=== PATIENT | male | born 1995 | race Caucasian/White ===

== ENCOUNTER → 2017-01-18 | Outpatient (CLI) | payer OTHER ==
[~2017-01-18] MED LIST: LEVO50TA PO; LSN/2025 PO
[2017-01-18 12:59] LABS: CHOLESTEROL/HDL RATIO 4.1; THYROID STIMULATING HORMONE 6.53 uIu/ml (0.300-4.500)
== END | disposition home or self-care (01) ==
LOC: C.LABPBG 07:29
PROVIDERS: ATTEND Physician Assistant
DX: Z00.00 Encounter for general adult medical examination without abnormal findings (principal); E03.9 Hypothyroidism, unspecified

== ENCOUNTER → 2017-03-16 | Outpatient (CLI) | payer OTHER | END | disposition home or self-care (01) | LOC: C.LABPBG 13:28 | PROVIDERS: ATTEND Physician Assistant | DX: E03.9 Hypothyroidism, unspecified (principal) ==

== ENCOUNTER → 2017-08-12 | Outpatient (CLI) | payer OTHER ==
[2017-08-13 08:14] LABS: HEMOGLOBIN A1C 5.2 % (4.5-5.6)
== END | disposition home or self-care (01) ==
LOC: C.LABPBG 14:16
PROVIDERS: ATTEND Physician Assistant
DX: E11.9 Type 2 diabetes mellitus without complications (principal)

== ENCOUNTER 2021-04-01 22:39 | Inpatient (IN) ==
--- NOTE | 2021-04-01 22:56 | Emergency Department Note ---
Impression & Plan 2019 novel coronavirus-infected pneumonia (NCIP), Malaise and fatigue, Respiratory failure ED Provider Note Provider: Leonidas Pa MD DATE OF SERVICE: 04/01/2021 CHIEF COMPLAINT: Fatigue, shortness of breath HISTORY OF PRESENT ILLNESS: Patient is a 25-year-old gentleman past medical history of obesity, GERD, migraines, hypothyroidism, and hypertension presenting here today via ambulance from home. Called by the ambulance due to fatigue. Found to be significant hypoxic in the 60s on room air. Discussed with the patient as he initially did not want to come to the hospital via phone that he needed to come. Patient was agreeable and after lengthy extrication patient arrived in the ER. Was on a nonrebreather in the low 90s on room air. Patient states fatigue and a little bit of shortness of breath. Denies significant pain. States he is not been able to ambulate well. States he is now vaccinated for Covid his mother's been sick and just tonight from Covid. Reports has been sick for ~2 weeks. Denies significant abdominal pain or chest pain. States he did have a mild fall earlier in the shower but denies again head pain at this time. He denies a history of asthma. Is not on anticoagulants. Patient denies a history of asthma REVIEW OF SYSTEMS: A total of 10 review of systems was obtained and negative except as stated above in the HPI. PAST MEDICAL HISTORY: As noted above MEDICATIONS: Reviewed home medications SOCIAL HISTORY: Normally lives at home with mother PHYSICAL EXAM: GENERAL: alert and oriented appears anxious on the stretcher oxygen mask in place Head: normocephalic and atraumatic EYES: No injection, discharge or icterus. NECK: Trachea midline. Supple. ENT: Mucous membranes pink and moist. LUNGS: Airway patent. No retractions but tachypneic. Breath sounds clear HEART: Regular tachycardic rate and rhythm. No chest wall tenderness. ABDOMEN: Soft obese and nontender. With some erythema in the inguinal region. SKIN: Slight peripheral bed cyanosis noted. Warm, dry, with a few small folliculitis areas noted on the back. No large contusions noted. Some slight small areas of erythema noted consistent with grade 1 decubitus ulcerations. EXTREMITIES: Without tenderness or obvious deformity. Given habitus quite large in size. NEUROLOGICAL: No focal deficits moving all extremities to command No aphasia. No facial droop or slurred speech. EK bpm sinus tachycardia. No PVC or PAC. No acute ST segment elevation with some inferior T wave inversions. QTC 470. CONTINUOUS CARDIAC MONITORING: was ordered and showed a heart rate of 100s to 120s bpm in sinus tachycardia 1 view chest x-ray per my interpretation: Diffuse interstitial inflammatory changes without pneumothorax consistent with viral pneumonia Patient's laboratory studies and imaging reviewed. Differential includes Reactive airway disease, pneumonia, pneumothorax, COPD, CHF, infections, cardiac ischemia, pulmonary embolism, musculoskeletal, gastrointestinal, as well as other pathologies. IMPRESSION/MEDICAL DECISION MAKING: Patient unvaccinated significant exposure to Covid now sick and hypoxic. Patient states he did fall today but no significant trauma or use of anticoagulants reported. Requiring significant oxygen supplementation escalated to BiPAP. Mentating well. ABG without acidosis or hypercarbia. Some pickwickian syndrome probably also at play. Lactate minimally elevated. White blood cell count minimally elevated. Some inguinal erythema related to hygiene issues noted. Troponin not elevated. Minimal AST elevation likely viral in nature. Chest x-ray per my interpretation evidence consistent with Covid. Covid test sent. Given dexamethasone for hypoxic Covid treatment. Do not feel he needs intubation at this point but he is severely ill. Hospitalist consulted for admission. They have concern for the infection given his poor inguinal care and will place the patient antibiotics. I doubt this represents Dalia's and do not feel he is septic. ABG without hypercarbia or acidosis. Mentating well at this point. High risk for decline. DIAGNOSIS: Hypoxic respiratory failure, COVID-19 pneumonia, fatigue DISPOSITION: Hospitalist will evaluate Patient was agreeable with this plan. Critical Care I have personally spent 49 minutes of critical care time in the direct management of this patient. This includes bedside care, interpretation of diagnostic studies, and testing, discussion with consultants, patient, and other required patient management activities. These 49 minutes is in excess of all separately billable procedures. Past Med/Surg History Medical History Abscess of back Acne ADD (attention deficit disorder) Anxiety Asthma Dental caries Depression Drug abuse Finger abrasion Frequent headaches GERD (gastroesophageal reflux disease) Hidradenitis suppurativa HTN (hypertension) Hypothyroid Lumbar back pain Lumbar strain Malaise and fatigue Migraine Mood disorder Morbid obesity Tachycardia (07/14/13) Surgical History H/O tympanostomy History of tonsillectomy and adenoidectomy Family History Father Alcohol abuse Drug abuse Mother Anxiety Bilateral nephrolithiasis Heart disease Depression Diabetes Hypertension Gallbladder disease Lung disease Cancer skin Grandfather Myocardial infarction Social History Smoking Status: Never smoker Tobacco Type: Cigarettes Age Started Using Tobacco: 16; Age Quit Using Tobacco: 22; Second Hand Exposure: Yes; Hx Alcohol Use: Yes Alcohol Intake Frequency: Monthly or Less Alcohol Intake Frequency Comment: Rarely Hx Substance Use: Yes Prescribed Medications: Marijuana Preferred Language: German Communication Ability: Effective Visual Impairment: No Limitations Hearing Ability: Normal Beliefs That Will Affect Care: None marital status: Single Current Living Situation: Family current occupational status: unemployed Feels Safe at Home: Yes Childhood Exposure to Second-Hand Smoke: Yes caffeine: Yes (tea occasional) during the past year weight has: remained stable Dental Care, Regularly: No Physical Activity Frequency: 1-2 Times per Week Seatbelt Use: never Sunscreen Use: No Allergies Allergies Allergy/AdvReac Type Severity Reaction Status Date / Time acetaminophen Allergy Intermediate RASH Verified 04/01/21 23:53 bee venom protein (honey bee) Allergy Intermediate Localized Verified 04/01/21 23:53 swelling ibuprofen Allergy Intermediate RASH Verified 04/01/21 23:53 ketorolac Allergy Intermediate RASH Verified 04/01/21 23:53 tramadol Allergy Intermediate RASH Verified 04/01/21 23:53 azithromycin [From Zithromax] Allergy Mild hives, IV Verified 04/01/21 23:53 form only gabapentin Allergy Unknown Unknown Verified 04/01/21 23:53 naproxen Allergy Unknown Unknown Verified 04/01/21 23:53 Home Meds Home Medications Medication Instructions Recorded Confirmed doxycycline hyclate 100 mg capsule 100 mg PO BID 11/17/20 04/01/21 Previous Rx's Medication Instructions Recorded omeprazole 20 mg capsule,delayed 20 mg PO QAM #90 cap 09/05/20 release lisinopril 20 1 tab PO QAM #90 tab 06/07/21 mg-hydrochlorothiazide 25 mg tablet propranolol 20 mg tablet 20 mg PO BID #180 tab 10/13/20 fluticasone propionate 50 2 spray INTRANASAL DAILY #16 g 11/05/20 mcg/actuation nasal spray,suspension sumatriptan succinate 100 mg tablet See Rx Instructions PO .COMPLEX 11/05/20 #10 tab levothyroxine 50 mcg tablet 50 mcg PO QAM #90 tab 11/26/20 folic acid 1 mg tablet 1 mg PO DAILY #30 tab 01/15/21 Results & Data (ED) Vital Signs Vital Signs - 24 hr 04/01/21 22:30 04/01/21 22:42 04/01/21 22:58 Temperature 37.2 C Temperature Source Oral Pulse Rate 119 H 129 H Pulse Rate [Left Apical] Respiratory Rate 40 H 24 Respiratory Effort / Characteristics Spontaneous Labored Non-Labored Spontaneous Respiratory Depth Normal Respiratory Pattern Gasping Tachypnea Regular Blood Pressure [Right Arm] Blood Pressure Mean [Right Arm] Blood Pressure Position Lying Blood Pressure Position [Right Arm] Pulse Oximetry 94 90 Oxygen Delivery Method Non-rebreather BiPAP Oxygen Flow Rate 15 Fraction of Inspired Oxygen 100 Sepsis Recent Fever Within 48 Hours No Sepsis New/Unexplained Change in Mental Status N/A Sepsis Action Taken by Nursing Physician Notified 04/01/21 23:19 04/01/21 23:47 04/02/21 00:04 Temperature Temperature Source Pulse Rate Pulse Rate [Left Apical] 120 H 121 H Respiratory Rate 21 21 Respiratory Effort / Characteristics Non-Labored Spontaneous Non-Labored Spontaneous Respiratory Depth Normal Normal Respiratory Pattern Regular Regular Blood Pressure [Right Arm] 111/75 107/69 Blood Pressure Mean [Right Arm] 87 81 Blood Pressure Position Blood Pressure Position [Right Arm] Lying Lying Pulse Oximetry 90 89 L 87 L Oxygen Delivery Method BiPAP BiPAP BiPAP Oxygen Flow Rate Fraction of Inspired Oxygen Sepsis Recent Fever Within 48 Hours Sepsis New/Unexplained Change in Mental Status Sepsis Action Taken by Nursing 04/02/21 00:17 04/02/21 00:20 04/02/21 00:38 Temperature Temperature Source Pulse Rate 120 H Pulse Rate [Left Apical] 116 H 117 H Respiratory Rate 19 35 H 27 H Respiratory Effort / Characteristics Non-Labored Spontaneous Spontaneous Labored Short of Breath SOB on Exertion Non-Labored Spontaneous Respiratory Depth Normal Shallow Normal Respiratory Pattern Regular Rapid/Shallow Tachypnea Regular Blood Pressure [Right Arm] 114/75 127/69 Blood Pressure Mean [Right Arm] 88 88 Blood Pressure Position Blood Pressure Position [Right Arm] Lying Lying Pulse Oximetry 91 89 L 91 Oxygen Delivery Method BiPAP BiPAP Oxygen Flow Rate Fraction of Inspired Oxygen 100 Sepsis Recent Fever Within 48 Hours Sepsis New/Unexplained Change in Mental Status Sepsis Action Taken by Nursing 04/02/21 00:49 Temperature Temperature Source Pulse Rate Pulse Rate [Left Apical] 117 H Respiratory Rate 20 Respiratory Effort / Characteristics Non-Labored Spontaneous Respiratory Depth Normal Respiratory Pattern Regular Blood Pressure [Right Arm] 118/62 Blood Pressure Mean [Right Arm] 80 Blood Pressure Position Blood Pressure Position [Right Arm] Lying Pulse Oximetry 91 Oxygen Delivery Method BiPAP Oxygen Flow Rate Fraction of Inspired Oxygen Sepsis Recent Fever Within 48 Hours Sepsis New/Unexplained Change in Mental Status Sepsis Action Taken by Nursing Laboratory Data Result diagrams: 04/01/21 23:05 04/01/21 23:05 Lab Results 04/01/21 04/01/21 04/01/21 Range/Units 23:00 23:05 23:05 WBC (4.8-10.8) K/uL RBC (4.7-6.1) M/uL Hgb (14.0-18.0) g/dL POC Hgb (14.0-18.0) g/dl Hct (42-52) % POC Hct (42-52) % MCV (80-100) fL MCH (25-34) pg MCHC (32-36) g/dL RDW Std Deviation (36.4-46.3) fL RDW Coeff of Flor (11.5-14.5) % Plt Count (130-400) K/uL MPV (7.4-10.4) fL Immature Gran % (Auto) % Neut % (Auto) % Lymph % (Auto) % [place] % (Auto) % Eos % (Auto) % Baso % (Auto) % Neut # (Auto) (1.4-6.5) K/uL Lymph # (Auto) (1.2-3.4) K/uL [place] # (Auto) (0.11-0.59) K/uL Eos # (Auto) (0-0.5) K/uL Baso # (Auto) (0-0.2) K/uL Immature Gran # (Auto) (0.00-0.02) K/uL PT (9.0-12.0) Seconds INR (0.9-1.1) APTT (21.0-31.0) Seconds PTT Ratio POC pH (7.35-7.45) POC pCO2 (35-46) mmHg POC pO2 (80-95) mmHg POC HCO3 (19-24) sabas/L POC Total CO2 (24-31) mmol/L POC Base Excess (-9-1.8) sabas/L POC ABG O2 Sat (90-95) % POC Sodium (135-144) mmol/L Sodium (136-145) mmol/L POC Potassium (3.3-5.0) mmol/L Potassium (3.5-5.1) mmol/L Chloride (98-107) mmol/L Carbon Dioxide (21-32) mmol/L Anion Gap (3-11) BUN (7-18) mg/dl Creatinine (0.6-1.4) mg/dl Est Cr Clr Drug Dosing ml/min Est GFR ( Amer) ml/min Est GFR (Non-Af Amer) ml/min BUN/Creatinine Ratio (10-20) Glucose (70-99) mg/dl Lactate 2.6 H* (0.4-2.0) mmol/L Calcium (8.5-10.1) mg/dl Magnesium (1.8-2.4) mg/dl Total Bilirubin (0.2-1) mg/dl AST (15-37) U/L ALT (12-78) U/L Alkaline Phosphatase (45-117) U/L Troponin I (0-0.045) ng/ml Total Protein (6.4-8.2) gm/dl Albumin (3.4-5.0) gm/dl Globulin (2.5-4.0) gm/dl Albumin/Globulin Ratio (0.9-2) Procalcitonin 0.38 (0-0.5) ng/ml SARS-CoV-2 (PCR) POSITIVE A* (Negative) 04/01/21 04/01/21 04/01/21 Range/Units 23:05 23:05 23:05 WBC 11.19 H (4.8-10.8) K/uL RBC 4.75 (4.7-6.1) M/uL Hgb 14.5 (14.0-18.0) g/dL POC Hgb (14.0-18.0) g/dl Hct 44.2 (42-52) % POC Hct (42-52) % MCV 93.1 (80-100) fL MCH 30.5 (25-34) pg MCHC 32.8 (32-36) g/dL RDW Std Deviation 48.7 H (36.4-46.3) fL RDW Coeff of Flor 14.4 (11.5-14.5) % Plt Count 347 (130-400) K/uL MPV 10.1 (7.4-10.4) fL Immature Gran % (Auto) 0.4 % Neut % (Auto) 78.5 % Lymph % (Auto) 6.7 % [place] % (Auto) 13.5 % Eos % (Auto) 0.8 % Baso % (Auto) 0.1 % Neut # (Auto) 8.78 H (1.4-6.5) K/uL Lymph # (Auto) 0.75 L (1.2-3.4) K/uL [place] # (Auto) 1.51 H (0.11-0.59) K/uL Eos # (Auto) 0.09 (0-0.5) K/uL Baso # (Auto) 0.01 (0-0.2) K/uL Immature Gran # (Auto) 0.05 H (0.00-0.02) K/uL PT 11.8 (9.0-12.0) Seconds INR 1.2 H (0.9-1.1) APTT 24.3 (21.0-31.0) Seconds PTT Ratio 0.9 POC pH (7.35-7.45) POC pCO2 (35-46) mmHg POC pO2 (80-95) mmHg POC HCO3 (19-24) sabas/L POC Total CO2 (24-31) mmol/L POC Base Excess (-9-1.8) sabas/L POC ABG O2 Sat (90-95) % POC Sodium (135-144) mmol/L Sodium 136 (136-145) mmol/L POC Potassium (3.3-5.0) mmol/L Potassium 4.2 (3.5-5.1) mmol/L Chloride 103 (98-107) mmol/L Carbon Dioxide 23 (21-32) mmol/L Anion Gap 10.0 (3-11) BUN 56 H (7-18) mg/dl Creatinine 1.15 (0.6-1.4) mg/dl Est Cr Clr Drug Dosing 189.7 ml/min Est GFR ( Amer) 100.5 ml/min Est GFR (Non-Af Amer) 86.7 ml/min BUN/Creatinine Ratio 49.0 H (10-20) Glucose 124 H (70-99) mg/dl Lactate (0.4-2.0) mmol/L Calcium 9.1 (8.5-10.1) mg/dl Magnesium 2.5 H (1.8-2.4) mg/dl Total Bilirubin 1.0 (0.2-1) mg/dl AST 79 H (15-37) U/L ALT 49 (12-78) U/L Alkaline Phosphatase 78 (45-117) U/L Troponin I < 0.015 (0-0.045) ng/ml Total Protein 8.7 H (6.4-8.2) gm/dl Albumin 2.4 L (3.4-5.0) gm/dl Globulin 6.3 H (2.5-4.0) gm/dl Albumin/Globulin Ratio 0.4 L (0.9-2) Procalcitonin (0-0.5) ng/ml SARS-CoV-2 (PCR) (Negative) 04/02/21 Range/Units 00:15 WBC (4.8-10.8) K/uL RBC (4.7-6.1) M/uL Hgb (14.0-18.0) g/dL POC Hgb 15.3 (14.0-18.0) g/dl Hct (42-52) % POC Hct 45 (42-52) % MCV (80-100) fL MCH (25-34) pg MCHC (32-36) g/dL RDW Std Deviation (36.4-46.3) fL RDW Coeff of Flor (11.5-14.5) % Plt Count (130-400) K/uL MPV (7.4-10.4) fL Immature Gran % (Auto) % Neut % (Auto) % Lymph % (Auto) % [place] % (Auto) % Eos % (Auto) % Baso % (Auto) % Neut # (Auto) (1.4-6.5) K/uL Lymph # (Auto) (1.2-3.4) K/uL [place] # (Auto) (0.11-0.59) K/uL Eos # (Auto) (0-0.5) K/uL Baso # (Auto) (0-0.2) K/uL Immature Gran # (Auto) (0.00-0.02) K/uL PT (9.0-12.0) Seconds INR (0.9-1.1) APTT (21.0-31.0) Seconds PTT Ratio POC pH 7.46 H (7.35-7.45) POC pCO2 34 L (35-46) mmHg POC pO2 63 L (80-95) mmHg POC HCO3 24 (19-24) sabas/L POC Total CO2 25 (24-31) mmol/L POC Base Excess 0.0 (-9-1.8) sabas/L POC ABG O2 Sat 93.0 (90-95) % POC Sodium 138 (135-144) mmol/L Sodium (136-145) mmol/L POC Potassium 4.0 (3.3-5.0) mmol/L Potassium (3.5-5.1) mmol/L Chloride (98-107) mmol/L Carbon Dioxide (21-32) mmol/L Anion Gap (3-11) BUN (7-18) mg/dl Creatinine (0.6-1.4) mg/dl Est Cr Clr Drug Dosing ml/min Est GFR ( Amer) ml/min Est GFR (Non-Af Amer) ml/min BUN/Creatinine Ratio (10-20) Glucose (70-99) mg/dl Lactate (0.4-2.0) mmol/L Calcium (8.5-10.1) mg/dl Magnesium (1.8-2.4) mg/dl Total Bilirubin (0.2-1) mg/dl AST (15-37) U/L ALT (12-78) U/L Alkaline Phosphatase (45-117) U/L Troponin I (0-0.045) ng/ml Total Protein (6.4-8.2) gm/dl Albumin (3.4-5.0) gm/dl Globulin (2.5-4.0) gm/dl Albumin/Globulin Ratio (0.9-2) Procalcitonin (0-0.5) ng/ml SARS-CoV-2 (PCR) (Negative) Administered Medications Discontinued Medications Dexamethasone Sodium Phosphate (DexamethasonePf 10 Mg/Ml Vial) 6 mg IV NOW ONE Stop: 04/01/21 22:58 Last Admin: 04/01/21 23:03 Dose: 6 mg Documented by: [id number] Piperacillin Sod/Tazobactam Sod (Zosyn) 4.5 gm in 120 mls @ 240 mls/hr IV NOW ONE Stop: 04/02/21 00:38 Last Admin: 04/02/21 00:55 Dose: 240 mls/hr Documented by: [id number] Discharge Plan Visit Data Chief Complaint: Respiratory Distress Stated Complaint: Illness, SOB ED Provider: Leonidas Pa Discharge Problem: 2019 novel coronavirus-infected pneumonia (NCIP), Malaise and fatigue, Respiratory failure Patient Disposition: Admitted As Inpatient Discharge Problem: Respiratory failure Qualifiers: Chronicity: acute Respiratory failure complication: hypoxia Qualified Code(s): J96.01 - Acute respiratory failure with hypoxia
[2021-04-01] MEDS ORDERED: dexAMETHasone**PF** 10 MG/ML VIAL IV ONE (22:57)
[2021-04-01 23:15] LABS: Basophils # (auto) 0.01 K/uL (0-0.2); Basophils % (auto) 0.1 %; Eosinophils # (auto) 0.09 K/uL (0-0.5); Eosinophils % (auto) 0.8 %; Hematocrit (blood only) 44.2 % (42-52); Hemoglobin 14.5 g/dL (14.0-18.0); Immature Granulocytes # (auto) 0.05 K/uL (0.00-0.02); Immature Granulocytes % (auto) 0.4 %; Lymphocytes # (auto) 0.75 K/uL (1.2-3.4); Lymphocytes % (auto) 6.7 %; Mean Corpuscular Hemoglobin 30.5 pg (25-34); Mean Corpuscular Hgb Conc 32.8 g/dL (32-36); Mean Corpuscular Volume 93.1 fL (80-100); Mean Platelet Volume 10.1 fL (7.4-10.4); Monocytes # (auto) 1.51 K/uL (0.11-0.59); Monocytes % (auto) 13.5 %; Neutrophils # (auto) 8.78 K/uL (1.4-6.5); Neutrophils % (auto) 78.5 %; Platelet Count 347 K/uL (130-400); RDW Coefficient of Variation 14.4 % (11.5-14.5); RDW Standard Deviation 48.7 fL (36.4-46.3); Red Blood Count 4.75 M/uL (4.7-6.1); White Blood Count 11.19 K/uL (4.8-10.8)
[2021-04-01 23:28] LABS: INR 1.2 (0.9-1.1); Partial Thromboplastin Ratio 0.9; Partial Thromboplastin Time 24.3 Seconds (21.0-31.0); Prothrombin Time 11.8 Seconds (9.0-12.0)
[2021-04-01 23:33] LABS: Alanine Aminotransferase 49 U/L (12-78); Albumin Level 2.4 gm/dl (3.4-5.0); Aspartate Aminotransferase 79 U/L (15-37); Blood Urea Nitrogen 56 mg/dl (7-18); Calcium 9.1 mg/dl (8.5-10.1); Carbon Dioxide 23 mmol/L (21-32); Chloride 103 mmol/L (98-107); Creatinine Clr Calc Pharmacy 189.7 ml/min; Est GFR (African American) 100.5 ml/min; Est GFR (Non-African American) 86.7 ml/min; Glucose 124 mg/dl (70-99); Magnesium 2.5 mg/dl (1.8-2.4); Potassium 4.2 mmol/L (3.5-5.1); Sodium 136 mmol/L (136-145)
[2021-04-01 23:38] LABS: Albumin Globulin Ratio 0.4 (0.9-2); Alkaline Phosphatase 78 U/L (45-117); Globulin 6.3 gm/dl (2.5-4.0); Total Protein 8.7 gm/dl (6.4-8.2); Troponin I < 0.015 ng/ml (0-0.045)
[2021-04-02] MEDS ORDERED: PIPERACILLIN/TAZOBACTAM 4.5 GM/120 ML BAG IV ONE (00:09)
[2021-04-02] MEDS ORDERED: PIPERACILL/TAZOBAC CONSULT ACTIVE PRN ×2 (00:09→02:20)
[2021-04-02] MEDS ORDERED: VANCOMYCIN CONSULT ACTIVE PRN ×2 (00:09→02:20)
[2021-04-02] MEDS ORDERED: VANCOMYCIN HCL 2,750 MG in SODIUM CHLORIDE 0.9% 500 ML IV ONE (00:30)
[2021-04-02 00:31] LABS: iSTAT Arterial Blood Gas HCO3 24 meg/L (19-24); iSTAT Arterial Blood Gas pCO2 34 mmHg (35-46); iSTAT Arterial Blood Gas pH 7.46 (7.35-7.45); iSTAT Arterial Blood Gas pO2 63 mmHg (80-95); iSTAT Carbon Dioxide 25 mmol/L (24-31); iSTAT Hematocrit 45 % (42-52); iSTAT Hemoglobin 15.3 g/dl (14.0-18.0); iSTAT Sodium 138 mmol/L (135-144)
--- NOTE | 2021-04-02 00:52 | History & Physical Report ---
Date of Service April 02, 2021 Assessment & Plan (1) Acute respiratory failure due to COVID-19: Plan: Acute respiratory failure due to COVID-19 pneumonia with hypoxia- Admit to monitored bed Continue BiPAP 14/9 at 100% FiO2 Symptoms began about 2 weeks ago Dexamethasone 6 mg IV given in the ED, give additional 4 mg IV, for total of 10 Dexamethasone 6 mg IV every morning Duonebs every 4 hours while awake and every 2 hours when necessary. Guaifenesin extended release 12 mg p.o. every 12 hours Vitamin D 1000 international units p.o. every morning Zinc sulfate turn 20 mg p.o. every morning Consult pulmonology (2) 2019 novel coronavirus-infected pneumonia (NCIP): Plan: See above (3) Acute respiratory failure with hypoxia: Plan: See above (4) GERD (gastroesophageal reflux disease): Plan: Continue omeprazole/pantoprazole (5) Hypothyroid: Plan: Continue levothyroxine (6) HTN (hypertension): Plan: Hold lisinopril/HCTZ due to borderline BP (7) Migraine: Plan: Continue propranolol Imitrex as needed (8) Morbid obesity: Plan: BMI 85.7 History of Present Illness Chief Complaint: Patient was brought to the emergency department via ambulance from home, due to complaint of fatigue and shortness of breath. Primary Care Provider: Shirley Archer DO The patient is a 25-year-old male with a past medical history including hidradenitis suppurativa, frequent headaches, anxiety with depression, ADD, GERD, migraine, asthma, morbid obesity, mood disorder, hypothyroidism, hypertension and drug abuse. He called the ambulance and was brought to the emergency department due to complaint of fatigue and shortness of breath. Patient was found to have a pulse ox in the 60s on room air, and was placed on nonrebreather which improved his saturations to the low 90s. The patient has significant morbid obesity, with BMI 85.7, and required significant amount of effort by staff to be taken from his house into the ambulance and then from the ambulance into the emergency department. In the emergency department he is placed on BiPAP, which is titrated to 14/9 at 100%, and stabilize his respiratory status. Abnormal laboratories: AST 79, albumin 2.4, total protein 8.7, WBC 11.19, platelets 347, glucose 124. Patient was COVID-19 positive. Of note, patient's mother was recently admitted and in [facility] ICU with severe COVID-19 pneumonia earlier in the day today. Chest x-ray was consistent with multifocal pneumonia secondary to COVID-19 Allergies Allergy/AdvReac Type Severity Reaction Status Date / Time acetaminophen Allergy Intermediate RASH Verified 04/01/21 23:53 bee venom protein (honey bee) Allergy Intermediate Localized Verified 04/01/21 23:53 swelling ibuprofen Allergy Intermediate RASH Verified 04/01/21 23:53 ketorolac Allergy Intermediate RASH Verified 04/01/21 23:53 tramadol Allergy Intermediate RASH Verified 04/01/21 23:53 azithromycin [From Zithromax] Allergy Mild hives, IV Verified 04/01/21 23:53 form only gabapentin Allergy Unknown Unknown Verified 04/01/21 23:53 naproxen Allergy Unknown Unknown Verified 04/01/21 23:53 Home Medications Medication Instructions Recorded Confirmed Type omeprazole 20 mg capsule,delayed 20 mg PO QAM #90 cap 09/05/20 04/01/21 Rx release lisinopril 20 1 tab PO QAM #90 tab 10/13/20 04/01/21 Rx mg-hydrochlorothiazide 25 mg tablet propranolol 20 mg tablet 20 mg PO BID #180 tab 10/13/20 04/01/21 Rx fluticasone propionate 50 2 spray INTRANASAL DAILY #16 g 11/05/20 04/01/21 Rx mcg/actuation nasal spray,suspension sumatriptan succinate 100 mg tablet See Rx Instructions PO .COMPLEX 11/05/20 04/01/21 Rx #10 tab doxycycline hyclate 100 mg capsule 100 mg PO BID 11/17/20 04/01/21 History levothyroxine 50 mcg tablet 50 mcg PO QAM #90 tab 11/26/20 04/01/21 Rx folic acid 1 mg tablet 1 mg PO DAILY #30 tab 01/15/21 04/01/21 Rx Past Med/Surg History Medical History Abscess of back Acne ADD (attention deficit disorder) Anxiety Asthma Dental caries Depression Drug abuse Finger abrasion Frequent headaches GERD (gastroesophageal reflux disease) Hidradenitis suppurativa HTN (hypertension) Hypothyroid Lumbar back pain Lumbar strain Malaise and fatigue Migraine Mood disorder Morbid obesity Tachycardia (07/14/13) Surgical History H/O tympanostomy History of tonsillectomy and adenoidectomy Family History Father Alcohol abuse Drug abuse Mother Anxiety Bilateral nephrolithiasis Heart disease Depression Diabetes Hypertension Gallbladder disease Lung disease Cancer skin Grandfather Myocardial infarction Social History Smoking Status: Never smoker Tobacco Type: Cigarettes Age Started Using Tobacco: 16; Age Quit Using Tobacco: 22; Second Hand Exposure: Yes; Hx Alcohol Use: Yes Alcohol Intake Frequency: Monthly or Less Alcohol Intake Frequency Comment: Rarely Hx Substance Use: Yes Prescribed Medications: Marijuana Preferred Language: Maori Communication Ability: Effective Visual Impairment: No Limitations Hearing Ability: Normal Beliefs That Will Affect Care: None marital status: Single Current Living Situation: Family current occupational status: unemployed Feels Safe at Home: Yes Childhood Exposure to Second-Hand Smoke: Yes caffeine: Yes (tea occasional) during the past year weight has: remained stable Dental Care, Regularly: No Physical Activity Frequency: 1-2 Times per Week Seatbelt Use: never Sunscreen Use: No Review of Systems Review of Systems: The patient denies chest pain, palpitations, sore throat, fevers, chills, sweats, vomiting, diarrhea , constipation, abdominal pain, pelvic pain, blood in urine or stool, dysuria, urinary frequency or urgency, memory loss, loss of consciousness, abnormal bruising or bleeding, focal weakness, numbness or tingling in arms or legs, generalized arthralgias or myalgias, back or neck pain, or night sweats. The review of systems is otherwise negative other than for that already noted above, and at least 10 systems have been reviewed. Physical Exam Physical Exam: The patient is awake, alert and oriented 3, lying in bed, breathing comfortably on BiPAP. HEENT--PERRL, EOMI, mucous membranes and oropharynx dry. Neck--supple. No JVD. No bruits. Heart--tachycardic and regular. No murmurs, rubs or gallops. Lungs--decreased breath sounds throughout. Mild respiratory distress, no accessory muscle use. Abdomen--normal bowel sounds and soft. Nontender. Nondistended. Morbidly obese Extremities--no cyanosis or clubbing. No edema. Dermatologic--large area of cellulitis/excoriation in skin folds and groin. Neurologic--cranial nerves II through XII grossly intact. Rheumatologic--very limited examination Psychiatric--normal affect. Results & Data Results & Data ([facility]) Vital Signs (Past 12 Hours) Vital Signs Temp Pulse Pulse Resp BP Pulse Ox 04/02/21 00:49 117 H 20 118/62 91 04/02/21 00:38 117 H 27 H 127/69 91 04/02/21 00:17 116 H 19 114/75 91 04/02/21 00:04 121 H 21 107/69 87 L 04/01/21 23:47 120 H 21 111/75 89 L 04/01/21 23:19 90 04/01/21 22:42 37.2 C 129 H 24 90 04/01/21 22:30 119 H 40 H 94 Laboratory Results Laboratory Results WBC 11.19 K/uL (4.8-10.8) H 04/01/21 23:05 RBC 4.75 M/uL (4.7-6.1) 04/01/21 23:05 Hgb 14.5 g/dL (14.0-18.0) 04/01/21 23:05 POC Hgb 15.3 g/dl (14.0-18.0) 04/02/21 00:15 Hct 44.2 % (42-52) 04/01/21 23:05 POC Hct 45 % (42-52) 04/02/21 00:15 MCV 93.1 fL (80-100) 04/01/21 23:05 MCH 30.5 pg (25-34) 04/01/21 23:05 MCHC 32.8 g/dL (32-36) 04/01/21 23:05 RDW Std Deviation 48.7 fL (36.4-46.3) H 04/01/21 23:05 RDW Coeff of Flor 14.4 % (11.5-14.5) 04/01/21 23:05 Plt Count 347 K/uL (130-400) 04/01/21 23:05 MPV 10.1 fL (7.4-10.4) 04/01/21 23:05 Immature Gran % (Auto) 0.4 % 04/01/21 23:05 Neut % (Auto) 78.5 % 04/01/21 23:05 Lymph % (Auto) 6.7 % 04/01/21 23:05 Garland % (Auto) 13.5 % 04/01/21 23:05 Eos % (Auto) 0.8 % 04/01/21 23:05 Baso % (Auto) 0.1 % 04/01/21 23:05 Neut # (Auto) 8.78 K/uL (1.4-6.5) H 04/01/21 23:05 Lymph # (Auto) 0.75 K/uL (1.2-3.4) L 04/01/21 23:05 Garland # (Auto) 1.51 K/uL (0.11-0.59) H 04/01/21 23:05 Eos # (Auto) 0.09 K/uL (0-0.5) 04/01/21 23:05 Baso # (Auto) 0.01 K/uL (0-0.2) 04/01/21 23:05 Immature Gran # (Auto) 0.05 K/uL (0.00-0.02) H 04/01/21 23:05 PT 11.8 Seconds (9.0-12.0) 04/01/21 23:05 INR 1.2 (0.9-1.1) H 04/01/21 23:05 APTT 24.3 Seconds (21.0-31.0) 04/01/21 23:05 PTT Ratio 0.9 04/01/21 23:05 POC pH 7.46 (7.35-7.45) H 04/02/21 00:15 POC pCO2 34 mmHg (35-46) L 04/02/21 00:15 POC pO2 63 mmHg (80-95) L 04/02/21 00:15 POC HCO3 24 sabas/L (19-24) 04/02/21 00:15 POC Total CO2 25 mmol/L (24-31) 04/02/21 00:15 POC Base Excess 0.0 sabas/L (-9-1.8) 04/02/21 00:15 POC ABG O2 Sat 93.0 % (90-95) 04/02/21 00:15 POC Sodium 138 mmol/L (135-144) 04/02/21 00:15 Sodium 136 mmol/L (136-145) 04/01/21 23:05 POC Potassium 4.0 mmol/L (3.3-5.0) 04/02/21 00:15 Potassium 4.2 mmol/L (3.5-5.1) 04/01/21 23:05 Chloride 103 mmol/L (98-107) 04/01/21 23:05 Carbon Dioxide 23 mmol/L (21-32) 04/01/21 23:05 Anion Gap 10.0 (3-11) 04/01/21 23:05 BUN 56 mg/dl (7-18) H 04/01/21 23:05 Creatinine 1.15 mg/dl (0.6-1.4) 04/01/21 23:05 Est Cr Clr Drug Dosing 189.7 ml/min 04/01/21 23:05 Est GFR ( Amer) 100.5 ml/min 04/01/21 23:05 Est GFR (Non-Af Amer) 86.7 ml/min 04/01/21 23:05 BUN/Creatinine Ratio 49.0 (10-20) H 04/01/21 23:05 Glucose 124 mg/dl (70-99) H 04/01/21 23:05 Lactate 2.0 mmol/L (0.4-2.0) 04/02/21 01:36 Calcium 9.1 mg/dl (8.5-10.1) 04/01/21 23:05 Magnesium 2.5 mg/dl (1.8-2.4) H 04/01/21 23:05 Total Bilirubin 1.0 mg/dl (0.2-1) 04/01/21 23:05 AST 79 U/L (15-37) H 04/01/21 23:05 ALT 49 U/L (12-78) 04/01/21 23:05 Alkaline Phosphatase 78 U/L (45-117) 04/01/21 23:05 Troponin I < 0.015 ng/ml (0-0.045) 04/01/21 23:05 Total Protein 8.7 gm/dl (6.4-8.2) H 04/01/21 23:05 Albumin 2.4 gm/dl (3.4-5.0) L 04/01/21 23:05 Globulin 6.3 gm/dl (2.5-4.0) H 04/01/21 23:05 Albumin/Globulin Ratio 0.4 (0.9-2) L 04/01/21 23:05 Procalcitonin 0.38 ng/ml (0-0.5) 04/01/21 23:05 Urine Color Dark Yellow 04/02/21 02:03 Urine Appearance Clear (Clear) 04/02/21 02:03 Urine pH 6.0 (4.5-7.5) 04/02/21 02:03 Ur Specific Adrian 1.021 (1.000-1.030) 04/02/21 02:03 Urine Protein 3+ (Negative) H 04/02/21 02:03 Urine Glucose (UA) Negative (Negative) 04/02/21 02:03 Urine Ketones Negative (Negative) 04/02/21 02:03 Urine Blood 1+ (Negative) H 04/02/21 02:03 Urine Nitrite Negative (Negative) 04/02/21 02:03 Urine Bilirubin Negative (Negative) 04/02/21 02:03 Urine Urobilinogen Negative (Negative) 04/02/21 02:03 Ur Leukocyte Esterase Trace (Negative) H 04/02/21 02:03 Urine WBC (Auto) 1-5 /hpf (0-5) 04/02/21 02:03 Urine RBC (Auto) 0-4 /hpf (0-4) 04/02/21 02:03 U Hyaline Cast (Auto) 0 /lpf (0-5) 04/02/21 02:03 U Epithel Cells (Auto) 5-10 /lpf (0-5) H 04/02/21 02:03 Urine Bacteria (Auto) Negative (Negative) 04/02/21 02:03 Urine Yeast Not Reportable 04/02/21 02:03 SARS-CoV-2 (PCR) POSITIVE (Negative) A* 04/01/21 23:00 Code Status & VTE Plan Code Status Full code VTE Prophylaxis Plan VTE Prophylaxis will be ordered: Yes PG Care Time/CCT Total # of Minutes Spent Total Time Spent with Patient: Total time spent is greater than 50% in coordination of care (as documented) at patient's floor/unit and/or counseling patient: Coding Level of Care Code 27043 Initial Inpt Care Lvl 3 Diagnoses 2019 novel coronavirus-infected pneumonia (NCIP) U07.1; J12.82 Acute respiratory failure due to COVID-19 U07.1; J96.00 Acute respiratory failure with hypoxia J96.01 GERD (gastroesophageal reflux disease) K21.9 Hypothyroid E03.9 HTN (hypertension) I10 Migraine G43.909 Morbid obesity E66.01
[2021-04-02] MEDS ORDERED: SUMAtriptan succinate 100 MG TAB PO PRN (02:20)
[2021-04-02] MEDS ORDERED: ONDANSETRON INJ 2 MG/ML 2 ML VIAL IV PRN (02:20)
[2021-04-02 02:36] LABS: Appearance Urine Clear (Clear); Bacteria Urine Automated Negative (Negative); Bilirubin Urine Negative (Negative); Blood Urine 1+ (Negative); Color Urine Dark Yellow; Glucose Urine UA Negative (Negative); Ketones Urine Negative (Negative); Leukocyte Esterase Urine Trace (Negative); Nitrite Urine Negative (Negative); Protein Urine 3+ (Negative); RBC Urine Automated 0-4 /hpf (0-4); Specific Gravity Urine 1.021 (1.000-1.030); Urobilinogen Urine Negative (Negative)
[2021-04-02 02:47] LABS: Cast Urine Automated 0 /lpf (0-5)
[2021-04-02] MEDS ORDERED: dexAMETHasone 4 MG in SYRINGE 0 ML IV ONE (05:05)
[2021-04-02] MEDS: PROPRANOLOL HCL 20 MG TAB PO SCH ×3 (05:27→20:47)
[2021-04-02] MEDS: LEVOTHYROXINE SODIUM 50 MCG TABLET PO SCH (05:33)
[2021-04-02] MEDS ORDERED: PIPERACILLIN/TAZOBACTAM 4.5 GM in DEXTROSE 5% 100 ML IV SCH (06:00)
[2021-04-02] MEDS: ALBUT/IPRATROP 3MG/0.5MG NEB 3 ML VIAL NEB SCH ×4 (07:17→20:59)
[2021-04-02] MEDS: FOLIC ACID 1 MG TAB PO SCH (08:55)
[2021-04-02] MEDS: PANTOprazole 40 MG TAB PO SCH (08:55)
[2021-04-02] MEDS ORDERED: FUROSEMIDE INJ 20 MG/2 ML VIAL IV ONE (08:56)
[2021-04-02] MEDS ORDERED: CHOLECALCIFEROL 1,000 UNITS 25 MCG TAB PO SCH (09:00)
[2021-04-02] MEDS ORDERED: ZINC SULFATE 220 MG CAPSULE PO SCH (09:00)
[2021-04-02] MEDS ORDERED: guaiFENesin 600 MG TABCR PO SCH (09:00)
[2021-04-02] MEDS: dexAMETHasone 6 MG in SYRINGE 0 ML IV SCH (09:00)
--- NOTE | 2021-04-02 09:21 | Pulmonary Consultation ---
Date of Consultation April 02, 2021 Assessment & Plan (1) Acute respiratory failure due to COVID-19: (2) Malaise and fatigue: (3) Asthma: (4) Morbid obesity: (5) DVT prophylaxis: Attending: Dr. Garcia Impression: This is a 25-year-old male that is morbidly obese with a BMI of 85.7 kg/m. He began with Covid-like symptoms on 03/21/2021. Since that time he has had progressive shortness of breath. Precipitating event for admission was fatigue with fall. Chest x-ray shows multifocal opacities consistent with viral pneumonia. No evidence of pneumothorax. Patient denies any other symptoms of pulmonary emboli including hemoptysis, pleuritic pain, calf and leg pain, asymmetrical edema. Patient currently requiring BiPAP with FiO2 of 100%. Patient does desire full resuscitation and agrees to mechanical ventilation if needed. Recommendations: 1. SARSCov2/ARDs: * Patient with acute respiratory failure secondary to COVID-19. Pulmonary history includes asthma. * Patient is on Flonase nasal spray at home otherwise no inhalers or nebulizer treatments have been required. * Outpatient primary care provider notes reviewed. No apparent history of pulmonary disease * Morbidly obese with a weight of 248.3 kg and a BMI of 85.7 kg/m * Check CRP. If elevated, consider dose of tocilizumab * Continue with dexamethasone 6 mg IV daily * No role for remdesivir at this time as patient had symptoms since 03/21/2021 * Procalcitonin is negative. Discontinue antibiotics * We will also discontinue cholecalciferol and zinc at this time * Patient is in guarded condition. We will moved to the Covid unit when possible. Patient amenable to endotracheal intubation and mechanical ve ntilation if needed * Trial of high flow oxygen when transferred to Covid unit. * ABGs revealed pH within normal limits and no hypercapnia * Continue to aggressively treat hypoxia 2. GERD: * Patient is critically ill and on IV steroids * We will continue with PPI while inpatient 3. Morbid obesity * This session to be a significant comorbidity with COVID-19 patients. * Encourage self proning of patient once he is transferred to bariatric bed * Out of bed to chair for meals * Aspiration precautions including head of bed greater than 30 degrees at all times. Thank you for including us in the care of this patient. We will continue to follow him closely. High risk for endotracheal intubation and mechanical ventilation. Continue isolation precautions for COVID-[address] Garcia's addendum for further recommendations and corrections. Supervising Physician Co-Signing Physician Notes Patient seen and examined. EMR reviewed. Discussed with bedside nurse as well as with critical care SHAKA. 25-year-old morbidly obese male with Covid pneumonia and hypoxemic respiratory failure. He is currently on high flow. He appears comfortable. He states he was evaluated for sleep disordered breathing at some point in the pas and was told he did not have sleep disordered breathing. I am unclear how much he weighed at that time. Patient reportedly has been vaccinated for Covid. He initially was on BiPAP but has transitioned to high flow oxygen. He is currently comfortable and breathing reasonably well. His CRP is elevated and he does not have exclusion criteria for consideration of Tocilizumab. Discussed with pharmacy and this will be initiated. Recommend continuing dexamethasone at 6mg daily. Unfortunately due to the patient's body habitus he cannot really self prone. He cannot even get into the lateral decubitus position. He may need positive airway pressure intermittently. His overall prognosis is guarded. It is possible he may progress to intubation mechanical ventilation. Given his size, caring for the patient creates some unique obstacles. He would like full aggressive measures undertaken. Would recommend dietary consultation for weight loss while he is in the hospital. Can consider empiric diuretics. He is too large to consider any additional imaging at this point in time. We will see how he does however his prognosis is guarded currently. History of Present Illness Reason for Consultation: Acute respiratory failure secondary to COVID-19 Requesting Physician: Dr. Hough Attending Physician: Gerhard Acuna MD History of Present Illness Attending: Dr. Garcia This is a 25-year-old male. He is morbidly obese with a weight of 546.26 pounds (248.3 kg) at a BMI of 85.7 kg/m. Past medical here history includes frequent headaches, depression, anxiety, attention deficit disorder, GERD, asthma, hypothyroidism, hydradenitis, and cystic acne. Patient began having symptoms of COVID-19 on 03/21/2021. On that day, his mother was admitted to the same hospital for acute respiratory failure for COVID-19. Unfortunately, she last evening in our ICU in room 105 from unsurmountable respiratory distress syndrome secondary to Covid. Patient is aware. Patient states that he progressively has gotten worse over the last 2 or 3 days. He has had shortness of breath and cough since 03/21/2021 but did not present for evaluation as he was taking care of his mother's dog. Over the last 2 days, he began to have diarrhea several times a day with increased shortness of breath. He also reports fever and sweats. Cough with deep inspiration but no sputum production. He denies any hemoptysis. No pleuritic chest pain. No back pain or abdominal pain. He denies any chest pain or tightness. Patient chief complaint was fatigue but he was found to be profoundly hypoxic with an SaO2 in the 60s on room air. Patient is not requiring any ambulatory devices but reports he did have a fall in the shower secondary to weakness. He denies any syncope or presyncope. He had no loss of consciousness. He had no head injury. The patient denies any palpitations or awareness of tachyarrhythmias. He has no prior history of tachyarrhythmias or cardiac disease. The patient has no history of diabetes mellitus. At his last primary care visit 11/25/2020 he was found to have a BSG of 120. Patient did have abscess of his neck and was placed on doxycycline and Keflex over the summer. Otherwise no acute problems over the summer. QTc in November 09 141 ms. QTc this admission is 470 ms. I do not see any history of echocardiogram. I do not see any history of pulmonary function testing to support diagnosis of asthma either. Patient does have a history of tobacco use. He quit smoking when he was 22 years old. He had approximately a 6-pack-year history. Patient uses medically prescribed marijuana. Did discuss CODE STATUS with patient. He desires to be a full resuscitation including mechanical ventilation and cardiac compressions. Allergies Allergy/AdvReac Type Severity Reaction Status Date / Time acetaminophen Allergy Intermediate RASH Verified 04/01/21 23:53 bee venom protein (honey bee) Allergy Intermediate Localized Verified 04/01/21 23:53 swelling ibuprofen Allergy Intermediate RASH Verified 04/01/21 23:53 ketorolac Allergy Intermediate RASH Verified 04/01/21 23:53 tramadol Allergy Intermediate RASH Verified 04/01/21 23:53 azithromycin [From Zithromax] Allergy Mild hives, IV Verified 04/01/21 23:53 form only gabapentin Allergy Unknown Unknown Verified 04/01/21 23:53 naproxen Allergy Unknown Unknown Verified 04/01/21 23:53 Home Medications Medication Instructions Recorded Confirmed Type omeprazole 20 mg capsule,delayed 20 mg PO QAM #90 cap 09/05/20 04/01/21 Rx release lisinopril 20 1 tab PO QAM #90 tab 10/13/20 04/01/21 Rx mg-hydrochlorothiazide 25 mg tablet propranolol 20 mg tablet 20 mg PO BID #180 tab 10/13/20 04/01/21 Rx fluticasone propionate 50 2 spray INTRANASAL DAILY #16 g 11/05/20 04/01/21 Rx mcg/actuation nasal spray,suspension sumatriptan succinate 100 mg tablet See Rx Instructions PO .COMPLEX 11/05/20 Rx #10 tab doxycycline hyclate 100 mg capsule 100 mg PO BID 11/17/20 04/01/21 History levothyroxine 50 mcg tablet 50 mcg PO QAM #90 tab 11/26/20 04/01/21 Rx folic acid 1 mg tablet 1 mg PO DAILY #30 tab 01/15/21 04/01/21 Rx Patient History Medical History Abscess of back Acne ADD (attention deficit disorder) Anxiety Asthma Dental caries Depression Drug abuse Finger abrasion Frequent headaches GERD (gastroesophageal reflux disease) Hidradenitis suppurativa HTN (hypertension) Hypothyroid Lumbar back pain Lumbar strain Malaise and fatigue Migraine Mood disorder Morbid obesity Tachycardia (07/14/13) Surgical History H/O tympanostomy History of tonsillectomy and adenoidectomy Family History Father Alcohol abuse Drug abuse Mother Anxiety Bilateral nephrolithiasis Heart disease Depression Diabetes Hypertension Gallbladder disease Lung disease Cancer skin Grandfather Myocardial infarction Social History Smoking Status: Unknown if ever smoked Tobacco Type: Cigarettes Age Started Using Tobacco: 16; Age Quit Using Tobacco: 22; Second Hand Exposure: Yes; Hx Alcohol Use: Yes Alcohol Intake Frequency: Monthly or Less Alcohol Intake Frequency Comment: Rarely Hx Substance Use: Yes Prescribed Medications: Marijuana Last Used Substance: Days (ago) Last Used Substance Other:: months ago Preferred Language: Welsh Communication Ability: Effective Visual Impairment: No Limitations Hearing Ability: Normal Warp Knit Operator Required: No Beliefs That Will Affect Care: None marital status: Single Current Living Situation: Alone current occupational status: unemployed Feels Safe at Home: Yes Safety Concerns: Feels Safe At This Time Childhood Exposure to Second-Hand Smoke: Yes caffeine: Yes (tea occasional) during the past year weight has: remained stable Dental Care, Regularly: No Physical Activity Frequency: 1-2 Times per Week Seatbelt Use: never Sunscreen Use: No Assistive Devices: Glasses Review of Systems Review of Systems: All systems reviewed & are unremarkable except as noted in Subjective Physical Exam Physical Exam: GENERAL : No acute distress. Patient currently on BiPAP 14/9 FiO2 100% plain tidal volumes of 1200. EYES: No icterus, gaze conjugate. Pupils equal round and reactive to light NOSE: No evidence of epistaxis. MOUTH: No lesions or candidiasis. BiPAP mask in place. Mucosa appears to be moist NECK: Supple. Unable to appreciate JVD LUNGS: Diminished breath sounds throughout. Rales at the bases. No appreciation of overt bronchospasm. HEART: Regular, rate controlled in the 80s ABDOMEN: Soft, NT, ND, BS Present. Protuberant. Bowel sounds in the chest. No rebound tenderness or guarding. EXTREMITIES: No LE edema, pedal pulses intact and equal bilaterally NEURO: A&OX3. Unable to do full neurological exam as patient is on Covid precautions and currently limited in mobility due to size and small bed. Awaiting transfer to bariatric bed. Patient speaks in full sentences. Moves all extremities at will. Follows commands. Toes are downgoing bilaterally. Pupils equal round and reactive to light. No appreciation of slurred speech. Results & Data Results & Data ([facility]) Vital Signs (Past 12 Hours) Vital Signs Temp Pulse Pulse Pulse Resp BP Pulse Ox 04/02/21 08:45 83 83 123/59 L 96 04/02/21 07:18 83 83 38 H 95 04/02/21 06:23 88 18 102/69 98 04/02/21 05:50 87 30 H 114/72 91 04/02/21 05:42 90 18 114/71 98 04/02/21 05:27 95 H 30 H 114/72 94 04/02/21 03:00 115 H 34 H 93 04/02/21 02:56 115 H 22 108/70 93 04/02/21 02:25 116 H 24 110/72 91 04/02/21 01:07 120 H 22 121/68 90 04/02/21 00:49 117 H 20 118/62 91 04/02/21 00:38 117 H 27 H 127/69 91 04/02/21 00:20 120 H 35 H 89 L 04/02/21 00:17 116 H 19 114/75 91 04/02/21 00:04 121 H 21 107/69 87 L 04/01/21 23:47 120 H 21 111/75 89 L 04/01/21 23:19 90 04/01/21 22:42 37.2 C 129 H 24 90 04/01/21 22:30 119 H 40 H 94 Laboratory Results 04/01/21 23:05 04/01/21 23:05 04/02/21 00:15 POC pCO2 34 L POC pO2 63 L COVID-19 Results 04/01/21 23:00 SARS-CoV-2 (PCR) POSITIVE A* Diagnostic Findings Chest x-ray obtained 04/01/2021 at 2242. At this time no impression or result is posted. Chest x-ray personally reviewed. No evidence of pneumothorax. No midline shift. Patient does appear to have multifocal opacities consistent with viral pneumonia supporting positive diagnosis of COVID-19/ARDs. Will await formal interpretation by radiology. PG Care Time/CCT Total # of Minutes Spent Total Time Spent with Patient: Total time spent is greater than 50% in coordination of care (as documented) at patient's floor/unit and/or counseling patient: 60 minutes including 2 visits in patient room in the ER in room C5 Coding Level of Care Code Critical Care 1st 30-74 mins Diagnoses Acute respiratory failure due to COVID-19 U07.1; J96.00 Malaise and fatigue R53.81; R53.83 Asthma J45.909 Morbid obesity E66.01 DVT prophylaxis Z29.9 Time Spent (min) 60
[2021-04-02 09:38] LABS: BUN Creatinine Ratio 44.8 (10-20); C Reactive Protein 14.9 mg/dl (0-0.29); Calcium 8.8 mg/dl (8.5-10.1); Creatinine Clr Calc Pharmacy 198.3 ml/min; Est GFR (African American) 106.1 ml/min; Est GFR (Non-African American) 91.5 ml/min; Potassium 4.4 mmol/L (3.5-5.1)
[2021-04-02] MEDS ORDERED: VANCOMYCIN HCL 1,500 MG in SODIUM CHLORIDE 0.9% 500 ML IV SCH (10:00)
--- NOTE | 2021-04-02 10:59 | XRay Report ---
XR chest 1V portable HISTORY: Dyspnea COMPARISON: Chest 11/17/2020. FINDINGS: There are low lung volumes. The cardiac silhouette remains mildly enlarged. No pneumothorax . No pleural effusions. There are near diffuse patchy bilateral airspace opacities, right greater diogo n left. IMPRESSION: Extensive bilateral airspace opacities, right greater than left. This favors a multifocal pneumonia a nd is likely secondary to a viral process. Superimposed pulmonary edema could also have a similar schuyler earance. ACT 112: Negative or not required by law. Electronically signed by: Rui Colunga M.D. 04/02/2021 10:58 AM
--- NOTE | 2021-04-02 12:27 | Electrocardiogram Report ---
Test Reason : Blood Pressure : / mmHG Vent. Rate : 122 BPM Atrial Rate : 122 BPM P-R Int : 134 ms QRS Dur : 092 ms QT Int : 330 ms P-R-T Axes : 051 062 001 degrees QTc Int : 470 ms Poor data quality, interpretation may be adversely affected Sinus tachycardia T wave abnormality, consider inferior ischemia Abnormal ECG When compared with ECG of 17-NOV-2020 09:44, Vent. rate has increased BY 44 BPM Confirmed by Liu Garcia ([id number]) on 04/02/2021 12:27:35 PM Referred By: REFERRED SELF Confirmed By:John Garcia
--- NOTE | 2021-04-02 12:53 | Hospitalist Progress Note ---
Date of Service April 02, 2021 Assessment & Plan (1) Acute respiratory failure due to COVID-19: Plan: ~ day of illness >14 days. Patient states he felt the worse about 4 days ago. He came to the EMD yesterday via EMS for difficulty breathing and ambulating - Patient is too far out in his illness for Remdesivir - Decadron 6mg IV daily- will remain at this dose as Tocilizumab is added on today - CRP 14- Pulmonary consulted- will add Toczi. Appreciate assistance - Requiring high oxygen supplementation between BiPAP and HFNC - Patient has high mortality and high likely perez of continued respiratory failure requiring intubation - Procalcitonin negative - Zosyn discontinued (2) Hypoxia: Plan: Hypoxia with respiratory failure seconadary to COVID pneumonia and Morbid obesity - support with HFNC/BiPAP/INTUBATION - Will hopefully be able to stave off intubation (3) Malaise and fatigue: Plan: Secondary to COVID (4) Asthma: Plan: Continue schedlueed nebulizers - continue decadron for COVID (5) Morbid obesity: Plan: No acute needs- but placing patient at high rate of mortality at this time (6) DVT prophylaxis: Plan: With his morbid obesity will place him on Lovenox 75mg SQ BID - this will be quarter dose of his actual body weight (7) Left knee pain: Plan: Hurt while falling in the shower 4 days ago- no echymosis or hematoma, and he has full flexion and extension. he also reports he was walking on it up until 2 days ago - no immediate need for evaluation at this time - will follow clinically Admission and Anticipated Discharge Date Admission Date: April 02, 2021 Review of Systems Review of Systems: REVIEW OF SYSTEMS: Constitutional: No fever, sweats or chills Eyes: No diplopia, no worsening or blurred vision ENT: normal hearing, no trouble swallowing Respiratory: (+) cough, sputum, dyspnea, exertion Cardiovascular: No chest pain, tightness or palpitations Abdomen: No pain, nausea, vomiting, diarrhea or constipation Musculoskeletal: (+) left joint pain, NO calf pain, swelling Neurologic: No weakness, numbness/tingling, or balance problems Psychiatric: No anxiety or depression Skin: No rash or itch Physical Exam Physical Exam: PHYSICAL EXAM: General: awake, alert, no apparent distress Head: Normocephalic, atraumatic ENT: PERRL, EOMI, no pharyngeal exudate, mucous membranes dry Neuro: AAO x 3, speech clear and appropriate, strength intact bilaterally 5/5, sensation intact and equal all extremities and dermatomes, no pronator drift Chest: equal rise and fall of the chest, tachypnea, no heaves or thrills, unable to auscultate lungs secondary to morbid obesity and disposable stethoscope other than upper lobe anteriorly. Cardiac: Regular rate and rhythm, telemetry reviewed, Heart sounds distant secondary to obesity, skin warm dry, cap refill <3 seconds, peripheral pulses +2 no JVD, no edema GI: NABS x 4 quadrants, soft, nontender to palpation, no rebound, guarding or tenderness : Shin inserted Extremities: Normal inspection, no peripheral edema or erythema, calfs nontender to palpation Psych: Normal mood and affect Skin: excoriated abdominal folds between pannus and groins Results & Data Results & Data ([facility]) Vital Signs (Past 12 Hours) Vital Signs Temp Pulse Pulse Pulse Resp BP Pulse Ox 04/02/21 12:31 36.7 C 86 26 H 106/67 90 04/02/21 11:31 84 26 H 94 04/02/21 11:08 37.1 C 85 40 H 121/59 L 94 04/02/21 08:45 83 83 123/59 L 96 04/02/21 07:18 83 83 38 H 95 04/02/21 06:23 88 18 102/69 98 04/02/21 05:50 87 30 H 114/72 91 04/02/21 05:42 90 18 114/71 98 04/02/21 05:27 95 H 30 H 114/72 94 04/02/21 03:00 115 H 34 H 93 04/02/21 02:56 115 H 22 108/70 93 04/02/21 02:25 116 H 24 110/72 91 04/02/21 01:07 120 H 22 121/68 90 Laboratory Results Abnormal lab results 04/01/21 04/01/21 04/01/21 Range/Units 23:00 23:05 23:05 WBC 11.19 H (4.8-10.8) K/uL RDW Std Deviation 48.7 H (36.4-46.3) fL Neut # (Auto) 8.78 H (1.4-6.5) K/uL Lymph # (Auto) 0.75 L (1.2-3.4) K/uL Independence # (Auto) 1.51 H (0.11-0.59) K/uL Immature Gran # (Auto) 0.05 H (0.00-0.02) K/uL INR (0.9-1.1) POC pH (7.35-7.45) POC pCO2 (35-46) mmHg POC pO2 (80-95) mmHg BUN (7-18) mg/dl BUN/Creatinine Ratio (10-20) Glucose (70-99) mg/dl Lactate 2.6 H* (0.4-2.0) mmol/L Magnesium (1.8-2.4) mg/dl AST (15-37) U/L C-Reactive Protein (0-0.29) mg/dl Total Protein (6.4-8.2) gm/dl Albumin (3.4-5.0) gm/dl Globulin (2.5-4.0) gm/dl Albumin/Globulin Ratio (0.9-2) Urine Protein (Negative) Urine Blood (Negative) Ur Leukocyte Esterase (Negative) U Epithel Cells (Auto) (0-5) /lpf SARS-CoV-2 (PCR) POSITIVE A* (Negative) 04/01/21 04/01/21 04/02/21 Range/Units 23:05 23:05 00:15 WBC (4.8-10.8) K/uL RDW Std Deviation (36.4-46.3) fL Neut # (Auto) (1.4-6.5) K/uL Lymph # (Auto) (1.2-3.4) K/uL Independence # (Auto) (0.11-0.59) K/uL Immature Gran # (Auto) (0.00-0.02) K/uL INR 1.2 H (0.9-1.1) POC pH 7.46 H (7.35-7.45) POC pCO2 34 L (35-46) mmHg POC pO2 63 L (80-95) mmHg BUN 56 H (7-18) mg/dl BUN/Creatinine Ratio 49.0 H (10-20) Glucose 124 H (70-99) mg/dl Lactate (0.4-2.0) mmol/L Magnesium 2.5 H (1.8-2.4) mg/dl AST 79 H (15-37) U/L C-Reactive Protein (0-0.29) mg/dl Total Protein 8.7 H (6.4-8.2) gm/dl Albumin 2.4 L (3.4-5.0) gm/dl Globulin 6.3 H (2.5-4.0) gm/dl Albumin/Globulin Ratio 0.4 L (0.9-2) Urine Protein (Negative) Urine Blood (Negative) Ur Leukocyte Esterase (Negative) U Epithel Cells (Auto) (0-5) /lpf SARS-CoV-2 (PCR) (Negative) 04/02/21 04/02/21 Range/Units 02:03 08:51 WBC (4.8-10.8) K/uL RDW Std Deviation (36.4-46.3) fL Neut # (Auto) (1.4-6.5) K/uL Lymph # (Auto) (1.2-3.4) K/uL Independence # (Auto) (0.11-0.59) K/uL Immature Gran # (Auto) (0.00-0.02) K/uL INR (0.9-1.1) POC pH (7.35-7.45) POC pCO2 (35-46) mmHg POC pO2 (80-95) mmHg BUN 49 H (7-18) mg/dl BUN/Creatinine Ratio 44.8 H (10-20) Glucose 154 H (70-99) mg/dl Lactate (0.4-2.0) mmol/L Magnesium (1.8-2.4) mg/dl AST (15-37) U/L C-Reactive Protein 14.90 H (0-0.29) mg/dl Total Protein (6.4-8.2) gm/dl Albumin (3.4-5.0) gm/dl Globulin (2.5-4.0) gm/dl Albumin/Globulin Ratio (0.9-2) Urine Protein 3+ H (Negative) Urine Blood 1+ H (Negative) Ur Leukocyte Esterase Trace H (Negative) U Epithel Cells (Auto) 5-10 H (0-5) /lpf SARS-CoV-2 (PCR) (Negative) Medications Administered Albuterol (Albut/Ipratrop 3mg/0.5mg Neb 3 Ml Vial) 3 ml NEB QIDR THAI Stop: 05/02/21 06:59 Last Admin: 04/02/21 07:17 Dose: 3 ml Documented by: [id number] Folic Acid (Folic Acid 1 Mg Tab) 1 mg PO DAILY THAI Stop: 05/02/21 08:59 Last Admin: 04/02/21 08:55 Dose: 1 mg Documented by: [id number] Dexamethasone 6 mg/ Syringe 1.5 mls @ 1 mls/min IV Q24H THAI Stop: 05/02/21 08:59 Last Admin: 04/02/21 09:00 Dose: 1 mls/min Documented by: [id number] Levothyroxine Sodium (Levothyroxine Sodium 50 Mcg Tablet) 50 mcg PO DAILYBB THAI Stop: 05/02/21 06:29 Last Admin: 04/02/21 05:33 Dose: 50 mcg Documented by: [id number] Pantoprazole Sodium (Pantoprazole 40 Mg Tab) 40 mg PO QAM THAI Stop: 05/02/21 08:59 Last Admin: 04/02/21 08:55 Dose: 40 mg Documented by: [id number] Propranolol HCl (Propranolol Hcl 20 Mg Tab) 20 mg PO BID THAI Stop: 05/02/21 02:19 Last Admin: 04/02/21 08:55 Dose: 20 mg Documented by: [id number] Admin: 04/02/21 05:27 Dose: 20 mg Documented by: [id number] Discontinued Medications Dexamethasone Sodium Phosphate (DexamethasonePf 10 Mg/Ml Vial) 6 mg IV NOW ONE Stop: 04/01/21 22:58 Last Admin: 04/01/21 23:03 Dose: 6 mg Documented by: [id number] Furosemide (Furosemide Inj 20 Mg/2 Ml Vial) 20 mg IV ONE ONE Stop: 04/02/21 08:57 Last Admin: 04/02/21 11:31 Dose: 20 mg Documented by: [id number] Vancomycin HCl 2,750 mg/ (Sodium Chloride) 555 mls @ 200 mls/hr IV NOW ONE Stop: 04/02/21 03:16 Last Infusion: 04/02/21 06:01 Dose: 0 mls/hr Documented by: [id number] Admin: 04/02/21 02:10 Dose: 200 mls/hr Documented by: [id number] Piperacillin Sod/Tazobactam Sod (Zosyn) 4.5 gm in 120 mls @ 240 mls/hr IV NOW ONE Stop: 04/02/21 00:38 Last Infusion: 04/02/21 02:36 Dose: 0 mls/hr Documented by: [id number] Admin: 04/02/21 00:55 Dose: 240 mls/hr Documented by: [id number] Piperacillin Sod/Tazobactam (Sod 4.5 gm/ Dextrose) 120 mls @ 30 mls/hr IV Q8H [facility]; Protocol Stop: 04/09/21 05:59 Last Infusion: 04/02/21 09:49 Dose: 0 mls/hr Documented by: [id number] Admin: 04/02/21 05:33 Dose: 30 mls/hr Documented by: [id number] Dexamethasone 4 mg/ Syringe 1 mls @ 1 mls/min IV ONE ONE Stop: 04/02/21 05:06 Last Admin: 04/02/21 05:33 Dose: 1 mls/min Documented by: [id number] PG Care Time/CCT Total # of Minutes Spent Total Time Spent with Patient: Total time spent is greater than 50% in coordination of care (as documented) at patient's floor/unit and/or counseling patient: Coding Level of Care Code 85465 Subseq Hosp Care Lvl 3 Diagnoses Acute respiratory failure due to COVID-19 U07.1; J96.00 Malaise and fatigue R53.81; R53.83 Asthma J45.909 Morbid obesity E66.01 DVT prophylaxis Z29.9 Hypoxia R09.02 Left knee pain M25.562
[2021-04-02] MEDS ORDERED: TOCILIZUMAB 800 MG in 0.9 % SODIUM CHLORIDE 60 ML IV ONE (13:00)
[2021-04-02] MEDS: ENOXAPARIN 80 MG/0.8 ML SYR SQ SCH (14:48)
[2021-04-02] MEDS: CLOTRIMAZOLE 1% CR 15 GM TUBE EXT SCH (20:46)
[2021-04-03] MEDS: ENOXAPARIN 80 MG/0.8 ML SYR SQ SCH ×2 (00:08→15:08)
[2021-04-03] MEDS: LEVOTHYROXINE SODIUM 50 MCG TABLET PO SCH (05:46)
--- NOTE | 2021-04-03 08:05 | Hospitalist Progress Note ---
Date of Service April 03, 2021 Assessment & Plan (1) Acute respiratory failure due to COVID-19: Plan: ~ day of illness >14 days. First SX 03/21/21, fell at home and fatigue prompted call to EMS - Timing does not qualify for Remdesivir - Decadron 6mg IV daily- Tocilizumab given 04/01/21 - unvaccinated - - Requiring high oxygen supplementation between BiPAP and HFNC-concern for rapid progression to ventilation which he has high risk of complication due to super morbid obesity - Patient has high mortality and high likely perez of continued respiratory failure requiring intubation - Procalcitonin negative - Zosyn discontinued (2) Hypoxia: Plan: Hypoxia with respiratory failure seconadary to COVID pneumonia and Morbid obesity - support with HFNC/BiPAP, likely to progress to INTUBATION - (3) Malaise and fatigue: Plan: Secondary to COVID (4) Asthma: Plan: Continue scheduled nebulizers - continue Decadron for COVID (5) Morbid obesity: Plan: No acute needs- but placing patient at high rate of mortality at this time (6) DVT prophylaxis: Plan: With his morbid obesity will place him on Lovenox 75mg SQ BID - (7) Left knee pain: Plan: Hurt while falling in the shower 4 days ago- no echymosis or hematoma, and he has full flexion and extension. Has not been imaged on presentation may consider imaging in the future if continues to be persistent problem Admission and Anticipated Discharge Date Admission Date: April 02, 2021 Subjective pt seems emotionally withdrawn, maybe due to of mother a few days ago, at [facility] from covid. Seems very short of breath Review of Systems Review of Systems: moderate distress and fatigue no headache, no visual changes no speech or swallowing issues no chest pain, pressure or palpitations significant shortness of breath, non productive cough no abdominal pain, nausea or vomiting, diarrhea or constipation no dysuria, hematuria or frequency no focal joint pain or swelling no back pain, CVA tenderness or radicular pain no bruising, bleeding or rashes no focal signs of weakness or numbness or altered sensation no complaints of anxiety or depression.. Physical Exam Physical Exam: The patient appeared super morbid with a BMI of 89.8 Vital signs as documented. Head exam is normocephalic atraumatic Lungs are diminished and distant Cardiac exam, Rhythm is regular.. No murmurs, rubs or gallops. Abdominal exam reveals normal bowel sounds, soft Extremities are nonedematous capillary refill is present Neurologic exam is alert and oriented, no focal loss of strength or sensation Skin is without bruises or rashes Psychologically is with concerns for depression.. Results & Data Results & Data ([facility]) Vital Signs (Past 12 Hours) Vital Signs Temp Pulse Pulse Resp BP Pulse Ox 04/03/21 07:54 98.6 F 80 22 91/53 L 91 04/03/21 04:30 70 28 H 98 04/03/21 04:02 98.4 F 80 18 122/76 94 04/03/21 01:42 83 04/03/21 00:24 99.0 F 81 22 115/60 93 04/02/21 22:20 74 34 H 93 04/02/21 20:59 84 26 H 93 PG Care Time/CCT Total # of Minutes Spent Total Time Spent with Patient: Total time spent is greater than 50% in coordination of care (as documented) at patient's floor/unit and/or counseling patient: Coding Level of Care Code 18508 Subseq Hosp Care Lvl 3 Diagnoses Acute respiratory failure due to COVID-19 U07.1; J96.00 Hypoxia R09.02 Malaise and fatigue R53.81; R53.83 Asthma J45.909 Morbid obesity E66.01 DVT prophylaxis Z29.9 Left knee pain M25.562
[2021-04-03] MEDS: ALBUT/IPRATROP 3MG/0.5MG NEB 3 ML VIAL NEB SCH ×4 (08:18→20:13)
[2021-04-03 08:22] LABS: Basophils # (auto) 0.01 K/uL (0-0.2); Basophils % (auto) 0.1 %; Hematocrit (blood only) 40.3 % (42-52); Hemoglobin 12.7 g/dL (14.0-18.0); Immature Granulocytes # (auto) 0.06 K/uL (0.00-0.02); Immature Granulocytes % (auto) 0.7 %; Lymphocytes # (auto) 1.01 K/uL (1.2-3.4); Lymphocytes % (auto) 11.5 %; Mean Corpuscular Hemoglobin 29.7 pg (25-34); Mean Corpuscular Hgb Conc 31.5 g/dL (32-36); Mean Corpuscular Volume 94.2 fL (80-100); Mean Platelet Volume 10.3 fL (7.4-10.4); Monocytes # (auto) 0.65 K/uL (0.11-0.59); Monocytes % (auto) 7.4 %; Neutrophils # (auto) 7.09 K/uL (1.4-6.5); Neutrophils % (auto) 80.3 %; Platelet Count 295 K/uL (130-400); RDW Coefficient of Variation 14.3 % (11.5-14.5); Red Blood Count 4.28 M/uL (4.7-6.1); White Blood Count 8.82 K/uL (4.8-10.8)
[2021-04-03 09:12] LABS: Albumin Globulin Ratio 0.4 (0.9-2); BUN Creatinine Ratio 47.3 (10-20); Calcium 8.9 mg/dl (8.5-10.1); Creatinine Clr Calc Pharmacy 232.4 ml/min; Est GFR (African American) 123.5 ml/min; Est GFR (Non-African American) 106.6 ml/min; Globulin 5.3 gm/dl (2.5-4.0); Magnesium 2.6 mg/dl (1.8-2.4); Potassium 4.4 mmol/L (3.5-5.1); Total Protein 7.3 gm/dl (6.4-8.2)
[2021-04-03] MEDS: dexAMETHasone 6 MG in SYRINGE 0 ML IV SCH (09:13)
[2021-04-03] MEDS: CLOTRIMAZOLE 1% CR 15 GM TUBE EXT SCH ×2 (09:13→21:15)
[2021-04-03] MEDS: PANTOprazole 40 MG TAB PO SCH (09:14)
[2021-04-03] MEDS: FOLIC ACID 1 MG TAB PO SCH (09:14)
[2021-04-03] MEDS: PROPRANOLOL HCL 20 MG TAB PO SCH ×2 (09:14→20:53)
--- NOTE | 2021-04-03 10:54 | Pulmonology Progress Note ---
Date of Service April 03, 2021 Assessment & Plan (1) Acute respiratory failure due to COVID-19: (2) Malaise and fatigue: (3) Asthma: (4) Morbid obesity: (5) DVT prophylaxis: Plan: Impression: This is a 25-year-old male that is morbidly obese with a B TN of 85.7 kg/m. He has Covid pneumonia with ARDS physiology and diffuse pulmonary infiltrates and is failing high flow and is now transitioned to bilevel. He is comfortable on bilevel but is at risk for intubation mechanical ventilation. He has not been out of bed in over 2 weeks at home. Recommendations: 1. SARSCov2/ARDs: Continue dexamethasone 6 mg daily. Diuresis as tolerated. The patient's body habitus precludes proning. He is not a candidate for any advanced therapy such as ECMO given his body habitus. Could consider inhaled prostacyclin however we will see how he does with BiPAP currently. He is comfortable and states his work of breathing is quite minimal currently. 2. Morbid obesity. This does complicate care for the patient as diagnostic studies are limited and physical exam is unreliable. 3. Management of the patient's other medical issues per primary service. The patient has a high probability of clinical decline necessitating intubation mechanical ventilation. I think his airway would be difficult and if intubation is to be in attempted, anesthesia should performed or at least to be aware of the patient. If he progresses to intubation, his prognosis is somewhat guarded. Discussed with hospitalist and with bedside nurse. Admission and Anticipated Discharge Date Admission Date: April 02, 2021 Subjective Patient seen and examined. EMR reviewed. Discussed with bedside nurse. Patient is transition from high-level to BiPAP overnight. He is more comfortable on BiPAP. He states he is breathing well. He denies any increased work of breathing. Review of Systems Review of Systems: All systems reviewed & are unremarkable except as noted in Subjective Physical Exam Physical Exam: Exam limited due to massive morbid obesity. Patient appears awake alert and conversant. He is comfortable on full face BiPAP. Respiratory: normal respiratory effort; no respiratory distress and no labored breathing Unable to auscultate much in the way of breath sounds due to the patient's body habitus Cardiovascular: Distant S1-S2. Cannot appreciate murmurs Gastrointestinal (Abdomen): Morbidly obese Skin: Multiple areas of skin disrepair and fungal skin inflammation/infection Results & Data Results & Data ([facility]) Vital Signs (Past 12 Hours) Vital Signs Temp Pulse Pulse Resp BP Pulse Ox 04/03/21 08:18 68 22 91 04/03/21 07:54 37.0 C 80 22 91/53 L 91 04/03/21 04:30 70 28 H 98 04/03/21 04:02 36.9 C 80 18 122/76 94 04/03/21 01:42 83 04/03/21 00:24 37.2 C 81 22 115/60 93 Laboratory Results 04/03/21 07:26 04/03/21 07:26 Diagnostic Findings No new imaging PG Care Time/CCT Total # of Minutes Spent Total Time Spent with Patient: Total time spent is greater than 50% in coordination of care (as documented) at patient's floor/unit and/or counseling patient: Coding Level of Care Code 49959 Subseq Hosp Care Lvl 3 Diagnoses Acute respiratory failure due to COVID-19 U07.1; J96.00 Malaise and fatigue R53.81; R53.83 Asthma J45.909 Morbid obesity E66.01 DVT prophylaxis Z29.9
[2021-04-04] MEDS: ENOXAPARIN 80 MG/0.8 ML SYR SQ SCH ×2 (01:55→13:31)
[2021-04-04] MEDS: LEVOTHYROXINE SODIUM 50 MCG TABLET PO SCH (05:35)
[2021-04-04] MEDS: ALBUT/IPRATROP 3MG/0.5MG NEB 3 ML VIAL NEB SCH ×2 (05:55→14:28)
[2021-04-04 08:40] LABS: Basophils # (auto) 0.01 K/uL (0-0.2); Basophils % (auto) 0.1 %; Hematocrit (blood only) 43.1 % (42-52); Hemoglobin 13.5 g/dL (14.0-18.0); Immature Granulocytes # (auto) 0.11 K/uL (0.00-0.02); Immature Granulocytes % (auto) 1.3 %; Lymphocytes # (auto) 0.68 K/uL (1.2-3.4); Lymphocytes % (auto) 8.3 %; Mean Corpuscular Hemoglobin 29.7 pg (25-34); Mean Corpuscular Volume 94.9 fL (80-100); Mean Platelet Volume 9.8 fL (7.4-10.4); Monocytes # (auto) 1.08 K/uL (0.11-0.59); Monocytes % (auto) 13.2 %; Neutrophils # (auto) 6.31 K/uL (1.4-6.5); Neutrophils % (auto) 77.1 %; Platelet Count 254 K/uL (130-400); RDW Coefficient of Variation 14.1 % (11.5-14.5); RDW Standard Deviation 48.4 fL (36.4-46.3); Red Blood Count 4.54 M/uL (4.7-6.1); White Blood Count 8.19 K/uL (4.8-10.8)
[2021-04-04 09:02] LABS: Mean Corpuscular Hgb Conc 31.3 g/dL (32-36)
[2021-04-04 09:04] LABS: Albumin Level 2.2 gm/dl (3.4-5.0); BUN Creatinine Ratio 35.1 (10-20); Calcium 8.8 mg/dl (8.5-10.1); Creatinine Clr Calc Pharmacy 216.2 ml/min; Est GFR (African American) 113.5 ml/min; Est GFR (Non-African American) 97.9 ml/min; Magnesium 2.2 mg/dl (1.8-2.4); Potassium 4.5 mmol/L (3.5-5.1)
[2021-04-04 09:07] LABS: Albumin Globulin Ratio 0.4 (0.9-2); Bilirubin,Total 1.1 mg/dl (0.2-1); Globulin 5.2 gm/dl (2.5-4.0); Total Protein 7.4 gm/dl (6.4-8.2)
[2021-04-04] MEDS ORDERED: SODIUM CHLORIDE 0.65% NA SOLN 45 ML (OCEAN) ONE (09:10)
[2021-04-04] MEDS: CLOTRIMAZOLE 1% CR 15 GM TUBE EXT SCH ×2 (10:07→20:11)
[2021-04-04] MEDS: FOLIC ACID 1 MG TAB PO SCH (10:08)
[2021-04-04] MEDS: dexAMETHasone 6 MG in SYRINGE 0 ML IV SCH (10:08)
[2021-04-04] MEDS: PANTOprazole 40 MG TAB PO SCH (10:08)
[2021-04-04] MEDS: PROPRANOLOL HCL 20 MG TAB PO SCH ×2 (10:08→20:10)
--- NOTE | 2021-04-04 10:47 | Hospitalist Progress Note ---
Date of Service April 04, 2021 Assessment & Plan (1) Acute respiratory failure due to COVID-19: Plan: ~ day of illness >14 days. First SX 03/21/21, fell at home and fatigue prompted call to EMS - Timing does not qualify for Remdesivir - Decadron 6mg IV daily- Tocilizumab given 04/01/21 - unvaccinated on BIPAP the majority of time the past 2-3 days poor prognosis but would not intubate unless he is in distress would need anesthesia for intubation, difficult airway (2) Hypoxia: Plan: Hypoxia with respiratory failure secondary to COVID pneumonia and Morbid obesity - support with HFNC/BiPAP, likely to progress to INTUBATION guarded prognosis (3) Malaise and fatigue: Plan: Secondary to COVID (4) Asthma: Plan: Continue scheduled nebulizers - continue Decadron for COVID (5) Morbid obesity: Plan: No acute needs- but placing patient at high rate of mortality at this time his BMI is 89, he weighs 570lbs (6) DVT prophylaxis: Plan: With his morbid obesity will place him on Lovenox 75mg SQ BID - (7) Left knee pain: Plan: Hurt while falling in the shower 4 days ago- no echymosis or hematoma, and he has full flexion and extension. Has not been imaged on presentation may consider imaging in the future if continues to be persistent problem Plan: continue BIPAP, hopeful he can avoid intubation, prognosis is guarded Admission and Anticipated Discharge Date Admission Date: April 02, 2021 Subjective patient requiring BIPAP most of the day today, was on BIPAP last night tried HFNC this morning, he was able to eat some breakfast but late morning needed the BIPAP again d/w Dr. Garcia, he is following patient want to avoid intubating patient if we can as he is unlikely to come off ventilator, would be difficult to manage due to severe obesity, would need intubated by anesthesia patient is calm and comfortable on BIPAP and saturations are in low 90's will see how he does through tomorrow Review of Systems Review of Systems: All systems reviewed & are unremarkable except as noted in Subjective Respiratory: + cough, + dyspnea and + dyspnea on exertion Physical Exam Physical Exam: General: well developed, severe morbid obesity, no acute distress, comfortable on BIPAP Neck: supple, trachea midline, normal thyroid Lungs: shallow respirations, lungs clear, tachypnea, no accessory muscle use, no distress Heart: regular S1 and S2, no murmur, peripheral pulses normal, capillary refill normal, no edema Abdomen: soft, NT, ND, + BS, no hepatomegaly, normal to percussion Extremities: severe obesity, no cyanosis, no petechiae, strength is 5/5 bilaterally Neuro: awake, cooperative, moves all extremities, no focal motor deficits, CN II-XII intact, sensation in extremities intact, normal speech Skin: warm, dry, no rash, normal turgor Psych: Awake, alert oriented x 3, flat affect, below average intelligence Results & Data Results & Data ([facility]) Vital Signs (Past 12 Hours) Vital Signs Temp Pulse Pulse Resp BP Pulse Ox 04/04/21 09:00 77 04/04/21 07:51 36.8 C 80 23 111/60 96 04/04/21 05:55 79 26 H 89 L 04/04/21 03:00 36.6 C 80 16 117/73 93 04/04/21 02:40 60 24 90 04/03/21 23:00 36.9 C 75 20 101/67 94 Laboratory Results Laboratory Results - last 24 hr 04/04/21 04/04/21 04/04/21 07:08 07:08 08:14 WBC Cancelled 8.19 RBC Cancelled 4.54 L Hgb Cancelled 13.5 L Hct Cancelled 43.1 MCV Cancelled 94.9 MCH Cancelled 29.7 MCHC Cancelled 31.3 L RDW Std Deviation Cancelled 48.4 H RDW Coeff of Flor Cancelled 14.1 Plt Count Cancelled 254 MPV Cancelled 9.8 Immature Gran % (Auto) Cancelled 1.3 Neut % (Auto) Cancelled 77.1 Lymph % (Auto) Cancelled 8.3 Leake % (Auto) Cancelled 13.2 Eos % (Auto) Cancelled 0.0 Baso % (Auto) Cancelled 0.1 Neut # (Auto) Cancelled 6.31 Lymph # (Auto) Cancelled 0.68 L Leake # (Auto) Cancelled 1.08 H Eos # (Auto) Cancelled 0.00 Baso # (Auto) Cancelled 0.01 Immature Gran # (Auto) Cancelled 0.11 H Absolute Nucleated RBC Cancelled Nucleated RBC % (auto) Cancelled Neutrophils % (Manual) Cancelled Band Neutrophils % Cancelled Lymphocytes % (Manual) Cancelled Prolymphocyte % Cancelled Reactive Lymphs % (Man) Cancelled Monocytes % (Manual) Cancelled Eosinophils % (Manual) Cancelled Basophils % (Manual) Cancelled Metamyelocytes % (Man) Cancelled Myelocytes % (Man) Cancelled Promyelocytes % (Man) Cancelled Blast Cells % (Manual) Cancelled Plasma Cell % (Manual) Cancelled Other Cells % Cancelled Nucleated RBC % Cancelled Neutrophils # (Manual) Cancelled Band Neutrophils # Cancelled Total Absolute Neuts Cancelled Lymphocytes # (Manual) Cancelled Prolymphocyte # Cancelled Reactive Lymphs # Cancelled Total Abs Lymphocytes Cancelled Monocytes # (Manual) Cancelled Eosinophils # (Manual) Cancelled Basophils # (Manual) Cancelled Metamyelocytes # (Man) Cancelled Myelocytes # (Manual) Cancelled Promyelocytes # (Man) Cancelled Blast Cells # (Man) Cancelled Plasma Cell # (Manual) Cancelled Other Cells # Cancelled Nucleated RBCs # (Man) Cancelled Hypersegmented Neuts Cancelled Hyposegmented Neuts Cancelled Hypogranular Neuts Cancelled Large Granular Lymphs Cancelled # Lrg Granular Lymphs Cancelled Hairy Cells Cancelled Smudge Cells Cancelled Toxic Granulation Cancelled Toxic Vacuolation Cancelled Dohle Bodies Cancelled Laura Rods Cancelled Platelet Estimate Cancelled Hypogranular Platelets Cancelled Clumped Platelets Cancelled Giant Platelets Cancelled Platelet Satelliting Cancelled RBC Morphology Cancelled Polychromasia Cancelled Hypochromasia Cancelled Poikilocytosis Cancelled Basophilic Stippling Cancelled Anisocytosis Cancelled Microcytosis Cancelled Macrocytosis Cancelled Spherocytes Cancelled Pappenheimer Bodies Cancelled Sickle Cells Cancelled Target Cells Cancelled Tear Drop Cells Cancelled Ovalocytes Cancelled Stomatocytes Cancelled Benites-[place] Bodies Cancelled Echinocytes Cancelled Acanthocytes (Spur) Cancelled Rouleaux Cancelled RBC Agglutinates Cancelled Schistocytes Cancelled RBC Morph Comment Cancelled Sezary Cell Cancelled Sodium Cancelled Potassium Cancelled Chloride Cancelled Carbon Dioxide Cancelled Anion Gap Cancelled BUN Cancelled Creatinine Cancelled Est Cr Clr Drug Dosing Cancelled Est GFR ( Amer) Cancelled Est GFR (Non-Af Amer) Cancelled BUN/Creatinine Ratio Cancelled Glucose Cancelled Calcium Cancelled Magnesium Cancelled Total Bilirubin Cancelled AST Cancelled ALT Cancelled Alkaline Phosphatase Cancelled Total Protein Cancelled Albumin Cancelled Globulin Cancelled Albumin/Globulin Ratio Cancelled 04/04/21 08:14 WBC RBC Hgb Hct MCV MCH MCHC RDW Std Deviation RDW Coeff of Flor Plt Count MPV Immature Gran % (Auto) Neut % (Auto) Lymph % (Auto) Leake % (Auto) Eos % (Auto) Baso % (Auto) Neut # (Auto) Lymph # (Auto) Leake # (Auto) Eos # (Auto) Baso # (Auto) Immature Gran # (Auto) Absolute Nucleated RBC Nucleated RBC % (auto) Neutrophils % (Manual) Band Neutrophils % Lymphocytes % (Manual) Prolymphocyte % Reactive Lymphs % (Man) Monocytes % (Manual) Eosinophils % (Manual) Basophils % (Manual) Metamyelocytes % (Man) Myelocytes % (Man) Promyelocytes % (Man) Blast Cells % (Manual) Plasma Cell % (Manual) Other Cells % Nucleated RBC % Neutrophils # (Manual) Band Neutrophils # Total Absolute Neuts Lymphocytes # (Manual) Prolymphocyte # Reactive Lymphs # Total Abs Lymphocytes Monocytes # (Manual) Eosinophils # (Manual) Basophils # (Manual) Metamyelocytes # (Man) Myelocytes # (Manual) Promyelocytes # (Man) Blast Cells # (Man) Plasma Cell # (Manual) Other Cells # Nucleated RBCs # (Man) Hypersegmented Neuts Hyposegmented Neuts Hypogranular Neuts Large Granular Lymphs # Lrg Granular Lymphs Hairy Cells Smudge Cells Toxic Granulation Toxic Vacuolation Dohle Bodies Laura Rods Platelet Estimate Hypogranular Platelets Clumped Platelets Giant Platelets Platelet Satelliting RBC Morphology Polychromasia Hypochromasia Poikilocytosis Basophilic Stippling Anisocytosis Microcytosis Macrocytosis Spherocytes Pappenheimer Bodies Sickle Cells Target Cells Tear Drop Cells Ovalocytes Stomatocytes Benites-Mag[place] Bodies Echinocytes Acanthocytes (Spur) Rouleaux RBC Agglutinates Schistocytes RBC Morph Comment Sezary Cell Sodium 139 Potassium 4.5 Chloride 104 Carbon Dioxide 27 Anion Gap 7.0 BUN 37 H Creatinine 1.04 Est Cr Clr Drug Dosing 216.2 Est GFR ( Amer) 113.5 Est GFR (Non-Af Amer) 97.9 BUN/Creatinine Ratio 35.1 H Glucose 156 H Calcium 8.8 Magnesium 2.2 Total Bilirubin 1.1 H AST 184 H ALT 183 H Alkaline Phosphatase 67 Total Protein 7.4 Albumin 2.2 L Globulin 5.2 H Albumin/Globulin Ratio 0.4 L Medications Administered Current Inpatient Medications Albuterol (Albut/Ipratrop 3mg/0.5mg Neb 3 Ml Vial) 3 ml NEB QIDR THAI Stop: 05/02/21 06:59 Last Admin: 04/04/21 05:55 Dose: 3 ml Documented by: Clotrimazole (Clotrimazole 1% Cr 15 Gm Tube) 1 appln EXT BID THAI Stop: 05/02/21 20:59 Last Admin: 04/04/21 10:07 Dose: 1 appln Documented by: Enoxaparin Sodium (Enoxaparin 80 Mg/0.8 Ml Syr) 80 mg SQ Q12H THAI Stop: 05/02/21 12:59 Last Admin: 04/04/21 01:55 Dose: 80 mg Documented by: Folic Acid (Folic Acid 1 Mg Tab) 1 mg PO DAILY THAI Stop: 05/02/21 08:59 Last Admin: 04/04/21 10:08 Dose: 1 mg Documented by: Dexamethasone 6 mg/ Syringe 1.5 mls @ 1 mls/min IV Q24H THAI Stop: 05/02/21 08:59 Last Admin: 04/04/21 10:08 Dose: 1 mls/min Documented by: Levothyroxine Sodium (Levothyroxine Sodium 50 Mcg Tablet) 50 mcg PO DAILYBB [facility] Stop: 05/02/21 06:29 Last Admin: 04/04/21 05:35 Dose: 50 mcg Documented by: Ondansetron HCl (Ondansetron Inj 2 Mg/Ml 2 Ml Vial) 4 mg IV Q6H PRN PRN Reason: Nausea Stop: 05/02/21 02:19 Pantoprazole Sodium (Pantoprazole 40 Mg Tab) 40 mg PO QAM THAI Stop: 05/02/21 08:59 Last Admin: 04/04/21 10:08 Dose: 40 mg Documented by: Propranolol HCl (Propranolol Hcl 20 Mg Tab) 20 mg PO BID THAI Stop: 05/02/21 02:19 Last Admin: 04/04/21 10:08 Dose: 20 mg Documented by: Sumatriptan Succinate (Sumatriptan Succinate 100 Mg Tab) 100 mg PO DAILY PRN PRN Reason: Migraine Headache Stop: 05/02/21 02:19 PG Care Time/CCT Total # of Minutes Spent Total Time Spent: 33 Total Time Spent with Patient: Total time spent is greater than 50% in coordination of care (as documented) at patient's floor/unit and/or counseling patient: 3 separate visits to see patient, spoke with RN several times, spoke with respiratory therapy spoke with Dr Garcia about plans reviewed chart, reviewed labs, documentation Coding Level of Care Code 59203 Subseq Hosp Care Lvl 3 (25 - SIGNIFICANT, SEPARATELY IDENTIFIABLE ) Diagnoses Acute respiratory failure due to COVID-19 U07.1; J96.00 Hypoxia R09.02 Malaise and fatigue R53.81; R53.83 Asthma J45.909 Morbid obesity E66.01 DVT prophylaxis Z29.9 Left knee pain M25.562
--- NOTE | 2021-04-04 10:52 | Pulmonology Progress Note ---
Date of Service April 04, 2021 Assessment & Plan (1) Acute respiratory failure due to COVID-19: (2) Malaise and fatigue: (3) Asthma: (4) Morbid obesity: (5) DVT prophylaxis: Plan: Impression: This is a 25-year-old male that is morbidly obese with a B IA of 85.7 kg/m. He has Covid pneumonia with ARDS physiology and diffuse pulmonary infiltrates. He received Tocilizumab. He is alternating between high flow and CPAP and stable currently but tenuous Recommendations: 1. SARSCov2/ARDs: Continue dexamethasone 6 mg daily. Diuresis as tolerated. Th e patient's body habitus precludes proning. He is not a candidate for any advanced therapy such as ECMO given his body habitus. He is comfortable and states his work of breathing is quite minimal currently despite his large oxygen requirement. 2. Morbid obesity. This does complicate care for the patient as diagnostic studies are limited and physical exam is unreliable. 3. Management of the patient's other medical issues per primary service. The patient has a high probability of clinical decline necessitating intubation mechanical ventilation. I think his airway would be difficult and if intubation is to be in attempted, anesthesia should performed or at least to be aware of the patient. If he progresses to intubation, his prognosis is guarded. Discussed with hospitalist and with bedside nurse and respiratory therapist Admission and Anticipated Discharge Date Admission Date: April 02, 2021 Subjective Patient seen and examined. Discussed with bedside nurse. EMR reviewed. The patient has transitioned to high flow off BiPAP. He is on 100% at 60 L/min. He states he is breathing okay. He did develop some epistaxis but this is not problematic. He remains essentially confined to the bed. He is not coughing, wheezing, or expectorating phlegm. He thinks his breathing is stable. Review of Systems Review of Systems: All systems reviewed & are unremarkable except as noted in Subjective Physical Exam Physical Exam: Exam limited due to massive morbid obesity. Patient appears awake alert and conversant. He is comfortable on full face high flow. Respiratory: normal respiratory effort; no respiratory distress and no labored breathing Results & Data Results & Data ([facility]) Vital Signs (Past 12 Hours) Vital Signs Temp Pulse Pulse Resp BP Pulse Ox 04/04/21 10:46 96 H 24 95 04/04/21 09:00 77 04/04/21 07:51 36.8 C 80 23 111/60 96 04/04/21 05:55 79 26 H 89 L 04/04/21 03:00 36.6 C 80 16 117/73 93 04/04/21 02:40 60 24 90 04/03/21 23:00 36.9 C 75 20 101/67 94 Laboratory Results 04/04/21 08:14 04/04/21 08:14 Diagnostic Findings No new imaging PG Care Time/CCT Total # of Minutes Spent Total Time Spent with Patient: Total time spent is greater than 50% in coordination of care (as documented) at patient's floor/unit and/or counseling patient: Coding Level of Care Code 38308 Subseq Hosp Care Lvl 2 Diagnoses Acute respiratory failure due to COVID-19 U07.1; J96.00 Malaise and fatigue R53.81; R53.83 Asthma J45.909 Morbid obesity E66.01 DVT prophylaxis Z29.9
[2021-04-04] MEDS ORDERED: ALBUT/IPRATROP 3MG/0.5MG NEB 3 ML VIAL NEB PRN (13:22)
[2021-04-05] MEDS: ENOXAPARIN 80 MG/0.8 ML SYR SQ SCH ×2 (00:36→13:21)
[2021-04-05] MEDS: LEVOTHYROXINE SODIUM 50 MCG TABLET PO SCH (06:24)
[2021-04-05 08:00] LABS: Hematocrit (blood only) 43.5 % (42-52); Hemoglobin 13.5 g/dL (14.0-18.0); Mean Corpuscular Hemoglobin 29.7 pg (25-34); Mean Corpuscular Volume 95.8 fL (80-100); Mean Platelet Volume 10.1 fL (7.4-10.4); Platelet Count 219 K/uL (130-400); RDW Coefficient of Variation 14.3 % (11.5-14.5); RDW Standard Deviation 49.7 fL (36.4-46.3); Red Blood Count 4.54 M/uL (4.7-6.1); White Blood Count 6.68 K/uL (4.8-10.8)
[2021-04-05 08:11] LABS: Creatinine Clr Calc Pharmacy 249.8 ml/min; Est GFR (African American) 135.2 ml/min; Est GFR (Non-African American) 116.6 ml/min
--- NOTE | 2021-04-05 09:12 | Pulmonology Progress Note ---
Date of Service April 05, 2021 Assessment & Plan (1) Acute respiratory failure due to COVID-19: (2) Malaise and fatigue: (3) Asthma: (4) Morbid obesity: (5) DVT prophylaxis: Plan: Impression: This is a 25-year-old male that is morbidly obese with a B OK of 85.7 kg/m. He has Covid pneumonia with ARDS physiology and diffuse pulmonary infiltrates. He received Tocilizumab. He is alternating between high flow and CPAP and stable currently but tenuous Recommendations: 1. SARSCov2/ARDs: Continue dexamethasone 6 mg daily. Diuresis as tolerated. Th e patient's body habitus precludes proning. He is not a candidate for any advanced therapy such as ECMO given his body habitus. He is comfortable and states his work of breathing is quite minimal currently despite his large oxygen requirement. We will continue to alternate between high flow and CPAP. Indication for intubation mechanical ventilation would be increased work of breathing or inability to maintain oxygen saturations. 2. Morbid obesity. This does complicate care for the patient as diagnostic studies are limited and physical exam is unreliable. 3. Management of the patient's other medical issues per primary service. The patient has a high probability of clinical decline necessitating intubation mechanical ventilation. I think his airway would be difficult and if intubation is to be in attempted, anesthesia recommended.. If he progresses to intubation, his prognosis is guarded. Discussed with bedside nurse and respiratory therapist and patient. Admission and Anticipated Discharge Date Admission Date: April 02, 2021 Subjective Patient seen and examined. EMR reviewed. Discussed with nurse at bedside. Patient continues to alternate between positive airway pressure and high flow. When I saw him this morning he was on high flow nasal cannula at 100% and 60 L/min. He reports that his breathing is fine his respiratory rate remains in the low 20s. He does not report any increased work of breathing. He states he has some difficulty initially in the morning with cough. He continues to demand a diet. Review of Systems Review of Systems: All systems reviewed & are unremarkable except as noted in Subjective Physical Exam Physical Exam: Exam limited due to massive morbid obesity. Patient appears awake alert and conversant. He is comfortable on full face high flow. Respiratory: normal respiratory effort; no respiratory distress and no labored breathing Results & Data Results & Data ([facility]) Vital Signs (Past 12 Hours) Vital Signs Temp Pulse Pulse Resp BP Pulse Ox 11/28/21 07:57 36.7 C 69 24 124/68 90 04/05/21 07:20 66 28 H 90 04/05/21 03:10 66 28 H 93 04/05/21 03:00 36.6 C 66 20 97/55 L 95 04/04/21 22:20 62 04/04/21 22:07 28 H 95 04/04/21 22:00 36.9 C 63 20 104/52 L 92 Laboratory Results 04/05/21 06:56 04/05/21 06:56 Diagnostic Findings No new imaging PG Care Time/CCT Total # of Minutes Spent Total Time Spent with Patient: Total time spent is greater than 50% in coordination of care (as documented) at patient's floor/unit and/or counseling patient: Coding Level of Care Code 02771 Subseq Hosp Care Lvl 2 Diagnoses Acute respiratory failure due to COVID-19 U07.1; J96.00 Malaise and fatigue R53.81; R53.83 Asthma J45.909 Morbid obesity E66.01 DVT prophylaxis Z29.9
[2021-04-05] MEDS: CLOTRIMAZOLE 1% CR 15 GM TUBE EXT SCH ×2 (09:14→21:31)
[2021-04-05] MEDS: PROPRANOLOL HCL 20 MG TAB PO SCH ×2 (09:14→21:29)
[2021-04-05] MEDS: PANTOprazole 40 MG TAB PO SCH (09:14)
[2021-04-05] MEDS: FOLIC ACID 1 MG TAB PO SCH (09:14)
[2021-04-05] MEDS: dexAMETHasone 6 MG in SYRINGE 0 ML IV SCH (09:14)
--- NOTE | 2021-04-05 15:31 | Hospitalist Progress Note ---
Date of Service April 05, 2021 Assessment & Plan (1) Acute respiratory failure due to COVID-19: Plan: ~ day of illness >14 days. First SX 03/21/21, fell at home and fatigue prompted call to EMS - Decadron 6mg IV daily- Tocilizumab given 04/01/21 was on BIPAP all day yesterday but today he is stable on 60L 100% poor prognosis but would not intubate unless he is in distress would need anesthesia for intubation, difficult airway plan to sleep with BIPAP/CPAP (2) Hypoxia: Plan: Hypoxia with respiratory failure secondary to COVID pneumonia and Morbid obesity - support with HFNC/BiPAP, hopeful he can avoid intubation guarded prognosis (3) Malaise and fatigue: Plan: Secondary to COVID (4) Asthma: Plan: Continue scheduled nebulizers - continue Decadron for COVID (5) Morbid obesity: Plan: No acute needs- but placing patient at high rate of mortality at this time his BMI is 89, he weighs 570lbs (6) DVT prophylaxis: Plan: With his morbid obesity will place him on Lovenox 75mg SQ BID - (7) Left knee pain: Plan: Hurt while falling in the shower 4 days ago- no echymosis or hematoma, and he has full flexion and extension. Has not been imaged on presentation may consider imaging in the future if continues to be persistent problem Plan: continue BIPAP, hopeful he can avoid intubation, prognosis is guarded Admission and Anticipated Discharge Date Admission Date: April 02, 2021 Subjective patient doing a little better, he is on 60L and 100% but has not needed BIPAP since this morning yesterday he spent all day on the BIPAP so today is better he ate okay today, he feels a little short of breath but not in distress d/w Dr. Garcia, hold off on intubation if possible as he would be difficult extubation Review of Systems Review of Systems: All systems reviewed & are unremarkable except as noted in Subjective Respiratory: + cough and + dyspnea Physical Exam Physical Exam: General: well developed, severe morbid obesity, no acute distress, comfortable on high flow Neck: supple, trachea midline, normal thyroid Lungs: shallow respirations, lungs clear, tachypnea, no accessory muscle use, no distress Heart: regular S1 and S2, no murmur, peripheral pulses normal, capillary refill normal, no edema Abdomen: soft, NT, ND, + BS, no hepatomegaly, normal to percussion Extremities: severe obesity, no cyanosis, no petechiae, strength is 5/5 bilaterally Neuro: awake, cooperative, moves all extremities, no focal motor deficits, CN II-XII intact, sensation in extremities intact, normal speech Skin: warm, dry, no rash, normal turgor Psych: Awake, alert oriented x 3, flat affect, below average intelligence Results & Data Results & Data ([facility]) Vital Signs (Past 12 Hours) Vital Signs Temp Pulse Pulse Resp BP Pulse Ox 04/05/21 15:21 65 22 97 04/05/21 12:31 36.6 C 71 24 121/82 94 04/05/21 11:39 81 26 H 91 04/05/21 08:00 52 L 04/05/21 07:57 36.7 C 69 24 124/68 90 04/05/21 07:20 66 28 H 90 Laboratory Results Laboratory Results - last 24 hr 04/05/21 04/05/21 06:56 06:56 WBC 6.68 RBC 4.54 L Hgb 13.5 L Hct 43.5 MCV 95.8 MCH 29.7 MCHC 31.0 L RDW Std Deviation 49.7 H RDW Coeff of Flor 14.3 Plt Count 219 MPV 10.1 Creatinine 0.90 Est Cr Clr Drug Dosing 249.8 Est GFR ( Amer) 135.2 Est GFR (Non-Af Amer) 116.6 Magnesium 2.0 Medications Administered Current Inpatient Medications Albuterol (Albut/Ipratrop 3mg/0.5mg Neb 3 Ml Vial) 3 ml NEB QIDR PRN PRN Reason: Wheezing Stop: 05/02/21 06:59 Clotrimazole (Clotrimazole 1% Cr 15 Gm Tube) 1 appln EXT BID THAI Stop: 05/02/21 20:59 Last Admin: 04/05/21 09:14 Dose: 1 appln Documented by: Enoxaparin Sodium (Enoxaparin 80 Mg/0.8 Ml Syr) 80 mg SQ Q12H THAI Stop: 05/02/21 12:59 Last Admin: 04/05/21 13:21 Dose: 80 mg Documented by: Folic Acid (Folic Acid 1 Mg Tab) 1 mg PO DAILY THAI Stop: 05/02/21 08:59 Last Admin: 04/05/21 09:14 Dose: 1 mg Documented by: Dexamethasone 6 mg/ Syringe 1.5 mls @ 1 mls/min IV Q24H THAI Stop: 05/02/21 08:59 Last Admin: 04/05/21 09:14 Dose: 1 mls/min Documented by: Levothyroxine Sodium (Levothyroxine Sodium 50 Mcg Tablet) 50 mcg PO DAILYBB [facility] Stop: 05/02/21 06:29 Last Admin: 04/05/21 06:24 Dose: 50 mcg Documented by: Ondansetron HCl (Ondansetron Inj 2 Mg/Ml 2 Ml Vial) 4 mg IV Q6H PRN PRN Reason: Nausea Stop: 05/02/21 02:19 Pantoprazole Sodium (Pantoprazole 40 Mg Tab) 40 mg PO QAM [facility] Stop: 05/02/21 08:59 Last Admin: 04/05/21 09:14 Dose: 40 mg Documented by: Propranolol HCl (Propranolol Hcl 20 Mg Tab) 20 mg PO BID [facility] Stop: 05/02/21 02:19 Last Admin: 04/05/21 09:14 Dose: 20 mg Documented by: Sumatriptan Succinate (Sumatriptan Succinate 100 Mg Tab) 100 mg PO DAILY PRN PRN Reason: Migraine Headache Stop: 05/02/21 02:19 PG Care Time/CCT Total # of Minutes Spent Total Time Spent with Patient: Total time spent is greater than 50% in coordination of care (as documented) at patient's floor/unit and/or counseling patient: Coding Level of Care Code 42131 Subseq Hosp Care Lvl 2 Diagnoses Acute respiratory failure due to COVID-19 U07.1; J96.00 Hypoxia R09.02 Malaise and fatigue R53.81; R53.83 Asthma J45.909 Morbid obesity E66.01 DVT prophylaxis Z29.9 Left knee pain M25.562
[2021-04-06] MEDS: ENOXAPARIN 80 MG/0.8 ML SYR SQ SCH ×2 (00:05→12:25)
[2021-04-06] MEDS: LEVOTHYROXINE SODIUM 50 MCG TABLET PO SCH (05:53)
[2021-04-06 06:59] LABS: C Reactive Protein 1.24 mg/dl (0-0.29); Calcium 8.6 mg/dl (8.5-10.1); Creatinine Clr Calc Pharmacy 308.9 ml/min; Est GFR (African American) 147.3 ml/min; Est GFR (Non-African American) 127.1 ml/min; Potassium 4.9 mmol/L (3.5-5.1)
[2021-04-06] MEDS: CLOTRIMAZOLE 1% CR 15 GM TUBE EXT SCH ×2 (08:31→21:58)
[2021-04-06] MEDS: dexAMETHasone 6 MG in SYRINGE 0 ML IV SCH (08:31)
[2021-04-06] MEDS: PROPRANOLOL HCL 20 MG TAB PO SCH ×2 (08:31→21:58)
[2021-04-06] MEDS: PANTOprazole 40 MG TAB PO SCH (08:32)
[2021-04-06] MEDS: FOLIC ACID 1 MG TAB PO SCH (08:32)
--- NOTE | 2021-04-06 09:28 | Hospitalist Progress Note ---
Date of Service April 06, 2021 Assessment & Plan (1) Acute respiratory failure due to COVID-19: Plan: ~ day of illness >14 days on admission - Decadron 6mg IV daily, day 5 Tocilizumab given 04/01/21, his CRP is down to 1.2 from 14.9 getting a little better each day, prognosis is slightly improved compared to when he was admitted down to 60L and 75% this morning goal is to stay off BIPAP during the day, use BIPAP at night if he stays of BIPAP today that will be 2 straight days without requiring BIPAP which is a potential good sign (2) Hypoxia: Plan: Hypoxia with respiratory failure secondary to COVID pneumonia and Morbid obesity - support with HFNC/BiPAP no BIPAP all day yesterday after needing it for 24 hours the day prior stable on 60L and 75% so his oxygen needs are going down slightly better prognosis today (3) Malaise and fatigue: Plan: Secondary to COVID (4) Asthma: Plan: no wheezing - continue Decadron for COVID (5) Morbid obesity: Plan: No acute needs- but placing patient at high rate of mortality at this time his BMI is 89, he weighs 570lbs (6) DVT prophylaxis: Plan: With his morbid obesity will place him on Lovenox 75mg SQ BID - (7) Left knee pain: Plan: Hurt while falling in the shower 4 days ago- no echymosis or hematoma, and he has full flexion and extension. Has not been imaged on presentation may consider imaging in the future if continues to be persistent problem Plan: continue BIPAP HS and HFNC during the day, hopeful he can avoid intubation, prognosis is guarded but a little better today Admission and Anticipated Discharge Date Admission Date: April 02, 2021 Subjective patient doing better this morning, down to 60L and 80% and he is 97%, I turned him down to 75% FiO2 he is not in distress, he slept well with BIPAP he ate a good breakfast reviewed labs, CRP down to 1 from 14 on admission, other labs are stable encouraged him to stay strong, he is getting a little better each day Review of Systems Review of Systems: All systems reviewed & are unremarkable except as noted in Subjective Respiratory: + cough, + dyspnea and + dyspnea on exertion Physical Exam Physical Exam: General: well developed, severe morbid obesity, no acute distress, comfortable on high flow Neck: supple, trachea midline, normal thyroid Lungs: shallow respirations, lungs clear, tachypnea, no accessory muscle use, no distress Heart: regular S1 and S2, no murmur, peripheral pulses normal, capillary refill normal, no edema Abdomen: soft, NT, ND, + BS, no hepatomegaly, normal to percussion Extremities: severe obesity, no cyanosis, no petechiae, strength is 5/5 bilaterally Neuro: awake, cooperative, moves all extremities, no focal motor deficits, CN II-XII intact, sensation in extremities intact, normal speech Skin: warm, dry, no rash, normal turgor Psych: Awake, alert oriented x 3, flat affect, below average intelligence Results & Data Results & Data ([facility]) Vital Signs (Past 12 Hours) Vital Signs Temp Pulse Pulse Pulse Resp BP Pulse Ox 04/06/21 07:55 80 19 91 04/06/21 07:23 36.9 C 65 20 105/60 95 04/06/21 03:15 37.2 C 50 L 22 119/52 L 92 04/06/21 02:35 55 L 26 H 92 04/05/21 22:51 37.5 C 78 15 121/61 94 04/05/21 22:35 73 24 90 04/05/21 22:20 70 Laboratory Results Laboratory Results - last 24 hr 04/06/21 05:46 Sodium 137 Potassium 4.9 Chloride 103 Carbon Dioxide 30 Anion Gap 4.0 BUN 21 H Creatinine 0.73 Est Cr Clr Drug Dosing 308.9 Est GFR ( Amer) 147.3 Est GFR (Non-Af Amer) 127.1 BUN/Creatinine Ratio 29.0 H Glucose 114 H Calcium 8.6 C-Reactive Protein 1.24 H Medications Administered Current Inpatient Medications Albuterol (Albut/Ipratrop 3mg/0.5mg Neb 3 Ml Vial) 3 ml NEB QIDR PRN PRN Reason: Wheezing Stop: 05/02/21 06:59 Clotrimazole (Clotrimazole 1% Cr 15 Gm Tube) 1 appln EXT BID THAI Stop: 05/02/21 20:59 Last Admin: 04/06/21 08:31 Dose: 1 appln Documented by: Enoxaparin Sodium (Enoxaparin 80 Mg/0.8 Ml Syr) 80 mg SQ Q12H THAI Stop: 05/02/21 12:59 Last Admin: 04/06/21 00:05 Dose: 80 mg Documented by: Folic Acid (Folic Acid 1 Mg Tab) 1 mg PO DAILY THAI Stop: 05/02/21 08:59 Last Admin: 04/06/21 08:32 Dose: 1 mg Documented by: Dexamethasone 6 mg/ Syringe 1.5 mls @ 1 mls/min IV Q24H THAI Stop: 05/02/21 08:59 Last Admin: 04/06/21 08:31 Dose: 1 mls/min Documented by: Levothyroxine Sodium (Levothyroxine Sodium 50 Mcg Tablet) 50 mcg PO DAILYBB [facility] Stop: 05/02/21 06:29 Last Admin: 04/06/21 05:53 Dose: 50 mcg Documented by: Ondansetron HCl (Ondansetron Inj 2 Mg/Ml 2 Ml Vial) 4 mg IV Q6H PRN PRN Reason: Nausea Stop: 05/02/21 02:19 Pantoprazole Sodium (Pantoprazole 40 Mg Tab) 40 mg PO QAM THAI Stop: 05/02/21 08:59 Last Admin: 04/06/21 08:32 Dose: 40 mg Documented by: Propranolol HCl (Propranolol Hcl 20 Mg Tab) 20 mg PO BID [facility] Stop: 05/02/21 02:19 Last Admin: 04/06/21 08:31 Dose: 20 mg Documented by: Sumatriptan Succinate (Sumatriptan Succinate 100 Mg Tab) 100 mg PO DAILY PRN PRN Reason: Migraine Headache Stop: 05/02/21 02:19 PG Care Time/CCT Total # of Minutes Spent Total Time Spent with Patient: Total time spent is greater than 50% in coordination of care (as documented) at patient's floor/unit and/or counseling patient: Coding Level of Care Code 81511 Subseq Hosp Care Lvl 2 Diagnoses Acute respiratory failure due to COVID-19 U07.1; J96.00 Hypoxia R09.02 Malaise and fatigue R53.81; R53.83 Asthma J45.909 Morbid obesity E66.01 DVT prophylaxis Z29.9 Left knee pain M25.562
--- NOTE | 2021-04-06 13:18 | Pulmonology Progress Note ---
Date of Service April 06, 2021 Assessment & Plan (1) Acute respiratory failure due to COVID-19: (2) Malaise and fatigue: (3) Asthma: (4) Morbid obesity: (5) DVT prophylaxis: Plan: Impression: This is a 25-year-old male that is morbidly obese with a B [place] of 89 kg/m. He has Covid pneumonia with ARDS physiology and diffuse pulmonary infiltrates. He received Tocilizumab. He is alternating between high flow and CPAP and stable currently. Recommendations: 1. SARSCov2/ARDs: Continue dexamethasone 6 mg daily. Diuresis as tolerated. The patient's body habitus precludes proning. He is not a candidate for any advanced therapy such as ECMO given his body habitus. He is comfortable and states his work of breathing is quite minimal currently despite his large oxygen requirement. We will continue to alternate between high flow and CPAP. Indicat ion for intubation mechanical ventilation would be increased work of breathing or inability to maintain oxygen saturations. 2. Morbid obesity. This does complicate care for the patient as diagnostic studies are limited and physical exam is unreliable. 3. Management of the patient's other medical issues per primary service. He appears to be improved compared to 1 to 2 days ago, but he remains severely ill. If he clinically worsens, please do not hesitate to recall. Will sign off at this time. Admission and Anticipated Discharge Date Admission Date: April 02, 2021 Subjective Patient seen and examined at bedside. Continues to require high flow nasal cannula. He notes that his nose is very dry. Good appetite. No fevers or chills at this present time. Currently on 60 L of high flow oxygen at FiO2 of 75%. Review of Systems Review of Systems: All systems reviewed & are unremarkable except as noted in HPI & below Physical Exam Physical Exam: Exam limited due to massive morbid obesity. Patient appears awake alert and conversant. Currently high flow nasal cannula in place. Respiratory: normal respiratory effort; no respiratory distress and no labored breathing Unable to auscultate much in the way of breath sounds due to the patient's body habitus Cardiovascular: Distant S1-S2. Cannot appreciate murmurs Gastrointestinal (Abdomen): Morbidly obese Skin: Multiple areas of skin disrepair and fungal skin inflammation/infection Results & Data Results & Data ([facility]) Vital Signs (Past 12 Hours) Vital Signs Temp Pulse Pulse Pulse Resp BP Pulse Ox 04/06/21 11:23 36.5 C 78 20 97/47 L 94 04/06/21 10:36 83 22 90 04/06/21 09:00 54 L 04/06/21 07:55 80 19 91 04/06/21 07:23 36.9 C 65 20 105/60 95 04/06/21 03:15 37.2 C 50 L 22 119/52 L 92 04/06/21 02:35 55 L 26 H 92 PG Care Time/CCT Total # of Minutes Spent Total Time Spent with Patient: Total time spent is greater than 50% in coordination of care (as documented) at patient's floor/unit and/or counseling patient: Coding Level of Care Code 94497 Subseq Hosp Care Lvl 2 Diagnoses Acute respiratory failure due to COVID-19 U07.1; J96.00 Malaise and fatigue R53.81; R53.83 Asthma J45.909 Morbid obesity E66.01 DVT prophylaxis Z29.9
[2021-04-07] MEDS: ENOXAPARIN 80 MG/0.8 ML SYR SQ SCH ×2 (00:14→12:28)
[2021-04-07] MEDS: LEVOTHYROXINE SODIUM 50 MCG TABLET PO SCH (05:31)
[2021-04-07] MEDS: dexAMETHasone 6 MG in SYRINGE 0 ML IV SCH (08:44)
[2021-04-07] MEDS: PROPRANOLOL HCL 20 MG TAB PO SCH ×2 (08:45→21:12)
[2021-04-07] MEDS: FOLIC ACID 1 MG TAB PO SCH (08:45)
[2021-04-07] MEDS: PANTOprazole 40 MG TAB PO SCH (08:45)
[2021-04-07] MEDS: CLOTRIMAZOLE 1% CR 15 GM TUBE EXT SCH ×2 (08:46→21:11)
--- NOTE | 2021-04-07 10:16 | Hospitalist Progress Note ---
Date of Service April 07, 2021 Assessment & Plan (1) Acute respiratory failure due to COVID-19: Plan: ~ day of illness >14 days on admission - Decadron 6mg IV daily, day 5 Tocilizumab given 04/01/21, his CRP is down PT is improving Hi flow NC goal is to stay off BIPAP during the day, use BIPAP at night if he stays of BIPAP today that will be 2 straight days without requiring BIPAP which is a potential good sign (2) Hypoxia: Plan: Hypoxia with respiratory failure secondary to COVID pneumonia and Morbid obesity - support with HFNC/BiPAP oxygen needs are going down no increased work of breathing (3) Malaise and fatigue: Plan: Secondary to COVID (4) Asthma: Plan: no wheezing - continue Decadron for COVID (5) Morbid obesity: Plan: No acute needs- but placing patient at high rate of mortality at this time his BMI is 89, he weighs 570lbs (6) DVT prophylaxis: Plan: With his morbid obesity will place him on Lovenox 75mg SQ BID - (7) Left knee pain: Plan: Hurt while falling in the shower 4 days ago- no echymosis or hematoma, and he has full flexion and extension. Has not been imaged on presentation may consider imaging in the future if continues to be persistent problem Plan: continue BIPAP HS and HFNC during the day, hopeful he can avoid intubation, prognosis is guarded but improving Admission and Anticipated Discharge Date Admission Date: April 02, 2021 Review of Systems Review of Systems: moderate but improving distress and fatigue no headache, no visual changes no speech or swallowing issues no chest pain, pressure or palpitations significant shortness of breath, non productive cough no abdominal pain, nausea or vomiting, diarrhea or constipation no dysuria, hematuria or frequency no focal joint pain or swelling no back pain, CVA tenderness or radicular pain no bruising, bleeding or rashes no focal signs of weakness or numbness or altered sensation no complaints of anxiety or depression.. Physical Exam Physical Exam: The patient appeared super morbid with a BMI of 89.8 he is much more comfortable tolerating times on hiflow nasal canulae Vital signs as documented. Head exam is normocephalic atraumatic Lungs are diminished and distant, rales are heard in all zones Cardiac exam, Rhythm is regular.. No murmurs, rubs or gallops. Abdominal exam reveals normal bowel sounds, soft Extremities are nonedematous capillary refill is present Neurologic exam is alert and oriented, no focal loss of strength or sensation Skin is without bruises or rashes Psychologically is with concerns for depression.. Results & Data Results & Data ([facility]) Vital Signs (Past 12 Hours) Vital Signs Temp Pulse Pulse Resp BP Pulse Ox 04/07/21 08:32 89 20 90 04/07/21 07:04 98.6 F 65 26 H 116/56 L 95 04/07/21 03:24 98.1 F 74 22 144/94 H 93 04/07/21 02:10 62 27 H 92 04/06/21 23:40 76 20 96 04/06/21 23:09 98.4 F 64 20 131/63 96 04/06/21 22:20 69 PG Care Time/CCT Total # of Minutes Spent Total Time Spent with Patient: Total time spent is greater than 50% in coordination of care (as documented) at patient's floor/unit and/or counseling patient: Coding Level of Care Code 69695 Subseq Hosp Care Lvl 2 Diagnoses Acute respiratory failure due to COVID-19 U07.1; J96.00 Hypoxia R09.02 Malaise and fatigue R53.81; R53.83 Asthma J45.909 Morbid obesity E66.01 DVT prophylaxis Z29.9 Left knee pain M25.562
[2021-04-08] MEDS: ENOXAPARIN 80 MG/0.8 ML SYR SQ SCH ×2 (01:19→13:58)
[2021-04-08] MEDS: LEVOTHYROXINE SODIUM 50 MCG TABLET PO SCH (05:56)
[2021-04-08 07:12] LABS: Hematocrit (blood only) 44.5 % (42-52); Hemoglobin 14.1 g/dL (14.0-18.0); Mean Corpuscular Hemoglobin 30.7 pg (25-34); Mean Corpuscular Hgb Conc 31.7 g/dL (32-36); Mean Corpuscular Volume 96.9 fL (80-100); Mean Platelet Volume 9.9 fL (7.4-10.4); Platelet Count 196 K/uL (130-400); RDW Coefficient of Variation 14.3 % (11.5-14.5); RDW Standard Deviation 50.4 fL (36.4-46.3); Red Blood Count 4.59 M/uL (4.7-6.1); White Blood Count 5.43 K/uL (4.8-10.8)
[2021-04-08 07:39] LABS: Creatinine Clr Calc Pharmacy 299.5 ml/min; Est GFR (African American) 145.7 ml/min; Est GFR (Non-African American) 125.7 ml/min
[2021-04-08] MEDS: CLOTRIMAZOLE 1% CR 15 GM TUBE EXT SCH ×2 (09:02→20:16)
[2021-04-08] MEDS: PROPRANOLOL HCL 20 MG TAB PO SCH ×2 (09:03→20:17)
[2021-04-08] MEDS: FOLIC ACID 1 MG TAB PO SCH (09:03)
[2021-04-08] MEDS: PANTOprazole 40 MG TAB PO SCH (09:04)
[2021-04-08] MEDS: dexAMETHasone 6 MG in SYRINGE 0 ML IV SCH (09:05)
--- NOTE | 2021-04-08 16:31 | Hospitalist Progress Note ---
Date of Service April 08, 2021 Assessment & Plan (1) Acute respiratory failure due to COVID-19: Plan: ~ day of illness >14 days on admission - Decadron 6mg IV daily Tocilizumab given 04/01/21, his CRP has trended down PT is improving Hi flow NC during day NIPPV at night (2) Hypoxia: Plan: Hypoxia with respiratory failure secondary to COVID pneumonia and Morbid obesity - support with HFNC/BiPAP oxygen needs are going down no increased work of breathing (3) Malaise and fatigue: Plan: Secondary to COVID (4) Asthma: Plan: no wheezing/stable - continue Decadron for COVID (5) Morbid obesity: Plan: No acute needs- but placing patient at high rate of mortality at this time his BMI is 89, he weighs 570lbs (6) DVT prophylaxis: Plan: With his morbid obesity will place him on Lovenox 75mg SQ BID - (7) Left knee pain: Plan: Hurt while falling in the shower 4 days ago- no echymosis or hematoma, and he has full flexion and extension. Has not been imaged on presentation may consider imaging in the future if continues to be persistent problem Plan: ask case management to assist in keeping mothers housing Admission and Anticipated Discharge Date Admission Date: April 02, 2021 Review of Systems Review of Systems: moderate but continues improving distress and fatigue no headache, no visual changes no speech or swallowing issues no chest pain, pressure or palpitations continues significant shortness of breath, non productive cough no abdominal pain, nausea or vomiting, diarrhea or constipation no dysuria, hematuria or frequency no focal joint pain or swelling no back pain, CVA tenderness or radicular pain no bruising, bleeding or rashes no focal signs of weakness or numbness or altered sensation no complaints of anxiety or depression.questioned about mourning refuses need to speak to counsellor. Physical Exam Physical Exam: The patient appeared imroving , is super morbid with a BMI of 89.3 he is much more comfortable tolerating times on hiflow nasal canulae Vital signs as documented. Head exam is normocephalic atraumatic Lungs are diminished and distant, exam is non reliable with body size Cardiac exam, Rhythm is regular.. No murmurs, rubs or gallops. Abdominal exam reveals normal bowel sounds, soft Extremities are nonedematous capillary refill is present Neurologic exam is alert and oriented, no focal loss of strength or sensation Skin is without bruises or rashes Psychologically is with concerns for depression.. Results & Data Results & Data ([facility]) Vital Signs (Past 12 Hours) Vital Signs Temp Pulse Pulse Pulse Resp BP Pulse Ox 04/08/21 14:09 74 20 93 04/08/21 11:56 98.2 F 72 18 116/65 90 04/08/21 10:50 63 21 94 04/08/21 08:02 98.6 F 65 20 131/71 94 04/08/21 08:00 45 L PG Care Time/CCT Total # of Minutes Spent Total Time Spent with Patient: Total time spent is greater than 50% in coordination of care (as documented) at patient's floor/unit and/or counseling patient: Coding Level of Care Code 70681 Subseq Hosp Care Lvl 3 Diagnoses Acute respiratory failure due to COVID-19 U07.1; J96.00 Hypoxia R09.02 Malaise and fatigue R53.81; R53.83 Asthma J45.909 Morbid obesity E66.01 DVT prophylaxis Z29.9 Left knee pain M25.562
[2021-04-09] MEDS: ENOXAPARIN 80 MG/0.8 ML SYR SQ SCH ×2 (01:01→12:38)
[2021-04-09] MEDS: SIMETHICONE 80 MG CHEW PO PRN ×2 (03:16→18:03)
[2021-04-09] MEDS: LEVOTHYROXINE SODIUM 50 MCG TABLET PO SCH (06:17)
[2021-04-09] MEDS: dexAMETHasone 6 MG in SYRINGE 0 ML IV SCH (08:16)
[2021-04-09] MEDS: FOLIC ACID 1 MG TAB PO SCH (08:16)
[2021-04-09] MEDS: PROPRANOLOL HCL 20 MG TAB PO SCH ×2 (08:16→20:38)
[2021-04-09] MEDS: PANTOprazole 40 MG TAB PO SCH (08:16)
[2021-04-09] MEDS: CLOTRIMAZOLE 1% CR 15 GM TUBE EXT SCH ×2 (09:35→20:35)
--- NOTE | 2021-04-09 17:27 | Hospitalist Progress Note ---
Date of Service April 09, 2021 Assessment & Plan (1) Acute respiratory failure due to COVID-19: Plan: ~ day of illness >14 days on admission - Decadron 6mg IV daily Tocilizumab given 04/01/21, his CRP has trended down PT continues with improving Hi flow NC during day NIPPV at night (2) Hypoxia: Plan: Hypoxia with respiratory failure secondary to COVID pneumonia and Morbid obesity - support with HFNC/BiPAP oxygen needs are going down no increased work of breathing (3) Malaise and fatigue: Plan: Secondary to COVID (4) Asthma: Plan: no wheezing/stable - continue Decadron for COVID (5) Morbid obesity: Plan: No acute needs- but placing patient at high rate of mortality at this time his BMI is 89, he weighs 570lbs (6) Family disruption due to of family member: Plan: Patient offered psychological counseling and pastoral support due to recent of his mother from Covid in this very hospital. Patient has declined suggestions for support at all occasions (7) Left knee pain: Plan: Hurt while falling in the shower 4 days ago- no echymosis or hematoma, and he has full flexion and extension. Has not been imaged on presentation may consider imaging in the future if continues to be persistent problem (8) DVT prophylaxis: Plan: With his morbid obesity will place him on Lovenox 75mg SQ BID - Plan: ask case management to assist in keeping mothers housing Admission and Anticipated Discharge Date Admission Date: April 02, 2021 Subjective Patient seen and examined at bedside. Continues to require high flow nasal cannula. He notes that his nose is very dry. Good appetite. No fevers or chills at this present time. Currently on reducing oxygen needs but still on 50L 50% Review of Systems Review of Systems: moderate but continues improving distress and fatigue no headache, no visual changes no speech or swallowing issues no chest pain, pressure or palpitations continues significant shortness of breath, non productive cough no abdominal pain, nausea or vomiting, diarrhea or constipation no dysuria, hematuria or frequency no focal joint pain or swelling no back pain, CVA tenderness or radicular pain no bruising, bleeding or rashes no focal signs of weakness or numbness or altered sensation no complaints of anxiety or depression.questioned about mourning refuses need to speak to counsellor. Physical Exam Physical Exam: The patient appeared imroving , is super morbid with a BMI of 89.3 he is much more comfortable tolerating times on hiflow nasal canulae Vital signs as documented. Head exam is normocephalic atraumatic Lungs are diminished and distant, exam is non reliable with body size Cardiac exam, Rhythm is regular.. No murmurs, rubs or gallops. Abdominal exam reveals normal bowel sounds, soft Extremities are nonedematous capillary refill is present Neurologic exam is alert and oriented, no focal loss of strength or sensation Skin is without bruises or rashes Psychologically is with concerns for depression.. Results & Data Results & Data ([facility]) Vital Signs (Past 12 Hours) Vital Signs Temp Pulse Pulse Resp BP Pulse Ox 04/09/21 15:29 98.2 F 63 22 117/56 L 92 04/09/21 15:10 70 22 94 04/09/21 14:20 71 04/09/21 12:05 67 22 94 04/09/21 11:21 98.1 F 58 L 20 98/53 L 94 04/09/21 08:55 69 04/09/21 08:10 68 22 96 04/09/21 08:09 98.2 F 64 24 123/57 L 97 PG Care Time/CCT Total # of Minutes Spent Total Time Spent with Patient: Total time spent is greater than 50% in coordination of care (as documented) at patient's floor/unit and/or counseling patient: Coding Level of Care Code 32254 Subseq Hosp Care Lvl 2 Diagnoses Acute respiratory failure due to COVID-19 U07.1; J96.00 Hypoxia R09.02 Malaise and fatigue R53.81; R53.83 Asthma J45.909 Morbid obesity E66.01 DVT prophylaxis Z29.9 Left knee pain M25.562 Family disruption due to of family member Z63.4
[2021-04-09] MEDS: NYSTATIN OINT 15 GM TUBE EXT SCH (20:36)
[2021-04-10] MEDS: ENOXAPARIN 80 MG/0.8 ML SYR SQ SCH ×2 (02:54→12:41)
[2021-04-10] MEDS: LEVOTHYROXINE SODIUM 50 MCG TABLET PO SCH (05:59)
[2021-04-10] MEDS: PROPRANOLOL HCL 20 MG TAB PO SCH ×2 (08:02→20:45)
[2021-04-10] MEDS: NYSTATIN OINT 15 GM TUBE EXT SCH ×3 (08:02→20:45)
[2021-04-10] MEDS: CLOTRIMAZOLE 1% CR 15 GM TUBE EXT SCH ×2 (08:02→20:44)
[2021-04-10] MEDS: FOLIC ACID 1 MG TAB PO SCH (08:04)
[2021-04-10] MEDS: PANTOprazole 40 MG TAB PO SCH (08:04)
[2021-04-10] MEDS: dexAMETHasone 6 MG in SYRINGE 0 ML IV SCH (08:04)
--- NOTE | 2021-04-10 18:48 | Hospitalist Progress Note ---
Date of Service April 10, 2021 Assessment & Plan (1) Acute respiratory failure due to COVID-19: Plan: ~ day of illness >14 days on admission - Decadron 6mg IV daily Tocilizumab given 04/01/21, his CRP has trended down PT continues with improving Hi flow NC during day NIPPV at night (2) Hypoxia: Plan: Hypoxia with respiratory failure secondary to COVID pneumonia and Morbid obesity - support with HFNC/BiPAP oxygen needs are going down no increased work of breathing (3) Malaise and fatigue: Plan: Secondary to COVID (4) Asthma: Plan: no wheezing/stable - continue Decadron for COVID (5) Morbid obesity: Plan: No acute needs- but placing patient at high rate of mortality at this time his BMI is 89, he weighs 565lbs (6) Family disruption due to of family member: Plan: Patient offered psychological counseling and pastoral support due to recent of his mother from Covid in this very hospital. Patient has declined suggestions for support at all occasions (7) Left knee pain: Plan: Hurt while falling in the shower 4 days ago- no echymosis or hematoma, and he has full flexion and extension. Has not been imaged on presentation may consider imaging in the future if continues to be persistent problem (8) DVT prophylaxis: Plan: With his morbid obesity will place him on Lovenox 75mg SQ BID - Plan: ask case management to assist in keeping mothers housing, unclear if pt will need rehab at time of discharge Admission and Anticipated Discharge Date Admission Date: April 02, 2021 Subjective Patient seen and examined at bedside. Continues to require high flow nasal cannula. He notes that his nose is very dry. Good appetite. No fevers or chills at this present time. Currently on reducing oxygen needs Review of Systems Review of Systems: moderate but continues improving distress and fatigue no headache, no visual changes no speech or swallowing issues no chest pain, pressure or palpitations continues significant shortness of breath, non productive cough no abdominal pain, nausea or vomiting, diarrhea or constipation no dysuria, hematuria or frequency no focal joint pain or swelling no back pain, CVA tenderness or radicular pain no bruising, bleeding or rashes no focal signs of weakness or numbness or altered sensation no complaints of anxiety or depression.questioned about mourning refuses need to speak to counsellor. Physical Exam Physical Exam: The patient appeared imroving , is super morbid with a BMI of 89.3 he is much more comfortable tolerating times on hiflow nasal canulae Vital signs as documented. Head exam is normocephalic atraumatic Lungs are diminished and distant, exam is non reliable with body size Cardiac exam, Rhythm is regular.. No murmurs, rubs or gallops. Abdominal exam reveals normal bowel sounds, soft Extremities are nonedematous capillary refill is present Neurologic exam is alert and oriented, no focal loss of strength or sensation Skin is without bruises or rashes Psychologically is with concerns for depression.. Results & Data Results & Data ([facility]) Vital Signs (Past 12 Hours) Vital Signs Temp Pulse Pulse Pulse Resp BP Pulse Ox 04/10/21 15:31 99.0 F 73 22 117/71 94 04/10/21 14:55 81 20 92 04/10/21 14:20 59 L 04/10/21 11:28 99.0 F 74 23 110/60 92 04/10/21 10:15 68 20 90 04/10/21 07:50 98.8 F 63 23 125/67 92 04/10/21 06:54 70 20 94 PG Care Time/CCT Total # of Minutes Spent Total Time Spent with Patient: Total time spent is greater than 50% in coordination of care (as documented) at patient's floor/unit and/or counseling patient: Coding Level of Care Code 36224 Subseq Hosp Care Lvl 2 Diagnoses Acute respiratory failure due to COVID-19 U07.1; J96.00 Hypoxia R09.02 Malaise and fatigue R53.81; R53.83 Asthma J45.909 Morbid obesity E66.01 Family disruption due to of family member Z63.4 Left knee pain M25.562 DVT prophylaxis Z29.9
[2021-04-11] MEDS: ENOXAPARIN 80 MG/0.8 ML SYR SQ SCH ×2 (01:10→13:40)
[2021-04-11] MEDS: LEVOTHYROXINE SODIUM 50 MCG TABLET PO SCH (05:41)
[2021-04-11 08:12] LABS: Hematocrit (blood only) 44.3 % (42-52); Hemoglobin 13.5 g/dL (14.0-18.0); Mean Corpuscular Hemoglobin 29.6 pg (25-34); Mean Corpuscular Hgb Conc 30.5 g/dL (32-36); Mean Corpuscular Volume 97.1 fL (80-100); Mean Platelet Volume 10.6 fL (7.4-10.4); Platelet Count 158 K/uL (130-400); RDW Coefficient of Variation 14.5 % (11.5-14.5); Red Blood Count 4.56 M/uL (4.7-6.1); White Blood Count 5.29 K/uL (4.8-10.8)
[2021-04-11 08:30] LABS: Creatinine Clr Calc Pharmacy 341.1 ml/min; Est GFR (African American) > 150.0 ml/min; Est GFR (Non-African American) 132.5 ml/min
[2021-04-11] MEDS: dexAMETHasone 6 MG in SYRINGE 0 ML IV SCH (09:15)
[2021-04-11] MEDS: CLOTRIMAZOLE 1% CR 15 GM TUBE EXT SCH ×2 (09:15→20:53)
[2021-04-11] MEDS: PROPRANOLOL HCL 20 MG TAB PO SCH ×2 (09:15→20:54)
[2021-04-11] MEDS: NYSTATIN OINT 15 GM TUBE EXT SCH ×3 (09:16→20:53)
[2021-04-11] MEDS: PANTOprazole 40 MG TAB PO SCH (09:16)
[2021-04-11] MEDS: FOLIC ACID 1 MG TAB PO SCH (09:16)
--- NOTE | 2021-04-11 10:22 | Hospitalist Progress Note ---
Date of Service April 11, 2021 Assessment & Plan (1) Acute respiratory failure due to COVID-19: Plan: ~ day of illness >14 days on admission - Decadron 6mg IV daily, today is day 10 Tocilizumab given 04/01/21, his CRP has trended down PT continues with improving Hi flow NC during day NIPPV at night try to get off Vapotherm in next 24 hours (2) 2019 novel coronavirus-infected pneumonia (NCIP): Plan: continue dexamethasone got Tocilizumab on admission (3) Hypoxia: Plan: Hypoxia with respiratory failure secondary to COVID pneumonia and Morbid obesity - support with HFNC/BiPAP oxygen needs are going down no increased work of breathing hopefully can get to wall high flow soon (4) Malaise and fatigue: Plan: Secondary to COVID (5) Asthma: Plan: no wheezing/stable - continue Decadron for COVID (6) Morbid obesity: Plan: No acute needs- but placing patient at high rate of mortality at this time his BMI is 89, he weighs 565lbs (7) Family disruption due to of family member: Plan: Patient offered psychological counseling and pastoral support due to recent of his mother from Covid in this very hospital. Patient has declined suggestions for support at all occasions (8) Left knee pain: Plan: Hurt while falling in the shower 4 days ago- no echymosis or hematoma, and he has full flexion and extension. Has not been imaged on presentation may consider imaging in the future if continues to be persistent problem (9) DVT prophylaxis: Plan: With his morbid obesity will place him on Lovenox 75mg SQ BID - Plan: ask case management to assist in keeping mothers housing, unclear if pt will need rehab at time of discharge Admission and Anticipated Discharge Date Admission Date: April 02, 2021 Subjective patient is OOB in a recliner, looks more comfortable than when I saw him 4 days ago eating well, making urine via catheter, he is moving his bowels he is coughing occasionally discussed getting off the high flow as he is on 40L and 40%, maybe we could get him home by end of the week, he agrees Review of Systems Review of Systems: All systems reviewed & are unremarkable except as noted in Subjective Physical Exam Physical Exam: General: well developed, severe morbid obesity, no acute distress, comfortable on high flow Neck: supple, trachea midline, normal thyroid Lungs: shallow respirations, lungs clear, normal respiratory effort, no accessory muscle use, no distress Heart: regular S1 and S2, no murmur, peripheral pulses normal, capillary refill normal, no edema Abdomen: soft, NT, ND, + BS, no hepatomegaly, normal to percussion Extremities: severe obesity, no cyanosis, no petechiae, strength is 5/5 bilaterally Neuro: awake, cooperative, moves all extremities, no focal motor deficits, CN II-XII intact, sensation in extremities intact, normal speech Skin: warm, dry, no rash, normal turgor Psych: Awake, alert oriented x 3, euthymic affect, below average intelligence Results & Data Results & Data ([facility]) Vital Signs (Past 12 Hours) Vital Signs Temp Pulse Pulse Resp BP Pulse Ox 04/11/21 07:34 67 20 94 04/11/21 06:50 37.0 C 68 22 121/69 95 04/11/21 04:03 36.6 C 53 L 18 106/60 93 04/11/21 03:56 60 27 H 92 04/11/21 01:01 78 04/11/21 00:49 69 28 H 94 04/10/21 23:36 37.2 C 71 18 116/61 93 Laboratory Results Laboratory Results - last 24 hr 04/11/21 04/11/21 07:18 07:18 WBC 5.29 RBC 4.56 L Hgb 13.5 L Hct 44.3 MCV 97.1 MCH 29.6 MCHC 30.5 L RDW Std Deviation 51.0 H RDW Coeff of Flor 14.5 Plt Count 158 MPV 10.6 H Creatinine 0.66 Est Cr Clr Drug Dosing 341.1 Est GFR ( Amer) > 150.0 Est GFR (Non-Af Amer) 132.5 Medications Administered Current Inpatient Medications Albuterol (Albut/Ipratrop 3mg/0.5mg Neb 3 Ml Vial) 3 ml NEB QIDR PRN PRN Reason: Wheezing Stop: 05/02/21 06:59 Clotrimazole (Clotrimazole 1% Cr 15 Gm Tube) 1 appln EXT BID THAI Stop: 05/02/21 20:59 Last Admin: 04/11/21 09:15 Dose: 1 appln Documented by: Enoxaparin Sodium (Enoxaparin 80 Mg/0.8 Ml Syr) 80 mg SQ Q12H [facility] Stop: 05/02/21 12:59 Last Admin: 04/11/21 01:10 Dose: 80 mg Documented by: Folic Acid (Folic Acid 1 Mg Tab) 1 mg PO DAILY THAI Stop: 05/02/21 08:59 Last Admin: 04/11/21 09:16 Dose: 1 mg Documented by: Dexamethasone 6 mg/ Syringe 1.5 mls @ 1 mls/min IV Q24H THAI Stop: 05/02/21 08:59 Last Admin: 04/11/21 09:15 Dose: 1 mls/min Documented by: Levothyroxine Sodium (Levothyroxine Sodium 50 Mcg Tablet) 50 mcg PO DAILYBB [facility] Stop: 05/02/21 06:29 Last Admin: 04/11/21 05:41 Dose: 50 mcg Documented by: Nystatin (Nystatin Oint 15 Gm Tube) 1 appln EXT TID [facility] Stop: 05/09/21 20:59 Last Admin: 04/11/21 09:16 Dose: 1 appln Documented by: Ondansetron HCl (Ondansetron Inj 2 Mg/Ml 2 Ml Vial) 4 mg IV Q6H PRN PRN Reason: Nausea Stop: 05/02/21 02:19 Pantoprazole Sodium (Pantoprazole 40 Mg Tab) 40 mg PO QAM [facility] Stop: 05/02/21 08:59 Last Admin: 04/11/21 09:16 Dose: 40 mg Documented by: Propranolol HCl (Propranolol Hcl 20 Mg Tab) 20 mg PO BID [facility] Stop: 05/02/21 02:19 Last Admin: 04/11/21 09:15 Dose: 20 mg Documented by: Simethicone (Simethicone 80 Mg Chew) 80 mg PO Q6H PRN PRN Reason: abdominal discofmort Stop: 05/09/21 02:40 Last Admin: 04/09/21 18:03 Dose: 80 mg Documented by: Sumatriptan Succinate (Sumatriptan Succinate 100 Mg Tab) 100 mg PO DAILY PRN PRN Reason: Migraine Headache Stop: 05/02/21 02:19 PG Care Time/CCT Total # of Minutes Spent Total Time Spent with Patient: Total time spent is greater than 50% in coordination of care (as documented) at patient's floor/unit and/or counseling patient: Coding Level of Care Code 99394 Subseq Hosp Care Lvl 2 Diagnoses Acute respiratory failure due to COVID-19 U07.1; J96.00 Hypoxia R09.02 Malaise and fatigue R53.81; R53.83 Asthma J45.909 Morbid obesity E66.01 Family disruption due to of family member Z63.4 Left knee pain M25.562 DVT prophylaxis Z29.9 2019 novel coronavirus-infected pneumonia (NCIP) U07.1; J12.82
[2021-04-12] MEDS: ENOXAPARIN 80 MG/0.8 ML SYR SQ SCH ×2 (00:23→15:17)
[2021-04-12] MEDS: LEVOTHYROXINE SODIUM 50 MCG TABLET PO SCH (06:36)
[2021-04-12] MEDS: PROPRANOLOL HCL 20 MG TAB PO SCH ×2 (08:49→19:37)
[2021-04-12] MEDS: PANTOprazole 40 MG TAB PO SCH (08:49)
[2021-04-12] MEDS: dexAMETHasone 6 MG in SYRINGE 0 ML IV SCH (08:49)
[2021-04-12] MEDS: CLOTRIMAZOLE 1% CR 15 GM TUBE EXT SCH ×2 (08:49→21:05)
[2021-04-12] MEDS: FOLIC ACID 1 MG TAB PO SCH (08:49)
[2021-04-12] MEDS: NYSTATIN OINT 15 GM TUBE EXT SCH ×3 (08:50→21:06)
[2021-04-12] MEDS ORDERED: FUROSEMIDE INJ 20 MG/2 ML VIAL IV ONE (10:50)
--- NOTE | 2021-04-12 10:50 | Hospitalist Progress Note ---
Date of Service April 12, 2021 Assessment & Plan (1) Acute respiratory failure due to COVID-19: Plan: ~ day of illness >14 days on admission - Decadron 6mg IV daily, continue 2 more days then stop Tocilizumab given 04/01/21, his CRP has trended down PT continues with improving Hi flow NC during day NIPPV at night try wall high flow today which would be awesome (2) 2019 novel coronavirus-infected pneumonia (NCIP): Plan: continue dexamethasone for 2 more days got Tocilizumab on admission, really helped to bring down CRP and he is poised to come off Vapotherm (3) Malaise and fatigue: Plan: Secondary to COVID much improved, able to get OOB into recliner on his own (4) Asthma: Plan: no wheezing/stable - continue Decadron for COVID (5) Morbid obesity: Plan: No acute needs- but placing patient at high rate of mortality at this time his BMI is 89, he weighs 565lbs (6) Family disruption due to of family member: Plan: Patient offered psychological counseling and pastoral support due to recent of his mother from Covid in this very hospital. Patient has declined suggestions for support at all occasions (7) Left knee pain: Plan: Hurt while falling in the shower 4 days ago- no echymosis or hematoma, and he has full flexion and extension. Has not been imaged on presentation may consider imaging in the future if continues to be persistent problem (8) DVT prophylaxis: Plan: With his morbid obesity will place him on Lovenox 75mg SQ BID - Plan: wean down to low flow oxygen as tolerated, try to discharge by the end of this upcoming week Admission and Anticipated Discharge Date Admission Date: April 02, 2021 Subjective patient doing great today, OOB in the recliner, down to 30L and 40%, RT going to try him on wall high flow he is eating well, no nausea, moving bowels, no fever, minimal cough discussed that if we can get him down to low flow, 2-3 L then we can discuss discharge, maybe by the end of the week he agrees with this plan Review of Systems Review of Systems: All systems reviewed & are unremarkable except as noted in Subjective Physical Exam Physical Exam: General: well developed, severe morbid obesity, no acute distress, comfortable on high flow Neck: supple, trachea midline, normal thyroid Lungs: shallow respirations, lungs clear, normal respiratory effort, no accessory muscle use, no distress Heart: regular S1 and S2, no murmur, peripheral pulses normal, capillary refill normal, no edema Abdomen: soft, NT, ND, + BS, no hepatomegaly, normal to percussion Extremities: severe obesity, no cyanosis, no petechiae, strength is 5/5 bilaterally Neuro: awake, cooperative, moves all extremities, no focal motor deficits, CN II-XII intact, sensation in extremities intact, normal speech Skin: warm, dry, no rash, normal turgor Psych: Awake, alert oriented x 3, euthymic affect, below average intelligence Results & Data Results & Data ([facility]) Vital Signs (Past 12 Hours) Vital Signs Temp Pulse Pulse Resp BP Pulse Ox 04/12/21 07:34 72 16 93 04/12/21 07:23 36.6 C 62 18 127/67 96 04/12/21 04:24 36.9 C 50 L 20 137/58 L 92 04/12/21 04:03 60 28 H 94 04/11/21 23:34 37.1 C 74 65 20 131/48 L 91 04/11/21 23:25 64 18 92 Medications Administered Current Inpatient Medications Albuterol (Albut/Ipratrop 3mg/0.5mg Neb 3 Ml Vial) 3 ml NEB QIDR PRN PRN Reason: Wheezing Stop: 05/02/21 06:59 Clotrimazole (Clotrimazole 1% Cr 15 Gm Tube) 1 appln EXT BID THAI Stop: 05/02/21 20:59 Last Admin: 04/12/21 08:49 Dose: 1 appln Documented by: Enoxaparin Sodium (Enoxaparin 80 Mg/0.8 Ml Syr) 80 mg SQ Q12H THAI Stop: 05/02/21 12:59 Last Admin: 04/12/21 00:23 Dose: 80 mg Documented by: Folic Acid (Folic Acid 1 Mg Tab) 1 mg PO DAILY THAI Stop: 05/02/21 08:59 Last Admin: 04/12/21 08:49 Dose: 1 mg Documented by: Dexamethasone 6 mg/ Syringe 1.5 mls @ 1 mls/min IV Q24H THAI Stop: 05/02/21 08:59 Last Admin: 04/12/21 08:49 Dose: 1 mls/min Documented by: Levothyroxine Sodium (Levothyroxine Sodium 50 Mcg Tablet) 50 mcg PO DAILYBB [facility] Stop: 05/02/21 06:29 Last Admin: 04/12/21 06:36 Dose: 50 mcg Documented by: Nystatin (Nystatin Oint 15 Gm Tube) 1 appln EXT TID [facility] Stop: 05/09/21 20:59 Last Admin: 04/12/21 08:50 Dose: 1 appln Documented by: Ondansetron HCl (Ondansetron Inj 2 Mg/Ml 2 Ml Vial) 4 mg IV Q6H PRN PRN Reason: Nausea Stop: 05/02/21 02:19 Pantoprazole Sodium (Pantoprazole 40 Mg Tab) 40 mg PO QAM [facility] Stop: 05/02/21 08:59 Last Admin: 04/12/21 08:49 Dose: 40 mg Documented by: Propranolol HCl (Propranolol Hcl 20 Mg Tab) 20 mg PO BID [facility] Stop: 05/02/21 02:19 Last Admin: 04/12/21 08:49 Dose: 20 mg Documented by: Simethicone (Simethicone 80 Mg Chew) 80 mg PO Q6H PRN PRN Reason: abdominal discofmort Stop: 05/09/21 02:40 Last Admin: 04/09/21 18:03 Dose: 80 mg Documented by: Sumatriptan Succinate (Sumatriptan Succinate 100 Mg Tab) 100 mg PO DAILY PRN PRN Reason: Migraine Headache Stop: 05/02/21 02:19 PG Care Time/CCT Total # of Minutes Spent Total Time Spent with Patient: Total time spent is greater than 50% in coordination of care (as documented) at patient's floor/unit and/or counseling patient: Coding Level of Care Code 74528 Subseq Hosp Care Lvl 2 Diagnoses Acute respiratory failure due to COVID-19 U07.1; J96.00 2019 novel coronavirus-infected pneumonia (NCIP) U07.1; J12.82 Malaise and fatigue R53.81; R53.83 Asthma J45.909 Morbid obesity E66.01 Family disruption due to of family member Z63.4 Left knee pain M25.562 DVT prophylaxis Z29.9
[2021-04-13] MEDS: ENOXAPARIN 80 MG/0.8 ML SYR SQ SCH ×3 (00:42→23:01)
[2021-04-13] MEDS: LEVOTHYROXINE SODIUM 50 MCG TABLET PO SCH (06:09)
[2021-04-13] MEDS: PANTOprazole 40 MG TAB PO SCH (08:17)
[2021-04-13] MEDS: FOLIC ACID 1 MG TAB PO SCH (08:17)
[2021-04-13] MEDS: CLOTRIMAZOLE 1% CR 15 GM TUBE EXT SCH ×2 (08:18→20:10)
[2021-04-13] MEDS: dexAMETHasone 6 MG in SYRINGE 0 ML IV SCH (08:18)
[2021-04-13] MEDS: PROPRANOLOL HCL 20 MG TAB PO SCH ×2 (08:18→20:11)
[2021-04-13] MEDS: NYSTATIN OINT 15 GM TUBE EXT SCH ×3 (08:19→20:09)
--- NOTE | 2021-04-13 10:46 | Hospitalist Progress Note ---
Date of Service April 13, 2021 Assessment & Plan (1) Acute respiratory failure due to COVID-19: Plan: ~ day of illness >14 days on admission - Decadron 6mg IV daily, continue 1 more day then stop Tocilizumab given 04/01/21, his CRP has trended down doing great today, down to 5L wall high flow, move to medical floor (2) 2019 novel coronavirus-infected pneumonia (NCIP): Plan: continue dexamethasone for 1 more day got Tocilizumab on admission, really helped to bring down CRP down to 5L (3) Malaise and fatigue: Plan: Secondary to COVID much improved, able to get OOB into recliner on his own (4) Asthma: Plan: no wheezing/stable - continue Decadron for COVID (5) Morbid obesity: Plan: No acute needs- but placing patient at high rate of mortality at this time his BMI is 89, he weighs 565lbs (6) Family disruption due to of family member: Plan: Patient offered psychological counseling and pastoral support due to recent of his mother from Covid in this very hospital. Patient has declined suggestions for support at all occasions (7) Left knee pain: Plan: Hurt while falling in the shower 4 days ago- no echymosis or hematoma, and he has full flexion and extension. Has not been imaged on presentation may consider imaging in the future if continues to be persistent problem (8) DVT prophylaxis: Plan: With his morbid obesity will place him on Lovenox 75mg SQ BID - Plan: wean down to low flow oxygen as tolerated, try to discharge by the end of this upcoming week move to medical floor Admission and Anticipated Discharge Date Admission Date: April 02, 2021 Subjective doing well today, no new issues stable on monitor, move to medical floor eating well, breathing well on 5L Review of Systems Review of Systems: All systems reviewed & are unremarkable except as noted in Subjective Physical Exam Physical Exam: General: well developed, severe morbid obesity, no acute distress, comfortable on high flow Neck: supple, trachea midline, normal thyroid Lungs: shallow respirations, lungs clear, normal respiratory effort, no accessory muscle use, no distress Heart: regular S1 and S2, no murmur, peripheral pulses normal, capillary refill normal, no edema Abdomen: soft, NT, ND, + BS, no hepatomegaly, normal to percussion Extremities: severe obesity, no cyanosis, no petechiae, strength is 5/5 bilaterally Neuro: awake, cooperative, moves all extremities, no focal motor deficits, CN II-XII intact, sensation in extremities intact, normal speech Skin: warm, dry, no rash, normal turgor Psych: Awake, alert oriented x 3, euthymic affect, below average intelligence Results & Data Results & Data ([facility]) Vital Signs (Past 12 Hours) Vital Signs Temp Pulse Pulse Pulse Resp BP Pulse Ox 04/13/21 08:24 76 22 155/60 H 93 04/13/21 03:36 71 30 H 95 04/13/21 03:34 36.9 C 54 L 30 H 137/62 99 04/12/21 23:33 36.9 C 56 L 20 131/59 L 94 04/12/21 23:10 66 27 H 93 Medications Administered Current Inpatient Medications Albuterol (Albut/Ipratrop 3mg/0.5mg Neb 3 Ml Vial) 3 ml NEB QIDR PRN PRN Reason: Wheezing Stop: 05/02/21 06:59 Clotrimazole (Clotrimazole 1% Cr 15 Gm Tube) 1 appln EXT BID [facility]AI Stop: 05/02/21 20:59 Last Admin: 04/13/21 08:18 Dose: 1 appln Documented by: Enoxaparin Sodium (Enoxaparin 80 Mg/0.8 Ml Syr) 80 mg SQ Q12H [facility]AI Stop: 05/02/21 12:59 Last Admin: 04/13/21 00:42 Dose: 80 mg Documented by: Folic Acid (Folic Acid 1 Mg Tab) 1 mg PO DAILY THAI Stop: 05/02/21 08:59 Last Admin: 04/13/21 08:17 Dose: 1 mg Documented by: Dexamethasone 6 mg/ Syringe 1.5 mls @ 1 mls/min IV Q24H [facility]AI Stop: 05/02/21 08:59 Last Admin: 04/13/21 08:18 Dose: 1 mls/min Documented by: Levothyroxine Sodium (Levothyroxine Sodium 50 Mcg Tablet) 50 mcg PO DAILYBB [facility] Stop: 05/02/21 06:29 Last Admin: 04/13/21 06:09 Dose: 50 mcg Documented by: Nystatin (Nystatin Oint 15 Gm Tube) 1 appln EXT TID [facility] Stop: 05/09/21 20:59 Last Admin: 04/13/21 08:19 Dose: 1 appln Documented by: Ondansetron HCl (Ondansetron Inj 2 Mg/Ml 2 Ml Vial) 4 mg IV Q6H PRN PRN Reason: Nausea Stop: 05/02/21 02:19 Pantoprazole Sodium (Pantoprazole 40 Mg Tab) 40 mg PO QAM [facility] Stop: 05/02/21 08:59 Last Admin: 04/13/21 08:17 Dose: 40 mg Documented by: Propranolol HCl (Propranolol Hcl 20 Mg Tab) 20 mg PO BID [facility] Stop: 05/02/21 02:19 Last Admin: 04/13/21 08:18 Dose: 20 mg Documented by: Simethicone (Simethicone 80 Mg Chew) 80 mg PO Q6H PRN PRN Reason: abdominal discofmort Stop: 05/09/21 02:40 Last Admin: 04/09/21 18:03 Dose: 80 mg Documented by: Sumatriptan Succinate (Sumatriptan Succinate 100 Mg Tab) 100 mg PO DAILY PRN PRN Reason: Migraine Headache Stop: 05/02/21 02:19 PG Care Time/CCT Total # of Minutes Spent Total Time Spent with Patient: Total time spent is greater than 50% in coordination of care (as documented) at patient's floor/unit and/or counseling patient: Coding Level of Care Code 98488 Subseq Hosp Care Lvl 2 Diagnoses Acute respiratory failure due to COVID-19 U07.1; J96.00 2019 novel coronavirus-infected pneumonia (NCIP) U07.1; J12.82 Malaise and fatigue R53.81; R53.83 Asthma J45.909 Morbid obesity E66.01 Family disruption due to of family member Z63.4 Left knee pain M25.562 DVT prophylaxis Z29.9
[2021-04-14] MEDS: LEVOTHYROXINE SODIUM 50 MCG TABLET PO SCH (06:44)
[2021-04-14 07:23] LABS: Hematocrit (blood only) 46.2 % (42-52); Hemoglobin 14.5 g/dL (14.0-18.0); Mean Corpuscular Hemoglobin 30.5 pg (25-34); Mean Corpuscular Hgb Conc 31.4 g/dL (32-36); Mean Corpuscular Volume 97.1 fL (80-100); Mean Platelet Volume 10.8 fL (7.4-10.4); Platelet Count 149 K/uL (130-400); RDW Coefficient of Variation 14.6 % (11.5-14.5); Red Blood Count 4.76 M/uL (4.7-6.1); White Blood Count 5.76 K/uL (4.8-10.8)
[2021-04-14 07:53] LABS: Creatinine Clr Calc Pharmacy 317.6 ml/min; Est GFR (African American) 149.9 ml/min; Est GFR (Non-African American) 129.3 ml/min
[2021-04-14] MEDS: FOLIC ACID 1 MG TAB PO SCH (08:17)
[2021-04-14] MEDS: PANTOprazole 40 MG TAB PO SCH (08:17)
[2021-04-14] MEDS: PROPRANOLOL HCL 20 MG TAB PO SCH ×2 (08:18→21:32)
[2021-04-14] MEDS: CLOTRIMAZOLE 1% CR 15 GM TUBE EXT SCH ×2 (09:58→21:32)
[2021-04-14] MEDS: NYSTATIN OINT 15 GM TUBE EXT SCH ×3 (09:59→21:32)
[2021-04-14] MEDS: dexAMETHasone 6 MG in SYRINGE 0 ML IV SCH (09:59)
--- NOTE | 2021-04-14 10:33 | Hospitalist Progress Note ---
Date of Service April 14, 2021 Assessment & Plan (1) Acute respiratory failure due to COVID-19: Plan: ~ day of illness >14 days on admission - Decadron 6mg IV daily, completed > 12 days, will stop Tocilizumab given 04/01/21, his CRP has trended down doing great today, down to 6L wall high flow, move to medical floor try to discharge to home by the end of the week (2) 2019 novel coronavirus-infected pneumonia (NCIP): Plan: continue dexamethasone for 1 more day got Tocilizumab on admission, really helped to bring down CRP down to 6L (3) Malaise and fatigue: Plan: Secondary to COVID much improved, able to get OOB into recliner on his own (4) Asthma: Plan: no wheezing/stable - continue Decadron for COVID (5) Morbid obesity: Plan: No acute needs- but placing patient at high rate of mortality at this time his BMI is 89, he weighs 565lbs (6) Family disruption due to of family member: Plan: Patient offered psychological counseling and pastoral support due to recent of his mother from Covid in this very hospital. Patient has declined suggestions for support at all occasions (7) Left knee pain: Plan: Hurt while falling in the shower 4 days ago- no echymosis or hematoma, and he has full flexion and extension. Has not been imaged on presentation may consider imaging in the future if continues to be persistent problem (8) DVT prophylaxis: Plan: With his morbid obesity will place him on Lovenox 75mg SQ BID - Plan: wean down to low flow oxygen as tolerated, try to discharge by the end of this upcoming week move to medical floor Admission and Anticipated Discharge Date Admission Date: April 02, 2021 Subjective patient doing well, no major issues still on 6-7L, should be able to titrate down awaiting medical bed eating well, making urine Review of Systems Review of Systems: All systems reviewed & are unremarkable except as noted in Subjective Respiratory: + dyspnea on exertion Physical Exam Physical Exam: General: well developed, severe morbid obesity, no acute distress, comfortable on high flow Neck: supple, trachea midline, normal thyroid Lungs: shallow respirations, lungs clear, normal respiratory effort, no accessory muscle use, no distress Heart: regular S1 and S2, no murmur, peripheral pulses normal, capillary refill normal, no edema Abdomen: soft, NT, ND, + BS, no hepatomegaly, normal to percussion Extremities: severe obesity, no cyanosis, no petechiae, strength is 5/5 bilaterally Neuro: awake, cooperative, moves all extremities, no focal motor deficits, CN II-XII intact, sensation in extremities intact, normal speech Skin: warm, dry, no rash, normal turgor Psych: Awake, alert oriented x 3, euthymic affect, below average intelligence Results & Data Results & Data ([facility]) Vital Signs (Past 12 Hours) Vital Signs Temp Pulse Pulse Pulse Resp BP Pulse Ox 04/14/21 07:34 36.9 C 73 24 137/74 98 04/14/21 02:55 52 L 26 H 93 04/13/21 23:00 63 30 H 100 04/13/21 22:58 37 C 62 22 133/74 99 Laboratory Results Laboratory Results - last 24 hr 04/14/21 04/14/21 07:03 07:03 WBC 5.76 RBC 4.76 Hgb 14.5 Hct 46.2 MCV 97.1 MCH 30.5 MCHC 31.4 L RDW Std Deviation 51.0 H RDW Coeff of Flor 14.6 H Plt Count 149 MPV 10.8 H Creatinine 0.70 Est Cr Clr Drug Dosing 317.6 Est GFR ( Amer) 149.9 Est GFR (Non-Af Amer) 129.3 Medications Administered Current Inpatient Medications Albuterol (Albut/Ipratrop 3mg/0.5mg Neb 3 Ml Vial) 3 ml NEB QIDR PRN PRN Reason: Wheezing Stop: 05/02/21 06:59 Clotrimazole (Clotrimazole 1% Cr 15 Gm Tube) 1 appln EXT BID [facility]AI Stop: 05/02/21 20:59 Last Admin: 04/14/21 09:58 Dose: 1 appln Documented by: Enoxaparin Sodium (Enoxaparin 80 Mg/0.8 Ml Syr) 80 mg SQ Q12H [facility]AI Stop: 05/02/21 12:59 Last Admin: 04/13/21 23:01 Dose: 80 mg Documented by: Folic Acid (Folic Acid 1 Mg Tab) 1 mg PO DAILY [facility]AI Stop: 05/02/21 08:59 Last Admin: 04/14/21 08:17 Dose: 1 mg Documented by: Dexamethasone 6 mg/ Syringe 1.5 mls @ 1 mls/min IV Q24H [facility] Stop: 05/02/21 08:59 Last Admin: 04/14/21 09:59 Dose: 1 mls/min Documented by: Levothyroxine Sodium (Levothyroxine Sodium 50 Mcg Tablet) 50 mcg PO DAILYBB [facility] Stop: 05/02/21 06:29 Last Admin: 04/14/21 06:44 Dose: 50 mcg Documented by: Nystatin (Nystatin Oint 15 Gm Tube) 1 appln EXT TID [facility] Stop: 05/09/21 20:59 Last Admin: 04/14/21 09:59 Dose: 1 appln Documented by: Ondansetron HCl (Ondansetron Inj 2 Mg/Ml 2 Ml Vial) 4 mg IV Q6H PRN PRN Reason: Nausea Stop: 05/02/21 02:19 Pantoprazole Sodium (Pantoprazole 40 Mg Tab) 40 mg PO QAM [facility] Stop: 05/02/21 08:59 Last Admin: 04/14/21 08:17 Dose: 40 mg Documented by: Propranolol HCl (Propranolol Hcl 20 Mg Tab) 20 mg PO BID [facility] Stop: 05/02/21 02:19 Last Admin: 04/14/21 08:18 Dose: 20 mg Documented by: Simethicone (Simethicone 80 Mg Chew) 80 mg PO Q6H PRN PRN Reason: abdominal discofmort Stop: 05/09/21 02:40 Last Admin: 04/09/21 18:03 Dose: 80 mg Documented by: Sumatriptan Succinate (Sumatriptan Succinate 100 Mg Tab) 100 mg PO DAILY PRN PRN Reason: Migraine Headache Stop: 05/02/21 02:19 PG Care Time/CCT Total # of Minutes Spent Total Time Spent with Patient: Total time spent is greater than 50% in coordination of care (as documented) at patient's floor/unit and/or counseling patient: Coding Level of Care Code 54768 Subseq Hosp Care Lvl 2 Diagnoses Acute respiratory failure due to COVID-19 U07.1; J96.00 2019 novel coronavirus-infected pneumonia (NCIP) U07.1; J12.82 Malaise and fatigue R53.81; R53.83 Asthma J45.909 Morbid obesity E66.01 Family disruption due to of family member Z63.4 Left knee pain M25.562 DVT prophylaxis Z29.9
[2021-04-14] MEDS: ENOXAPARIN 80 MG/0.8 ML SYR SQ SCH (14:59)
[2021-04-15] MEDS: ENOXAPARIN 80 MG/0.8 ML SYR SQ SCH ×3 (01:40→21:27)
[2021-04-15] MEDS: LEVOTHYROXINE SODIUM 50 MCG TABLET PO SCH (06:14)
[2021-04-15] MEDS: dexAMETHasone 6 MG in SYRINGE 0 ML IV SCH (08:33)
[2021-04-15] MEDS: NYSTATIN OINT 15 GM TUBE EXT SCH ×3 (08:34→21:26)
[2021-04-15] MEDS: CLOTRIMAZOLE 1% CR 15 GM TUBE EXT SCH ×2 (08:34→21:26)
[2021-04-15] MEDS: PROPRANOLOL HCL 20 MG TAB PO SCH ×2 (08:35→21:26)
[2021-04-15] MEDS: PANTOprazole 40 MG TAB PO SCH (08:35)
[2021-04-15] MEDS: FOLIC ACID 1 MG TAB PO SCH (08:35)
--- NOTE | 2021-04-15 08:41 | Hospitalist Progress Note ---
Date of Service April 15, 2021 Assessment & Plan (1) Acute respiratory failure due to COVID-19: Plan: ~ day of illness >14 days on admission - Decadron 6mg IV daily, completed 14 days, stopped Tocilizumab given 04/01/21, his CRP trended down quickly afterwards doing great today, down to 4L wall high flow, move to medical floor when a bed is available try to discharge to home by the end of the week asked CM to work on getting him a CPAP at home, suspect he needs it (2) 2019 novel coronavirus-infected pneumonia (NCIP): Plan: completed extended course of dexamethasone got Tocilizumab on admission, really helped to bring down CRP down to 4L (3) Malaise and fatigue: Plan: Secondary to COVID much improved, able to get OOB into recliner on his own (4) Asthma: Plan: no wheezing/stable - continue Decadron for COVID (5) Morbid obesity: Plan: No acute needs- but placing patient at high rate of mortality at this time his BMI is 89, he weighs 565lbs work on getting CPAP at home (6) Family disruption due to of family member: Plan: Patient offered psychological counseling and pastoral support due to recent of his mother from Covid in this very hospital. Patient has declined suggestions for support at all occasions (7) Left knee pain: Plan: Hurt while falling in the shower 4 days ago- no echymosis or hematoma, and he has full flexion and extension. Has not been imaged on presentation may consider imaging in the future if continues to be persistent problem (8) DVT prophylaxis: Plan: With his morbid obesity will place him on Lovenox 75mg SQ BID - Plan: d/c to home in next 1-2 days Admission and Anticipated Discharge Date Admission Date: April 02, 2021 Subjective patient feeling well, down to 4L, sitting up in recliner will work on getting him CPAP at home as he would benefit from one eating well, no complaints he says he is walking well enough to be at home Review of Systems Review of Systems: All systems reviewed & are unremarkable except as noted in Subjective Physical Exam Physical Exam: General: well developed, severe morbid obesity, no acute distress, comfortable on high flow Neck: supple, trachea midline, normal thyroid Lungs: shallow respirations, lungs clear, normal respiratory effort, no accessory muscle use, no distress Heart: regular S1 and S2, no murmur, peripheral pulses normal, capillary refill normal, no edema Abdomen: soft, NT, ND, + BS, no hepatomegaly, normal to percussion Extremities: severe obesity, no cyanosis, no petechiae, strength is 5/5 bilaterally Neuro: awake, cooperative, moves all extremities, no focal motor deficits, CN II-XII intact, sensation in extremities intact, normal speech Skin: warm, dry, no rash, normal turgor Psych: Awake, alert oriented x 3, euthymic affect, below average intelligence Results & Data Results & Data ([facility]) Vital Signs (Past 12 Hours) Vital Signs Temp Pulse Pulse Resp BP Pulse Ox 04/15/21 07:18 36.7 C 92 H 18 132/71 97 04/15/21 03:20 36.5 C 65 22 145/72 H 96 04/15/21 02:49 52 L 24 94 04/14/21 23:23 36.9 C 60 22 138/59 L 95 04/14/21 22:20 18 95 Medications Administered Current Inpatient Medications Albuterol (Albut/Ipratrop 3mg/0.5mg Neb 3 Ml Vial) 3 ml NEB QIDR PRN PRN Reason: Wheezing Stop: 05/02/21 06:59 Clotrimazole (Clotrimazole 1% Cr 15 Gm Tube) 1 appln EXT BID [facility] Stop: 05/02/21 20:59 Last Admin: 04/15/21 08:34 Dose: 1 appln Documented by: Enoxaparin Sodium (Enoxaparin 80 Mg/0.8 Ml Syr) 80 mg SQ Q12H [facility] Stop: 05/02/21 12:59 Last Admin: 04/15/21 01:40 Dose: 80 mg Documented by: Folic Acid (Folic Acid 1 Mg Tab) 1 mg PO DAILY [facility] Stop: 05/02/21 08:59 Last Admin: 04/15/21 08:35 Dose: 1 mg Documented by: Dexamethasone 6 mg/ Syringe 1.5 mls @ 1 mls/min IV Q24H [facility] Stop: 05/02/21 08:59 Last Admin: 04/15/21 08:33 Dose: 1 mls/min Documented by: Levothyroxine Sodium (Levothyroxine Sodium 50 Mcg Tablet) 50 mcg PO DAILYBB [facility] Stop: 05/02/21 06:29 Last Admin: 04/15/21 06:14 Dose: 50 mcg Documented by: Nystatin (Nystatin Oint 15 Gm Tube) 1 appln EXT TID [facility] Stop: 05/09/21 20:59 Last Admin: 04/15/21 08:34 Dose: 1 appln Documented by: Ondansetron HCl (Ondansetron Inj 2 Mg/Ml 2 Ml Vial) 4 mg IV Q6H PRN PRN Reason: Nausea Stop: 05/02/21 02:19 Pantoprazole Sodium (Pantoprazole 40 Mg Tab) 40 mg PO QAM [facility] Stop: 05/02/21 08:59 Last Admin: 04/15/21 08:35 Dose: 40 mg Documented by: Propranolol HCl (Propranolol Hcl 20 Mg Tab) 20 mg PO BID [facility] Stop: 05/02/21 02:19 Last Admin: 04/15/21 08:35 Dose: 20 mg Documented by: Simethicone (Simethicone 80 Mg Chew) 80 mg PO Q6H PRN PRN Reason: abdominal discofmort Stop: 05/09/21 02:40 Last Admin: 04/09/21 18:03 Dose: 80 mg Documented by: Sumatriptan Succinate (Sumatriptan Succinate 100 Mg Tab) 100 mg PO DAILY PRN PRN Reason: Migraine Headache Stop: 05/02/21 02:19 PG Care Time/CCT Total # of Minutes Spent Total Time Spent with Patient: Total time spent is greater than 50% in coordination of care (as documented) at patient's floor/unit and/or counseling patient: Coding Level of Care Code 36434 Subseq Hosp Care Lvl 2 Diagnoses Acute respiratory failure due to COVID-19 U07.1; J96.00 2019 novel coronavirus-infected pneumonia (NCIP) U07.1; J12.82 Malaise and fatigue R53.81; R53.83 Asthma J45.909 Morbid obesity E66.01 Family disruption due to of family member Z63.4 Left knee pain M25.562 DVT prophylaxis Z29.9
[2021-04-16] MEDS: LEVOTHYROXINE SODIUM 50 MCG TABLET PO SCH (06:24)
[2021-04-16] MEDS: FOLIC ACID 1 MG TAB PO SCH (10:39)
[2021-04-16] MEDS: PANTOprazole 40 MG TAB PO SCH (10:43)
[2021-04-16] MEDS: NYSTATIN OINT 15 GM TUBE EXT SCH ×3 (10:43→20:49)
[2021-04-16] MEDS: PROPRANOLOL HCL 20 MG TAB PO SCH ×2 (10:43→20:50)
[2021-04-16] MEDS: CLOTRIMAZOLE 1% CR 15 GM TUBE EXT SCH ×2 (11:02→20:49)
--- NOTE | 2021-04-16 11:18 | Hospitalist Progress Note ---
Date of Service April 16, 2021 Assessment & Plan (1) Acute respiratory failure due to COVID-19: Plan: ~ day of illness >14 days on admission - Decadron 6mg IV daily, completed 14 days, stopped Tocilizumab given 04/01/21, his CRP trended down quickly afterwards doing great today, down to 2L wall high flow, move to medical floor when a bed is available plan for nocturnal desat, morning ABG, 2 step and discharge tomorrow (2) 2019 novel coronavirus-infected pneumonia (NCIP): Plan: completed extended course of dexamethasone got Tocilizumab on admission, really helped to bring down CRP down to 2L (3) Malaise and fatigue: Plan: Secondary to COVID much improved, able to get OOB into recliner on his own (4) Asthma: Plan: no wheezing/stable (5) Morbid obesity: Plan: No acute needs- but placing patient at high rate of mortality at this time his BMI is 89, he weighs 565lbs work on getting CPAP at home if he qualifies with morning ABG and nocturnal desaturation study (6) Family disruption due to of family member: Plan: Patient offered psychological counseling and pastoral support due to recent of his mother from Covid in this very hospital. Patient has declined suggestions for support at all occasions (7) DVT prophylaxis: Plan: With his morbid obesity will place him on Lovenox 75mg SQ BID - Plan: d/c to home tomorrow Admission and Anticipated Discharge Date Admission Date: April 02, 2021 Subjective patient doing well, walking to recliner, will pull bowen and let him walk to toilet down to 2L today, no distress working on discharge plan for him at this time, he wants to go home will get nocturnal desaturation study and morning ABG to see if he qualifies for CPAP at home plan for 2 step tomorrow to see if he needs home oxygen eating well, no complaints Review of Systems Review of Systems: All systems reviewed & are unremarkable except as noted in Subjective Physical Exam Physical Exam: General: well developed, severe morbid obesity, no acute distress, comfortable on high flow Neck: supple, trachea midline, normal thyroid Lungs: shallow respirations, lungs clear, normal respiratory effort, no accessory muscle use, no distress Heart: regular S1 and S2, no murmur, peripheral pulses normal, capillary refill normal, no edema Abdomen: soft, NT, ND, + BS, no hepatomegaly, normal to percussion Extremities: severe obesity, no cyanosis, no petechiae, strength is 5/5 bilaterally Neuro: awake, cooperative, moves all extremities, no focal motor deficits, CN II-XII intact, sensation in extremities intact, normal speech Skin: warm, dry, no rash, normal turgor Psych: Awake, alert oriented x 3, euthymic affect, below average intelligence Results & Data Results & Data ([facility]) Vital Signs (Past 12 Hours) Vital Signs Temp Pulse Pulse Resp BP Pulse Ox 04/16/21 08:15 36.7 C 86 24 141/81 H 93 04/16/21 01:55 72 28 H 92 Medications Administered Current Inpatient Medications Albuterol (Albut/Ipratrop 3mg/0.5mg Neb 3 Ml Vial) 3 ml NEB QIDR PRN PRN Reason: Wheezing Stop: 05/02/21 06:59 Clotrimazole (Clotrimazole 1% Cr 15 Gm Tube) 1 appln EXT BID [facility] Stop: 05/02/21 20:59 Last Admin: 04/16/21 11:02 Dose: 1 appln Documented by: Enoxaparin Sodium (Enoxaparin 80 Mg/0.8 Ml Syr) 80 mg SQ Q12H [facility] Stop: 05/02/21 12:59 Last Admin: 04/15/21 21:27 Dose: 80 mg Documented by: Folic Acid (Folic Acid 1 Mg Tab) 1 mg PO DAILY [facility] Stop: 05/02/21 08:59 Last Admin: 04/16/21 10:39 Dose: 1 mg Documented by: Levothyroxine Sodium (Levothyroxine Sodium 50 Mcg Tablet) 50 mcg PO DAILYBB [facility] Stop: 05/02/21 06:29 Last Admin: 04/16/21 06:24 Dose: 50 mcg Documented by: Nystatin (Nystatin Oint 15 Gm Tube) 1 appln EXT TID [facility] Stop: 05/09/21 20:59 Last Admin: 04/16/21 10:43 Dose: 1 appln Documented by: Ondansetron HCl (Ondansetron Inj 2 Mg/Ml 2 Ml Vial) 4 mg IV Q6H PRN PRN Reason: Nausea Stop: 05/02/21 02:19 Pantoprazole Sodium (Pantoprazole 40 Mg Tab) 40 mg PO QAM [facility] Stop: 05/02/21 08:59 Last Admin: 04/16/21 10:43 Dose: 40 mg Documented by: Propranolol HCl (Propranolol Hcl 20 Mg Tab) 20 mg PO BID [facility] Stop: 05/02/21 02:19 Last Admin: 04/16/21 10:43 Dose: 20 mg Documented by: Simethicone (Simethicone 80 Mg Chew) 80 mg PO Q6H PRN PRN Reason: abdominal discofmort Stop: 05/09/21 02:40 Last Admin: 04/09/21 18:03 Dose: 80 mg Documented by: Sumatriptan Succinate (Sumatriptan Succinate 100 Mg Tab) 100 mg PO DAILY PRN PRN Reason: Migraine Headache Stop: 05/02/21 02:19 PG Care Time/CCT Total # of Minutes Spent Total Time Spent with Patient: Total time spent is greater than 50% in coordination of care (as documented) at patient's floor/unit and/or counseling patient: Coding Level of Care Code 07410 Subseq Hosp Care Lvl 2 Diagnoses Acute respiratory failure due to COVID-19 U07.1; J96.00 2019 novel coronavirus-infected pneumonia (NCIP) U07.1; J12.82 Malaise and fatigue R53.81; R53.83 Asthma J45.909 Morbid obesity E66.01 Family disruption due to of family member Z63.4 DVT prophylaxis Z29.9
[2021-04-16] MEDS: ENOXAPARIN 80 MG/0.8 ML SYR SQ SCH (15:56)
[2021-04-17] MEDS: ENOXAPARIN 80 MG/0.8 ML SYR SQ SCH ×2 (01:40→13:03)
[2021-04-17] MEDS: LEVOTHYROXINE SODIUM 50 MCG TABLET PO SCH (05:49)
[2021-04-17] MEDS: PROPRANOLOL HCL 20 MG TAB PO SCH (09:28)
[2021-04-17] MEDS: CLOTRIMAZOLE 1% CR 15 GM TUBE EXT SCH (09:29)
[2021-04-17] MEDS: NYSTATIN OINT 15 GM TUBE EXT SCH ×2 (09:29→13:04)
[2021-04-17] MEDS: FOLIC ACID 1 MG TAB PO SCH (09:29)
[2021-04-17] MEDS: PANTOprazole 40 MG TAB PO SCH (09:29)
[2021-04-17 09:41] LABS: Base Excess ABG 3.5 mEq/L (-9-1.8); HCO3 ABG 28 mmol/L (19-24); Oxygen Saturation ABG 83.8 % (90-95); PCO2 ABG 40 mmHg (35-46); PO2 ABG 50 mmHg (80-95); pH ABG 7.46 (7.35-7.45)
[2021-04-17 09:45] LABS: Allen Test Pos (Pos)
[2021-04-17 09:53] LABS: Creatinine Clr Calc Pharmacy 277.1 ml/min; Est GFR (African American) 141.9 ml/min; Est GFR (Non-African American) 122.4 ml/min
--- NOTE | 2021-04-17 10:44 | Discharge Summary ---
Date of Service April 17, 2021 Admission HPI Per Admitting Provider The patient is a 25-year-old male with a past medical history including hidradenitis suppurativa, frequent headaches, anxiety with depression, ADD, GERD, migraine, asthma, morbid obesity, mood disorder, hypothyroidism, hypertension and drug abuse. He called the ambulance and was brought to the emergency department due to complaint of fatigue and shortness of breath. Patient was found to have a pulse ox in the 60s on room air, and was placed on nonrebreather which improved his saturations to the low 90s. The patient has significant morbid obesity, with BMI 85.7, and required significant amount of effort by staff to be taken from his house into the ambulance and then from the ambulance into the emergency department. In the emergency department he is placed on BiPAP, which is titrated to 14/9 at 100%, and stabilize his respiratory status. Abnormal laboratories: AST 79, albumin 2.4, total protein 8.7, WBC 11.19, platelets 347, glucose 124. Patient was COVID-19 positive. Of note, patient's mother was recently admitted and in [facility] ICU with severe COVID-19 pneumonia earlier in the day today. Chest x-ray was consistent with multifocal pneumonia secondary to COVID-19 Principal Diagnosis COVID 19 pneumonia Acute hypoxic respiratory failure Discharge Exam General: well developed, severe morbid obesity, no acute distress, comfortable on high flow Neck: supple, trachea midline, normal thyroid Lungs: shallow respirations, lungs clear, normal respiratory effort, no accessory muscle use, no distress Heart: regular S1 and S2, no murmur, peripheral pulses normal, capillary refill normal, no edema Abdomen: soft, NT, ND, + BS, no hepatomegaly, normal to percussion Extremities: severe obesity, no cyanosis, no petechiae, strength is 5/5 bilaterally Neuro: awake, cooperative, moves all extremities, no focal motor deficits, CN II-XII intact, sensation in extremities intact, normal speech Skin: warm, dry, no rash, normal turgor Psych: Awake, alert oriented x 3, euthymic affect, below average intelligence Discharge Data Allergies Allergy/AdvReac Type Severity Reaction Status Date / Time acetaminophen Allergy Intermediate RASH Verified 04/01/21 23:53 bee venom protein (honey bee) Allergy Intermediate Localized Verified 04/01/21 23:53 swelling ibuprofen Allergy Intermediate RASH Verified 04/01/21 23:53 ketorolac Allergy Intermediate RASH Verified 04/01/21 23:53 tramadol Allergy Intermediate RASH Verified 04/01/21 23:53 azithromycin [From Zithromax] Allergy Mild hives, IV Verified 04/01/21 23:53 form only gabapentin Allergy Unknown Unknown Verified 04/01/21 23:53 naproxen Allergy Unknown Unknown Verified 04/01/21 23:53 Consultations 04/02/21 00:06 ED Decision to Admit Stat 04/02/21 04:47 Consult Pulmonology Routine Hospital Course (1) Acute respiratory failure due to COVID-19: ~ day of illness >14 days on admission - Decadron 6mg IV daily, completed 14 days, stopped Tocilizumab given 04/01/21, his CRP trended down quickly afterwards doing great the past 3 days, down to room air at rest, needs 5L on exertion nocturnal desaturation study shows that he needed 2L at night, but morning ABG with normal CO2 so no CPAP needed suggested he get a formal sleep study as outpatient discharge with home oxygen expect him to take several more weeks to fully recover (2) 2019 novel coronavirus-infected pneumonia (NCIP): completed extended course of dexamethasone got Tocilizumab on admission, really helped to bring down CRP down to room air at rest, needs 5L on exertion (3) Malaise and fatigue: Secondary to COVID much improved, able to get OOB into recliner on his own, able to ambulate independently (4) Asthma: no wheezing/stable (5) Morbid obesity: No acute needs- but placing patient at high rate of mortality at this time his BMI is 89, he weighs 565lbs discussed healthy weight loss (6) Family disruption due to of family member: Patient offered psychological counseling and pastoral support due to recent of his mother from Covid in this very hospital. Patient has declined suggestions for support at all occasions (7) DVT prophylaxis: d/c to home Total Time Total Time Spent Total Time Spent (In Minutes): 33 minutes Discharge Plan Discharge Items Patient Disposition: Home - Self-Care Reason For Visit: COVID PNEUMONIA W/ HYPOXIA, GROIN CELLULITIS Discharge Diagnosis: COVID 19 pneumonia Acute hypoxic respiratory failure Condition on Discharge: Good Goals: use oxygen for the next 2-3 weeks on exertion and at night recommend a formal sleep study in next few weeks if possible, could be difficult to schedule Activity: Resume your previous activity Weightbearing: Full weightbearing Non-emergency contact: Primary Care Provider Call non-emergency contact if: you have any medication questions and your symptoms worsen Follow-up/Referrals: Shirley Archer, [Primary Care Provider] - (PLEASE CALL YOUR PRIMARY CARE PROVIDER TO SCHEDULE A DISCHARGE FOLLOW-UP APPOINTMENT WITHIN 7-10 DAYS.) Diet: Heart Healthy Addtl Attending Provider Instructions: Medications: - CLOTRIMAZOLE and NYSTATIN: apply to skin folds to help with irritation, fungal infection, wash daily and try to dry thoroughly prior to applying treatment COVID 19 pneumonia, acute hypoxic respiratory failure completed extended course of dexamethasone, responded well to treatment you are now stable on room air at rest, but you need 5L of oxygen on exertion you also need to wear 2L of oxygen when sleeping because you desaturate you have sleep apnea, the only way to qualify for CPAP machine would be a formal sleep study, ask your PCP to schedule one for you Obesity: please make every effort to lose weight by eating less calories and getting some type of activity in several days a week even a 20% weight loss would be 110 lbs which would be a huge difference your PCP can refer you to weigh loss specialist focus on eating vegetables, protein and avoid excess carbohydrates and sugars if you lose weight now it will greatly impact your health in the next 10-15 years Pending Studies at Discharge: No Stand-Alone Forms: [facility], Smoking Cessation Medications and DC Order Prescriptions: New clotrimazole 1 % Cream 1 applic EXT BID 14 Days Qty: 45 RF: 1 nystatin 100,000 unit/gram Ointment 1 applic EXT TID 14 Days Qty: 30 RF: 1 Continued omeprazole 20 mg capsule,delayed release(DR/EC) 20 mg PO QAM Qty: 90 RF: 1 levothyroxine 50 mcg tablet 50 mcg PO QAM Qty: 90 RF: 1 folic acid 1 mg tablet 1 mg PO DAILY Qty: 30 RF: 2 propranolol 20 mg tablet 20 mg PO BID Qty: 180 RF: 1 lisinopril-hydrochlorothiazide 20-25 mg tablet 1 tab PO QAM Qty: 90 RF: 1 fluticasone propionate 50 mcg/actuation spray,suspension 2 spray intranasal DAILY Qty: 16 RF: 2 sumatriptan succinate 100 mg tablet See Rx Instructions PO .COMPLEX Qty: 10 RF: 4 Discontinued doxycycline hyclate 100 mg capsule 100 mg PO BID RF: 0 Discharge Orders: Discharge Order (Routine); Ordered 04/17/21 Ordered By: Linwood Gillette Admission Data Admit Date/Time: 04/02/21 00:51 Attending Provider: Linwood Gillette Admit Provider: Gerhard Acuna Primary Care Provider: Shirley Archer Other Providers: [facility] ; Gerhard Acuna ; Surja Garcia ; [facility] ; [facility] Other Interventions: Discharge Summary Assessment (RN) Last Done: 04/17/21 16:24 Coding Level of Care Code D/C DAY MANAGEMENT >30 MINS Diagnoses Acute respiratory failure due to COVID-19 U07.1; J96.00 2019 novel coronavirus-infected pneumonia (NCIP) U07.1; J12.82 Malaise and fatigue R53.81; R53.83 Asthma J45.909 Morbid obesity E66.01 Family disruption due to of family member Z63.4 DVT prophylaxis Z29.9
== END 2021-04-17 17:45 | disposition home or self-care (01) | DRG 177 ==
LOC: ED 22:39 → SUATTDRO 04-02 00:51 → EDINP 04-02 00:51 → 2E 04-02 11:02 → 2W 04-16 18:19

== ENCOUNTER 2021-04-26 22:31 | Inpatient (IN) ==
[2021-04-26] MEDS ORDERED: ALBUT/IPRATROP 3MG/0.5MG NEB 3 ML VIAL NEB STA (22:55)
--- NOTE | 2021-04-26 23:20 | Emergency Department Note ---
History of Present Illness General Chief complaint: Shortness of Breath/Dyspnea Stated complaint: COVID+/BREATHING DIFF Time Seen by Provider: 04/26/21 22:45 History of Present Illness This 25-year-old who was diagnosed with Covid 1 month ago discharged 1 week ago with home O2 to the hotel who was BMI is 90 presents to the ER complaining of worsening shortness of breath Location: Generalized Quality: Hard to breathe Severity: Moderate Duration: Past few days Timing: Started few days ago Context: Patient's breathing got worse and called 911 Modifying factors: better with oxygen; worse with activity Patient was discharged from this facility 1 week ago on home O2 of 3 L. His sats are in the 70s per EMS. Patient is currently satting in the mid 90s on 6 L. Patient denies chest pain, daughter pain, vomiting, diarrhea. Home Medications Medication Instructions Recorded Confirmed Type omeprazole 20 mg capsule,delayed 20 mg PO QAM #90 cap 09/05/20 04/26/21 Rx release lisinopril 20 1 tab PO QAM #90 tab 10/13/20 04/26/21 Rx mg-hydrochlorothiazide 25 mg tablet propranolol 20 mg tablet 20 mg PO BID #180 tab 10/13/20 04/26/21 Rx fluticasone propionate 50 2 spray INTRANASAL DAILY #16 g 11/05/20 04/26/21 Rx mcg/actuation nasal spray,suspension levothyroxine 50 mcg tablet 50 mcg PO QAM #90 tab 11/26/20 04/26/21 Rx folic acid 1 mg tablet 1 mg PO DAILY #30 tab 01/15/21 04/26/21 Rx clotrimazole 1 % topical cream 1 applic EXT BID PRN 04/26/21 04/26/21 History nystatin 100,000 unit/gram topical 1 applic EXT TID PRN 04/26/21 04/26/21 History ointment sumatriptan succinate 100 mg tablet See Rx Instructions PO .COMPLEX PRN 04/26/21 04/26/21 History Allergies Allergy/AdvReac Type Severity Reaction Status Date / Time acetaminophen Allergy Intermediate RASH Verified 04/26/21 23:15 bee venom protein (honey bee) Allergy Intermediate Localized Verified 04/26/21 23:15 swelling ibuprofen Allergy Intermediate RASH Verified 04/26/21 23:15 ketorolac Allergy Intermediate RASH Verified 04/26/21 23:15 tramadol Allergy Intermediate RASH Verified 04/26/21 23:15 azithromycin [From Zithromax] Allergy Mild hives, IV Verified 04/26/21 23:15 form only gabapentin Allergy Unknown Unknown Verified 04/26/21 23:15 naproxen Allergy Unknown Unknown Verified 04/26/21 23:15 Past Med/Surg History Medical History Abscess of back Acne ADD (attention deficit disorder) Anxiety Asthma Dental caries Depression Drug abuse Finger abrasion Frequent headaches GERD (gastroesophageal reflux disease) Hidradenitis suppurativa HTN (hypertension) Hypothyroid Lumbar back pain Lumbar strain Malaise and fatigue Migraine Mood disorder Morbid obesity Tachycardia (07/14/13) Surgical History H/O tympanostomy History of tonsillectomy and adenoidectomy Family History Father Alcohol abuse Drug abuse Mother Anxiety Bilateral nephrolithiasis Heart disease Depression Diabetes Hypertension Gallbladder disease Lung disease Cancer skin Grandfather Myocardial infarction Social History Smoking Status: Never smoker Tobacco Type: Cigarettes Age Started Using Tobacco: 16; Age Quit Using Tobacco: 22; Second Hand Exposure: Yes; Hx Alcohol Use: Yes Alcohol Intake Frequency: Monthly or Less Alcohol Intake Frequency Comment: Rarely Hx Substance Use: Yes Prescribed Medications: Marijuana Last Used Substance: Days (ago) Last Used Substance Other:: months ago Preferred Language: Egyptian Communication Ability: Effective Visual Impairment: No Limitations Hearing Ability: Normal Cellar Packer Required: No Beliefs That Will Affect Care: None marital status: Single Current Living Situation: Alone current occupational status: unemployed Feels Safe at Home: Yes Childhood Exposure to Second-Hand Smoke: Yes caffeine: Yes (tea occasional) during the past year weight has: remained stable Dental Care, Regularly: No Physical Activity Frequency: 1-2 Times per Week Seatbelt Use: never Sunscreen Use: No Assistive Devices: Glasses Review of Systems A total of 10 systems reviewed and were otherwise negative Physical Exam Vital Signs Vital Signs - 24 hr 04/26/21 22:45 04/26/21 22:50 04/27/21 00:06 Temperature 36.9 C Temperature Source Oral Pulse Rate 132 H Pulse Rate [Apical] 122 H 115 H Pulse Rhythm [Apical] Regular Respiratory Rate 22 25 H 22 Respiratory Effort / Characteristics Spontaneous Short of Breath SOB on Exertion Respiratory Depth Deep Respiratory Pattern Tachypnea Blood Pressure [Right Arm] 120/79 Blood Pressure Mean [Right Arm] 92 Pulse Oximetry 77 L 95 94 Oxygen Delivery Method Nasal Cannula Nasal Cannula Oxymask Oxygen Flow Rate 4 6 5 Sepsis Recent Fever Within 48 Hours No Sepsis New/Unexplained Change in Mental Status No Sepsis Action Taken by Nursing Adv Provider Notified VITALS: Vitals are noted on the nurse's note and reviewed by myself. Vital signs hypoxic on room air which improved on nasal cannula. GENERAL: Pleasant male with a BMI of 90 speaking full sentences SKIN: The skin was without bruising. There is no tenting of the skin. Capillary reflex less than 2 seconds. HEAD: Normocephalic atraumatic. EARS: External auditory canals clear, tympanic membranes pearly aguirre without erythema or effusion bilaterally. EYES: Pupils equal round and reactive to light and accommodation. Conjunctivae without injection, sclerae without icterus. Extraocular movements intact. NOSE: Patent, turbinates without inflammation or discharge. MOUTH: Mucous membranes moist. Pharynx without erythema or exudate. Uvula midline. Airway patent. Tongue does not deviate. NECK: Supple without nuchal rigidity. No lymphadenopathy. No thyromegaly. Cervical spine is nontender. No JVD. HEART: Regular rate and rhythm LUNGS: Mild diffuse inspiratory and end expiratory wheezes, without rales or rhonchi. No retractions or accessory muscle use. ABDOMEN: Positive bowel sounds x 4. Normal tympanic percussion. Soft, nonten candy, without masses or organomegaly. Rivera sign negative. No guarding or rebound tenderness. No CVA tenderness MUSCULOSKELETAL: No muscle atrophy noted. NEURO: Patient was alert and oriented to person place and time. Normal sensation to light and sharp touch. No focal neurological deficits. Course Administered Medications Heparin Sodium/Dextrose (Heparin Sodium/Dextrose) 25,000 units in 500 mls @ 50 mls/hr IV .Q10H [facility]; Protocol Stop: 05/26/21 23:44 Last Admin: 04/27/21 02:13 Dose: 2,500 units/hr, 50 mls/hr Documented by: [id number] Cosigned by: [id number] Discontinued Medications Albuterol (Albut/Ipratrop 3mg/0.5mg Neb 3 Ml Vial) 3 ml NEB NOW STA; Protocol Stop: 04/26/21 22:56 Last Admin: 04/26/21 23:21 Dose: 3 ml Documented by: [id number] Heparin Sodium/Dextrose (Heparin Iv Adult Wt-Based Standard *No* Bolus Protocol) 1 ea N/A ONE ONE; Protocol Stop: 04/26/21 23:42 Last Admin: 04/27/21 02:26 Dose: Not Given Documented by: [id number] Magnesium Sulfate/Dextrose (Magnesium Sulfate / D5w) 1 gm in 100 mls @ 100 mls/hr IV NOW STA Stop: 04/27/21 01:29 Last Admin: 04/27/21 02:14 Dose: 100 mls/hr Documented by: [id number] Critical Care Time I have personally spent 35 minutes of critical care time in the direct management of this patient. This includes bedside care, interpretation of diagnostic studies, and testing, discussion with consultants, patient, and family members, and other required patient management activities. This 35 minutes is in excess of all separately billable procedures. Medical Decision Making Medical Records Attestation: I reviewed the patient's medical records. Home Medications Current Medication List: was personally reviewed by me Laboratory Data Attestation: I reviewed the patient's lab results. Result diagrams: 04/26/21 23:46 04/26/21 23:46 Lab Results 04/26/21 04/26/21 04/26/21 Range/Units 23:45 23:46 23:46 WBC 8.85 (4.8-10.8) K/uL RBC 4.02 L (4.7-6.1) M/uL Hgb 12.3 L (14.0-18.0) g/dL Hct 39.6 L (42-52) % MCV 98.5 (80-100) fL MCH 30.6 (25-34) pg MCHC 31.1 L (32-36) g/dL RDW Std Deviation 57.3 H (36.4-46.3) fL RDW Coeff of Flor 15.8 H (11.5-14.5) % Plt Count 242 (130-400) K/uL MPV 10.3 (7.4-10.4) fL Immature Gran % (Auto) 0.5 % Neut % (Auto) 70.1 % Lymph % (Auto) 10.6 % [place] % (Auto) 16.3 % Eos % (Auto) 2.3 % Baso % (Auto) 0.2 % Neut # (Auto) 6.21 (1.4-6.5) K/uL Lymph # (Auto) 0.94 L (1.2-3.4) K/uL [place] # (Auto) 1.44 H (0.11-0.59) K/uL Eos # (Auto) 0.20 (0-0.5) K/uL Baso # (Auto) 0.02 (0-0.2) K/uL Immature Gran # (Auto) 0.04 H (0.00-0.02) K/uL PT 12.9 H (9.0-12.0) Seconds INR 1.3 H (0.9-1.1) APTT 27.3 (21.0-31.0) Seconds PTT Ratio 1.0 Sodium (136-145) mmol/L Potassium (3.5-5.1) mmol/L Chloride (98-107) mmol/L Carbon Dioxide (21-32) mmol/L Anion Gap (3-11) BUN (7-18) mg/dl Creatinine (0.6-1.4) mg/dl Est Cr Clr Drug Dosing ml/min Est GFR ( Amer) ml/min Est GFR (Non-Af Amer) ml/min BUN/Creatinine Ratio (10-20) Glucose (70-99) mg/dl Lactate (0.4-2.0) mmol/L Calcium (8.5-10.1) mg/dl Magnesium (1.8-2.4) mg/dl Total Bilirubin (0.2-1) mg/dl AST (15-37) U/L ALT (12-78) Alkaline Phosphatase (45-117) U/L Troponin I (0-0.045) ng/ml Total Protein (6.4-8.2) gm/dl Albumin (3.4-5.0) gm/dl Globulin (2.5-4.0) gm/dl Albumin/Globulin Ratio (0.9-2) Procalcitonin 0.26 (0-0.5) ng/ml Adenovirus (PCR) (NotDetected) B. pertussis DNA (PCR) (NotDetected) B.parapertussis DNA PCR (NotDetected) C. pneumoniae DNA (PCR) (NotDetected) Coronavirus OC43 (PCR) (NotDetected) Coronavirus HKU1 (PCR) (NotDetected) Coronavirus 229E (PCR) (NotDetected) SARS-CoV-2 (PCR) (NotDetected) Coronavirus NL63 (PCR) (NotDetected) Human Metapneumovir PCR (NotDetected) Influenza Type A (PCR) (NotDetected) Influenza Type B (PCR) (NotDetected) M. pneumoniae (PCR) (NotDetected) Parainfluenza 1 (PCR) (NotDetected) Parainfluenza 2 (PCR) (NotDetected) Parainfluenza 3 (PCR) (NotDetected) Parainfluenza 4 (PCR) (NotDetected) RSV (PCR) (NotDetected) Entero/Rhino (PCR) (NotDetected) 04/26/21 04/26/21 04/27/21 Range/Units 23:46 23:46 00:58 WBC (4.8-10.8) K/uL RBC (4.7-6.1) M/uL Hgb (14.0-18.0) g/dL Hct (42-52) % MCV (80-100) fL MCH (25-34) pg MCHC (32-36) g/dL RDW Std Deviation (36.4-46.3) fL RDW Coeff of Flor (11.5-14.5) % Plt Count (130-400) K/uL MPV (7.4-10.4) fL Immature Gran % (Auto) % Neut % (Auto) % Lymph % (Auto) % [place] % (Auto) % Eos % (Auto) % Baso % (Auto) % Neut # (Auto) (1.4-6.5) K/uL Lymph # (Auto) (1.2-3.4) K/uL [place] # (Auto) (0.11-0.59) K/uL Eos # (Auto) (0-0.5) K/uL Baso # (Auto) (0-0.2) K/uL Immature Gran # (Auto) (0.00-0.02) K/uL PT (9.0-12.0) Seconds INR (0.9-1.1) APTT (21.0-31.0) Seconds PTT Ratio Sodium 137 (136-145) mmol/L Potassium 3.4 L (3.5-5.1) mmol/L Chloride 100 (98-107) mmol/L Carbon Dioxide 31 (21-32) mmol/L Anion Gap 7.0 (3-11) BUN 5 L (7-18) mg/dl Creatinine 0.72 (0.6-1.4) mg/dl Est Cr Clr Drug Dosing 308.8 ml/min Est GFR ( Amer) 148.2 ml/min Est GFR (Non-Af Amer) 127.8 ml/min BUN/Creatinine Ratio 6.4 L (10-20) Glucose 107 H (70-99) mg/dl Lactate 1.9 (0.4-2.0) mmol/L Calcium 7.9 L (8.5-10.1) mg/dl Magnesium 1.7 L (1.8-2.4) mg/dl Total Bilirubin 2.0 H (0.2-1) mg/dl AST 19 (15-37) U/L ALT 49 (12-78) Alkaline Phosphatase 77 (45-117) U/L Troponin I 0.059 H* (0-0.045) ng/ml Total Protein 6.2 L (6.4-8.2) gm/dl Albumin 2.2 L (3.4-5.0) gm/dl Globulin 4.0 (2.5-4.0) gm/dl Albumin/Globulin Ratio 0.5 L (0.9-2) Procalcitonin (0-0.5) ng/ml Adenovirus (PCR) Not Detected (NotDetected) B. pertussis DNA (PCR) Not Detected (NotDetected) B.parapertussis DNA PCR Not Detected (NotDetected) C. pneumoniae DNA (PCR) Not Detected (NotDetected) Coronavirus OC43 (PCR) Not Detected (NotDetected) Coronavirus HKU1 (PCR) Not Detected (NotDetected) Coronavirus 229E (PCR) Not Detected (NotDetected) SARS-CoV-2 (PCR) Not Detected (NotDetected) Coronavirus NL63 (PCR) Not Detected (NotDetected) Human Metapneumovir PCR Not Detected (NotDetected) Influenza Type A (PCR) Not Detected (NotDetected) Influenza Type B (PCR) Not Detected (NotDetected) M. pneumoniae (PCR) Not Detected (NotDetected) Parainfluenza 1 (PCR) Not Detected (NotDetected) Parainfluenza 2 (PCR) Not Detected (NotDetected) Parainfluenza 3 (PCR) Not Detected (NotDetected) Parainfluenza 4 (PCR) Not Detected (NotDetected) RSV (PCR) Not Detected (NotDetected) Entero/Rhino (PCR) Not Detected (NotDetected) Imaging Data Attestation: I personally reviewed and interpreted this imaging study as follows: MDM Narrative Prior records/ancillary studies reviewed. Triage Nursing notes reviewed. Additional history obtained from the EMS The patient's history was concerning for respiratory difficulties. Differential diagnosis: Etiologies such as infections, reactive airway disease, pneumonia, pneumothorax, COPD, CHF, cardiac ischemia, pulmonary embolism, musculoskeletal, gastrointestinal, as well as others were entertained. Physical examination: As above. ER treatment provided: An order was placed for continuous cardiac monitoring. The monitor shows a rate of 60-1 50 with a sinus rhythm. Nebulizer, IV fluids, heparin for possible PE. Patient's weight exceeds the CT capacity. Patient was treated Empirically. Magnesium On reassessment the patient felt better. Diagnostic interpretation by me: The electrocardiogram was ordered for dyspnea EKG: Normal sinus, incomplete right bundle, T wave inversions in the inferior leads unchanged from prior, poor baseline, rate of 117. Impression sinus tachycardia with incomplete right bundle interpreted by myself I think arrhythmia is unlikely. EKG shows no interval abnormalities such as QT prolongation or WPW. There are no findings to suggest Brugada syndrome. Cardiac monitoring in the emergency department reveals no tachycardic or bradycardic dysrhythmia. Hypertrophic cardiomyopathy was considered but there are no clear historical elements pointing toward this. EKG is not suggestive. The QRS voltage is not extremely large and there are no suggestive Q waves. The labs revealed mild anemia, hypomagnesia and this was replaced intravenously Positive troponin Imaging studies: Chest x-ray concerning for wedge infiltrate on the right lung concerning for PE with persistent Covid pneumonia which is improved from prior x-ray per my in terpretation Preliminary Findings Only See Final Report For Complete Findings ADDENDUM - Added by Hodan Mixon M.D. on 04/27/2021 2:36 AM (-08:00) Addendum: Thrombus is visualized within the LEFT mid to distal popliteal vein and posterior tibial vein. US VENOUS BILATERAL LOWER EXTREMITIES: Thrombus visualized within the mid to distal popliteal vein and posterior tibial vein. No acute deep venous thrombosis in the right lower extremity visualized. Radiologist: Hodan Mixon M.D. Study ready at 01:40 and initial results transmitted at 02:30 Consultation: A consultation was placed with the hospitalist. The case was discussed and diagnostics were reviewed. The patient was evaluated in the ER for further treatment. This appears to be consistent with COVID-19 hypoxia and concerns for PE with DVT. Patient was started on heparin Immediately prior to ultrasound. This was discussed with the hospitalist. patient's O2 sats are lower than baseline. Medicine is consulted. He will be evaluated for admission. By the evaluation outlined above emergent etiologies such as CHF, cardiac ischemia, reactive airway disease, pneumothorax, musculoskeletal, serious bacterial infections, as well as others were deemed relatively unlikely. The pt informed about the findings as listed above. All questions were answered and pleased with the treatment. The chart was completed utilizing Dragon Speech voice recognition software. Grammatical errors, random word insertions, pronoun errors, and incomplete sentences are an occassional consequence of this system due to software limitations, ambient noise, and hardware issues. Any formal questions or concerns about the content, text, or information contained within the body of this dictation should be directly addressed to the physician activities assistant for clarification. Impression & Plan 2019 novel coronavirus-infected pneumonia (NCIP), Acute respiratory failure due to COVID-19, Suspected pulmonary embolism Discharge Plan Visit Data Chief Complaint: Shortness of Breath/Dyspnea Stated Complaint: COVID+/BREATHING DIFF ED Provider: Annabel Merritt ED Midlevel Provider: Marlin Ackerman Discharge Problem: 2019 novel coronavirus-infected pneumonia (NCIP), Acute respiratory failure due to COVID-19, Suspected pulmonary embolism Patient Disposition: Admitted As Inpatient Condition: Fair Forms Stand Alone Forms: [facility] Prescriptions Prescriptions: No Action omeprazole 20 mg capsule,delayed release(DR/EC) 20 mg PO QAM Qty: 90 RF: 1 levothyroxine 50 mcg tablet 50 mcg PO QAM Qty: 90 RF: 1 folic acid 1 mg tablet 1 mg PO DAILY Qty: 30 RF: 2 propranolol 20 mg tablet 20 mg PO BID Qty: 180 RF: 1 lisinopril-hydrochlorothiazide 20-25 mg tablet 1 tab PO QAM Qty: 90 RF: 1 fluticasone propionate 50 mcg/actuation spray,suspension 2 spray intranasal DAILY Qty: 16 RF: 2 nystatin 100,000 unit/gram ointment 1 applic EXT TID PRN (Reason: Skin Irritation) RF: 0 sumatriptan succinate 100 mg tablet See Rx Instructions PO .COMPLEX PRN (Reason: Migraine Headache) RF: 0 clotrimazole 1 % cream 1 applic EXT BID PRN (Reason: Skin Irritation) RF: 0 Referrals Referrals: Shirley Archer DO [Primary Care Provider] -
[2021-04-26] MEDS ORDERED: Heparin IV Adult Wt-Based Standard *NO* Bolus Protocol ONE (23:41)
--- NOTE | 2021-04-26 23:56 | History & Physical Report ---
Date of Service April 26, 2021 Assessment & Plan (1) Suspected pulmonary embolism: Plan: Suspected pulmonary embolism/pulmonary infarct in right lung/left lower extremity DVT- Continue heparin drip per protocol begun in the ED recovery unit operator to oral anticoagulation in a.m. Likely a function of recent COVID-19 infection, and immobility (2) Left leg DVT: Plan: See above (3) GERD (gastroesophageal reflux disease): Plan: Continue omeprazole/pantoprazole (4) HTN (hypertension): Plan: Hold lisinopril/HCTZ Continue propranolol (5) Hypothyroid: Plan: Continue levothyroxine (6) 2019 novel coronavirus-infected pneumonia (NCIP): Plan: Prolonged hospitalization from 04/02-04/17. COVID-19 testing negative this admission History of Present Illness Chief Complaint: The patient presents to the emergency department with acute onset of right-sided chest pain and shortness of breath Primary Care Provider: Shirley Archer DO The patient is a 25-year-old male with past medical history including recent admission from 04/02-04/17 for COVID-19 pneumonia with hypoxia, acute respiratory failure due to COVID-19 pneumonia, hidradenitis suppurativa, anxiety with depression, ADD, acne, GERD, migraine, asthma, morbid obesity, mood disorder, hypothyroidism, hypertension and history of drug abuse. Patient presents to the emergency department with acute onset of right-sided chest pain, shortness of breath, and upon reviewing systems does note left lower extremity pain which he thought was due to muscle strain Allergies Allergy/AdvReac Type Severity Reaction Status Date / Time acetaminophen Allergy Intermediate RASH Verified 04/26/21 23:15 bee venom protein (honey bee) Allergy Intermediate Localized Verified 04/26/21 23:15 swelling ibuprofen Allergy Intermediate RASH Verified 04/26/21 23:15 ketorolac Allergy Intermediate RASH Verified 04/26/21 23:15 tramadol Allergy Intermediate RASH Verified 04/26/21 23:15 azithromycin [From Zithromax] Allergy Mild hives, IV Verified 04/26/21 23:15 form only gabapentin Allergy Unknown Unknown Verified 04/26/21 23:15 naproxen Allergy Unknown Unknown Verified 04/26/21 23:15 Home Medications Medication Instructions Recorded Confirmed Type omeprazole 20 mg capsule,delayed 20 mg PO QAM #90 cap 09/05/20 04/26/21 Rx release lisinopril 20 1 tab PO QAM #90 tab 10/13/20 04/26/21 Rx mg-hydrochlorothiazide 25 mg tablet propranolol 20 mg tablet 20 mg PO BID #180 tab 10/13/20 04/26/21 Rx fluticasone propionate 50 2 spray INTRANASAL DAILY #16 g 11/05/20 04/26/21 Rx mcg/actuation nasal spray,suspension levothyroxine 50 mcg tablet 50 mcg PO QAM #90 tab 11/26/20 04/26/21 Rx folic acid 1 mg tablet 1 mg PO DAILY #30 tab 01/15/21 04/26/21 Rx clotrimazole 1 % topical cream 1 applic EXT BID PRN 04/26/21 04/26/21 History nystatin 100,000 unit/gram topical 1 applic EXT TID PRN 04/26/21 04/26/21 History ointment sumatriptan succinate 100 mg tablet See Rx Instructions PO .COMPLEX PRN 04/26/21 04/26/21 History Past Med/Surg History Medical History Abscess of back Acne ADD (attention deficit disorder) Anxiety Asthma Dental caries Depression Drug abuse Finger abrasion Frequent headaches GERD (gastroesophageal reflux disease) Hidradenitis suppurativa HTN (hypertension) Hypothyroid Lumbar back pain Lumbar strain Malaise and fatigue Migraine Mood disorder Morbid obesity Tachycardia (07/14/13) Surgical History H/O tympanostomy History of tonsillectomy and adenoidectomy Family History Father Alcohol abuse Drug abuse Mother Anxiety Bilateral nephrolithiasis Heart disease Depression Diabetes Hypertension Gallbladder disease Lung disease Cancer skin Grandfather Myocardial infarction Social History Smoking Status: Never smoker Tobacco Type: Cigarettes Age Started Using Tobacco: 16; Age Quit Using Tobacco: 22; Second Hand Exposure: Yes; Hx Alcohol Use: Yes Alcohol Intake Frequency: Monthly or Less Alcohol Intake Frequency Comment: Rarely Hx Substance Use: Yes Prescribed Medications: Marijuana Last Used Substance: Days (ago) Last Used Substance Other:: months ago Preferred Language: [place] Leonean Communication Ability: Effective Visual Impairment: No Limitations Hearing Ability: Normal Exchange Mechanic Required: No Beliefs That Will Affect Care: None marital status: Single Current Living Situation: Alone current occupational status: unemployed Feels Safe at Home: Yes Childhood Exposure to Second-Hand Smoke: Yes caffeine: Yes (tea occasional) during the past year weight has: remained stable Dental Care, Regularly: No Physical Activity Frequency: 1-2 Times per Week Seatbelt Use: never Sunscreen Use: No Assistive Devices: Glasses Review of Systems Review of Systems: The patient denies palpitations, lower extremity swelling, sore throat, fevers, chills, sweats, nausea, vomiting, diarrhea , constipation, abdominal pain, pelvic pain, blood in urine or stool, dysuria, urinary frequency or urgency, lightheadedness, dizziness, headache, memory loss, loss of consciousness, rash, abnormal bruising or bleeding, imbalance, focal or generalized weakness, numbness or tingling in arms or right leg, generalized arthralgias or myalgias, back or neck pain, or night sweats. The review of systems is otherwise negative other than for that already noted above, and at least 10 systems have been reviewed. Physical Exam Physical Exam: The patient is awake, alert and oriented 3, normocephalic and atraumatic, lying in bed and in no acute distress. HEENT--PERRL, EOMI, mucous membranes and oropharynx normal. Neck--supple. No JVD. No bruits. Thyroid normal, trachea midline, no adenopathy. Heart--normal S1 and S2. No murmurs, rubs or gallops. Lungs--clear but diminished bilaterally. No respiratory distress, no accessory muscle use. Abdomen--normal bowel sounds and soft. Nontender. Nondistended. Morbidly obese Extremities--no cyanosis or clubbing. No edema. Dermatologic--normal skin turgor, normal color, no abnormal lymph nodes, no rash. Neurologic--cranial nerves II through XII grossly intact. Rheumatologic--limited exam due to body habitus Psychiatric--normal affect. Results & Data Results & Data ([facility]) Vital Signs (Past 12 Hours) Vital Signs Pulse Pulse Resp Pulse Ox 04/26/21 22:50 122 H 25 H 95 04/26/21 22:45 132 H 22 77 L Laboratory Results Laboratory Results WBC 8.85 K/uL (4.8-10.8) 04/26/21 23:46 RBC 4.02 M/uL (4.7-6.1) L 04/26/21 23:46 Hgb 12.3 g/dL (14.0-18.0) L 04/26/21 23:46 Hct 39.6 % (42-52) L 04/26/21 23:46 MCV 98.5 fL (80-100) 04/26/21 23:46 MCH 30.6 pg (25-34) 04/26/21 23:46 MCHC 31.1 g/dL (32-36) L 04/26/21 23:46 RDW Std Deviation 57.3 fL (36.4-46.3) H 04/26/21 23:46 RDW Coeff of Flor 15.8 % (11.5-14.5) H 04/26/21 23:46 Plt Count 242 K/uL (130-400) 04/26/21 23:46 MPV 10.3 fL (7.4-10.4) 04/26/21 23:46 Immature Gran % (Auto) 0.5 % 04/26/21 23:46 Neut % (Auto) 70.1 % 04/26/21 23:46 Lymph % (Auto) 10.6 % 04/26/21 23:46 Glasscock % (Auto) 16.3 % 04/26/21 23:46 Eos % (Auto) 2.3 % 04/26/21 23:46 Baso % (Auto) 0.2 % 04/26/21 23:46 Neut # (Auto) 6.21 K/uL (1.4-6.5) 04/26/21 23:46 Lymph # (Auto) 0.94 K/uL (1.2-3.4) L 04/26/21 23:46 Glasscock # (Auto) 1.44 K/uL (0.11-0.59) H 04/26/21 23:46 Eos # (Auto) 0.20 K/uL (0-0.5) 04/26/21 23:46 Baso # (Auto) 0.02 K/uL (0-0.2) 04/26/21 23:46 Immature Gran # (Auto) 0.04 K/uL (0.00-0.02) H 04/26/21 23:46 PT 12.9 Seconds (9.0-12.0) H 04/26/21 23:46 INR 1.3 (0.9-1.1) H 04/26/21 23:46 APTT 27.3 Seconds (21.0-31.0) 04/26/21 23:46 PTT Ratio 1.0 04/26/21 23:46 Sodium 137 mmol/L (136-145) 04/26/21 23:46 Potassium 3.4 mmol/L (3.5-5.1) L 04/26/21 23:46 Chloride 100 mmol/L (98-107) 04/26/21 23:46 Carbon Dioxide 31 mmol/L (21-32) 04/26/21 23:46 Anion Gap 7.0 (3-11) 04/26/21 23:46 BUN 5 mg/dl (7-18) L 04/26/21 23:46 Creatinine 0.72 mg/dl (0.6-1.4) 04/26/21 23:46 Est Cr Clr Drug Dosing 308.8 ml/min 04/26/21 23:46 Est GFR ( Amer) 148.2 ml/min 04/26/21 23:46 Est GFR (Non-Af Amer) 127.8 ml/min 04/26/21 23:46 BUN/Creatinine Ratio 6.4 (10-20) L 04/26/21 23:46 Glucose 107 mg/dl (70-99) H 04/26/21 23:46 Lactate 1.9 mmol/L (0.4-2.0) 04/26/21 23:46 Calcium 7.9 mg/dl (8.5-10.1) L 04/26/21 23:46 Magnesium 1.7 mg/dl (1.8-2.4) L 04/26/21 23:46 Total Bilirubin 2.0 mg/dl (0.2-1) H 04/26/21 23:46 AST 19 U/L (15-37) 04/26/21 23:46 ALT 49 (12-78) 04/26/21 23:46 Alkaline Phosphatase 77 U/L (45-117) 04/26/21 23:46 Troponin I 0.059 ng/ml (0-0.045) H* 04/26/21 23:46 Total Protein 6.2 gm/dl (6.4-8.2) L 04/26/21 23:46 Albumin 2.2 gm/dl (3.4-5.0) L 04/26/21 23:46 Globulin 4.0 gm/dl (2.5-4.0) 04/26/21 23:46 Albumin/Globulin Ratio 0.5 (0.9-2) L 04/26/21 23:46 Procalcitonin 0.26 ng/ml (0-0.5) 04/26/21 23:45 Adenovirus (PCR) Not Detected (NotDetected) 04/27/21 00:58 B. pertussis DNA (PCR) Not Detected (NotDetected) 04/27/21 00:58 B.parapertussis DNA PCR Not Detected (NotDetected) 04/27/21 00:58 C. pneumoniae DNA (PCR) Not Detected (NotDetected) 04/27/21 00:58 Coronavirus OC43 (PCR) Not Detected (NotDetected) 04/27/21 00:58 Coronavirus HKU1 (PCR) Not Detected (NotDetected) 04/27/21 00:58 Coronavirus 229E (PCR) Not Detected (NotDetected) 04/27/21 00:58 SARS-CoV-2 (PCR) Not Detected (NotDetected) 04/27/21 00:58 Coronavirus NL63 (PCR) Not Detected (NotDetected) 04/27/21 00:58 Human Metapneumovir PCR Not Detected (NotDetected) 04/27/21 00:58 Influenza Type A (PCR) Not Detected (NotDetected) 04/27/21 00:58 Influenza Type B (PCR) Not Detected (NotDetected) 04/27/21 00:58 M. pneumoniae (PCR) Not Detected (NotDetected) 04/27/21 00:58 Parainfluenza 1 (PCR) Not Detected (NotDetected) 04/27/21 00:58 Parainfluenza 2 (PCR) Not Detected (NotDetected) 04/27/21 00:58 Parainfluenza 3 (PCR) Not Detected (NotDetected) 04/27/21 00:58 Parainfluenza 4 (PCR) Not Detected (NotDetected) 04/27/21 00:58 RSV (PCR) Not Detected (NotDetected) 04/27/21 00:58 Entero/Rhino (PCR) Not Detected (NotDetected) 04/27/21 00:58 Code Status & VTE Plan Code Status Full code VTE Prophylaxis Plan VTE Prophylaxis will be ordered: Yes PG Care Time/CCT Total # of Minutes Spent Total Time Spent with Patient: Total time spent is greater than 50% in coordination of care (as documented) at patient's floor/unit and/or counseling patient: Coding Level of Care Code 83987 Initial Inpt Care Lvl 3 Diagnoses Suspected pulmonary embolism R09.89 Left leg DVT I82.402 GERD (gastroesophageal reflux disease) K21.9 HTN (hypertension) I10 Hypothyroid E03.9 2019 novel coronavirus-infected pneumonia (NCIP) U07.1; J12.82
[2021-04-26 23:59] LABS: Basophils # (auto) 0.02 K/uL (0-0.2); Basophils % (auto) 0.2 %; Eosinophils % (auto) 2.3 %; Hematocrit (blood only) 39.6 % (42-52); Hemoglobin 12.3 g/dL (14.0-18.0); Immature Granulocytes # (auto) 0.04 K/uL (0.00-0.02); Immature Granulocytes % (auto) 0.5 %; Lymphocytes # (auto) 0.94 K/uL (1.2-3.4); Lymphocytes % (auto) 10.6 %; Mean Corpuscular Hemoglobin 30.6 pg (25-34); Mean Corpuscular Hgb Conc 31.1 g/dL (32-36); Mean Corpuscular Volume 98.5 fL (80-100); Mean Platelet Volume 10.3 fL (7.4-10.4); Monocytes # (auto) 1.44 K/uL (0.11-0.59); Monocytes % (auto) 16.3 %; Neutrophils # (auto) 6.21 K/uL (1.4-6.5); Neutrophils % (auto) 70.1 %; Platelet Count 242 K/uL (130-400); RDW Coefficient of Variation 15.8 % (11.5-14.5); RDW Standard Deviation 57.3 fL (36.4-46.3); Red Blood Count 4.02 M/uL (4.7-6.1); White Blood Count 8.85 K/uL (4.8-10.8)
[2021-04-27 00:13] LABS: INR 1.3 (0.9-1.1); Partial Thromboplastin Time 27.3 Seconds (21.0-31.0); Prothrombin Time 12.9 Seconds (9.0-12.0)
[2021-04-27 00:16] LABS: Albumin Level 2.2 gm/dl (3.4-5.0); BUN Creatinine Ratio 6.4 (10-20); Calcium 7.9 mg/dl (8.5-10.1); Creatinine Clr Calc Pharmacy 308.8 ml/min; Est GFR (African American) 148.2 ml/min; Est GFR (Non-African American) 127.8 ml/min; Magnesium 1.7 mg/dl (1.8-2.4); Potassium 3.4 mmol/L (3.5-5.1)
[2021-04-27] MEDS ORDERED: MAGNESIUM SULFATE / D5W 1 GM/100 ML BAG IV STA (00:30)
[2021-04-27 00:41] LABS: Albumin Globulin Ratio 0.5 (0.9-2); Total Protein 6.2 gm/dl (6.4-8.2); Troponin I 0.059 ng/ml (0-0.045)
[2021-04-27] MEDS: HEPARIN SODIUM/DEXTROSE 25,000 UNITS/500 ML BAG IV SCH ×3 (02:13→20:57)
[2021-04-27 02:23] LABS: Adenovirus PCR Not Detected (NotDetected); Bordetella parapertussis PCR Not Detected (NotDetected); Bordetella pertussis PCR Not Detected (NotDetected); Chlamydia pneumoniae PCR Not Detected (NotDetected); Coronavirus 229E PCR Not Detected (NotDetected); Coronavirus CoV-2 (COVID19)PCR Not Detected (NotDetected); Coronavirus HKU1 PCR Not Detected (NotDetected); Coronavirus NL63 PCR Not Detected (NotDetected); Coronavirus OC43PCR Not Detected (NotDetected); Human Metapneumovirus PCR Not Detected (NotDetected); Influenza A PCR Not Detected (NotDetected); Influenza B PCR Not Detected (NotDetected); Mycoplasma pneumoniae PCR Not Detected (NotDetected); Parainfluenza Virus 1 PCR Not Detected (NotDetected); Parainfluenza Virus 2 PCR Not Detected (NotDetected); Parainfluenza Virus 3 PCR Not Detected (NotDetected); Parainfluenza Virus 4 PCR Not Detected (NotDetected); Respiratory Syncytial VirusPCR Not Detected (NotDetected); Rhinovirus/Enterovirus PCR Not Detected (NotDetected)
[2021-04-27] MEDS ORDERED: NYSTATIN OINT 15 GM TUBE EXT PRN (04:56)
[2021-04-27] MEDS ORDERED: ONDANSETRON INJ 2 MG/ML 2 ML VIAL IV PRN (04:56)
[2021-04-27] MEDS ORDERED: CLOTRIMAZOLE 1% CR 15 GM TUBE EXT PRN (04:56)
--- NOTE | 2021-04-27 07:24 | XRay Report ---
XR chest 1V portable CLINICAL HISTORY: SEPSIS COMPARISON STUDY: Chest radiograph April 01, 2021. FINDINGS: There is no pneumothorax. Suspected small right pleural effusion is noted. Note is made of a 4.7 x 3.8 cm wedge-shaped airspace opacity within the lateral right midlung which is new since exam of April 01, 2021. Additional bilateral airspace opacities are present with interstitial thickeni ng. Overall, airspace opacities have slightly improved. Mild enlargement of the cardiac silhouette is unchanged. No pneumothorax is identified. IMPRESSION: 1. 4.7 x 3.8 cm wedge-shaped peripheral opacity within the right midlung which is new since prior exa m. This may reflect a focus of pneumonia, pleural fluid or a pulmonary infarct. PE protocol CT could be obtained for further evaluation. 2. Additional bilateral airspace opacities and interstitial thickening within the lungs which favor v iral pneumonia. Pulmonary edema could appear similar although is considered less likely. ACT 112: Negative or not required by law. Electronically signed by: Jose Jacinto M.D. 04/27/2021 7:22 AM
--- NOTE | 2021-04-27 07:29 | Ultrasound Report ---
US venous doppler LE BI CLINICAL HISTORY: sob, ? dvt COMPARISON: None available at the time of this dictation. TECHNIQUE: Bilateral lower extremity real-time compression venous ultrasound with Color Doppler imagi ng. Utilizing real-time ultrasonic imaging multiple real time high-resolution ultrasonic images with comp ression and noncompression maneuvers of the deep venous system in addition to color doppler imaging w ere performed from the common femoral vein through the proximal calf veins. FINDINGS: No right DVT is seen. In the left leg, there is a DVT in the mid to distal popliteal vein and posteri or tibial vein. Impression: Left DVT in the mid to distal popliteal vein and posterior tibial vein. ACT 112: Negative or not required by law. Electronically signed by: Lniwood Bruce M.D. 04/27/2021 7:27 AM
[2021-04-27 08:56] LABS: Partial Thromboplastin Ratio 1.2; Partial Thromboplastin Time 30.5 Seconds (21.0-31.0)
[2021-04-27] MEDS: PANTOprazole 40 MG TAB PO SCH (09:09)
[2021-04-27] MEDS: PROPRANOLOL HCL 20 MG TAB PO SCH ×2 (09:09→20:25)
[2021-04-27] MEDS: FOLIC ACID 1 MG TAB PO SCH (09:09)
[2021-04-27] MEDS: LEVOTHYROXINE SODIUM 50 MCG TABLET PO SCH (09:09)
[2021-04-27] MEDS ORDERED: HEPARIN SOD (PORCINE) 1000 UNIT/ML IV ONE ×3 (09:55→17:37)
--- NOTE | 2021-04-27 14:07 | XCELERA ---
[id number] \\[id number]
--- NOTE | 2021-04-27 15:12 | Hospitalist Progress Note ---
Date of Service April 27, 2021 Assessment & Plan (1) Suspected pulmonary embolism: Plan: Suspected pulmonary embolism given likely pulmonary infarct in right lung along with left lower extremity DVT. Likely a function of recent COVID-19 infection and immobility. Cannot get CTA as he is too heavy for our scanner (>500 lbs). - Continue heparin drip per protocol begun in the ED - cut and cover line worker to warfarin. Discussed with Dr. Woody on 04/27. No role for DOACs in setting of this level of obesity. (2) Left leg DVT: Plan: See above (3) HTN (hypertension): Plan: BP presently 140/65. - Holding lisinopril/HCTZ - Continue propranolol (4) GERD (gastroesophageal reflux disease): Plan: No present GERD symptoms. - Continue PPI (5) Hypothyroid: Plan: TSH was 1.4 in 08/2020. - Continue levothyroxine (6) 2019 novel coronavirus-infected pneumonia (NCIP): Plan: Prolonged hospitalization from 04/02 - 04/17. COVID-19 testing negative this admission. - No acute needs Admission and Anticipated Discharge Date Admission Date: April 27, 2021 Subjective Still with some shortness of breath. Reports no fevers/chills, chest pain, abdominal pain, nausea, or vomiting. Physical Exam Constitutional: WD/WN, vitals as above + morbidly obese Eyes: EOM intact bilaterally; no conjunctival abnormality ENMT: external ear and nose normal, oropharynx normal Neck: trachea midline, no thyromegaly normal visual inspection Respiratory: normal respiratory effort, lungs clear to auscultation no respiratory distress Cardiovascular: RRR, no murmur, no edema Gastrointestinal (Abdomen): Inspection/Auscultation: abdomen normal to inspection; abdomen not distended Musculoskeletal: no cyanosis or clubbing, extremities motor strength 5/5 Skin: no rashes, warm and dry Neurologic: moves all extremities and awake Psychiatric: Orientation: alert, oriented to person and cooperative Results & Data Results & Data ([facility]) Vital Signs (Past 12 Hours) Vital Signs Temp Pulse Pulse Resp BP BP Pulse Ox 04/27/21 12:03 37.3 C 95 H 28 H 140/63 98 04/27/21 08:22 37.5 C 109 H 33 H 117/70 97 04/27/21 06:00 108 H 30 H 93 04/27/21 05:55 110 H 38 H 94 04/27/21 05:00 115 H 30 H 142/85 H 90 04/27/21 04:00 109 H 24 87 L PG Care Time/CCT Total # of Minutes Spent Total Time Spent with Patient: Total time spent is greater than 50% in coordination of care (as documented) at patient's floor/unit and/or counseling patient: Coding Level of Care Code 42097 Subseq Hosp Care Lvl 3 Diagnoses Suspected pulmonary embolism R09.89 Left leg DVT I82.402 GERD (gastroesophageal reflux disease) K21.9 HTN (hypertension) I10 Hypothyroid E03.9 2019 novel coronavirus-infected pneumonia (NCIP) U07.1; J12.82
[2021-04-27] MEDS: WARFARIN SOD 10 MG TAB PO SCH (17:28)
[2021-04-27 17:33] LABS: Partial Thromboplastin Ratio 1.3; Partial Thromboplastin Time 34.7 Seconds (21.0-31.0)
[2021-04-28] MEDS: HEPARIN SODIUM/DEXTROSE 25,000 UNITS/500 ML BAG IV SCH ×3 (04:25→19:38)
[2021-04-28] MEDS: LEVOTHYROXINE SODIUM 50 MCG TABLET PO SCH (05:29)
[2021-04-28 05:47] LABS: Basophils # (auto) 0.02 K/uL (0-0.2); Basophils % (auto) 0.2 %; Eosinophils # (auto) 0.36 K/uL (0-0.5); Hematocrit (blood only) 35.8 % (42-52); Hemoglobin 11.1 g/dL (14.0-18.0); Immature Granulocytes # (auto) 0.02 K/uL (0.00-0.02); Immature Granulocytes % (auto) 0.2 %; Lymphocytes # (auto) 1.32 K/uL (1.2-3.4); Lymphocytes % (auto) 14.7 %; Mean Corpuscular Hemoglobin 30.7 pg (25-34); Mean Corpuscular Volume 98.9 fL (80-100); Mean Platelet Volume 10.1 fL (7.4-10.4); Monocytes # (auto) 1.15 K/uL (0.11-0.59); Monocytes % (auto) 12.8 %; Neutrophils # (auto) 6.12 K/uL (1.4-6.5); Neutrophils % (auto) 68.1 %; Platelet Count 259 K/uL (130-400); RDW Coefficient of Variation 15.8 % (11.5-14.5); RDW Standard Deviation 57.1 fL (36.4-46.3); Red Blood Count 3.62 M/uL (4.7-6.1); White Blood Count 8.99 K/uL (4.8-10.8)
[2021-04-28 06:15] LABS: INR 1.3 (0.9-1.1); Partial Thromboplastin Ratio 1.4; Prothrombin Time 12.7 Seconds (9.0-12.0)
[2021-04-28 06:34] LABS: Alanine Aminotransferase 37 (12-78); Albumin Level 1.9 gm/dl (3.4-5.0); Aspartate Aminotransferase 19 U/L (15-37); BUN Creatinine Ratio 8.5 (10-20); Blood Urea Nitrogen 5 mg/dl (7-18); Calcium 8.4 mg/dl (8.5-10.1); Carbon Dioxide 34 mmol/L (21-32); Chloride 99 mmol/L (98-107); Creatinine Clr Calc Pharmacy 376.3 ml/min; Est GFR (African American) > 150.0 ml/min; Est GFR (Non-African American) 141.8 ml/min; Glucose 101 mg/dl (70-99); Potassium 3.8 mmol/L (3.5-5.1); Sodium 138 mmol/L (136-145)
[2021-04-28 06:45] LABS: Albumin Globulin Ratio 0.5 (0.9-2); Alkaline Phosphatase 74 U/L (45-117); Bilirubin,Total 1.4 mg/dl (0.2-1); Globulin 4.1 gm/dl (2.5-4.0)
[2021-04-28] MEDS ORDERED: ceFAZolin 2000MG 2,000 MG/15 ML SYR IV SCH (07:00)
[2021-04-28] MEDS ORDERED: HEPARIN SOD (PORCINE) 1000 UNIT/ML IV ONE ×2 (08:42)
[2021-04-28] MEDS: PANTOprazole 40 MG TAB PO SCH (09:06)
[2021-04-28] MEDS: PROPRANOLOL HCL 20 MG TAB PO SCH ×2 (09:06→21:22)
[2021-04-28] MEDS: POLYETHYLENE (MIRALAX) 17 GM PACK PO SCH (09:06)
[2021-04-28] MEDS: FOLIC ACID 1 MG TAB PO SCH (09:07)
[2021-04-28] MEDS: ACETAMINOPHEN 325 MG TAB PO PRN (10:41)
--- NOTE | 2021-04-28 12:23 | Hospitalist Progress Note ---
Date of Service April 28, 2021 Assessment & Plan (1) Suspected pulmonary embolism: Plan: Suspected pulmonary embolism given likely pulmonary infarct in right lung along with left lower extremity DVT. Likely a function of recent COVID-19 infection and immobility. Cannot get CTA as he is too heavy for our scanners (>500 lbs). - Causing Acute respiratory failure with hypoxia, POA - improving, but not yet resolved. - Continue heparin drip per protocol begun in the ED - spring coverer to warfarin. Discussed with Dr. Woody on 04/27. No role for DOACs in setting of this level of obesity. => Started warfarin 10 mg PO daily x 2 doses; will hoop driving machine operator helper response, then adjust dose from there. (2) Left leg DVT: Plan: See above (3) HTN (hypertension): Plan: BP presently 120/75. - Holding lisinopril/HCTZ - Continue propranolol (4) GERD (gastroesophageal reflux disease): Plan: No present GERD symptoms. - Continue PPI (5) Hypothyroid: Plan: TSH was 1.4 in 08/2020. - Continue levothyroxine (6) 2019 novel coronavirus-infected pneumonia (NCIP): Plan: Prolonged hospitalization from 04/02 - 04/17. COVID-19 testing negative this admission. - No acute needs Admission and Anticipated Discharge Date Admission Date: April 27, 2021 Subjective Doing well today. Less shortness of breath. Leg hurts less. Reports no fevers/chills, chest pain, abdominal pain, nausea, or vomiting. Physical Exam Constitutional: WD/WN, vitals as above + morbidly obese Eyes: EOM intact bilaterally; no conjunctival abnormality ENMT: external ear and nose normal, oropharynx normal Neck: trachea midline, no thyromegaly normal visual inspection Respiratory: normal respiratory effort, lungs clear to auscultation no respiratory distress Cardiovascular: RRR, no murmur, no edema Gastrointestinal (Abdomen): Inspection/Auscultation: abdomen normal to inspection; abdomen not distended Musculoskeletal: no cyanosis or clubbing, extremities motor strength 5/5 Skin: no rashes, warm and dry Neurologic: moves all extremities and awake Psychiatric: Orientation: alert, oriented to person and cooperative Results & Data Results & Data ([facility]) Vital Signs (Past 12 Hours) Vital Signs Temp Pulse Pulse Resp BP Pulse Ox 04/28/21 11:28 36.8 C 90 48 H 120/73 92 04/28/21 08:00 98 H 04/28/21 07:40 36.9 C 104 H 44 H 150/67 H 99 04/28/21 04:11 36.8 C 100 H 46 H 114/60 98 04/28/21 03:30 90 40 H 96 PG Care Time/CCT Total # of Minutes Spent Total Time Spent with Patient: Total time spent is greater than 50% in coordination of care (as documented) at patient's floor/unit and/or counseling patient: Coding Level of Care Code 30344 Subseq Hosp Care Lvl 2 Diagnoses Suspected pulmonary embolism R09.89 Left leg DVT I82.402 HTN (hypertension) I10 GERD (gastroesophageal reflux disease) K21.9 Hypothyroid E03.9 2019 novel coronavirus-infected pneumonia (NCIP) U07.1; J12.82
[2021-04-28] MEDS: WARFARIN SOD 10 MG TAB PO SCH (17:01)
[2021-04-28 17:15] LABS: Partial Thromboplastin Ratio 1.8
[2021-04-28 17:33] LABS: Partial Thromboplastin Time 46.7 Seconds (21.0-31.0)
--- NOTE | 2021-04-28 22:17 | Electrocardiogram Report ---
Test Reason : Blood Pressure : / mmHG Vent. Rate : 117 BPM Atrial Rate : 117 BPM P-R Int : 146 ms QRS Dur : 098 ms QT Int : 334 ms P-R-T Axes : 052 078 -05 degrees QTc Int : 465 ms Sinus tachycardia Incomplete right bundle branch block T wave abnormality, consider anterior ischemia Abnormal ECG When compared with ECG of 01-APR-2021 22:47, Incomplete right bundle branch block is now Present T wave inversion now evident in Anterior leads Confirmed by Orville De Souza ([id number]) on 04/28/2021 10:16:46 PM Referred By: REFERRED SELF Confirmed By:Orville De Souza
[2021-04-29] MEDS: ACETAMINOPHEN 325 MG TAB PO PRN ×2 (01:10→14:00)
[2021-04-29] MEDS: HEPARIN SODIUM/DEXTROSE 25,000 UNITS/500 ML BAG IV SCH ×6 (03:21→23:53)
[2021-04-29 05:59] LABS: Basophils # (auto) 0.02 K/uL (0-0.2); Basophils % (auto) 0.3 %; Eosinophils # (auto) 0.23 K/uL (0-0.5); Hematocrit (blood only) 38.1 % (42-52); Hemoglobin 11.7 g/dL (14.0-18.0); Immature Granulocytes # (auto) 0.04 K/uL (0.00-0.02); Immature Granulocytes % (auto) 0.5 %; Mean Corpuscular Hemoglobin 30.6 pg (25-34); Mean Corpuscular Hgb Conc 30.7 g/dL (32-36); Mean Corpuscular Volume 99.7 fL (80-100); Mean Platelet Volume 10.4 fL (7.4-10.4); Monocytes # (auto) 0.79 K/uL (0.11-0.59); Monocytes % (auto) 10.1 %; Neutrophils # (auto) 5.31 K/uL (1.4-6.5); Neutrophils % (auto) 68.1 %; Platelet Count 313 K/uL (130-400); RDW Coefficient of Variation 15.7 % (11.5-14.5); RDW Standard Deviation 56.9 fL (36.4-46.3); Red Blood Count 3.82 M/uL (4.7-6.1); White Blood Count 7.79 K/uL (4.8-10.8)
[2021-04-29 06:08] LABS: INR 1.5 (0.9-1.1); Prothrombin Time 14.6 Seconds (9.0-12.0)
[2021-04-29] MEDS: LEVOTHYROXINE SODIUM 50 MCG TABLET PO SCH (06:08)
[2021-04-29 06:34] LABS: Alanine Aminotransferase 33 (12-78); Aspartate Aminotransferase 19 U/L (15-37); BUN Creatinine Ratio 8.9 (10-20); Blood Urea Nitrogen 5 mg/dl (7-18); Calcium 8.8 mg/dl (8.5-10.1); Carbon Dioxide 37 mmol/L (21-32); Chloride 96 mmol/L (98-107); Creatinine Clr Calc Pharmacy 339.9 ml/min; Est GFR (African American) > 150.0 ml/min; Glucose 99 mg/dl (70-99); Potassium 3.4 mmol/L (3.5-5.1); Sodium 136 mmol/L (136-145)
[2021-04-29 06:37] LABS: Albumin Globulin Ratio 0.4 (0.9-2); Alkaline Phosphatase 80 U/L (45-117); Globulin 4.5 gm/dl (2.5-4.0); Total Protein 6.5 gm/dl (6.4-8.2)
[2021-04-29] MEDS: FOLIC ACID 1 MG TAB PO SCH (08:26)
[2021-04-29] MEDS: PANTOprazole 40 MG TAB PO SCH (08:27)
[2021-04-29] MEDS: POLYETHYLENE (MIRALAX) 17 GM PACK PO SCH (08:27)
[2021-04-29] MEDS: PROPRANOLOL HCL 20 MG TAB PO SCH ×2 (08:27→21:13)
[2021-04-29 12:55] LABS: Partial Thromboplastin Ratio 1.7; Partial Thromboplastin Time 43.9 Seconds (21.0-31.0)
--- NOTE | 2021-04-29 14:04 | Hospitalist Progress Note ---
Date of Service April 29, 2021 Assessment & Plan (1) Suspected pulmonary embolism: Plan: Suspected pulmonary embolism given likely pulmonary infarct in right lung along with left lower extremity DVT. Likely a function of recent COVID-19 infection and immobility. Cannot get CTA as he is too heavy for our scanners (>500 lbs). - Causing Acute respiratory failure with hypoxia, POA - improving, but not yet resolved. - Continue heparin drip per protocol begun in the ED - government program manager to warfarin. Discussed with Dr. Woody on 04/27. No role for DOACs in setting of this level of obesity. => Started warfarin 10 mg PO daily x 2 doses; will advertising copywriter response, then adjust dose from there. INR up to 1.5 today. (2) Left leg DVT: Plan: See above (3) HTN (hypertension): Plan: BP presently 125/80. - Holding lisinopril/HCTZ - Continue propranolol (4) GERD (gastroesophageal reflux disease): Plan: No present GERD symptoms. - Continue PPI (5) Hypothyroid: Plan: TSH was 1.4 in 08/2020. - Continue levothyroxine (6) 2019 novel coronavirus-infected pneumonia (NCIP): Plan: Prolonged hospitalization from 04/02 - 04/17. COVID-19 testing negative this admission. - No acute needs Admission and Anticipated Discharge Date Admission Date: April 27, 2021 Subjective Doing well today. Reports no fevers/chills, chest pain, shortness of breath, abdominal pain, nausea, or vomiting. Was up on the commode and stood and walked. Physical Exam Constitutional: WD/WN, vitals as above + morbidly obese Eyes: EOM intact bilaterally; no conjunctival abnormality ENMT: external ear and nose normal, oropharynx normal Neck: trachea midline, no thyromegaly normal visual inspection Respiratory: normal respiratory effort, lungs clear to auscultation no respiratory distress Cardiovascular: RRR, no murmur, no edema Gastrointestinal (Abdomen): Inspection/Auscultation: abdomen normal to inspection; abdomen not distended Musculoskeletal: no cyanosis or clubbing, extremities motor strength 5/5 Skin: no rashes, warm and dry Neurologic: moves all extremities and awake Psychiatric: Orientation: alert, oriented to person and cooperative Results & Data Results & Data ([facility]) Vital Signs (Past 12 Hours) Vital Signs Temp Pulse Pulse Resp BP Pulse Ox 12/22/21 11:38 37.2 C 99 H 24 126/78 91 04/29/21 11:14 96 04/29/21 08:00 37.0 C 98 H 99 H 24 120/71 93 04/29/21 04:43 37.2 C 93 H 22 119/50 L 93 04/29/21 03:33 87 28 H 91 PG Care Time/CCT Total # of Minutes Spent Total Time Spent with Patient: Total time spent is greater than 50% in coordination of care (as documented) at patient's floor/unit and/or counseling patient: Coding Level of Care Code 25903 Subseq Hosp Care Lvl 2 Diagnoses Suspected pulmonary embolism R09.89 Left leg DVT I82.402 HTN (hypertension) I10 GERD (gastroesophageal reflux disease) K21.9 Hypothyroid E03.9 2019 novel coronavirus-infected pneumonia (NCIP) U07.1; J12.82
[2021-04-29] MEDS ORDERED: WARFARIN SOD 5 MG TAB PO SCH (16:00)
[2021-04-29] MEDS ORDERED: WARFARIN SOD 7.5 MG TAB PO SCH (16:00)
[2021-04-29] MEDS: WARFARIN SOD 5 MG TAB PO SCH (16:38)
[2021-04-29 23:42] LABS: Partial Thromboplastin Ratio 1.9
[2021-04-29 23:47] LABS: Partial Thromboplastin Time 48.8 Seconds (21.0-31.0)
[2021-04-30 04:55] LABS: Hematocrit (blood only) 34.8 % (42-52); Hemoglobin 10.5 g/dL (14.0-18.0); Mean Corpuscular Hemoglobin 29.9 pg (25-34); Mean Corpuscular Hgb Conc 30.2 g/dL (32-36); Mean Corpuscular Volume 99.1 fL (80-100); Mean Platelet Volume 9.9 fL (7.4-10.4); Platelet Count 293 K/uL (130-400); RDW Coefficient of Variation 15.8 % (11.5-14.5); RDW Standard Deviation 57.5 fL (36.4-46.3); Red Blood Count 3.51 M/uL (4.7-6.1); White Blood Count 7.34 K/uL (4.8-10.8)
[2021-04-30 05:17] LABS: INR 1.6 (0.9-1.1); Partial Thromboplastin Ratio 2.1; Prothrombin Time 16.1 Seconds (9.0-12.0)
[2021-04-30 05:24] LABS: Partial Thromboplastin Time 55.5 Seconds (21.0-31.0)
[2021-04-30 05:32] LABS: Blood Urea Nitrogen 4 mg/dl (7-18); Calcium 8.7 mg/dl (8.5-10.1); Carbon Dioxide 37 mmol/L (21-32); Chloride 98 mmol/L (98-107); Creatinine Clr Calc Pharmacy 405.2 ml/min; Est GFR (African American) > 150.0 ml/min; Est GFR (Non-African American) 146.1 ml/min; Glucose 104 mg/dl (70-99); Magnesium 2.1 mg/dl (1.8-2.4); Potassium 3.3 mmol/L (3.5-5.1); Sodium 137 mmol/L (136-145)
[2021-04-30] MEDS: LEVOTHYROXINE SODIUM 50 MCG TABLET PO SCH (06:23)
[2021-04-30] MEDS: ACETAMINOPHEN 325 MG TAB PO PRN ×2 (07:40→15:21)
[2021-04-30] MEDS: POLYETHYLENE (MIRALAX) 17 GM PACK PO SCH (07:40)
[2021-04-30] MEDS: PANTOprazole 40 MG TAB PO SCH (07:40)
[2021-04-30] MEDS: HEPARIN SODIUM/DEXTROSE 25,000 UNITS/500 ML BAG IV SCH ×3 (07:41→22:27)
[2021-04-30] MEDS: FOLIC ACID 1 MG TAB PO SCH (07:48)
[2021-04-30] MEDS: PROPRANOLOL HCL 20 MG TAB PO SCH ×2 (09:20→20:22)
[2021-04-30] MEDS: WARFARIN SOD 5 MG TAB PO SCH (15:22)
[2021-04-30] MEDS ORDERED: FUROSEMIDE 40 MG/4 ML VIAL IV ONE (15:32)
[2021-04-30] MEDS ORDERED: POTASSIUM CHLORIDE CRTAB 20 MEQ TABCR PO STA (15:32)
--- NOTE | 2021-04-30 15:32 | Hospitalist Progress Note ---
Date of Service April 30, 2021 Assessment & Plan (1) Suspected pulmonary embolism: Plan: Suspected pulmonary embolism given likely pulmonary infarct in right lung along with left lower extremity DVT. Likely a function of recent COVID-19 infection and immobility. Cannot get CTA as he is too heavy for our scanners (>500 lbs). - Causing Acute respiratory failure with hypoxia, POA - improving, but not yet resolved. - Continue heparin drip per protocol begun in the ED - can coverer to warfarin. Discussed with Dr. Woody on 04/27. No role for DOACs in setting of this level of obesity. => Started warfarin 10 mg PO daily x 2 doses. Moved to 5 mg on 04/29, but will increase to 7.5 mg. INR up to 1.6 today. No role for Lovenox either per pharmacy as 150 mg SQ Q12h is maximum dose they are comfortable with. -> Will give Lasix 40 mg IV x 1 today. He is getting nearly 1L of heparin per day, so want to avoid pulmonary edema. Feels legs are slightly larger today. (2) Left leg DVT: Plan: See above (3) HTN (hypertension): Plan: BP presently 125/70. - Holding lisinopril/HCTZ - Continue propranolol (4) GERD (gastroesophageal reflux disease): Plan: No present GERD symptoms. - Continue PPI (5) Hypothyroid: Plan: TSH was 1.4 in 08/2020. - Continue levothyroxine (6) 2019 novel coronavirus-infected pneumonia (NCIP): Plan: Prolonged hospitalization from 04/02 - 04/17. COVID-19 testing negative this admission. - No acute needs Plan: Dispo: Aunt (Marie Arguello) quite upset and felt that [place] "[place]" last admission despite him doing well with PT/OT. He went to a [facility] and essentially stayed in bed there until he was re-admitted. She was upset because PT/OT didn't go to the hotel to work with him. She reports she had to pay for food to be delivered to him there. She also feels he doesn't have "street smarts" and expressed some feeling to me that we had to help him with this issue. However, the room there is now paid for through May, and Dario reports he wants to go back there. He said he feels like people don't get good care at personal care homes and would prefer to be on his own. Given he is an adult and can make his own decisions, once he is medically ready for discharge, he can be discharged back to the hotel if that is his wish. Admission and Anticipated Discharge Date Admission Date: April 27, 2021 Subjective Doing well today. No major issues. Was up in a chair. Pain is controlled. Had a mild headache. Reports no fevers/chills, chest pain, shortness of breath, abdominal pain, nausea, or vomiting. Physical Exam Constitutional: WD/WN, vitals as above + morbidly obese Eyes: EOM intact bilaterally; no conjunctival abnormality ENMT: external ear and nose normal, oropharynx normal Neck: trachea midline, no thyromegaly normal visual inspection Respiratory: normal respiratory effort, lungs clear to auscultation no respiratory distress Cardiovascular: RRR, no murmur, no edema Gastrointestinal (Abdomen): Inspection/Auscultation: abdomen normal to inspection; abdomen not distended Musculoskeletal: no cyanosis or clubbing, extremities motor strength 5/5 Skin: no rashes, warm and dry Neurologic: moves all extremities and awake Psychiatric: Orientation: alert, oriented to person and cooperative Results & Data Results & Data ([facility]) Vital Signs (Past 12 Hours) Vital Signs Temp Pulse Resp BP Pulse Ox 04/30/21 11:32 36.8 C 89 20 126/68 96 04/30/21 08:00 36.8 C 94 H 24 121/74 96 PG Care Time/CCT Total # of Minutes Spent Total Time Spent with Patient: Total time spent is greater than 50% in coordination of care (as documented) at patient's floor/unit and/or counseling patient: Coding Level of Care Code 14122 Subseq Hosp Care Lvl 2 Diagnoses Suspected pulmonary embolism R09.89 Left leg DVT I82.402 HTN (hypertension) I10 GERD (gastroesophageal reflux disease) K21.9 Hypothyroid E03.9 2019 novel coronavirus-infected pneumonia (NCIP) U07.1; J12.82
[2021-04-30] MEDS ORDERED: WARFARIN SOD 7.5 MG TAB PO SCH (16:00)
[2021-04-30] MEDS ORDERED: WARFARIN SOD 2.5 MG TAB PO ONE (16:00)
[2021-04-30] MEDS: SUMAtriptan succinate 100 MG TAB PO PRN (20:21)
[2021-05-01] MEDS: ACETAMINOPHEN 325 MG TAB PO PRN ×2 (04:23→12:18)
[2021-05-01 05:17] LABS: BUN Creatinine Ratio 8.2 (10-20); Blood Urea Nitrogen 4 mg/dl (7-18); Carbon Dioxide 38 mmol/L (21-32); Chloride 95 mmol/L (98-107); Creatinine Clr Calc Pharmacy 448.3 ml/min; Est GFR (African American) > 150.0 ml/min; Est GFR (Non-African American) > 150.0 ml/min; Glucose 105 mg/dl (70-99); Potassium 3.4 mmol/L (3.5-5.1); Sodium 138 mmol/L (136-145)
[2021-05-01 05:18] LABS: INR 2.1 (0.9-1.1); Partial Thromboplastin Ratio 1.9; Prothrombin Time 19.8 Seconds (9.0-12.0)
[2021-05-01 05:22] LABS: Partial Thromboplastin Time 50.7 Seconds (21.0-31.0)
[2021-05-01] MEDS: LEVOTHYROXINE SODIUM 50 MCG TABLET PO SCH (05:38)
[2021-05-01] MEDS: HEPARIN SODIUM/DEXTROSE 25,000 UNITS/500 ML BAG IV SCH ×3 (05:38→19:49)
[2021-05-01 06:04] LABS: Hematocrit (blood only) 37.3 % (42-52); Hemoglobin 11.2 g/dL (14.0-18.0); Mean Corpuscular Hemoglobin 30.4 pg (25-34); Mean Corpuscular Volume 101.4 fL (80-100); Mean Platelet Volume 10.1 fL (7.4-10.4); Platelet Count 368 K/uL (130-400); RDW Coefficient of Variation 15.7 % (11.5-14.5); RDW Standard Deviation 58.1 fL (36.4-46.3); Red Blood Count 3.68 M/uL (4.7-6.1); White Blood Count 7.13 K/uL (4.8-10.8)
--- NOTE | 2021-05-01 07:56 | Hospitalist Progress Note ---
Date of Service May 01, 2021 Assessment & Plan (1) Suspected pulmonary embolism: Plan: Suspected pulmonary embolism given likely pulmonary infarct in right lung suggested on chest x-ray along with left lower extremity DVT. Recent COVID-19 infection and immobility as risk factors Cannot get CTA as he is too heavy for our scanners (>500 lbs). - Causing Acute respiratory failure with hypoxia, POA - improving, but not yet resolved. 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 Discussed with Dr. Woody on 04/27. No role for DOACs in setting of this level of obesity. => Started warfarin 10 mg PO daily x 2 doses. Moved to 5 mg on 04/29, but will increase to 7.5 mg. 04/30, 05/01 we will resume 5 mg a day. Will need overlap for 4-5 days of dual anticoagulation -> Did give Lasix 40 mg IV x 04/30. (2) Left leg DVT: Plan: See above (3) HTN (hypertension): Plan: BP presently 125/70. - Holding lisinopril/HCTZ - Continue propranolol (4) GERD (gastroesophageal reflux disease): Plan: No present GERD symptoms. - Continue PPI (5) Hypothyroid: Plan: TSH was 1.4 in 08/2020. - Continue levothyroxine (6) 2019 novel coronavirus-infected pneumonia (NCIP): Plan: Prolonged hospitalization from 04/02 - 04/17. COVID-19 testing negative this admission. - No acute needs Plan: Dispo: Previously documented by Dr. Teran aunt (Marie Arguello) quite upset and felt that [place]" last [place] despite him doing well with PT/OT. [facility] and essentially stayed in bed there until he was re- admitted. She was upset because PT/OT didn't go to the hotel to work with him. She reports she had to pay for food to be delivered to him there. She also feels he doesn't have "street smarts" and expressed some feeling to me that we had to help him with this issue. Had discussion with Dario today of regarding his disposition he feels very comfortable returning to the hotel until adult protective services can locate another apartment for him. Admission and Anticipated Discharge Date Admission Date: April 27, 2021 Subjective Doing well today. Was up in a chair. Pain is controlled. Had a mild headache getting tylenol from nursing. Reports no fevers/chills, chest pain, shortness of breath, abdominal pain, nausea, or vomiting. I did discuss his disposition, says he is comfortable going to hotel until adult protective services helps locate another apartment for him Review of Systems Review of Systems: Mild distress and fatigue no headache, no visual changes no speech or swallowing issues Resolution of previous pleuritic chest pain, pressure or palpitations Mild baseline shortness of breath, cough or wheezes no abdominal pain, nausea or vomiting, diarrhea or constipation no dysuria, hematuria or frequency no focal joint pain or swelling no back pain, CVA tenderness or radicular pain no bruising, bleeding or rashes no focal signs of weakness or numbness or altered sensation no complaints of anxiety or depression.. Physical Exam Physical Exam: The patient appeared morbidly obese Vital signs as documented. Head exam is normocephalic atraumatic Neck is without JVD, thyromegaly, or carotid bruits. Lungs are diminished sound clear anteriorly Cardiac exam, Rhythm is regular.. No murmurs, rubs or gallops. Abdominal exam reveals normal bowel sounds, soft non tender, no masses Extremities are nonedematous and both pedal pulses are present Neurologic exam is alert and oriented, no focal loss of strength or sensation Skin is without bruises or rashes Psychologically is without concerns for anxiety or depression.. Results & Data Results & Data ([facility]) Vital Signs (Past 12 Hours) Vital Signs Temp Pulse Pulse Resp BP Pulse Ox 05/01/21 04:18 98.2 F 98 H 20 138/84 91 05/01/21 04:00 95 H 49 H 70 L 05/01/21 03:14 85 30 H 90 05/01/21 02:00 90 41 H 69 L 05/01/21 00:00 94 H 38 H 81 L 04/30/21 23:59 88 04/30/21 22:25 89 28 H 92 04/30/21 22:00 95 H 30 H 94 04/30/21 20:30 98.4 F 104 H 16 135/92 92 04/30/21 20:00 92 H 28 H 95 PG Care Time/CCT Total # of Minutes Spent Total Time Spent with Patient: Total time spent is greater than 50% in coordination of care (as documented) at patient's floor/unit and/or counseling patient: Coding Level of Care Code 32286 Subseq Hosp Care Lvl 3 Diagnoses Suspected pulmonary embolism R09.89 Left leg DVT I82.402 HTN (hypertension) I10 GERD (gastroesophageal reflux disease) K21.9 Hypothyroid E03.9 2019 novel coronavirus-infected pneumonia (NCIP) U07.1; J12.82
[2021-05-01] MEDS: PANTOprazole 40 MG TAB PO SCH (08:42)
[2021-05-01] MEDS: POLYETHYLENE (MIRALAX) 17 GM PACK PO SCH (08:42)
[2021-05-01] MEDS: FOLIC ACID 1 MG TAB PO SCH (08:42)
[2021-05-01] MEDS: PROPRANOLOL HCL 20 MG TAB PO SCH ×2 (08:42→21:04)
[2021-05-01] MEDS: WARFARIN SOD 5 MG TAB PO SCH (16:32)
[2021-05-02] MEDS: HEPARIN SODIUM/DEXTROSE 25,000 UNITS/500 ML BAG IV SCH (03:11)
[2021-05-02 04:56] LABS: INR 2.6 (0.9-1.1); Partial Thromboplastin Ratio 2.4; Prothrombin Time 24.2 Seconds (9.0-12.0)
[2021-05-02] MEDS: ACETAMINOPHEN 325 MG TAB PO PRN (04:57)
[2021-05-02 05:01] LABS: Partial Thromboplastin Time 62.4 Seconds (21.0-31.0)
[2021-05-02] MEDS: LEVOTHYROXINE SODIUM 50 MCG TABLET PO SCH (06:11)
--- NOTE | 2021-05-02 07:41 | Hospitalist Progress Note ---
Date of Service May 02, 2021 Assessment & Plan (1) Suspected pulmonary embolism: Plan: Suspected pulmonary embolism given likely pulmonary infarct in right lung suggested on chest x-ray along with left lower extremity DVT. Recent COVID-19 infection and immobility as risk factors Cannot get CTA as he is too heavy for our scanners (>500 lbs). 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 Discussed with Dr. Woody on 04/27. No role for DOACs in setting of this level of obesity. => Started warfarin 10 mg PO daily x 2 doses. Moved to 5 mg on 04/29, but will increase to 7.5 mg. 04/30, 05/01 we will resume 5 mg a day. Will need overlap for 4-5 days of dual anticoagulation -> Did give Lasix 40 mg IV x 04/30. (2) Left leg DVT: Plan: See above (3) HTN (hypertension): Plan: BP presently 125/70. - Holding lisinopril/HCTZ - Continue propranolol (4) GERD (gastroesophageal reflux disease): Plan: No present GERD symptoms. - Continue PPI (5) Hypothyroid: Plan: TSH was 1.4 in 08/2020. - Continue levothyroxine (6) 2019 novel coronavirus-infected pneumonia (NCIP): Plan: Prolonged hospitalization from 04/02 - 04/17. COVID-19 testing negative this admission. - No acute needs Plan: Dispo: Previously documented by Dr. Teran aunt (Marie Arguello) quite upset and felt that [place] despite him doing well with PT/OT. He went to a [facility] and essentially stayed in bed there until he was re- admitted. She was upset because PT/OT didn't go to the hotel to work with him. She reports she had to pay for food to be delivered to him there. She also feels he doesn't have "street smarts" and expressed some feeling to me that we had to help him with this issue. Had discussion with Dario 05/01 of regarding his disposition he feels very comfortable returning to the hotel until adult protective services can locate another apartment for him. Admission and Anticipated Discharge Date Admission Date: April 27, 2021 Subjective pt does not have any new complaints still working toward discharge to hotel supplied by adult protective services Review of Systems Review of Systems: Mild distress and fatigue no headache, no visual changes no speech or swallowing issues no chest pain, pressure or palpitations no shortness of breath, cough or wheezes no abdominal pain, nausea or vomiting, diarrhea or constipation no dysuria, hematuria or frequency no focal joint pain or swelling no back pain, CVA tenderness or radicular pain no bruising, bleeding or rashes no focal signs of weakness or numbness or altered sensation no complaints of anxiety or depression.. Physical Exam Physical Exam: The patient appeared well nourished and normally developed. Vital signs as documented. Head exam is normocephalic atraumatic Neck is without JVD, thyromegaly, or carotid bruits. Lungs are clear to auscultation, no focal loss of breath sounds Cardiac exam, Rhythm is regular.. No murmurs, rubs or gallops. Abdominal exam reveals normal bowel sounds, soft non tender, no masses Extremities are nonedematous and both pedal pulses are present Neurologic exam is alert and oriented, no focal loss of strength or sensation Skin is without bruises or rashes Psychologically is without concerns for anxiety or depression.. Results & Data Results & Data ([facility]) Vital Signs (Past 12 Hours) Vital Signs Temp Pulse Pulse Resp BP Pulse Ox 05/02/21 04:00 98.4 F 95 H 31 H 127/69 93 05/01/21 23:59 85 05/01/21 22:54 98.4 F 87 28 H 127/63 93 PG Care Time/CCT Total # of Minutes Spent Total Time Spent with Patient: Total time spent is greater than 50% in coordination of care (as documented) at patient's floor/unit and/or counseling patient: Coding Level of Care Code 22761 Subseq Hosp Care Lvl 2 Diagnoses Suspected pulmonary embolism R09.89 Left leg DVT I82.402 HTN (hypertension) I10 GERD (gastroesophageal reflux disease) K21.9 Hypothyroid E03.9 2019 novel coronavirus-infected pneumonia (NCIP) U07.1; J12.82
[2021-05-02] MEDS: FOLIC ACID 1 MG TAB PO SCH (08:08)
[2021-05-02] MEDS: PANTOprazole 40 MG TAB PO SCH (08:08)
[2021-05-02] MEDS: PROPRANOLOL HCL 20 MG TAB PO SCH ×2 (08:08→21:19)
[2021-05-02] MEDS: POLYETHYLENE (MIRALAX) 17 GM PACK PO SCH (08:08)
[2021-05-02] MEDS: WARFARIN SOD 5 MG TAB PO SCH (16:09)
[2021-05-02] MEDS ORDERED: MICONAZOLE NITRATE POWDER 43 GM EXT PRN (18:26)
[2021-05-03] MEDS: LEVOTHYROXINE SODIUM 50 MCG TABLET PO SCH (06:11)
[2021-05-03] MEDS: ACETAMINOPHEN 325 MG TAB PO PRN (07:58)
[2021-05-03 08:58] LABS: INR 3.8 (0.9-1.1); Prothrombin Time 34.4 Seconds (9.0-12.0)
[2021-05-03] MEDS: FOLIC ACID 1 MG TAB PO SCH (09:03)
[2021-05-03] MEDS: PANTOprazole 40 MG TAB PO SCH (09:03)
[2021-05-03] MEDS: PROPRANOLOL HCL 20 MG TAB PO SCH ×2 (09:03→21:27)
[2021-05-03] MEDS: POLYETHYLENE (MIRALAX) 17 GM PACK PO SCH (09:04)
[2021-05-03 09:14] LABS: Blood Urea Nitrogen 4 mg/dl (7-18); Calcium 9.1 mg/dl (8.5-10.1); Carbon Dioxide 35 mmol/L (21-32); Chloride 98 mmol/L (98-107); Est GFR (African American) > 150.0 ml/min; Est GFR (Non-African American) 143.9 ml/min; Glucose 98 mg/dl (70-99); Sodium 136 mmol/L (136-145)
[2021-05-03 09:43] LABS: Hematocrit (blood only) 38.4 % (42-52); Hemoglobin 11.5 g/dL (14.0-18.0); Mean Corpuscular Hemoglobin 30.2 pg (25-34); Mean Corpuscular Hgb Conc 29.9 g/dL (32-36); Mean Corpuscular Volume 100.8 fL (80-100); Mean Platelet Volume 9.6 fL (7.4-10.4); Platelet Count 383 K/uL (130-400); RDW Standard Deviation 59.3 fL (36.4-46.3); Red Blood Count 3.81 M/uL (4.7-6.1); White Blood Count 6.03 K/uL (4.8-10.8)
--- NOTE | 2021-05-03 12:47 | Hospitalist Progress Note ---
Date of Service May 03, 2021 Assessment & Plan (1) Suspected pulmonary embolism: Plan: Suspected pulmonary embolism given likely pulmonary infarct in right lung suggested on chest x-ray along with left lower extremity DVT. Recent COVID-19 infection and immobility as risk factors Cannot get CTA as he is too heavy for our scanners (>500 lbs). - Causing Acute respiratory failure with hypoxia, POA - improving, but not yet resolved, still with significant oxygen requirements - Continue heparin drip now transitioned to warfarin. Discussed with Dr. Woody on 04/27. No role for DOACs in setting of this level of obesity. => INR elevated at 5 mg a day. Will hold 05/03 and reduce to 4 mg 05/04/21 -> Did give Lasix 40 mg IV x 04/30. (2) Left leg DVT: Plan: See above (3) HTN (hypertension): Plan: BP presently 125/70. - Holding lisinopril/HCTZ - Continue propranolol (4) GERD (gastroesophageal reflux disease): Plan: No present GERD symptoms. - Continue PPI (5) Hypothyroid: Plan: TSH was 1.4 in 08/2020. - Continue levothyroxine (6) 2019 novel coronavirus-infected pneumonia (NCIP): Plan: Prolonged hospitalization from 04/02 - 04/17. COVID-19 testing negative this admission. - No acute needs Plan: Dispo: Previously documented by Dr. Teran aunt (Marie Arguello) quite upset and felt that [place] despite him doing well with PT/OT. He went to a [facility] and essentially stayed in bed there until he was re- admitted. She was upset because PT/OT didn't go to the hotel to work with him. She reports she had to pay for food to be delivered to him there. She also feels he doesn't have "street smarts" and expressed some feeling to me that we had to help him with this issue. Had discussion with Dario 05/01 of regarding his disposition he feels very comfortable returning to the hotel until adult protective services can locate another apartment for him. Admission and Anticipated Discharge Date Admission Date: April 27, 2021 Subjective pt does not have any new complaints still working toward discharge to hotel supplied by adult protective services however still with fairly high oxygen requirements Review of Systems Review of Systems: Mild distress and fatigue no headache, no visual changes no speech or swallowing issues no chest pain, pressure or palpitations resting shortness of breath, no cough or wheezes no abdominal pain, nausea or vomiting, diarrhea or constipation no dysuria, hematuria or frequency no focal joint pain or swelling no back pain, CVA tenderness or radicular pain no bruising, bleeding or rashes no focal signs of weakness or numbness or altered sensation no complaints of anxiety or depression.. Physical Exam Physical Exam: The patient appeared well nourished and normally developed. Vital signs as documented. Head exam is normocephalic atraumatic Neck is without JVD, thyromegaly, or carotid bruits. Lungs are clear but diminshed rapid shallow breaths, no focal loss of breath sounds Cardiac exam, Rhythm is regular.. No murmurs, rubs or gallops. Abdominal exam reveals normal bowel sounds, soft non tender, no masses Extremities are nonedematous and both pedal pulses are present Neurologic exam is alert and oriented, no focal loss of strength or sensation Skin is without bruises or rashes Psychologically is without concerns for anxiety or depression.. Results & Data Results & Data ([facility]) Vital Signs (Past 12 Hours) Vital Signs Temp Pulse Pulse Resp BP Pulse Ox 05/03/21 07:36 98.4 F 95 H 20 131/77 97 05/03/21 06:15 95 H 24 96 05/03/21 02:17 90 40 H 83 L 05/03/21 00:49 22 PG Care Time/CCT Total # of Minutes Spent Total Time Spent with Patient: Total time spent is greater than 50% in coordination of care (as documented) at patient's floor/unit and/or counseling patient: Coding Level of Care Code 90667 Subseq Hosp Care Lvl 2 Diagnoses Suspected pulmonary embolism R09.89 Left leg DVT I82.402 HTN (hypertension) I10 GERD (gastroesophageal reflux disease) K21.9 Hypothyroid E03.9 2019 novel coronavirus-infected pneumonia (NCIP) U07.1; J12.82
[2021-05-04] MEDS: ACETAMINOPHEN 325 MG TAB PO PRN ×2 (03:33→07:28)
[2021-05-04] MEDS: LEVOTHYROXINE SODIUM 50 MCG TABLET PO SCH (06:01)
[2021-05-04] MEDS: FOLIC ACID 1 MG TAB PO SCH (07:25)
[2021-05-04] MEDS: PROPRANOLOL HCL 20 MG TAB PO SCH ×2 (07:25→20:44)
[2021-05-04] MEDS: POLYETHYLENE (MIRALAX) 17 GM PACK PO SCH (07:26)
[2021-05-04] MEDS: PANTOprazole 40 MG TAB PO SCH (07:26)
[2021-05-04] MEDS: WARFARIN SOD 4 MG TAB PO SCH (16:21)
--- NOTE | 2021-05-04 18:19 | Hospitalist Progress Note ---
Date of Service May 04, 2021 Assessment & Plan (1) Suspected pulmonary embolism: Plan: Suspected pulmonary embolism given likely pulmonary infarct in right lung suggested on chest x-ray along with left lower extremity DVT. Recent COVID-19 infection and immobility as risk factors Cannot get CTA as he is too heavy for our scanners (>500 lbs). - Causing Acute respiratory failure with hypoxia, POA - improving, but not yet resolved, still with reducing oxygen requirements now 4 liters - Continue heparin drip now transitioned to warfarin. Discussed with Dr. Woody on 04/27. No role for DOACs in setting of this level of obesity. => INR elevated with coumadin at 5 mg a day. Will hold 05/03 and reduce to 4 mg 05/04/21 -> Did give Lasix 40 mg IV x 04/30. (2) Left leg DVT: Plan: See above (3) HTN (hypertension): Plan: BP presently 125/70. - Holding lisinopril/HCTZ - Continue propranolol (4) GERD (gastroesophageal reflux disease): Plan: No present GERD symptoms. - Continue PPI (5) Hypothyroid: Plan: TSH was 1.4 in 08/2020. - Continue levothyroxine (6) 2019 novel coronavirus-infected pneumonia (NCIP): Plan: Prolonged hospitalization from 04/02 - 04/17. COVID-19 testing negative this admission. - No acute needs Plan: Dispo: Previously documented by Dr. Teran aunt (Marie Arguello) quite upset and felt that [place] admission despite him doing well with PT/OT. He went to a [facility] and essentially stayed in bed there until he was re- admitted. She was upset because PT/OT didn't go to the hotel to work with him. She reports she had to pay for food to be delivered to him there. She also feels he doesn't have "street smarts" and expressed some feeling to me that we had to help him with this issue. Had discussion with Dario 05/01 of regarding his disposition he feels very comfortable returning to the hotel until adult protective services can locate another apartment for him. Admission and Anticipated Discharge Date Admission Date: April 27, 2021 Subjective pt does not have any new complaints still working toward discharge to hot supplied by adult protective services however still with fairly high oxygen requirements but gradually coming down. did have minor blood tinged sputum 05/04 but limited and resolved by mid day Review of Systems Review of Systems: Mild distress and fatigue no headache, no visual changes no speech or swallowing issues no chest pain, pressure or palpitations resting shortness of breath, no cough or wheezes no abdominal pain, nausea or vomiting, diarrhea or constipation no dysuria, hematuria or frequency no focal joint pain or swelling no back pain, CVA tenderness or radicular pain no bruising, bleeding or rashes no focal signs of weakness or numbness or altered sensation no complaints of anxiety or depression.. Physical Exam Physical Exam: The patient appeared well nourished and normally developed. Vital signs as documented. Head exam is normocephalic atraumatic Neck is without JVD, thyromegaly, or carotid bruits. Lungs are clear but diminshed rapid shallow breaths, no focal loss of breath sounds Cardiac exam, Rhythm is regular.. No murmurs, rubs or gallops. Abdominal exam reveals normal bowel sounds, soft non tender, no masses Extremities are nonedematous and both pedal pulses are present Neurologic exam is alert and oriented, no focal loss of strength or sensation Skin is without bruises or rashes Psychologically is without concerns for anxiety or depression.. Results & Data Results & Data ([facility]) Vital Signs (Past 12 Hours) Vital Signs Temp Pulse Resp BP Pulse Ox 05/04/21 15:37 98.1 F 84 24 130/70 94 05/04/21 07:11 98.4 F 89 22 121/70 94 PG Care Time/CCT Total # of Minutes Spent Total Time Spent with Patient: Total time spent is greater than 50% in coordination of care (as documented) at patient's floor/unit and/or counseling patient: Coding Level of Care Code 00833 Subseq Hosp Care Lvl 2 Diagnoses Suspected pulmonary embolism R09.89 Left leg DVT I82.402 HTN (hypertension) I10 GERD (gastroesophageal reflux disease) K21.9 Hypothyroid E03.9 2019 novel coronavirus-infected pneumonia (NCIP) U07.1; J12.82
[2021-05-05] MEDS: DEXTROMETHORPHAN POLYMR COMPLX 60 MG/10 ML UDP PO PRN ×2 (01:47→18:14)
[2021-05-05] MEDS: ACETAMINOPHEN 325 MG TAB PO PRN ×2 (03:37→08:31)
[2021-05-05] MEDS: LEVOTHYROXINE SODIUM 50 MCG TABLET PO SCH (05:31)
[2021-05-05 07:30] LABS: Hematocrit (blood only) 37.1 % (42-52); Hemoglobin 11.2 g/dL (14.0-18.0); Mean Corpuscular Hemoglobin 30.1 pg (25-34); Mean Corpuscular Hgb Conc 30.2 g/dL (32-36); Mean Corpuscular Volume 99.7 fL (80-100); Mean Platelet Volume 9.5 fL (7.4-10.4); Platelet Count 400 K/uL (130-400); RDW Standard Deviation 58.6 fL (36.4-46.3); Red Blood Count 3.72 M/uL (4.7-6.1); White Blood Count 6.62 K/uL (4.8-10.8)
[2021-05-05 07:55] LABS: INR 2.2 (0.9-1.1)
[2021-05-05 08:03] LABS: BUN Creatinine Ratio 11.1 (10-20); Blood Urea Nitrogen 6 mg/dl (7-18); Calcium 9.1 mg/dl (8.5-10.1); Carbon Dioxide 34 mmol/L (21-32); Chloride 101 mmol/L (98-107); Creatinine Clr Calc Pharmacy 390.4 ml/min; Est GFR (African American) > 150.0 ml/min; Est GFR (Non-African American) 142.8 ml/min; Glucose 102 mg/dl (70-99); Sodium 139 mmol/L (136-145)
[2021-05-05] MEDS: PROPRANOLOL HCL 20 MG TAB PO SCH ×2 (08:30→21:24)
[2021-05-05] MEDS: POLYETHYLENE (MIRALAX) 17 GM PACK PO SCH (08:30)
[2021-05-05] MEDS: FOLIC ACID 1 MG TAB PO SCH (08:30)
[2021-05-05] MEDS: PANTOprazole 40 MG TAB PO SCH (08:30)
--- NOTE | 2021-05-05 11:26 | Hospitalist Progress Note ---
Date of Service May 05, 2021 Assessment & Plan (1) Suspected pulmonary embolism: Plan: Suspected pulmonary embolism given likely pulmonary infarct in right lung suggested on chest x-ray along with left lower extremity DVT. Recent COVID-19 infection and immobility as risk factors Cannot get CTA as he is too heavy for our scanners (>500 lbs). - Causing Acute respiratory failure with hypoxia, POA - improving, but not yet resolved, still with reducing oxygen requirements now 6 liters - Continue heparin drip now transitioned to warfarin. Discussed with Dr. Woody on 04/27. No role for DOACs in setting of this level of obesity. => INR elevated with coumadin at 5 mg a day. Will hold 05/03 and reduce to 4 mg 05/04/21 INR is 2.2 today, continue 4mg daily (2) Left leg DVT: Plan: See above INR is 2.2 on Coumadin (3) HTN (hypertension): Plan: BP presently 125/70. - Holding lisinopril/HCTZ - Continue propranolol (4) GERD (gastroesophageal reflux disease): Plan: No present GERD symptoms. - Continue PPI (5) Hypothyroid: Plan: TSH was 1.4 in 08/2020. - Continue levothyroxine (6) 2019 novel coronavirus-infected pneumonia (NCIP): Plan: Prolonged hospitalization from 04/02 - 04/17. COVID-19 testing negative this admission. - No acute needs Plan: Dispo: Previously documented by Dr. Teran aunt (Marie Arguello) quite upset and felt that [facility] "pushed him out" last admission despite him doing well with PT/OT. He went to a [facility] and essentially stayed in bed there until he was re- admitted. She was upset because PT/OT didn't go to the hotel to work with him. She reports she had to pay for food to be delivered to him there. She also feels he doesn't have "street smarts" and expressed some feeling to me that we had to help him with this issue. Had discussion with Dario 05/01 of regarding his disposition he feels very comfortable returning to the hotel until adult protective services can locate another apartment for him. Admission and Anticipated Discharge Date Admission Date: April 27, 2021 Subjective patient doing well on 6L, no complaints breathing well, no cough, no chest pain eating well, making urine, moving his bowels INR is 2.2 working on safe discharge plan Review of Systems Review of Systems: All systems reviewed & are unremarkable except as noted in Subjective Physical Exam Physical Exam: General: well developed, morbidly obese young male, no acute distress, comfortable Neck: supple, trachea midline, normal thyroid Lungs: clear to auscultation bilaterally, normal respiratory effort, no accessory muscle use, no distress Heart: regular S1 and S2, no murmur, peripheral pulses normal, capillary refill normal, no edema Abdomen: soft, NT, ND, + BS, no hepatomegaly, normal to percussion Extremities: normal in appearance, no cyanosis, no petechiae, strength is 5/5 bilaterally Neuro: awake, cooperative, moves all extremities, no focal motor deficits, CN II-XII intact, sensation in extremities intact, normal speech Skin: warm, dry, no rash, normal turgor Psych: Awake, alert oriented x 3, euthymic affect Results & Data Results & Data ([facility]) Vital Signs (Past 12 Hours) Vital Signs Temp Pulse Resp BP Pulse Ox 05/05/21 07:40 36.7 C 94 H 18 136/76 94 Laboratory Results Laboratory Results - last 24 hr 05/05/21 05/05/21 05/05/21 06:54 06:54 06:54 WBC 6.62 RBC 3.72 L Hgb 11.2 L Hct 37.1 L MCV 99.7 MCH 30.1 MCHC 30.2 L RDW Std Deviation 58.6 H RDW Coeff of Flor 16.0 H Plt Count 400 MPV 9.5 PT 21.0 H INR 2.2 H Sodium 139 Potassium 4.0 Chloride 101 Carbon Dioxide 34 H Anion Gap 4.0 BUN 6 L Creatinine 0.55 L Est Cr Clr Drug Dosing 390.4 Est GFR ( Amer) > 150.0 Est GFR (Non-Af Amer) 142.8 BUN/Creatinine Ratio 11.1 Glucose 102 H Calcium 9.1 Medications Administered Current Inpatient Medications Acetaminophen (Acetaminophen 325 Mg Tab) 650 mg PO Q4H PRN PRN Reason: Pain or headache Stop: 05/28/21 09:10 Last Admin: 05/05/21 08:31 Dose: 650 mg Documented by: Clotrimazole (Clotrimazole 1% Cr 15 Gm Tube) 1 appln EXT BID PRN PRN Reason: Skin Irritation Stop: 05/27/21 04:55 Dextromethorphan Polymer Complex (Dextromethorphan Polymr Complx 60 Mg/10 Ml Udp) 60 mg PO Q12H PRN PRN Reason: Cough Stop: 06/04/21 01:26 Last Admin: 05/05/21 01:47 Dose: 60 mg Documented by: Folic Acid (Folic Acid 1 Mg Tab) 1 mg PO DAILY [facility] Stop: 05/27/21 08:59 Last Admin: 05/05/21 08:30 Dose: 1 mg Documented by: Levothyroxine Sodium (Levothyroxine Sodium 50 Mcg Tablet) 50 mcg PO DAILYBB [facility] Stop: 05/27/21 05:59 Last Admin: 05/05/21 05:31 Dose: 50 mcg Documented by: Miconazole Nitrate (Miconazole Nitrate Powder 43 Gm) 1 appln EXT PRN PRN PRN Reason: Affected Skin Folds Stop: 06/01/21 18:25 Nystatin (Nystatin Oint 15 Gm Tube) 1 appln EXT TID PRN PRN Reason: Skin Irritation Stop: 05/27/21 04:55 Ondansetron HCl (Ondansetron Inj 2 Mg/Ml 2 Ml Vial) 4 mg IV Q6H PRN PRN Reason: Nausea Stop: 05/27/21 04:55 Pantoprazole Sodium (Pantoprazole 40 Mg Tab) 40 mg PO QAM [facility] Stop: 05/27/21 08:59 Last Admin: 05/05/21 08:30 Dose: 40 mg Documented by: Polyethylene Glycol (Polyethylene (Miralax) 17 Gm Pack) 17 gm PO DAILY [facility] Stop: 05/28/21 08:59 Last Admin: 05/05/21 08:30 Dose: Not Given Documented by: Propranolol HCl (Propranolol Hcl 20 Mg Tab) 20 mg PO BID [facility] Stop: 05/27/21 05:59 Last Admin: 05/05/21 08:30 Dose: 20 mg Documented by: Sumatriptan Succinate (Sumatriptan Succinate 100 Mg Tab) 100 mg PO UD PRN PRN Reason: Migraine Headache Stop: 05/27/21 04:55 Last Admin: 04/30/21 20:21 Dose: 100 mg Documented by: Warfarin Sodium (Warfarin Sod 4 Mg Tab) 4 mg PO DAILY@1600 [facility] Stop: 06/03/21 15:59 Last Admin: 05/04/21 16:21 Dose: 4 mg Documented by: PG Care Time/CCT Total # of Minutes Spent Total Time Spent with Patient: Total time spent is greater than 50% in coordination of care (as documented) at patient's floor/unit and/or counseling patient: Coding Level of Care Code 41435 Subseq Hosp Care Lvl 2 Diagnoses Suspected pulmonary embolism R09.89 Left leg DVT I82.402 HTN (hypertension) I10 GERD (gastroesophageal reflux disease) K21.9 Hypothyroid E03.9 2019 novel coronavirus-infected pneumonia (NCIP) U07.1; J12.82
[2021-05-05] MEDS: WARFARIN SOD 4 MG TAB PO SCH (16:09)
[2021-05-06] MEDS: SUMAtriptan succinate 100 MG TAB PO PRN (03:10)
[2021-05-06] MEDS: ACETAMINOPHEN 325 MG TAB PO PRN (04:29)
[2021-05-06] MEDS: LEVOTHYROXINE SODIUM 50 MCG TABLET PO SCH (06:10)
[2021-05-06 07:58] LABS: INR 2.1 (0.9-1.1); Prothrombin Time 19.9 Seconds (9.0-12.0)
[2021-05-06] MEDS: PANTOprazole 40 MG TAB PO SCH (08:37)
[2021-05-06] MEDS: POLYETHYLENE (MIRALAX) 17 GM PACK PO SCH (08:37)
[2021-05-06] MEDS: FOLIC ACID 1 MG TAB PO SCH (08:37)
[2021-05-06] MEDS: PROPRANOLOL HCL 20 MG TAB PO SCH ×2 (08:37→20:20)
--- NOTE | 2021-05-06 13:17 | Hospitalist Progress Note ---
Date of Service May 06, 2021 Assessment & Plan (1) Suspected pulmonary embolism: Plan: Suspected pulmonary embolism given likely pulmonary infarct in right lung suggested on chest x-ray along with left lower extremity DVT. Recent COVID-19 infection and immobility as risk factors Cannot get CTA as he is too heavy for our scanners (>500 lbs). - Causing Acute respiratory failure with hypoxia, POA - improving, but not yet resolved, still with reducing oxygen requirements now 6 liters - Continue heparin drip now transitioned to warfarin. Discussed with Dr. Woody on 04/27. No role for DOACs in setting of this level of obesity. INR is 2.1 today plan for Coumadin: 5mg on MWF and 4mg on TuThSaSu daily INR (2) Left leg DVT: Plan: See above INR is 2.1 on Coumadin (3) HTN (hypertension): Plan: BP elevated, resume lisinopril/HCTZ - Continue propranolol (4) GERD (gastroesophageal reflux disease): Plan: No present GERD symptoms. - Continue PPI (5) Hypothyroid: Plan: TSH was 1.4 in 08/2020. - Continue levothyroxine (6) 2019 novel coronavirus-infected pneumonia (NCIP): Plan: Prolonged hospitalization from 04/02 - 04/17. COVID-19 testing negative this admission. - No acute needs Plan: Dispo: working on [facility] vs [facility] home vs hotel Admission and Anticipated Discharge Date Admission Date: April 27, 2021 Subjective patient doing well, stable on 5L, no dyspnea or chest pain eating well, moving around independently INR is 2.1, will make a slight adjustment to Coumadin appreciate CM, they are working with [facility] to find a suitable disposition looking into [facility] and [facility] close to discharge as he is stable Review of Systems Review of Systems: All systems reviewed & are unremarkable except as noted in Subjective Physical Exam Physical Exam: General: well developed, morbidly obese young male, no acute distress, comfortable Neck: supple, trachea midline, normal thyroid Lungs: clear to auscultation bilaterally, normal respiratory effort, no accessory muscle use, no distress Heart: regular S1 and S2, no murmur, peripheral pulses normal, capillary refill normal, no edema Abdomen: soft, NT, ND, + BS, no hepatomegaly, normal to percussion Extremities: normal in appearance, no cyanosis, no petechiae, strength is 5/5 bilaterally Neuro: awake, cooperative, moves all extremities, no focal motor deficits, CN II-XII intact, sensation in extremities intact, normal speech Skin: warm, dry, no rash, normal turgor Psych: Awake, alert oriented x 3, euthymic affect Results & Data Results & Data ([facility]) Vital Signs (Past 12 Hours) Vital Signs Temp Pulse Resp BP Pulse Ox 05/06/21 07:39 36.9 C 96 H 18 153/77 H 94 Laboratory Results Laboratory Results - last 24 hr 05/06/21 07:33 PT 19.9 H INR 2.1 H Medications Administered Current Inpatient Medications Acetaminophen (Acetaminophen 325 Mg Tab) 650 mg PO Q4H PRN PRN Reason: Pain or headache Stop: 05/28/21 09:10 Last Admin: 05/06/21 04:29 Dose: 650 mg Documented by: Clotrimazole (Clotrimazole 1% Cr 15 Gm Tube) 1 appln EXT BID PRN PRN Reason: Skin Irritation Stop: 05/27/21 04:55 Dextromethorphan Polymer Complex (Dextromethorphan Polymr Complx 60 Mg/10 Ml Udp) 60 mg PO Q12H PRN PRN Reason: Cough Stop: 06/04/21 01:26 Last Admin: 05/05/21 18:14 Dose: 60 mg Documented by: Folic Acid (Folic Acid 1 Mg Tab) 1 mg PO DAILY [facility] Stop: 05/27/21 08:59 Last Admin: 05/06/21 08:37 Dose: 1 mg Documented by: Levothyroxine Sodium (Levothyroxine Sodium 50 Mcg Tablet) 50 mcg PO DAILYBB [facility] Stop: 05/27/21 05:59 Last Admin: 05/06/21 06:10 Dose: 50 mcg Documented by: Miconazole Nitrate (Miconazole Nitrate Powder 43 Gm) 1 appln EXT PRN PRN PRN Reason: Affected Skin Folds Stop: 06/01/21 18:25 Nystatin (Nystatin Oint 15 Gm Tube) 1 appln EXT TID PRN PRN Reason: Skin Irritation Stop: 05/27/21 04:55 Ondansetron HCl (Ondansetron Inj 2 Mg/Ml 2 Ml Vial) 4 mg IV Q6H PRN PRN Reason: Nausea Stop: 05/27/21 04:55 Pantoprazole Sodium (Pantoprazole 40 Mg Tab) 40 mg PO QAM [facility] Stop: 05/27/21 08:59 Last Admin: 05/06/21 08:37 Dose: 40 mg Documented by: Polyethylene Glycol (Polyethylene (Miralax) 17 Gm Pack) 17 gm PO DAILY [facility] Stop: 05/28/21 08:59 Last Admin: 05/06/21 08:37 Dose: Not Given Documented by: Propranolol HCl (Propranolol Hcl 20 Mg Tab) 20 mg PO BID [facility] Stop: 05/27/21 05:59 Last Admin: 05/06/21 08:37 Dose: 20 mg Documented by: Sumatriptan Succinate (Sumatriptan Succinate 100 Mg Tab) 100 mg PO UD PRN PRN Reason: Migraine Headache Stop: 05/27/21 04:55 Last Admin: 05/06/21 03:10 Dose: 100 mg Documented by: Warfarin Sodium (Warfarin Sod 4 Mg Tab) 4 mg PO DAILY@1600 [facility] Stop: 06/03/21 15:59 Last Admin: 05/05/21 16:09 Dose: 4 mg Documented by: Warfarin Sodium (Warfarin Sod 5 Mg Tab) 5 mg PO DAILY@1600 [facility] Stop: 06/05/21 15:59 PG Care Time/CCT Total # of Minutes Spent Total Time Spent with Patient: Total time spent is greater than 50% in coordination of care (as documented) at patient's floor/unit and/or counseling patient: Coding Level of Care Code 00945 Subseq Hosp Care Lvl 2 Diagnoses Suspected pulmonary embolism R09.89 Left leg DVT I82.402 HTN (hypertension) I10 GERD (gastroesophageal reflux disease) K21.9 Hypothyroid E03.9 2019 novel coronavirus-infected pneumonia (NCIP) U07.1; J12.82
[2021-05-06] MEDS: LISINOPRIL/HCTZ 20/25MG 1 TAB PO SCH (13:53)
[2021-05-06] MEDS: WARFARIN SOD 5 MG TAB PO SCH (16:22)
[2021-05-06] MEDS: DEXTROMETHORPHAN POLYMR COMPLX 60 MG/10 ML UDP PO PRN (22:17)
[2021-05-07] MEDS: ACETAMINOPHEN 325 MG TAB PO PRN (05:42)
[2021-05-07] MEDS: LEVOTHYROXINE SODIUM 50 MCG TABLET PO SCH (05:43)
[2021-05-07] MEDS: SUMAtriptan succinate 100 MG TAB PO PRN (05:56)
[2021-05-07] MEDS: FOLIC ACID 1 MG TAB PO SCH (07:47)
[2021-05-07] MEDS: LISINOPRIL/HCTZ 20/25MG 1 TAB PO SCH (07:47)
[2021-05-07] MEDS: PANTOprazole 40 MG TAB PO SCH (07:47)
[2021-05-07] MEDS: POLYETHYLENE (MIRALAX) 17 GM PACK PO SCH (07:48)
[2021-05-07] MEDS: PROPRANOLOL HCL 20 MG TAB PO SCH ×2 (07:48→20:02)
[2021-05-07 08:41] LABS: INR 1.8 (0.9-1.1); Prothrombin Time 17.1 Seconds (9.0-12.0)
[2021-05-07 08:53] LABS: Hematocrit (blood only) 41.4 % (42-52); Hemoglobin 12.7 g/dL (14.0-18.0); Mean Corpuscular Hemoglobin 30.1 pg (25-34); Mean Corpuscular Volume 98.1 fL (80-100); Mean Platelet Volume 9.7 fL (7.4-10.4); Platelet Count 429 K/uL (130-400); RDW Coefficient of Variation 16.1 % (11.5-14.5); RDW Standard Deviation 58.4 fL (36.4-46.3); Red Blood Count 4.22 M/uL (4.7-6.1); White Blood Count 7.93 K/uL (4.8-10.8)
[2021-05-07 09:01] LABS: Mean Corpuscular Hgb Conc 30.7 g/dL (32-36)
[2021-05-07 09:20] LABS: BUN Creatinine Ratio 13.3 (10-20); Blood Urea Nitrogen 9 mg/dl (7-18); Calcium 9.5 mg/dl (8.5-10.1); Carbon Dioxide 31 mmol/L (21-32); Chloride 99 mmol/L (98-107); Creatinine Clr Calc Pharmacy 335.5 ml/min; Est GFR (African American) > 150.0 ml/min; Est GFR (Non-African American) 134.2 ml/min; Glucose 96 mg/dl (70-99); Sodium 135 mmol/L (136-145)
--- NOTE | 2021-05-07 15:16 | Hospitalist Progress Note ---
Date of Service May 07, 2021 Assessment & Plan (1) Suspected pulmonary embolism: Plan: Suspected pulmonary embolism given likely pulmonary infarct in right lung suggested on chest x-ray along with left lower extremity DVT. Recent COVID-19 infection and immobility as risk factors Cannot get CTA as he is too heavy for our scanners (>500 lbs). - Causing Acute respiratory failure with hypoxia, POA - improving, but not yet resolved, still with reducing oxygen requirements now 6 liters - Continue heparin drip now transitioned to warfarin. Discussed with Dr. Woody on 04/27. No role for DOACs in setting of this level of obesity. INR is 1.8 today, repeat tomorrow plan for Coumadin: 5mg on MWF and 4mg on TuThSaSu (2) Left leg DVT: Plan: See above INR is 1.8 on Coumadin (3) HTN (hypertension): Plan: BP better after, resuming lisinopril/HCTZ - Continue propranolol (4) GERD (gastroesophageal reflux disease): Plan: No present GERD symptoms. - Continue PPI (5) Hypothyroid: Plan: TSH was 1.4 in 08/2020. - Continue levothyroxine (6) 2019 novel coronavirus-infected pneumonia (NCIP): Plan: Prolonged hospitalization from 04/02 - 04/17. COVID-19 testing negative this admission. - No acute needs Plan: Dispo: working on [facility] vs [facility] home vs hotel Admission and Anticipated Discharge Date Admission Date: April 27, 2021 Subjective patient is stable, no acute issues breathing well on 5L, could probably titrate down further try a dose of Lasix INR is 1.8 but got Coumadin 5mg yesterday, see what it is tomorrow Review of Systems Review of Systems: All systems reviewed & are unremarkable except as noted in Subjective Physical Exam Physical Exam: General: well developed, morbidly obese young male, no acute distress, comfortable Neck: supple, trachea midline, normal thyroid Lungs: clear to auscultation bilaterally, normal respiratory effort, no accessory muscle use, no distress Heart: regular S1 and S2, no murmur, peripheral pulses normal, capillary refill normal, no edema Abdomen: soft, NT, ND, + BS, no hepatomegaly, normal to percussion Extremities: normal in appearance, no cyanosis, no petechiae, strength is 5/5 bilaterally Neuro: awake, cooperative, moves all extremities, no focal motor deficits, CN II-XII intact, sensation in extremities intact, normal speech Skin: warm, dry, no rash, normal turgor Psych: Awake, alert oriented x 3, euthymic affect Results & Data Results & Data ([facility]) Vital Signs (Past 12 Hours) Vital Signs Temp Pulse Resp BP Pulse Ox 05/07/21 07:46 109/69 05/07/21 07:22 37.2 C 85 16 92/57 L 95 Laboratory Results Laboratory Results - last 24 hr 05/07/21 05/07/21 05/07/21 08:06 08:06 08:06 WBC Cancelled RBC Cancelled Hgb Cancelled Hct Cancelled MCV Cancelled MCH Cancelled MCHC Cancelled RDW Std Deviation Cancelled RDW Coeff of Flor Cancelled Plt Count Cancelled MPV Cancelled Absolute Nucleated RBC Cancelled Nucleated RBC % (auto) Cancelled Platelet Estimate Cancelled PT 17.1 H INR 1.8 H Sodium 135 L Potassium Chloride 99 Carbon Dioxide 31 Anion Gap 5.0 BUN 9 Creatinine 0.64 Est Cr Clr Drug Dosing 335.5 Est GFR ( Amer) > 150.0 Est GFR (Non-Af Amer) 134.2 BUN/Creatinine Ratio 13.3 Glucose 96 Calcium 9.5 05/07/21 05/07/21 08:36 08:42 WBC 7.93 RBC 4.22 L Hgb 12.7 L Hct 41.4 L MCV 98.1 MCH 30.1 MCHC 30.7 L RDW Std Deviation 58.4 H RDW Coeff of Flor 16.1 H Plt Count 429 H MPV 9.7 Absolute Nucleated RBC Nucleated RBC % (auto) Platelet Estimate PT INR Sodium Potassium 4.4 Chloride Carbon Dioxide Anion Gap BUN Creatinine Est Cr Clr Drug Dosing Est GFR ( Amer) Est GFR (Non-Af Amer) BUN/Creatinine Ratio Glucose Calcium Medications Administered Current Inpatient Medications Acetaminophen (Acetaminophen 325 Mg Tab) 650 mg PO Q4H PRN PRN Reason: Pain or headache Stop: 05/28/21 09:10 Last Admin: 05/07/21 05:42 Dose: 650 mg Documented by: Clotrimazole (Clotrimazole 1% Cr 15 Gm Tube) 1 appln EXT BID PRN PRN Reason: Skin Irritation Stop: 05/27/21 04:55 Dextromethorphan Polymer Complex (Dextromethorphan Polymr Complx 60 Mg/10 Ml Udp) 60 mg PO Q12H PRN PRN Reason: Cough Stop: 06/04/21 01:26 Last Admin: 05/06/21 22:17 Dose: 60 mg Documented by: Folic Acid (Folic Acid 1 Mg Tab) 1 mg PO DAILY [facility] Stop: 05/27/21 08:59 Last Admin: 05/07/21 07:47 Dose: 1 mg Documented by: Lisinopril/HCTZ (Lisinopril/Hctz 20/25mg 1 Tab) [facility] Stop: 06/05/21 13:29 Last Admin: 05/07/21 07:47 Dose: 1 tab Documented by: Levothyroxine Sodium (Levothyroxine Sodium 50 Mcg Tablet) 50 mcg PO DAILYBB [facility] Stop: 05/27/21 05:59 Last Admin: 05/07/21 05:43 Dose: 50 mcg Documented by: Miconazole Nitrate (Miconazole Nitrate Powder 43 Gm) 1 appln EXT PRN PRN PRN Reason: Affected Skin Folds Stop: 06/01/21 18:25 Nystatin (Nystatin Oint 15 Gm Tube) 1 appln EXT TID PRN PRN Reason: Skin Irritation Stop: 05/27/21 04:55 Ondansetron HCl (Ondansetron Inj 2 Mg/Ml 2 Ml Vial) 4 mg IV Q6H PRN PRN Reason: Nausea Stop: 05/27/21 04:55 Pantoprazole Sodium (Pantoprazole 40 Mg Tab) 40 mg PO QAM [facility] Stop: 05/27/21 08:59 Last Admin: 05/07/21 07:47 Dose: 40 mg Documented by: Polyethylene Glycol (Polyethylene (Miralax) 17 Gm Pack) 17 gm PO DAILY [facility] Stop: 05/28/21 08:59 Last Admin: 05/07/21 07:48 Dose: Not Given Documented by: Propranolol HCl (Propranolol Hcl 20 Mg Tab) 20 mg PO BID [facility] Stop: 05/27/21 05:59 Last Admin: 05/07/21 07:48 Dose: 20 mg Documented by: Sumatriptan Succinate (Sumatriptan Succinate 100 Mg Tab) 100 mg PO UD PRN PRN Reason: Migraine Headache Stop: 05/27/21 04:55 Last Admin: 05/07/21 05:56 Dose: 100 mg Documented by: Warfarin Sodium (Warfarin Sod 5 Mg Tab) 5 mg PO MoWeFr@1600 [facility] Stop: 06/05/21 15:59 Last Admin: 05/06/21 16:22 Dose: 5 mg Documented by: Warfarin Sodium (Warfarin Sod 4 Mg Tab) 4 mg PO SuTuThSa@1600 [facility] Stop: 06/03/21 15:59 PG Care Time/CCT Total # of Minutes Spent Total Time Spent with Patient: Total time spent is greater than 50% in coordination of care (as documented) at patient's floor/unit and/or counseling patient: Coding Level of Care Code 05855 Subseq Hosp Care Lvl 2 Diagnoses Suspected pulmonary embolism R09.89 Left leg DVT I82.402 HTN (hypertension) I10 GERD (gastroesophageal reflux disease) K21.9 Hypothyroid E03.9 2019 novel coronavirus-infected pneumonia (NCIP) U07.1; J12.82
[2021-05-07] MEDS ORDERED: WARFARIN SOD 4 MG TAB PO SCH (16:00)
[2021-05-07] MEDS: DEXTROMETHORPHAN POLYMR COMPLX 60 MG/10 ML UDP PO PRN (22:54)
[2021-05-08] MEDS ORDERED: Nursing to Pharmacy Communication SCH (00:30)
[2021-05-08] MEDS: LEVOTHYROXINE SODIUM 50 MCG TABLET PO SCH (05:45)
[2021-05-08 06:57] LABS: Prothrombin Time 19.3 Seconds (9.0-12.0)
[2021-05-08] MEDS: PANTOprazole 40 MG TAB PO SCH (09:51)
[2021-05-08] MEDS: FOLIC ACID 1 MG TAB PO SCH (09:51)
[2021-05-08] MEDS: LISINOPRIL/HCTZ 20/25MG 1 TAB PO SCH (09:51)
[2021-05-08] MEDS: PROPRANOLOL HCL 20 MG TAB PO SCH ×2 (09:51→19:58)
[2021-05-08] MEDS: POLYETHYLENE (MIRALAX) 17 GM PACK PO SCH (09:52)
--- NOTE | 2021-05-08 15:12 | Hospitalist Progress Note ---
Date of Service May 08, 2021 Assessment & Plan (1) Suspected pulmonary embolism: Plan: Suspected pulmonary embolism given likely pulmonary infarct in right lung suggested on chest x-ray along with left lower extremity DVT. Recent COVID-19 infection and immobility as risk factors Cannot get CTA as he is too heavy for our scanners (>500 lbs). - Causing Acute respiratory failure with hypoxia, POA - improving, but not yet resolved, still with reducing oxygen requirements now 6 liters - Continue heparin drip now transitioned to warfarin. Discussed with Dr. Woody on 04/27. No role for DOACs in setting of this level of obesity. INR is 2.0 today, repeat tomorrow plan for Coumadin: 5mg on MWF and 4mg on TuThSaSu as long as INR is stable tomorrow will try to discharge back to [facility] tomorrow (2) Left leg DVT: Plan: See above INR is 2.0 on Coumadin (3) HTN (hypertension): Plan: BP better after, resuming lisinopril/HCTZ - Continue propranolol (4) GERD (gastroesophageal reflux disease): Plan: No present GERD symptoms. - Continue PPI (5) Hypothyroid: Plan: TSH was 1.4 in 08/2020. - Continue levothyroxine (6) 2019 novel coronavirus-infected pneumonia (NCIP): Plan: Prolonged hospitalization from 04/02 - 04/17. COVID-19 testing negative this admission. - No acute needs Plan: Dispo: plan to go to the [facility], he can go tomorrow Admission and Anticipated Discharge Date Admission Date: April 27, 2021 Subjective patient doing well he wants to go back to the [facility] on discharge INR is 2.0, he is on 4L NC will try for discharge tomorrow Review of Systems Review of Systems: All systems reviewed & are unremarkable except as noted in Subjective Physical Exam Physical Exam: General: well developed, morbidly obese young male, no acute distress, comfortable Neck: supple, trachea midline, normal thyroid Lungs: clear to auscultation bilaterally, normal respiratory effort, no accessory muscle use, no distress Heart: regular S1 and S2, no murmur, peripheral pulses normal, capillary refill normal, no edema Abdomen: soft, NT, ND, + BS, no hepatomegaly, normal to percussion Extremities: normal in appearance, no cyanosis, no petechiae, strength is 5/5 bilaterally Neuro: awake, cooperative, moves all extremities, no focal motor deficits, CN II-XII intact, sensation in extremities intact, normal speech Skin: warm, dry, no rash, normal turgor Psych: Awake, alert oriented x 3, euthymic affect Results & Data Results & Data ([facility]) Vital Signs (Past 12 Hours) Vital Signs Temp Pulse Resp BP Pulse Ox 05/08/21 07:27 36.8 C 91 H 20 112/73 95 Laboratory Results Laboratory Results - last 24 hr 05/08/21 06:32 PT 19.3 H INR 2.0 H Medications Administered Current Inpatient Medications Acetaminophen (Acetaminophen 325 Mg Tab) 650 mg PO Q4H PRN PRN Reason: Pain or headache Stop: 05/28/21 09:10 Last Admin: 05/07/21 05:42 Dose: 650 mg Documented by: Clotrimazole (Clotrimazole 1% Cr 15 Gm Tube) 1 appln EXT BID PRN PRN Reason: Skin Irritation Stop: 05/27/21 04:55 Dextromethorphan Polymer Complex (Dextromethorphan Polymr Complx 60 Mg/10 Ml Udp) 60 mg PO Q12H PRN PRN Reason: Cough Stop: 06/04/21 01:26 Last Admin: 05/07/21 22:54 Dose: 60 mg Documented by: Folic Acid (Folic Acid 1 Mg Tab) 1 mg PO DAILY [facility] Stop: 05/27/21 08:59 Last Admin: 05/08/21 09:51 Dose: 1 mg Documented by: Lisinopril/HCTZ (Lisinopril/Hctz 20/25mg 1 Tab) 1 tab PO QAM [facility] Stop: 06/05/21 13:29 Last Admin: 05/08/21 09:51 Dose: 1 tab Documented by: Levothyroxine Sodium (Levothyroxine Sodium 50 Mcg Tablet) 50 mcg PO DAILYBB [facility] Stop: 05/27/21 05:59 Last Admin: 05/08/21 05:45 Dose: 50 mcg Documented by: Miconazole Nitrate (Miconazole Nitrate Powder 43 Gm) 1 appln EXT PRN PRN PRN Reason: Affected Skin Folds Stop: 06/01/21 18:25 Last Admin: 05/08/21 09:58 Dose: 1 appln Documented by: Nystatin (Nystatin Oint 15 Gm Tube) 1 appln EXT TID PRN PRN Reason: Skin Irritation Stop: 05/27/21 04:55 Ondansetron HCl (Ondansetron Inj 2 Mg/Ml 2 Ml Vial) 4 mg IV Q6H PRN PRN Reason: Nausea Stop: 05/27/21 04:55 Pantoprazole Sodium (Pantoprazole 40 Mg Tab) 40 mg PO QAM [facility] Stop: 05/27/21 08:59 Last Admin: 05/08/21 09:51 Dose: 40 mg Documented by: Polyethylene Glycol (Polyethylene (Miralax) 17 Gm Pack) 17 gm PO DAILY [facility] Stop: 05/28/21 08:59 Last Admin: 05/08/21 09:52 Dose: Not Given Documented by: Propranolol HCl (Propranolol Hcl 20 Mg Tab) 20 mg PO BID [facility] Stop: 05/27/21 05:59 Last Admin: 05/08/21 09:51 Dose: 20 mg Documented by: Sumatriptan Succinate (Sumatriptan Succinate 100 Mg Tab) 100 mg PO UD PRN PRN Reason: Migraine Headache Stop: 05/27/21 04:55 Last Admin: 05/07/21 05:56 Dose: 100 mg Documented by: Warfarin Sodium (Warfarin Sod 5 Mg Tab) 5 mg PO MoWeFr@1600 [facility] Stop: 06/05/21 15:59 Last Admin: 05/06/21 16:22 Dose: 5 mg Documented by: Warfarin Sodium (Warfarin Sod 4 Mg Tab) 4 mg PO SuTuThSa@1600 [facility] Stop: 06/03/21 15:59 Last Admin: 05/07/21 15:30 Dose: 4 mg Documented by: PG Care Time/CCT Total # of Minutes Spent Total Time Spent with Patient: Total time spent is greater than 50% in coordination of care (as documented) at patient's floor/unit and/or counseling patient: Coding Level of Care Code 37357 Subseq Hosp Care Lvl 2 Diagnoses Suspected pulmonary embolism R09.89 Left leg DVT I82.402 HTN (hypertension) I10 GERD (gastroesophageal reflux disease) K21.9 Hypothyroid E03.9 2019 novel coronavirus-infected pneumonia (NCIP) U07.1; J12.82
[2021-05-08] MEDS: WARFARIN SOD 5 MG TAB PO SCH (17:46)
[2021-05-08] MEDS: DEXTROMETHORPHAN POLYMR COMPLX 60 MG/10 ML UDP PO PRN (18:22)
[2021-05-09] MEDS ORDERED: WARFARIN SOD 4 MG TAB PO SCH
[2021-05-09] MEDS: LEVOTHYROXINE SODIUM 50 MCG TABLET PO SCH (06:02)
[2021-05-09 07:30] LABS: INR 1.8 (0.9-1.1); Prothrombin Time 17.7 Seconds (9.0-12.0)
[2021-05-09] MEDS: PROPRANOLOL HCL 20 MG TAB PO SCH (09:16)
[2021-05-09] MEDS: PANTOprazole 40 MG TAB PO SCH (09:16)
[2021-05-09] MEDS: POLYETHYLENE (MIRALAX) 17 GM PACK PO SCH (09:16)
[2021-05-09] MEDS: LISINOPRIL/HCTZ 20/25MG 1 TAB PO SCH (09:17)
[2021-05-09] MEDS: FOLIC ACID 1 MG TAB PO SCH (09:17)
--- NOTE | 2021-05-09 11:24 | Discharge Summary ---
Date of Service May 09, 2021 Admission HPI Per Admitting Provider The patient is a 25-year-old male with past medical history including recent admission from 04/02-04/17 for COVID-19 pneumonia with hypoxia, acute respiratory failure due to COVID-19 pneumonia, hidradenitis suppurativa, anxiety with depression, ADD, acne, GERD, migraine, asthma, morbid obesity, mood disorder, hypothyroidism, hypertension and history of drug abuse. Patient presents to the emergency department with acute onset of right-sided chest pain, shortness of breath, and upon reviewing systems does note left lower extremity pain which he thought was due to muscle strain Principal Diagnosis Suspected pulmonary embolism DVT Acute hypoxic respiratory failure Morbid obesity Discharge Exam General: well developed, morbidly obese young male, no acute distress, comfortable Neck: supple, trachea midline, normal thyroid Lungs: clear to auscultation bilaterally, normal respiratory effort, no accessory muscle use, no distress Heart: regular S1 and S2, no murmur, peripheral pulses normal, capillary refill normal, no edema Abdomen: soft, NT, ND, + BS, no hepatomegaly, normal to percussion Extremities: normal in appearance, no cyanosis, no petechiae, strength is 5/5 bilaterally Neuro: awake, cooperative, moves all extremities, no focal motor deficits, CN II-XII intact, sensation in extremities intact, normal speech Skin: warm, dry, no rash, normal turgor Psych: Awake, alert oriented x 3, euthymic affect Discharge Data Allergies Allergy/AdvReac Type Severity Reaction Status Date / Time acetaminophen Allergy Intermediate RASH Verified 04/26/21 23:15 bee venom protein (honey bee) Allergy Intermediate Localized Verified 04/26/21 23:15 swelling ibuprofen Allergy Intermediate RASH Verified 04/26/21 23:15 ketorolac Allergy Intermediate RASH Verified 04/26/21 23:15 tramadol Allergy Intermediate RASH Verified 04/26/21 23:15 azithromycin [From Zithromax] Allergy Mild hives, IV Verified 04/26/21 23:15 form only gabapentin Allergy Unknown Unknown Verified 04/26/21 23:15 naproxen Allergy Unknown Unknown Verified 04/26/21 23:15 Consultations 04/26/21 23:58 ED Decision to Admit Stat 04/26/21 23:59 ED Decision to Admit Stat Ordered Studies 04/26/21 22:55 US venous doppler [facility] Urgent Hospital Course (1) Suspected pulmonary embolism: Suspected pulmonary embolism given likely pulmonary infarct in right lung suggested on chest x-ray along with left lower extremity DVT. Recent COVID-19 infection and immobility as risk factors Cannot get CTA as he is too heavy for our scanners (>500 lbs). - Causing Acute respiratory failure with hypoxia, POA - improving, but not yet resolved, still with reducing oxygen requirements now 3 liters, could likely be on 2L was on heparin drip initially, transitioned to Coumadin INR is 1.8 today, was 2.0 yesterday, 1.8, 2.1, 2.2 and 3.8 the 4 days prior to that initially on 5mg daily but INR jumped to 3.8 changed to 4mg daily, then adjusted to 5mg on MWF with 4mg on TTSS with INR dipping to 1.8, will adjust again to 5mg on TuThSatSun and 4mg on MWF home nursing arranged through [facility], will get INR on Friday 05/12 and can repeat on Tuesday, repeat every Tuesday/Tuesday until therapeutic consistently will ask nurse navigator to set up coagulation clinic follow up and he can follow up with PCP (2) Left leg DVT: See above INR is 1.8 on Coumadin (3) HTN (hypertension): BP better after, resuming lisinopril/HCTZ - Continue propranolol (4) GERD (gastroesophageal reflux disease): No present GERD symptoms. - Continue PPI (5) Hypothyroid: TSH was 1.4 in 08/2020. - Continue levothyroxine (6) 2019 novel coronavirus-infected pneumonia (NCIP): Prolonged hospitalization from 04/02 - 04/17. COVID-19 testing negative this admission. - No acute needs Dispo: plan to go to the [facility], he can go today with home nursing visits arranged I certify that this patient is under my care and that I, or a physicians bilingual teacher assistant working with me, had a face to-face encounter that meets the home health [id number] encounter requirements with this patient. The encounter with the patient was in whole, or in part, for the following medical condition, which is the primary reason for home health care (list medical condition): suspected pulmonary embolism, left leg DVT, morbid obesity, hypoxic resp iratory failure I certify that, based on my findings, the following services are medically necessary home health services: check vitals, draw INR twice a week, ensure medications are being taken accurately My clinical findings support the need for the above services because: patient cannot leave his residence easily, morbidly obese, needs close follow up to prevent re-admission Further, I certify that my clinical findings support that this patient is homebound (i.e. absences from home require considerable and taxing effort and are for medical reasons or hindu services or infrequently or of short duration when for other reasons) because: Certification for Home Health Services: Based on the above findings, I certify that this patient is confined to the home and needs intermittent jail care, physical therapy and/or speech therapy or continues to need occupational therapy. The patient is under my care, and I have initiated the establishment of the plan of care. This patient will be followed by a physician who will periodically review the plan of care. Total Time Total Time Spent Total Time Spent (In Minutes): 32 Discharge Plan Discharge Items Patient Disposition: Home - Home Health Services Reason For Visit: PULMONARY INFARCT, COVID-19 Discharge Diagnosis: Pulmonary embolism with pulmonary infarct COVID 19, recent infection Acute hypoxia Condition on Discharge: Good Goals: continue Coumadin, check INR on Tuesday improve strength and mobility Activity: Resume your previous activity Non-emergency contact: Primary Care Provider Call non-emergency contact if: you have any medication questions Follow-up/Referrals: Shirley Archer DO [Primary Care Provider] - (one week) Diet: Low Fat Ambulatory Orders: Prothrombin Time INR (Routine) Timeframe: 3 Days Location: Determined by Patient Ordered By: Linwood Morocho Attending Provider Instructions: Medications: - COUMADIN: take at 4pm every day, take 5mg on Tuesday, Tuesday, Tuesday and , take 4mg on Tuesday, Tuesday and Tuesday will check INR on Tuesday with results to Dr. Archer and coagulation clinic will work on getting you set up with coagulation clinic to monitor INR and make adjustments to Coumadin make sure you eat a consistent diet Continue on 3L of oxygen, might be able to wean to 2L this next week as your lungs are recovering Pending Studies at Discharge: No Stand-Alone Forms: My [facility], Smoking Cessation Medications and DC Order Prescriptions: New warfarin [Jantoven] 4 mg Tablet 4 mg PO MoWeFr@1600 30 Days Qty: 30 RF: 3 warfarin 5 mg Tablet 5 mg PO SuTuThSa@1600 30 Days Qty: 30 RF: 3 Continued omeprazole 20 mg capsule,delayed release(DR/EC) 20 mg PO QAM Qty: 90 RF: 1 levothyroxine 50 mcg tablet 50 mcg PO QAM Qty: 90 RF: 1 folic acid 1 mg tablet 1 mg PO DAILY Qty: 30 RF: 2 propranolol 20 mg tablet 20 mg PO BID Qty: 180 RF: 1 lisinopril-hydrochlorothiazide 20-25 mg tablet 1 tab PO QAM Qty: 90 RF: 1 fluticasone propionate 50 mcg/actuation spray,suspension 2 spray intranasal DAILY Qty: 16 RF: 2 nystatin 100,000 unit/gram ointment 1 applic EXT TID PRN (Reason: Skin Irritation) RF: 0 sumatriptan succinate 100 mg tablet See Rx Instructions PO .COMPLEX PRN (Reason: Migraine Headache) RF: 0 clotrimazole 1 % cream 1 applic EXT BID PRN (Reason: Skin Irritation) RF: 0 Discharge Orders: Discharge Order (Routine); Ordered 05/09/21 Ordered By: Linwood Gillette Admission Data Admit Date/Time: 04/27/21 03:03 Attending Provider: Linwood Gillette Admit Provider: Gerhard Acuna Primary Care Provider: Shirley Archer Other Providers: Isak Trean ; [facility],Home Healthcare ; Gerhard Acuna Other Interventions: Discharge Summary Assessment (RN) Last Done: 05/09/21 12:26 Coding Level of Care Code D/C DAY MANAGEMENT >30 MINS Diagnoses Suspected pulmonary embolism R09.89 Left leg DVT I82.402 HTN (hypertension) I10 GERD (gastroesophageal reflux disease) K21.9 Hypothyroid E03.9 2019 novel coronavirus-infected pneumonia (NCIP) U07.1; J12.82
[2021-05-09] MEDS ORDERED: WARFARIN SOD 5 MG TAB PO SCH ×2 (16:00)
[2021-05-11] MEDS ORDERED: WARFARIN SOD 4 MG TAB PO SCH (16:00)
== END 2021-05-09 13:23 | disposition home health service (06) | DRG 299 ==
LOC: ED 22:31 → EDINP 23:55 → SUATTDRO 23:55 → 1E 04-27 05:00 → 3E 05-02 16:30

== ENCOUNTER 2023-08-22 23:11 | Observation (INO) ==
[2023-08-22 23:54] LABS: Basophils # (auto) 0.06 K/uL (0.00-0.20); Eosinophils # (auto) 0.15 K/uL (0.00-0.50); Eosinophils % (auto) 2.4 %; Hematocrit (blood only) 40.9 % (42.0-52.0); Hemoglobin 12.8 g/dl (14.0-18.0); Immature Granulocytes # (auto) 0.02 K/uL (0.01-0.20); Immature Granulocytes % (auto) 0.3 %; Lymphocytes % (auto) 20.6 %; Mean Corpuscular Hemoglobin 29.8 pg (25.0-34.0); Mean Corpuscular Hgb Conc 31.3 g/dL (32.0-36.0); Mean Corpuscular Volume 95.3 fL (80.0-100.0); Mean Platelet Volume 10.2 fL (9.4-12.4); Monocytes % (auto) 11.1 %; Neutrophils # (auto) 4.08 K/uL (1.40-6.50); Neutrophils % (auto) 64.6 %; Platelet Count 261 K/uL (130-400); RDW Coefficient of Variation 13.8 % (11.5-14.5); RDW Standard Deviation 48.1 fL (36.4-46.3); Red Blood Count 4.29 M/uL (4.70-6.10); White Blood Count 6.31 K/ul (4.8-10.8)
--- NOTE | 2023-08-22 23:54 | Emergency Department Note ---
History of Present Illness General Chief complaint: Vomiting Stated complaint: GENERALIZED ILLNESS, N/V Time Seen by Provider: 08/22/23 23:41 History of Present Illness This 28-year-old male with a BMI greater than 80 presents ER complaining of chest pain nausea vomiting and generalized illness for the past several weeks that got worse today. He has been taking his Coumadin. Patient has fever, chills, cough, abdominal pain. He has been having few episodes of vomiting. Home Medications Medication Instructions Recorded Confirmed Type ferrous sulfate 324 mg (65 mg 324 mg PO DAILY #90 tabs 04/08/22 08/23/23 Rx iron) tablet,delayed release Portable Oxygen E0431 #1 ea 09/09/22 02/10/23 Rx CPAP Machine #1 ea 03/31/23 Rx CPAP Supplies #1 ea 03/31/23 Rx fluticasone propionate 50 2 spray intranasal DAILY #16 grams 08/03/23 08/23/23 Rx mcg/actuation nasal spray,suspension folic acid 1 mg tablet 1 mg PO DAILY #90 tabs 08/03/23 08/23/23 Rx levothyroxine 88 mcg tablet 88 mcg PO DAILY #90 tabs 08/03/23 08/23/23 Rx pantoprazole 40 mg tablet,delayed 40 mg PO DAILY #90 tabs 08/03/23 08/23/23 Rx release propranolol 20 mg tablet 20 mg PO BID #180 tabs 08/03/23 08/23/23 Rx venlafaxine 37.5 mg tablet 37.5 mg PO DAILY #90 tabs 08/03/23 08/23/23 Rx warfarin 4 mg tablet (Jantoven) 4 mg PO MoWeFr@1600 30 days #90 08/03/23 08/23/23 Rx tabs warfarin 5 mg tablet 5 mg PO SuTuThSa@1600 30 days #90 08/03/23 08/23/23 Rx tabs lisinopril 10 1 tab PO DAILY #90 tabs 08/11/23 08/23/23 Rx mg-hydrochlorothiazide 12.5 mg tablet cholecalciferol (vitamin D3) 1,250 50,000 unit PO WK 08/23/23 08/23/23 History mcg (50,000 unit) capsule nystatin 100,000 unit/gram topical 1 applic topical BID PRN to rash 08/23/23 08/23/23 History powder under pannus/belly Allergies Allergy/AdvReac Type Severity Reaction Status Date / Time acetaminophen Allergy Intermediate RASH Verified 08/23/23 01:02 azithromycin [From Zithromax] Allergy Intermediate hives, IV Verified 08/23/23 01:02 form only bee venom protein (honey bee) Allergy Intermediate Localized Verified 08/23/23 01:02 swelling ibuprofen Allergy Intermediate RASH Verified 08/23/23 01:02 ketorolac Allergy Intermediate RASH Verified 08/23/23 01:02 tramadol Allergy Intermediate RASH Verified 08/23/23 01:02 gabapentin Allergy Unknown Unknown Verified 08/23/23 01:02 naproxen Allergy Unknown Unknown Verified 08/23/23 01:02 Past Med/Surg History Medical History Abnormal x-ray Acute respiratory failure with hypoxia 2018 novel coronavirus-infected pneumonia (NCIP) Anemia Anticoagulated on warfarin Left leg DVT Left knee pain Acute respiratory failure with hypoxia Acute respiratory failure due to COVID-19 Respiratory failure Malaise and fatigue Frequent headaches Hidradenitis suppurativa Drug abuse HTN (hypertension) Hypothyroid Lumbar back pain Mood disorder Asthma Migraine GERD (gastroesophageal reflux disease) Acne ADD (attention deficit disorder) Anxiety Depression Tachycardia (07/14/13) Lumbar strain Finger abrasion Dental caries Abscess of back Surgical History H/O tympanostomy History of tonsillectomy and adenoidectomy Family History Father Alcohol abuse Drug abuse Mother Anxiety Bilateral nephrolithiasis Heart disease Depression Diabetes Hypertension Gallbladder disease Lung disease Cancer skin Grandfather Myocardial infarction Social History Smoking Status: Never smoker Tobacco Type: Cigarettes Age Started Using Tobacco: 16; Age Quit Using Tobacco: 22; packs per day: 1; Second Hand Exposure: Yes; Do You Dip or Chew Tobacco: No; Hx Alcohol Use: No Hx Substance Use: Yes (medical ) Prescribed Medications: Marijuana Last Used Substance: Unknown Last Used Substance Other:: months ago Preferred Language: Romansh Communication Ability: Effective Visual Impairment: No Limitations Hearing Ability: Normal Adjunct English Instructor Required: No Beliefs That Will Affect Care: None marital status: Single Current Living Situation: Alone current occupational status: unemployed Feels Safe at Home: Yes Childhood Exposure to Second-Hand Smoke: Yes Diet: regular Diet Comment: regular caffeine: Yes (tea occasional) during the past year weight has: remained stable Dental Care, Regularly: No Physical Activity Frequency: 1-2 Times per Week Seatbelt Use: never Sunscreen Use: No Assistive Devices: Oxygen - Continuous Physical Exam Vital Signs Vital Signs - 24 hr 08/22/23 23:22 08/22/23 23:22 08/22/23 23:22 Temperature 36.6 C Temperature Source Oral Pulse Rate 112 H 108 H Pulse Rate [Apical] 103 H Pulse Rhythm [Apical] Regular Pulse Strength [Apical] Normal Respiratory Rate 24 22 Respiratory Effort / Characteristics Non-Labored Spontaneous Non-Labored Spontaneous Respiratory Depth Normal Normal Respiratory Pattern Regular Regular Blood Pressure 137/79 Blood Pressure [Right Arm] 114/76 Blood Pressure Mean 98 Blood Pressure Mean [Right Arm] 88 Blood Pressure Position Lying Blood Pressure Position [Right Arm] Lying Pulse Oximetry 95 93 Oxygen Delivery Method Room Air Room Air Sepsis Recent Fever Within 48 Hours No Sepsis New/Unexplained Change in Mental Status No Sepsis Action Taken by Nursing No Action Required 08/23/23 02:18 Temperature Temperature Source Pulse Rate Pulse Rate [Apical] 102 H Pulse Rhythm [Apical] Pulse Strength [Apical] Respiratory Rate 20 Respiratory Effort / Characteristics Non-Labored Spontaneous Respiratory Depth Normal Respiratory Pattern Regular Blood Pressure Blood Pressure [Right Arm] 134/79 Blood Pressure Mean Blood Pressure Mean [Right Arm] 97 Blood Pressure Position Blood Pressure Position [Right Arm] Pulse Oximetry 94 Oxygen Delivery Method Room Air Sepsis Recent Fever Within 48 Hours Sepsis New/Unexplained Change in Mental Status Sepsis Action Taken by Nursing VITALS: Vitals are noted on the nurse's note and reviewed by myself. Vital signs stable. GENERAL: White male with an elevated BMI, in no acute distress, nondiaphoretic, well-developed well-nourished. SKIN: Capillary reflex less than 2 seconds. HEENT: Normocephalic. PERRLA. EOMI. Nares patent. Mucous membranes moist. Neck is supple without nuchal rigidity. HEART: Regular rate and rhythm LUNGS: Clear to auscultation bilaterally without wheezes, rales or rhonchi. No retractions or accessory muscle use. ABDOMEN: Positive bowel sounds x 4. Normal tympanic percussion. Soft, nontender, without masses or organomegaly. Rivera sign negative. No guarding or rebound tenderness. no CVA tenderness MUSCULOSKELETAL: No gross musculoskeletal defects. NEURO: Patient was alert and oriented to person place and time. No focal neurological deficits. Course Administered Medications Discontinued Medications Famotidine (Pepcid 20mg Iv Push) 20 mg in 5 mls @ 2.5 mls/min IV NOW STA Stop: 08/22/23 23:53 Last Admin: 08/23/23 00:03 Dose: 2.5 mls/min Documented By: ROBBIE Sodium Chloride (Nss) 1,000 mls @ 999 mls/hr IV .Q1H1M ONE Stop: 08/23/23 00:52 Last Infusion: 08/23/23 01:11 Dose: Infused Documented By: Admin: 08/23/23 00:03 Dose: 999 mls/hr Documented By: ROBBIE Ondansetron HCl (Ondansetron Inj 2 Mg/Ml 2 Ml Vial) 4 mg IV NOW STA Stop: 08/22/23 23:53 Last Admin: 08/23/23 00:03 Dose: 4 mg Documented By: ROBBIE Critical Care Time Critical Care Time: Yes Total Critical Care Time: 35 I have personally spent 35 minutes of critical care time in the direct management of this patient. This includes bedside care, interpretation of diagnostic studies, and testing, discussion with consultants, patient, and family members, and other required patient management activities. This 35 minutes is in excess of all separately billable procedures. Medical Decision Making Medical Records Attestation: I reviewed the patient's medical records. Home Medications Current Medication List: was personally reviewed by me Laboratory Data Attestation: I reviewed the patient's lab results. 08/22/23 23:27 08/22/23 23:27 Lab Results 08/22/23 08/23/23 Range/Units 23:27 00:08 WBC 6.31 (4.8-10.8) K/ul RBC 4.29 L (4.70-6.10) M/uL Hgb 12.8 L (14.0-18.0) g/dl Hct 40.9 L (42.0-52.0) % MCV 95.3 (80.0-100.0) fL MCH 29.8 (25.0-34.0) pg MCHC 31.3 L (32.0-36.0) g/dL RDW Std Deviation 48.1 H (36.4-46.3) fL RDW Coeff of Flor 13.8 (11.5-14.5) % Plt Count 261 (130-400) K/uL MPV 10.2 (9.4-12.4) fL Immature Gran % (Auto) 0.3 % Neut % (Auto) 64.6 % Lymph % (Auto) 20.6 % Sullivan % (Auto) 11.1 % Eos % (Auto) 2.4 % Baso % (Auto) 1.0 % Neut # (Auto) 4.08 (1.40-6.50) K/uL Lymph # (Auto) 1.30 (1.20-3.40) K/uL Sullivan # (Auto) 0.70 H (0.11-0.59) K/uL Eos # (Auto) 0.15 (0.00-0.50) K/uL Baso # (Auto) 0.06 (0.00-0.20) K/uL Immature Gran # (Auto) 0.02 (0.01-0.20) K/uL PT 11.2 (9.0-12.0) Seconds INR 1.0 (0.9-1.1) APTT 29 (21-31) Seconds PTT Ratio 1.0 Sodium 138 (136-145) mmol/L Potassium 4.1 (3.5-5.1) mmol/L Chloride 106 (98-107) mmol/L Carbon Dioxide 27 (21-32) mmol/L Anion Gap 5 (3-11) BUN 12 (6-23) mg/dl Creatinine 0.77 (0.6-1.4) mg/dl Est Cr Clr Drug Dosing 305.0 ml/min Est GFR ( Amer) 141.1 ml/min Est GFR (Non-Af Amer) 121.8 ml/min BUN/Creatinine Ratio 15.6 (10-20) Glucose 118 H (70-99(Fasting)) mg/dl Calcium 8.5 L (8.6-10.3) mg/dl Total Bilirubin 0.6 (0.2-1.0) mg/dl AST 44 H (13-39) U/L ALT 42 (7-52) U/L Alkaline Phosphatase 105 H (34-104) U/L Troponin I High Sens 5.8 (0-20) pg/ml Total Protein 6.9 (6.0-8.3) gm/dl Albumin 3.5 (3.4-5.0) gm/dl Globulin 3.4 (2.5-4.0) gm/dl Albumin/Globulin Ratio 1.0 (0.9-2) Lipase 17 (11-82) U/L Adenovirus (PCR) Not Detected (NotDetected) B. pertussis DNA (PCR) Not Detected (NotDetected) B.parapertussis DNA PCR Not Detected (NotDetected) C. pneumoniae DNA (PCR) Not Detected (NotDetected) Coronavirus OC43 (PCR) Not Detected (NotDetected) Coronavirus HKU1 (PCR) Not Detected (NotDetected) Coronavirus 229E (PCR) Not Detected (NotDetected) SARS-CoV-2 (PCR) Not Detected (NotDetected) Coronavirus NL63 (PCR) Not Detected (NotDetected) Human Metapneumovir PCR Not Detected (NotDetected) Influenza Type A (PCR) Not Detected (NotDetected) Influenza Type B (PCR) Not Detected (NotDetected) M. pneumoniae (PCR) Not Detected (NotDetected) Parainfluenza 1 (PCR) Not Detected (NotDetected) Parainfluenza 2 (PCR) Not Detected (NotDetected) Parainfluenza 3 (PCR) Not Detected (NotDetected) Parainfluenza 4 (PCR) Not Detected (NotDetected) RSV (PCR) Not Detected (NotDetected) Entero/Rhino (PCR) Not Detected (NotDetected) Imaging Data Attestation: I personally reviewed and interpreted this imaging study as follows: MDM Narrative Prior records/ancillary studies reviewed and summarized above. Nursing notes reviewed. Additional history obtained from nursing The patient's history was concerning for chest pain, nausea and vomiting. Differential diagnosis: Etiologies such as metabolic, infection, hypo/hyperglycemia, electrolyte abnormalities, cardiac sources, intracerebral event, toxicologic, neurologic, as well as others were entertained. Physical examination: As above. ER treatment provided: IV Lock An order was placed for continuous cardiac monitoring. The monitor shows a rate of 60-1 20 with a sinus rhythm per my interpretation. IV fluids, Zosyn, heparin On reassessment the patient felt better. Diagnostics interpretation by me: ECG: Ordered for chest pain EKG: Normal sinus, incomplete right bundle, no acute ST-T wave changes. Impression normal sinus rhythm rate of 99 with incomplete right bundle branch block independently interpreted by myself The labs Independently Interpreted by myself revealed negative troponin, mild anemia, no worrisome leukocytosis, subtherapeutic INR Imaging studies: Chest x-ray concerning for possible pneumonia per my independent interpretation Ultrasound with no obvious DVT per my independent interpretation Consultation: A consultation was placed with the hospitalist. The case was discussed and diagnostics were reviewed. The patient was evaluated in the ER for further treatment. Exam and history seem consistent with pneumonia and subtherapeutic INR with a history of DVT. Patient's weight was not compatible with the CAT scan. No obvious DVT on ultrasound. Patient was started on heparin and antibiotics. Medicine was consulted and case discussed. He will be admitted to the medical service. By the evaluation outlined above emergent etiologies such as electrolyte abnormalities, cardiac sources, intracerebral event, toxologic, neurologic, abnormalities blood glucose, metabolic, as well as others were deemed relatively unlikely. The pt informed about the findings as listed above. All questions were answered and pleased with the treatment. the chart was completed utilizing [employer] Speech voice recognition software. Grammatical errors, random word insertions, pronoun errors, and incomplete sentences are an occassional consequence of this system due to software limitations, ambient noise, and hardware issues. Any formal questions or concerns about the content, text, or information contained within the body of this dictation should be directly addressed to the physician assistant city attorney for clarification. Impression & Plan Subtherapeutic international normalized ratio (INR), History of DVT of lower extremity, CAP (community acquired pneumonia) Discharge Plan Visit Data Chief Complaint: Vomiting Stated Complaint: GENERALIZED ILLNESS, N/V ED Provider: Evert Luna ED Midlevel Provider: Marlin Ackerman Discharge Problem: Subtherapeutic international normalized ratio (INR), History of DVT of lower extremity, CAP (community acquired pneumonia) Patient Disposition: Admitted As Inpatient Condition: Fair Forms Stand Alone Forms: [facility] Assist Prescriptions Prescriptions: No Action ferrous sulfate 324 mg (65 mg iron) tablet,delayed release (DR/EC) 324 mg PO DAILY Qty: 90 0RF (DME) CPAP Supplies Misc See Rx Instructions .MEDSUPPLY Qty: 1 0RF Rx Instructions: CPAP supplies, mask, headgear, filters, tubing, water chamber. G47.33 (DME) CPAP Machine Misc See Rx Instructions .MEDSUPPLY Qty: 1 0RF Rx Instructions: CPAP with 12 cm H20 pressure. G47.33 fluticasone propionate 50 mcg/actuation spray,suspension 2 spray intranasal DAILY Qty: 16 2RF Rx Instructions: administer into each nostril folic acid 1 mg tablet 1 mg PO DAILY Qty: 90 1RF levothyroxine 88 mcg tablet 88 mcg PO DAILY Qty: 90 3RF pantoprazole 40 mg tablet,delayed release (DR/EC) 40 mg PO DAILY Qty: 90 3RF propranolol 20 mg tablet 20 mg PO BID Qty: 180 1RF venlafaxine 37.5 mg tablet 37.5 mg PO DAILY Qty: 90 3RF warfarin [Jantoven] 4 mg tablet 4 mg PO MoWeFr@1600 30 Days Qty: 90 1RF Protocol: Dose Management Condition: Tuesday Dose/Route: 10 mg Instruction: 2 x 5 mg tablets Condition: Tuesday Dose/Route: 5 mg Instruction: 1 x 5 mg tablet Condition: Tuesday Dose/Route: 10 mg Instruction: 2 x 5 mg tablets Condition: Tuesday Dose/Route: 10 mg Instruction: 2 x 5 mg tablets Condition: Dose/Route: 10 mg Instruction: 2 x 5 mg tablets Condition: Tuesday Dose/Route: 5 mg Instruction: 1 x 5 mg tablet Condition: Tuesday Dose/Route: 10 mg Instruction: 2 x 5 mg tablets Protocol Text: Adjustment Start Date: 12/24/21 INR Value: 1.0 INR Date: 12/24/21 Recheck Date: 12/31/21 warfarin 5 mg tablet 5 mg PO SuTuThSa@1600 30 Days Qty: 90 1RF Protocol: Dose Management Condition: Tuesday Dose/Route: 10 mg Instruction: 2 x 5 mg tablets Condition: Tuesday Dose/Route: 5 mg Instruction: 1 x 5 mg tablet Condition: Tuesday Dose/Route: 10 mg Instruction: 2 x 5 mg tablets Condition: Tuesday Dose/Route: 10 mg Instruction: 2 x 5 mg tablets Condition: Dose/Route: 10 mg Instruction: 2 x 5 mg tablets Condition: Tuesday Dose/Route: 5 mg Instruction: 1 x 5 mg tablet Condition: Tuesday Dose/Route: 10 mg Instruction: 2 x 5 mg tablets Protocol Text: Adjustment Start Date: 12/24/21 INR Value: 1.0 INR Date: 12/24/21 Recheck Date: 12/31/21 lisinopril-hydrochlorothiazide 10-12.5 mg tablet 1 tab PO DAILY Qty: 90 3RF (DME) Portable Oxygen E0431 Misc See Rx Instructions .MEDSUPPLY Qty: 1 0RF Rx Instructions: Oxygen 2 liters continuous via nasal cannula on exertion with portable concentrator. LIDA 99 nystatin 100,000 unit/gram powder 1 applic topical BID PRN (Reason: to rash under pannus/belly) cholecalciferol (vitamin D3) 1,250 mcg (50,000 unit) capsule 50,000 unit PO WK Referrals Referrals: Shirley Archer DO [Primary Care Provider] -
[2023-08-22 23:59] LABS: Albumin Level 3.5 gm/dl (3.4-5.0); BUN Creatinine Ratio 15.6 (10-20); Bilirubin,Total 0.6 mg/dl (0.2-1.0); Calcium 8.5 mg/dl (8.6-10.3); Est GFR (African American) 141.1 ml/min; Est GFR (Non-African American) 121.8 ml/min; Globulin 3.4 gm/dl (2.5-4.0); Potassium 4.1 mmol/L (3.5-5.1); Total Protein 6.9 gm/dl (6.0-8.3)
[2023-08-23] MEDS: SODIUM CHLORIDE 0.9% 1,000 ML IV ONE (00:03)
[2023-08-23] MEDS: FAMOTIDINE 20MG IV PUSH 20 MG/5 ML SYR IV STA (00:03)
[2023-08-23] MEDS: ONDANSETRON INJ 2 MG/ML 2 ML VIAL IV STA (00:03)
[2023-08-23 00:09] LABS: Partial Thromboplastin Time 29 Seconds (21-31); Prothrombin Time 11.2 Seconds (9.0-12.0)
[2023-08-23 00:21] LABS: Troponin I High Sensitivity 5.8 pg/ml (0-20)
[2023-08-23 01:12] LABS: Adenovirus PCR Not Detected (NotDetected); Bordetella parapertussis PCR Not Detected (NotDetected); Bordetella pertussis PCR Not Detected (NotDetected); Chlamydia pneumoniae PCR Not Detected (NotDetected); Coronavirus 229E PCR Not Detected (NotDetected); Coronavirus CoV-2 (COVID19)PCR Not Detected (NotDetected); Coronavirus HKU1 PCR Not Detected (NotDetected); Coronavirus NL63 PCR Not Detected (NotDetected); Coronavirus OC43PCR Not Detected (NotDetected); Human Metapneumovirus PCR Not Detected (NotDetected); Influenza A PCR Not Detected (NotDetected); Influenza B PCR Not Detected (NotDetected); Mycoplasma pneumoniae PCR Not Detected (NotDetected); Parainfluenza Virus 1 PCR Not Detected (NotDetected); Parainfluenza Virus 2 PCR Not Detected (NotDetected); Parainfluenza Virus 3 PCR Not Detected (NotDetected); Parainfluenza Virus 4 PCR Not Detected (NotDetected); Respiratory Syncytial VirusPCR Not Detected (NotDetected); Rhinovirus/Enterovirus PCR Not Detected (NotDetected)
[2023-08-23] MEDS ORDERED: Heparin IV Adult Wt-Based Standard *NO* INITIAL Bolus Protocol IV STA (02:42)
--- NOTE | 2023-08-23 02:44 | History & Physical Report ---
Date of Service August 23, 2023 Assessment & Plan (1) History of DVT of lower extremity: Plan: Pt is a 28 yo male with PMH of HTN, migraine, ADD, asthma, hypothyroidism, and left leg DVT presenting with SOB and vomiting. SOB - lab work significant for no leukocytosis, Hgb 12.8, CMP WNL, trop 5.8 - CXR shows infiltrates of RLL compared to CXR 01/2022; suspect aspiration as below - pt w/ remote hx of asthma as a child; no current maintenance treatment- no wheezing upon exam; do not suspect this is contributing to pt's current presentation - concern for possible PE in the setting of hx of DVT on warfarin tx with subtherapeutic INR (1.0); will treat with IV heparin and eventually bridge back to warfarin until therapeutic (unable to perform CTA d/t pt's body habitus); unfortunately, DOAC may not be an option for pt as they are less effective at higher body weights, however, the discussion could be had discussing risks vs. benefits comparing subtherapeutic warfarin vs. suboptimal effective of DOAC - suspect pt's body habitus and deconditioning contributing to symptoms in addition to possible contribution of underlying anxiety Vomiting - lab work significant for no leukocytosis, CMP WNL, lipase 17 - RVP neg - pt endorses frequent (multiple times daily) cannabis use; suspect cannabis hyperemesis may be contributing to pt's current symptoms - treat symptomatically with zofran PRN, pantoprazole 40 mg daily, famotidine 20 mg daily Aspiration pneumonitis - CXR concerning for possible aspiration pneumonitis vs. CAP; suspect pneumonitis in the setting of vomiting as above - s/p zosyn x1 in ED; will defer further antibiotics consider pt stability, afebrile, and no leukocytosis HTN - will hold home lisinopril/HCTZ in the setting of vomiting/dehydration - continue home propranolol 20 mg BID Depression/anxiety - continue home venlafaxine 37.5 mg daily Hypothyroidism - continue home levothyroxine 88 mcg daily KANDACE - continue CPAP HS Diet: regular VTE ppx: heparin drip Code: full Dispo: admit to med/tele (2) KANDACE (obstructive sleep apnea): (3) Aspiration of gastric contents: (4) Shortness of breath: (5) Vomiting: History of Present Illness Chief Complaint: vomiting, SOB Primary Care Provider: Shirley Archer DO Pt is a 28 yo male with PMH of HTN, migraine, ADD, asthma, hypothyroidism, and left leg DVT presenting with SOB and vomiting. Pt states he has been feeling nauseous for the last 2-3 days. No new medications or changes in his diet. He vomited last night twice which prompted him to call for an ambulance. He does note she red color to his emesis but is unsure if this is blood or related to what he had eaten. He also states over this time period he has felt more SOB. He denies chest pain and diarrhea. Pt does note that he smokes cannabis. He obtained a medical cannabis card in 2019 and has been smoking cannabis multiple times a day every day since then to help treat anxiety. He denies other drug use. Pt notes that he is on warfarin for a hx of leg DVT. He has been taking his warfarin but does note that he may miss a dose ~once per week. In the ER, the pt was given zosyn x1, famotidine 20 mg IV x1, ondansetron 4 mg IV x1, 1L NS, and started on a heparin drip. Allergies Allergy/AdvReac Type Severity Reaction Status Date / Time acetaminophen Allergy Intermediate RASH Verified 08/23/23 01:02 azithromycin [From Zithromax] Allergy Intermediate hives, IV Verified 08/23/23 01:02 form only bee venom protein (honey bee) Allergy Intermediate Localized Verified 08/23/23 01:02 swelling ibuprofen Allergy Intermediate RASH Verified 08/23/23 01:02 ketorolac Allergy Intermediate RASH Verified 08/23/23 01:02 tramadol Allergy Intermediate RASH Verified 08/23/23 01:02 gabapentin Allergy Unknown Unknown Verified 08/23/23 01:02 naproxen Allergy Unknown Unknown Verified 08/23/23 01:02 Home Medications Medication Instructions Recorded Confirmed Type ferrous sulfate 324 mg (65 mg 324 mg PO DAILY #90 tabs 04/08/22 08/23/23 Rx iron) tablet,delayed release Portable Oxygen E0431 #1 ea 09/09/22 02/10/23 Rx CPAP Machine #1 ea 03/31/23 Rx CPAP Supplies #1 ea 03/31/23 Rx fluticasone propionate 50 2 spray intranasal DAILY #16 grams 08/03/23 08/23/23 Rx mcg/actuation nasal spray,suspension folic acid 1 mg tablet 1 mg PO DAILY #90 tabs 08/03/23 08/23/23 Rx levothyroxine 88 mcg tablet 88 mcg PO DAILY #90 tabs 08/03/23 08/23/23 Rx pantoprazole 40 mg tablet,delayed 40 mg PO DAILY #90 tabs 08/03/23 08/23/23 Rx release propranolol 20 mg tablet 20 mg PO BID #180 tabs 08/03/23 08/23/23 Rx venlafaxine 37.5 mg tablet 37.5 mg PO DAILY #90 tabs 08/03/23 08/23/23 Rx warfarin 4 mg tablet (Jantoven) 4 mg PO MoWeFr@1600 30 days #90 08/03/23 08/23/23 Rx tabs warfarin 5 mg tablet 5 mg PO SuTuThSa@1600 30 days #90 08/03/23 08/23/23 Rx tabs lisinopril 10 1 tab PO DAILY #90 tabs 08/11/23 08/23/23 Rx mg-hydrochlorothiazide 12.5 mg tablet cholecalciferol (vitamin D3) 1,250 50,000 unit PO WK 08/23/23 08/23/23 History mcg (50,000 unit) capsule nystatin 100,000 unit/gram topical 1 applic topical BID PRN to rash 08/23/23 08/23/23 History powder under pannus/belly Past Med/Surg History Medical History Abnormal x-ray Acute respiratory failure with hypoxia 2018 novel coronavirus-infected pneumonia (NCIP) Anemia Anticoagulated on warfarin Left leg DVT Left knee pain Acute respiratory failure with hypoxia Acute respiratory failure due to COVID-19 Respiratory failure Malaise and fatigue Frequent headaches Hidradenitis suppurativa Drug abuse HTN (hypertension) Hypothyroid Lumbar back pain Mood disorder Asthma Migraine GERD (gastroesophageal reflux disease) Acne ADD (attention deficit disorder) Anxiety Depression Tachycardia (07/14/13) Lumbar strain Finger abrasion Dental caries Abscess of back Surgical History H/O tympanostomy History of tonsillectomy and adenoidectomy Family History Father Alcohol abuse Drug abuse Mother Anxiety Bilateral nephrolithiasis Heart disease Depression Diabetes Hypertension Gallbladder disease Lung disease Cancer skin Grandfather Myocardial infarction Social History Smoking Status: Never smoker Tobacco Type: Cigarettes Age Started Using Tobacco: 16; Age Quit Using Tobacco: 22; packs per day: 1; Second Hand Exposure: Yes; Do You Dip or Chew Tobacco: No; Hx Alcohol Use: Yes Alcohol type: hard liquor Alcohol Intake Frequency: Monthly or Less Alcohol Intake Frequency Comment: Rarely Hx Substance Use: No Preferred Language: Iranian Communication Ability: Effective Visual Impairment: No Limitations Hearing Ability: Normal Scaleman Required: No Beliefs That Will Affect Care: None marital status: Single Current Living Situation: Alone current occupational status: unemployed Feels Safe at Home: Yes Childhood Exposure to Second-Hand Smoke: Yes Diet: regular Diet Comment: regular caffeine: Yes (tea occasional) during the past year weight has: remained stable Dental Care, Regularly: No Physical Activity Frequency: 1-2 Times per Week Seatbelt Use: never Sunscreen Use: No Assistive Devices: CPAP Review of Systems Review of Systems: As per HPI Physical Exam Constitutional: NAD, vitals WNL. Respiratory: CTA bilaterally. Non labored breathing. No rhonchi, wheezing, or crackles. Cardiovascular: RRR. No murmurs noted. No LE edema. Gastrointestinal (Abdomen): Nontender, nondistended, +BS. No masses noted. Skin: No rashes or skin lesions noted. Neurologic: Sensation grossly intact. No FND appreciated. Psychiatric: Speech of normal pace and content. Mood and affect congruent. Results & Data Results & Data Vital Signs (Past 12 Hours) Vital Signs Temp Pulse Pulse Resp BP BP Pulse Ox 08/23/23 02:18 102 H 20 134/79 94 08/22/23 23:22 108 H 08/22/23 23:22 103 H 22 114/76 93 08/22/23 23:22 36.6 C 112 H 24 137/79 95 O2 Del Method 08/23/23 02:18 Room Air 08/22/23 23:22 08/22/23 23:22 Room Air 08/22/23 23:22 Room Air Supervising Physician Co-Signing Physician Notes Attending addendum: I have physically seen this patient, have supervised the medical residents activities, and agree with the H&P unless as otherwise noted. Assessment and Plan: History of DVT- Subtherapeutic INR of 1.0 Bilateral lower extremity venous Dopplers negative Due to shortness of breath and tachycardia, empirically place patient on heparin IV until warfarin is therapeutic Unable to perform CTA chest due to body habitus Aspiration pneumonitis/nausea and vomiting- Chest x-ray with right middle and right lower lobe infiltrates Empiric Zosyn 4.5 g IV every 8 hours DuoNebs every 2 hours as needed Suspect nausea and vomiting secondary to frequent marijuana use, the patient already reports frequent use during the day. Advise cessation of marijuana Hypertension- Hold lisinopril/HCTZ Continue propranolol 20 mg p.o. twice daily Remaining orders and notations as noted Resident Activity Tracking Resident Involvement: Resident Care Provided Care Provided: Adult Hospital Medicine
--- NOTE | 2023-08-23 03:02 | Ultrasound Report ---
Exam(s): US VENOUS BILATERAL LOWER EXTREMITIES EXAM: US Duplex Bilateral Lower Extremities Veins CLINICAL HISTORY: Reason for exam: ? DVT. TECHNIQUE: Real-time duplex ultrasound scan of the bilateral lower extremity veins integrating B-mode two-dimensional vascular structure, Doppler spectral analysis, color flow Doppler imaging and compression. COMPARISON: No relevant prior studies available. FINDINGS: Right deep veins: Unremarkable. No DVT. Right superficial veins: Unremarkable. No thrombus in the visualized right great saphenous vein. Left deep veins unremarkable. No DVT Left superficial veins: Unremarkable. No thrombus in the visualized left great saphenous vein. Soft tissues: No acute findings. No popliteal cyst. IMPRESSION: Normal bilateral lower extremity duplex venous ultrasound. Electronically signed by: Mandeep John MD 08/23/23 03:02 AM
--- NOTE | 2023-08-23 03:07 | Ultrasound Report ---
Exam(s): US VENOUS BILATERAL UPPER EXTREMITIES EXAM: US Duplex Bilateral Upper Extremities Veins CLINICAL HISTORY: Reason for exam: ? DVT. TECHNIQUE: Real-time duplex ultrasound scan of the bilateral upper extremity veins integrating B-mode two-dimensional vascular structure, Doppler spectral analysis, color flow Doppler imaging and compression. COMPARISON: No relevant prior studies available. FINDINGS: Right deep veins: Unremarkable. No DVT in the right internal jugular, subclavian, axillary, or brachial veins. The veins demonstrate normal color flow, are normally compressible, with normal phasic flow and/or augmentation response. Right superficial veins: Unremarkable. No thrombus in the visualized right basilic and cephalic veins. Left deep veins: Unremarkable. No DVT in the left internal jugular, subclavian, axillary, or brachial veins. The veins demonstrate normal color flow, are normally compressible, with normal phasic flow and/or augmentation response. Left superficial veins: Unremarkable. No thrombus in the visualized left basilic and cephalic veins. Soft tissues: No acute findings. IMPRESSION: Normal bilateral upper extremity duplex venous ultrasound. Electronically signed by: Mandeep John MD 08/23/23 03:06 AM
[2023-08-23] MEDS: PIPERACILLIN/TAZOBACTAM 4.5 GM/100 ML BAG IV ONE (03:18)
[2023-08-23] MEDS: HEPARIN SODIUM/DEXTROSE 25,000 UNITS/500 ML BAG IV SCH (03:19)
[2023-08-23] MEDS ORDERED: POLYETHYLENE (MIRALAX) 17 GM PACK PO PRN (03:34)
[2023-08-23] MEDS ORDERED: ONDANSETRON INJ 2 MG/ML 2 ML VIAL IV PRN (03:34)
[2023-08-23] MEDS ORDERED: MELATONIN 3 MG TAB PO PRN (03:34)
[2023-08-23] MEDS: LEVOTHYROXINE SODIUM 88 MCG TABLET PO SCH (06:41)
--- NOTE | 2023-08-23 07:04 | XRay Report ---
XR chest 1V portable CLINICAL HISTORY: Chest pain. COMPARISON STUDY: Chest radiograph February 02, 2022. FINDINGS: Lung volumes are normal. Exam is compromised given suboptimal penetration. Enlargement of t he cardiac silhouette is unchanged. There is no pneumothorax or pleural effusion. No consolidation is identified. Apparent right infrahilar opacity is likely artifactual. There is no evidence for overt pulmonary edema. IMPRESSION: 1. No definite acute cardiopulmonary findings. Exam mildly compromised given suboptimal penetration. 2. Equivocal right infrahilar opacity, likely artifactual. ACT 112: Negative or not required by law. Electronically signed by: Jose Jacinto M.D. 08/23/2023 7:03 AM
[2023-08-23] MEDS: FLUTICASONE PROPIONATE NA SPR 16 GM BTL NAE SCH (08:45)
[2023-08-23] MEDS: PANTOprazole 40 MG TAB PO SCH (08:45)
[2023-08-23] MEDS: PROPRANOLOL HCL 20 MG TAB PO SCH (08:45)
[2023-08-23] MEDS: FAMOTIDINE 20 MG TAB PO SCH (08:45)
[2023-08-23] MEDS: VENLAFAXINE HCL 37.5 MG TAB PO SCH (08:45)
[2023-08-23] MEDS: WARFARIN SOD 10 MG TAB PO ONE (09:32)
[2023-08-23 09:56] LABS: ANTI-Xa, UFH(UnfractionatedHep 0.24 IU/ml (0.3-0.7)
[2023-08-23 09:57] LABS: Troponin I High Sensitivity 6.3 pg/ml (0-20)
[2023-08-23 10:09] LABS: D Dimer 610 ug/L FEU (0-500); T4 Free Thyroxine 1.14 ng/dl (0.61-1.60)
--- NOTE | 2023-08-23 13:32 | Electrocardiogram Report ---
Test Reason : Blood Pressure : / mmHG Vent. Rate : 099 BPM Atrial Rate : 099 BPM P-R Int : 180 ms QRS Dur : 108 ms QT Int : 350 ms P-R-T Axes : 046 043 027 degrees QTc Int : 449 ms Normal sinus rhythm Incomplete right bundle branch block Abnormal ECG When compared with ECG of 26-APR-2021 22:55, Nonspecific T wave abnormality has replaced inverted T waves in Inferior leads T wave inversion no longer evident in Anterior leads Confirmed by Liu Garcia ([id number] on 08/23/2023 1:32:12 PM Referred By: REFERRED SELF Confirmed By:John Garcia
--- NOTE | 2023-08-23 14:26 | Hospitalist Progress Note ---
Date of Service August 23, 2023 Assessment & Plan (1) Vomiting: Plan: Resolved. There was some question of aspiration of gastric contents on admission but currently he has no symptoms of shortness of breath or hypoxia. (2) Aspiration of gastric contents: Plan: Questionable occurrence on admission. No current symptoms (3) Shortness of breath: Plan: Present on admission. Now resolved. He is on room air. Doubt underlying PE. Fortunately, the venous Doppler studies of both upper extremities and both lower extremities are negative for DVT (4) History of DVT of lower extremity: Plan: Venous Doppler studies (5) Subtherapeutic international normalized ratio (INR): Plan: High-dose Coumadin daily until INR therapeutic. Continue heparin drip until then (6) Morbid obesity: Plan: BMI is markedly elevated. Significant weight loss recommended Plan Anticipate discharge to home in the next 48 to 72 hours when the INR is therapeutic and he is off the heparin drip Admission and Anticipated Discharge Date Admission Date: August 23, 2023 Subjective Alert and oriented. No distress. He is not complaining now of nausea or vomiting. He is on a heparin drip while Coumadin is being administered in high doses until INR is therapeutic. Fortunately, bilateral upper extremity and lower extremity venous Dopplers are negative for DVT. He has not a candidate for chest CTA or VQ scan due to morbid obesity. Thyroid levels are normal. Troponin level is normal. EKG is nonacute. Review of Systems 2 Review of Systems: Constitutional-no fever or chills ENT-no blurred vision, no double vision, no epistaxis, no sore throat Respiratory-no cough, no wheezing, no shortness of breath Cardiac-no palpitations, no chest pain, no syncope GI-no nausea, vomiting, diarrhea, melena, hematochezia -no urinary retention, no urinary incontinence, no dysuria, no hematuria Musculoskeletal-no joint pain, no muscle tenderness Skin-no bruising, no rashes, no pruritus Neuro-no isolated weakness, no paresthesia, no weakness Psych-no depression, no anxiety Physical Exam 2 Physical Exam: General-alert and oriented x3, no fever, no chills. Morbidly obese HEENT-head atraumatic and normocephalic, pupils equal and reactive to light, extraocular muscles intact Neck-no lymphadenopathy or thyromegaly, trachea midline Chest-clear to auscultation anteriorly. No rales wheezing or rhonchi Cardiac-regular rate and rhythm, normal S1 and S2 Abdomen-normal bowel sounds, nontender, no hepatosplenomegaly Extremities-no cyanosis, clubbing, or pitting edema Neuro-cranial nerves II through XII intact, motor and sensory function within normal limits, strength symmetrical, no focal deficits Psych-normal affect, normal mood Results & Data Results & Data Vital Signs (Past 12 Hours) Vital Signs Temp Pulse Pulse Pulse Resp BP Pulse Ox 08/23/23 11:51 96 H 08/23/23 11:29 36.7 C 78 18 158/78 H 93 08/23/23 10:38 08/23/23 08:11 36.7 C 87 18 123/76 98 08/23/23 05:51 08/23/23 05:44 36.8 C 96 H 18 168/93 H 93 08/23/23 05:07 88 24 190/92 H 91 08/23/23 03:40 93 H 28 H 137/81 92 08/23/23 03:31 64 O2 Del Method 08/23/23 11:51 08/23/23 11:29 Room Air 08/23/23 10:38 Room Air 08/23/23 08:11 Room Air 08/23/23 05:51 Room Air 08/23/23 05:44 Room Air 08/23/23 05:07 Room Air 08/23/23 03:40 Room Air 08/23/23 03:31 Laboratory Results 08/22/23 23:27 08/22/23 23:27 PG Care Time/CCT Total # of Minutes Spent Total Time Spent with Patient: Total time spent is greater than 50% in coordination of care (as documented) at patient's floor/unit and/or counseling patient: Coding Level of Care Code 65608 SUB INP/OBS CARE 3/50MIN Diagnoses Vomiting R11.10 Aspiration of gastric contents T17.918A Shortness of breath R06.02 History of DVT of lower extremity Z86.718 Subtherapeutic international normalized ratio (INR) R79.1 Morbid obesity E66.01
[2023-08-23 16:47] LABS: ANTI-Xa, UFH(UnfractionatedHep 0.35 IU/ml (0.3-0.7)
--- NOTE | 2023-08-23 20:40 | Billing Data ---
Date of Service August 23, 2023 Coding Level of Care Code 32184 INT INP/OBS CARE
[2023-08-24 07:59] LABS: Basophils # (auto) 0.04 K/uL (0.00-0.20); Eosinophils # (auto) 0.09 K/uL (0.00-0.50); Eosinophils % (auto) 2.2 %; Hematocrit (blood only) 39.3 % (42.0-52.0); Hemoglobin 12.5 g/dl (14.0-18.0); Immature Granulocytes # (auto) 0.01 K/uL (0.01-0.20); Immature Granulocytes % (auto) 0.2 %; Lymphocytes # (auto) 1.28 K/uL (1.20-3.40); Lymphocytes % (auto) 31.5 %; Mean Corpuscular Hgb Conc 31.8 g/dL (32.0-36.0); Mean Corpuscular Volume 94.5 fL (80.0-100.0); Mean Platelet Volume 10.3 fL (9.4-12.4); Monocytes # (auto) 0.46 K/uL (0.11-0.59); Monocytes % (auto) 11.3 %; Neutrophils # (auto) 2.18 K/uL (1.40-6.50); Neutrophils % (auto) 53.8 %; Platelet Count 227 K/uL (130-400); RDW Coefficient of Variation 13.7 % (11.5-14.5); RDW Standard Deviation 47.7 fL (36.4-46.3); Red Blood Count 4.16 M/uL (4.70-6.10); White Blood Count 4.06 K/ul (4.8-10.8)
[2023-08-24 08:19] LABS: Anion Gap 3 (3-11); BUN Creatinine Ratio 12.9 (10-20); Blood Urea Nitrogen 8 mg/dl (6-23); Calcium 8.9 mg/dl (8.6-10.3); Carbon Dioxide 31 mmol/L (21-32); Chloride 105 mmol/L (98-107); Creatinine Clr Calc Pharmacy 361.9 ml/min; Est GFR (African American) > 150.0 ml/min; Est GFR (Non-African American) 133.1 ml/min; Glucose 97 mg/dl (70-99(Fasting)); Potassium 4.2 mmol/L (3.5-5.1); Sodium 139 mmol/L (136-145)
[2023-08-24 08:32] LABS: ANTI-Xa, UFH(UnfractionatedHep 0.46 IU/ml (0.3-0.7); INR 1.1 (0.9-1.1); Prothrombin Time 11.7 Seconds (9.0-12.0)
[2023-08-24] MEDS: WARFARIN SOD 10 MG TAB PO ONE (10:26)
--- NOTE | 2023-08-24 13:01 | Hospitalist Progress Note ---
Date of Service August 24, 2023 Assessment & Plan (1) Vomiting: Plan: Resolved. There was some question of aspiration of gastric contents on admission but currently he has no symptoms of shortness of breath or hypoxia. Probable acute viral gastritis which has resolved (2) Aspiration of gastric contents: Plan: Questionable occurrence on admission. No current symptoms (3) Shortness of breath: Plan: Present on admission. Now resolved. He is on room air. Doubt underlying PE. Fortunately, the venous Doppler studies of both upper extremities and both lower extremities are negative for DVT (4) History of DVT of lower extremity: Plan: Venous Doppler studies (5) Subtherapeutic international normalized ratio (INR): Plan: High-dose Coumadin daily until INR therapeutic. Continue heparin drip until then (6) Morbid obesity: Plan: BMI is markedly elevated. Significant weight loss recommended (7) Wide-complex tachycardia: Plan: Nonsustained. Asymptomatic. Occurred only once. Cardiac echo reveals preserved ejection fraction. No clinical significance which does not require treatment at this time. Plan Anticipate discharge to home tomorrow, August 24. Probable referral to the Coumadin clinic for ongoing Coumadin management. Admission and Anticipated Discharge Date Admission Date: August 23, 2023 Subjective Alert and oriented. No distress. He had a very short asymptomatic run of wide- complex tachycardia yesterday captured by telemetry. No recurrence. Cardiac echo reveals mild LVH with normal ejection fraction. I doubt this was nonsustained ventricular tachycardia. No intervention necessary at this time. INR remains low at 1.1. Repeat 10 mg Coumadin dosage today, August 23. Fortunately the venous Doppler evaluation of both arms and both legs on admission was negative. I suspect he will be able to go home tomorrow, August 23. We discussed possible follow-up in the Coumadin clinic for ongoing management of his Coumadin dosages. Thyroid levels are normal. Review of Systems 2 Review of Systems: Constitutional-no fever or chills ENT-no blurred vision, no double vision, no epistaxis, no sore throat Respiratory-no cough, no wheezing, no shortness of breath Cardiac-no palpitations, no chest pain, no syncope GI-no nausea, vomiting, diarrhea, melena, hematochezia -no urinary retention, no urinary incontinence, no dysuria, no hematuria Musculoskeletal-no joint pain, no muscle tenderness Skin-no bruising, no rashes, no pruritus Neuro-no isolated weakness, no paresthesia, no weakness Psych-no depression, no anxiety Physical Exam 2 Physical Exam: General-alert and oriented x3, no fever, no chills. Morbidly obese HEENT-head atraumatic and normocephalic, pupils equal and reactive to light, extraocular muscles intact Neck-no lymphadenopathy or thyromegaly, trachea midline Chest-clear to auscultation anteriorly. No rales wheezing or rhonchi Cardiac-regular rate and rhythm, normal S1 and S2 Abdomen-normal bowel sounds, nontender, no hepatosplenomegaly Extremities-no cyanosis, clubbing, or pitting edema Neuro-cranial nerves II through XII intact, motor and sensory function within normal limits, strength symmetrical, no focal deficits Psych-normal affect, normal mood Results & Data Results & Data Vital Signs (Past 12 Hours) Vital Signs Temp Pulse Resp BP Pulse Ox O2 Del Method 08/24/23 10:50 36.7 C 76 16 141/79 H 98 Room Air 08/24/23 09:20 Room Air 08/24/23 07:46 36.8 C 78 16 141/85 H 96 Room Air 08/24/23 04:13 36.3 C L 70 20 138/80 95 Room Air, CPAP Laboratory Results 08/24/23 07:24 08/24/23 07:24 PG Care Time/CCT Total # of Minutes Spent Total Time Spent with Patient: Total time spent is greater than 50% in coordination of care (as documented) at patient's floor/unit and/or counseling patient: Coding Level of Care Code 01808 SUB INP/OBS CARE 2/35MIN Diagnoses Vomiting R11.10 Aspiration of gastric contents T17.918A Shortness of breath R06.02 History of DVT of lower extremity Z86.718 Subtherapeutic international normalized ratio (INR) R79.1 Morbid obesity E66.01 Wide-complex tachycardia R00.0
--- NOTE | 2023-08-24 14:09 | XCELERA ---
[id number] \\[id number]
[2023-08-24] MEDS ORDERED: MICONAZOLE NITRATE POWDER 85 GM EXT PRN (21:52)
[2023-08-25 04:15] LABS: Basophils # (auto) 0.03 K/uL (0.00-0.20); Basophils % (auto) 0.6 %; Eosinophils % (auto) 2.1 %; Hemoglobin 12.3 g/dl (14.0-18.0); Immature Granulocytes # (auto) 0.01 K/uL (0.01-0.20); Immature Granulocytes % (auto) 0.2 %; Lymphocytes # (auto) 1.58 K/uL (1.20-3.40); Lymphocytes % (auto) 32.4 %; Mean Corpuscular Hemoglobin 29.9 pg (25.0-34.0); Mean Corpuscular Hgb Conc 31.5 g/dL (32.0-36.0); Mean Corpuscular Volume 94.9 fL (80.0-100.0); Mean Platelet Volume 9.9 fL (9.4-12.4); Monocytes # (auto) 0.57 K/uL (0.11-0.59); Monocytes % (auto) 11.7 %; Neutrophils # (auto) 2.58 K/uL (1.40-6.50); Platelet Count 227 K/uL (130-400); RDW Coefficient of Variation 13.6 % (11.5-14.5); RDW Standard Deviation 47.7 fL (36.4-46.3); Red Blood Count 4.11 M/uL (4.70-6.10); White Blood Count 4.87 K/ul (4.8-10.8)
[2023-08-25 04:29] LABS: BUN Creatinine Ratio 11.6 (10-20); Creatinine Clr Calc Pharmacy 325.2 ml/min; Est GFR (African American) 147.6 ml/min; Est GFR (Non-African American) 127.4 ml/min; Potassium 4.2 mmol/L (3.5-5.1)
[2023-08-25 04:39] LABS: ANTI-Xa, UFH(UnfractionatedHep 0.31 IU/ml (0.3-0.7); INR 1.2 (0.9-1.1); Prothrombin Time 12.9 Seconds (9.0-12.0)
[2023-08-25] MEDS: WARFARIN SOD 10 MG TAB PO ONE (11:07)
--- NOTE | 2023-08-25 11:48 | Discharge Summary ---
Date of Service August 25, 2023 Admission HPI Per Admitting Provider Pt is a 28 yo male with PMH of HTN, migraine, ADD, asthma, hypothyroidism, and left leg DVT presenting with SOB and vomiting. Pt states he has been feeling nauseous for the last 2-3 days. No new medications or changes in his diet. He vomited last night twice which prompted him to call for an ambulance. He does note she red color to his emesis but is unsure if this is blood or related to what he had eaten. He also states over this time period he has felt more SOB. He denies chest pain and diarrhea. Pt does note that he smokes cannabis. He obtained a medical cannabis card in 2019 and has been smoking cannabis multiple times a day every day since then to help treat anxiety. He denies other drug use. Pt notes that he is on warfarin for a hx of leg DVT. He has been taking his warfarin but does note that he may miss a dose ~once per week. In the ER, the pt was given zosyn x1, famotidine 20 mg IV x1, ondansetron 4 mg IV x1, 1L NS, and started on a heparin drip. Principal Diagnosis Nausea and vomiting of suspected viral etiology, subtherapeutic Coumadin, nonsustained wide-complex tachycardia, chest pain and shortness of breath (noncardiac) Discharge Exam General-alert and oriented x3, no fever, no chills. Morbidly obese HEENT-head atraumatic and normocephalic, pupils equal and reactive to light, extraocular muscles intact Neck-no lymphadenopathy or thyromegaly, trachea midline Chest-clear to auscultation anteriorly. No rales wheezing or rhonchi Cardiac-regular rate and rhythm, normal S1 and S2 Abdomen-normal bowel sounds, nontender, no hepatosplenomegaly Extremities-no cyanosis, clubbing, or pitting edema Neuro-cranial nerves II through XII intact, motor and sensory function within normal limits, strength symmetrical, no focal deficits Psych-normal affect, normal mood Discharge Data Allergies Allergy/AdvReac Type Severity Reaction Status Date / Time acetaminophen Allergy Intermediate RASH Verified 08/23/23 01:02 azithromycin [From Zithromax] Allergy Intermediate hives, IV Verified 08/23/23 01:02 form only bee venom protein (honey bee) Allergy Intermediate Localized Verified 08/23/23 01:02 swelling ibuprofen Allergy Intermediate RASH Verified 08/23/23 01:02 ketorolac Allergy Intermediate RASH Verified 08/23/23 01:02 tramadol Allergy Intermediate RASH Verified 08/23/23 01:02 gabapentin Allergy Unknown Unknown Verified 08/23/23 01:02 naproxen Allergy Unknown Unknown Verified 08/23/23 01:02 Consultations 08/23/23 02:43 ED Decision to Admit Stat Ordered Studies 08/22/23 23:53 US venous doppler LE BI Stat US venous doppler UE BI Stat Hospital Course (1) Vomiting: Resolved. There was some question of aspiration of gastric contents on admission but currently he has no symptoms of shortness of breath or hypoxia. Probable acute viral gastritis which has resolved (2) Aspiration of gastric contents: Questionable occurrence on admission. No current symptoms (3) Shortness of breath: Present on admission. Now resolved. He is on room air. Doubt underlying PE. Fortunately, the venous Doppler studies of both upper extremities and both lower extremities are negative for DVT (4) History of DVT of lower extremity: Venous Doppler studies (5) Subtherapeutic international normalized ratio (INR): 10 mg Coumadin administered again today, August 24. INR is now starting to move upward. INR 1.2 today. Heparin drip can be discontinued and he will remain on Coumadin 5 mg daily. He was given a prescription for INR lab testing to be done every Tuesday and with results to his PCP. Fortunately, venous Doppler evaluation of both arms and both legs is negative for DVT. He does not have a mechanical heart valve. INR will eventually become therapeutic again but he does not have to remain on a heparin drip or remain hospitalized until then. (6) Morbid obesity: BMI is markedly elevated. Significant weight loss recommended (7) Wide-complex tachycardia: Nonsustained. Asymptomatic. Occurred only once. Cardiac echo reveals preserved ejection fraction. No clinical significance which does not require treatment at this time. Plan Home today, August 24, on Coumadin 5 mg daily in the late afternoon. Lab testing for INR every Tuesday and going forward. Results to PCP. He lives in [place] and apparently does not drive. He cannot get to the Coumadin clinic for management Total Time Total Time Spent Total Time Spent (In Minutes): 50-minute Discharge Plan Discharge Items Patient Disposition: Home - Self-Care Reason For Visit: SOB, VOMITING Discharge Diagnosis: Suspected viral gastritis causing transient nausea and vomiting, subtherapeutic Coumadin levels Condition on Discharge: Good Activity: Resume your previous activity Non-emergency contact: Primary Care Provider Call non-emergency contact if: you have any medication questions Follow-up/Referrals: Shirley Archer DO [Primary Care Provider] - Diet: Regular and Heart Healthy Addtl Attending Provider Instructions: Take warfarin 5 mg daily in the late afternoon. Get INR checked every Tuesday and until further notice. Results will be sent to your primary care israel carmen for management of the warfarin dose Pending Studies at Discharge: No Stand-Alone Forms: [facility], Smoking Cessation Medications and DC Order Prescriptions: New warfarin 5 mg tablet 5 mg PO DAILY Qty: 1 0RF Continued ferrous sulfate 324 mg (65 mg iron) tablet,delayed release (DR/EC) 324 mg PO DAILY Qty: 90 0RF (DME) CPAP Supplies Misc See Rx Instructions .MEDSUPPLY Qty: 1 0RF Rx Instructions: CPAP supplies, mask, headgear, filters, tubing, water chamber. G47.33 (DME) CPAP Machine Misc See Rx Instructions .MEDSUPPLY Qty: 1 0RF Rx Instructions: CPAP with 12 cm H20 pressure. G47.33 fluticasone propionate 50 mcg/actuation spray,suspension 2 spray intranasal DAILY Qty: 16 2RF Rx Instructions: administer into each nostril folic acid 1 mg tablet 1 mg PO DAILY Qty: 90 1RF levothyroxine 88 mcg tablet 88 mcg PO DAILY Qty: 90 3RF pantoprazole 40 mg tablet,delayed release (DR/EC) 40 mg PO DAILY Qty: 90 3RF propranolol 20 mg tablet 20 mg PO BID Qty: 180 1RF venlafaxine 37.5 mg tablet 37.5 mg PO DAILY Qty: 90 3RF lisinopril-hydrochlorothiazide 10-12.5 mg tablet 1 tab PO DAILY Qty: 90 3RF (DME) Portable Oxygen E0431 Misc See Rx Instructions .MEDSUPPLY Qty: 1 0RF Rx Instructions: Oxygen 2 liters continuous via nasal cannula on exertion with portable concentrator. LIDA 99 nystatin 100,000 unit/gram powder 1 applic topical BID PRN (Reason: to rash under pannus/belly) cholecalciferol (vitamin D3) 1,250 mcg (50,000 unit) capsule 50,000 unit PO WK Discontinued warfarin [] 4 mg tablet 4 mg PO [id number] 30 Days Qty: 90 1RF Protocol: Dose Management Condition: Tuesday Dose/Route: 10 mg Instruction: 2 x 5 mg tablets Condition: Tuesday Dose/Route: 5 mg Instruction: 1 x 5 mg tablet Condition: Tuesday Dose/Route: 10 mg Instruction: 2 x 5 mg tablets Condition: Tuesday Dose/Route: 10 mg Instruction: 2 x 5 mg tablets Condition: Dose/Route: 10 mg Instruction: 2 x 5 mg tablets Condition: Tuesday Dose/Route: 5 mg Instruction: 1 x 5 mg tablet Condition: Tuesday Dose/Route: 10 mg Instruction: 2 x 5 mg tablets Protocol Text: Adjustment Start Date: 12/24/21 INR Value: 1.0 INR Date: 12/24/21 Recheck Date: 12/31/21 warfarin 5 mg tablet 5 mg PO [id number] 30 Days Qty: 90 1RF Protocol: Dose Management Condition: Tuesday Dose/Route: 10 mg Instruction: 2 x 5 mg tablets Condition: Tuesday Dose/Route: 5 mg Instruction: 1 x 5 mg tablet Condition: Tuesday Dose/Route: 10 mg Instruction: 2 x 5 mg tablets Condition: Tuesday Dose/Route: 10 mg Instruction: 2 x 5 mg tablets Condition: Dose/Route: 10 mg Instruction: 2 x 5 mg tablets Condition: Tuesday Dose/Route: 5 mg Instruction: 1 x 5 mg tablet Condition: Tuesday Dose/Route: 10 mg Instruction: 2 x 5 mg tablets Protocol Text: Adjustment Start Date: 12/24/21 INR Value: 1.0 INR Date: 12/24/21 Recheck Date: 12/31/21 Discharge Orders: Discharge Order (Routine); Ordered 08/25/23 Ordered By: Giovanni Nuñez Admission Data Admit Date/Time: 08/23/23 03:34 Attending Provider: Giovanni Nuñez Admit Provider: Miriam Peace Primary Care Provider: Shirley Archer Other Providers: Gerhard Acuna Coding Level of Care Code 47134 INP/OBS DISCH >30 MIN Diagnoses Vomiting R11.10 Aspiration of gastric contents T17.918A Shortness of breath R06.02 History of DVT of lower extremity Z86.718 Subtherapeutic international normalized ratio (INR) R79.1 Morbid obesity E66.01 Wide-complex tachycardia R00.0
== END 2023-08-25 19:13 | disposition home or self-care (01) ==
LOC: ED 23:11 → 2W 08-23 03:34 → INTOOBSV 08-23 03:34 → SUATTDRO 08-23 03:34 → 2W 08-23 05:13

== ENCOUNTER 2023-08-31 20:20 | Inpatient (IN) ==
[2023-08-31 21:49] LABS: Appearance Urine Clear (Clear); Bacteria Urine Automated None Seen (None Seen); Bilirubin Urine 2+ (Negative); Blood Urine Negative (Negative); Color Urine Dark Yellow; Epithelial Cell Urine Auto 0-2 /hpf (0-2); Glucose Urine UA Negative (Negative); Ketones Urine Trace (Negative); Leukocyte Esterase Urine Trace (Negative); Nitrite Urine Positive (Negative); Protein Urine 1+ (Negative); RBC Urine Automated 0-2 /hpf (0-2); Specific Gravity Urine 1.026 (1.000-1.030); Urobilinogen Urine Negative (Negative); WBC Urine Automated 0-5 /hpf (0-5); pH Urine 5.5 (4.5-7.5)
[2023-08-31 23:55] LABS: Alanine Aminotransferase 323 U/L (7-52); Albumin Globulin Ratio 0.9 (0.9-2); Albumin Level 4.2 gm/dl (3.4-5.0); Alkaline Phosphatase 251 U/L (34-104); Anion Gap 9 (3-11); Aspartate Aminotransferase 370 U/L (13-39); BUN Creatinine Ratio 15.9 (10-20); Bilirubin,Total 2.8 mg/dl (0.2-1.0); Blood Urea Nitrogen 11 mg/dl (6-23); Calcium 9.6 mg/dl (8.6-10.3); Carbon Dioxide 24 mmol/L (21-32); Chloride 98 mmol/L (98-107); Est GFR (African American) 147.6 ml/min; Est GFR (Non-African American) 127.4 ml/min; Globulin 4.5 gm/dl (2.5-4.0); Glucose 132 mg/dl (70-99(Fasting)); Lipase 12 U/L (11-82); Potassium 4.3 mmol/L (3.5-5.1); Sodium 131 mmol/L (136-145); Total Protein 8.7 gm/dl (6.0-8.3)
[2023-09-01] MEDS: ONDANSETRON INJ 2 MG/ML 2 ML VIAL ONE (00:03)
[2023-09-01 00:08] LABS: INR 1.4 (0.9-1.1); Partial Thromboplastin Time 27 Seconds (21-31); Prothrombin Time 15.1 Seconds (9.0-12.0)
[2023-09-01 00:24] LABS: Basophils # (auto) 0.03 K/uL (0.00-0.20); Basophils % (auto) 0.4 %; Eosinophils # (auto) 0.03 K/uL (0.00-0.50); Eosinophils % (auto) 0.4 %; Hematocrit (blood only) 47.5 % (42.0-52.0); Hemoglobin 15.2 g/dl (14.0-18.0); Immature Granulocytes # (auto) 0.02 K/uL (0.01-0.20); Immature Granulocytes % (auto) 0.2 %; Lymphocytes # (auto) 0.73 K/uL (1.20-3.40); Lymphocytes % (auto) 8.6 %; Mean Corpuscular Hemoglobin 29.7 pg (25.0-34.0); Mean Platelet Volume 10.3 fL (9.4-12.4); Monocytes # (auto) 0.68 K/uL (0.11-0.59); Neutrophils # (auto) 7.04 K/uL (1.40-6.50); Neutrophils % (auto) 82.4 %; Platelet Count 264 K/uL (130-400); Platelet Estimate Normal (Normal); RDW Coefficient of Variation 13.5 % (11.5-14.5); RDW Standard Deviation 46.5 fL (36.4-46.3); Red Blood Count 5.11 M/uL (4.70-6.10); White Blood Count 8.53 K/ul (4.8-10.8)
[2023-09-01] MEDS: HYDROmorphone INJ 2 MG/ML SYR/VIAL IV STA (00:30)
[2023-09-01] MEDS: SODIUM CHLORIDE 0.9% 1,000 ML IV ONE (00:32)
--- NOTE | 2023-09-01 01:52 | Emergency Department Note ---
Impression & Plan Cholelithiases, Acute epigastric pain, Elevated LFTs, Acute UTI Admit to the [facility] Consult general surgery ED Provider Note NAME: DANY LAM AGE: 28 SEX: Male INFORMANT: Patient ED PROVIDER(S): Dejah Dumont DO CHIEF COMPLAINT: Epigastric abdominal pain PLAN: Disposition: Admit to the [facility] MEDICAL DECISION MAKING: This is a morbidly obese 28-year-old male patient who presents to the emergency department with epigastric abdominal pain since 530 this evening. Patient had a similar episode last evening which lasted for approximately 90 minutes. Patient did not eat much throughout the day today but the pain returned. He has significant nausea and vomited a moderate amount of bile at home. Patient was admitted to the hospital last week with epigastric pain and associated nausea and vomiting but the pain was not quite this severe. Laboratory studies tonight reveal no leukocytosis or anemia. INR is at 1.4. Renal function was normal. However LFTs were significantly elevated total bilirubin was 2.8. AST was 370 and ALT was 323. Alk phos was 251. Urinalysis was concerning for infection. There was trace ketones positive nitrite and 1+ protein. Patient continued to have significant pain and nausea here in the emergency department. He was treated with IV antiemetics and IV analgesia. He was placed on IV normal saline and kept NPO. He had an ultrasound of the right upper quadrant which showed evidence of cholelithiasis. I discussed the case with general surgery as a consult [facility] will [facility] for further inpatient care. The patient did get moderate relief of his discomfort. Care/management discussed with: ANDREA from general surgery as well as the [facility] Triage Nursing notes: Reviewed and agree with them. Vital Signs: reviewed and remarkable for hypertension Chronic Medical/Social Conditions affecting care: Morbid obesity; Coumadin therapy for DVT Prior/ Outside/ External records reviewed: I reviewed the patient's hospitalization documentation from 10 days ago Differential Diagnosis: SMA syndrome; pancreatitis; cholecystitis, cholelithiasis, gastritis, ulcer disease, small bowel obstruction Diagnostics, independently interpreted by me: Imaging studies: Right upper quadrant and epigastric ultrasound: As per stat rad HPI: 28 year old Male arrives for evaluation of severe epigastric pain. Patient had an episode of epigastric pain last evening which lasted for approximately 90 minutes that resolved on its own. Patient felt nauseated throughout the day today and did not eat. Around 530 this evening, the pain came back and was quite severe and would not resolve. He then began to have significant nausea and started to vomit bile.. PAST MEDICAL HISTORY: See Below, PAST SURGICAL HISTORY: See Below, SOCIAL HISTORY: See Below, HOME MEDICATIONS: See list ALLERGIES: See list VITALS: See Below PHYSICAL EXAMINATION: HEENT: Head - normocephalic and atraumatic. Pupils are equal, round, and reactive to light. Extraocular eye muscles are intact, and sclera are anicteric. Nose - moist nasal mucosa without discharge. Mouth - moist buccal mucosa. Oropharynx is nonerythematous and there is no tonsillar exudate or edema noted. Neck: Supple; no cervical lymphadenopathy or nuchal rigidity Heart: Regular rate and rhythm. There is a normal S1 and S2 with no murmurs, clicks, or gallops appreciated. Lungs: Clear to auscultation bilaterally with no wheezes, rales, or rhonchi. Abdomen: Soft, moderate tenderness to palpation in the epigastrium. There are no palpable pulsatile masses or hepatosplenomegaly. There is no guarding, rigidity, or rebound noted. Extremities: No evidence of cyanosis, clubbing, or edema. There are easily palpable peripheral pulses. Skin: warm and dry with good turgor and no rashes. Emergency department course: Patient was evaluated in room D-7. A complete history and physical was performed. Laboratory studies have been drawn. An IV lock was initiated and the patient was medicated with IV Zofran and IV Dilaudid. He was feeling somewhat better upon my repeat evaluation. I reviewed his laboratory studies with him. He had a bedside ultrasound done of the right upper quadrant and epigastrium. He was started on IV normal saline and kept NPO. I discussed the case with the PA from general surgery. I reviewed results with the patient. I discussed the case with the [facility] Hospitalist. Past Med/Surg History Medical History 2019 novel coronavirus-infected pneumonia (NCIP) Anemia Anticoagulated on warfarin Left leg DVT Acute respiratory failure due to COVID-19 Frequent headaches Hidradenitis suppurativa Drug abuse HTN (hypertension) Hypothyroid Lumbar back pain Mood disorder Asthma Migraine GERD (gastroesophageal reflux disease) Acne ADD (attention deficit disorder) Anxiety Depression Tachycardia (07/14/13) Lumbar strain Dental caries Abscess of back Surgical History H/O tympanostomy History of tonsillectomy and adenoidectomy Family History Father Alcohol abuse Drug abuse Mother Anxiety Bilateral nephrolithiasis Heart disease Depression Diabetes Hypertension Gallbladder disease Lung disease Cancer skin Grandfather Myocardial infarction Social History Smoking Status: Unknown if ever smoked Tobacco Type: Cigarettes Age Started Using Tobacco: 16; Age Quit Using Tobacco: 22; packs per day: 1; Second Hand Exposure: Yes; Do You Dip or Chew Tobacco: No; Hx Alcohol Use: Yes Alcohol type: hard liquor Alcohol Intake Frequency: Monthly or Less Alcohol Intake Frequency Comment: Rarely Hx Substance Use: No Preferred Language: Bengali Communication Ability: Effective Visual Impairment: No Limitations Hearing Ability: Normal [employer] Required: No Beliefs That Will Affect Care: None marital status: Single Current Living Situation: Alone current occupational status: unemployed Feels Safe at Home: Yes Childhood Exposure to Second-Hand Smoke: Yes Diet: regular Diet Comment: regular caffeine: Yes (tea occasional) during the past year weight has: remained stable Dental Care, Regularly: No Physical Activity Frequency: 1-2 Times per Week Seatbelt Use: never Sunscreen Use: No Assistive Devices: CPAP Allergies Allergies Allergy/AdvReac Type Severity Reaction Status Date / Time acetaminophen Allergy Intermediate RASH Verified 09/01/23 01:17 azithromycin [From Zithromax] Allergy Intermediate hives, IV Verified 09/01/23 01:17 form only bee venom protein (honey bee) Allergy Intermediate Localized Verified 09/01/23 01:17 swelling ibuprofen Allergy Intermediate RASH Verified 09/01/23 01:17 ketorolac Allergy Intermediate RASH Verified 09/01/23 01:17 tramadol Allergy Intermediate RASH Verified 09/01/23 01:17 gabapentin Allergy Unknown Unknown Verified 09/01/23 01:17 naproxen Allergy Unknown Unknown Verified 09/01/23 01:17 Home Meds Home Medications Medication Instructions Recorded Confirmed cholecalciferol (vitamin D3) 1,250 50,000 unit PO WK 08/23/23 09/01/23 mcg (50,000 unit) capsule nystatin 100,000 unit/gram topical 1 applic topical BID PRN to rash 08/23/23 09/01/23 powder under pannus/belly Previous Rx's Medication Instructions Recorded Portable Oxygen E0431 #1 ea 09/09/22 CPAP Machine #1 ea 03/31/23 CPAP Supplies #1 ea 03/31/23 fluticasone propionate 50 2 spray intranasal DAILY #16 grams 08/03/23 mcg/actuation nasal spray,suspension folic acid 1 mg tablet 1 mg PO DAILY #90 tabs 08/03/23 levothyroxine 88 mcg tablet 88 mcg PO DAILY #90 tabs 08/03/23 pantoprazole 40 mg tablet,delayed 40 mg PO DAILY #90 tabs 08/03/23 release propranolol 20 mg tablet 20 mg PO BID #180 tabs 08/03/23 venlafaxine 37.5 mg tablet 37.5 mg PO DAILY #90 tabs 08/03/23 lisinopril 10 1 tab PO DAILY #90 tabs 08/11/23 mg-hydrochlorothiazide 12.5 mg tablet warfarin 5 mg tablet 5 mg PO DAILY #1 tab 08/25/23 Results & Data (ED) Vital Signs Vital Signs - 24 hr 08/31/23 20:29 09/01/23 00:00 09/01/23 00:19 Temperature 36.4 C L Temperature Source Temporal Artery Scan Pulse Rate 96 H 77 87 Pulse Rate from SpO2 Sensor Pulse Rhythm Regular Respiratory Rate 19 22 Respiratory Effort / Characteristics Non-Labored Spontaneous Respiratory Depth Normal Blood Pressure 101/79 Blood Pressure Mean 86 Pulse Oximetry 100 94 Oxygen Delivery Method Room Air Room Air Oxygen Flow Rate Sepsis Recent Fever Within 48 Hours No Sepsis New/Unexplained Change in Mental Status N/A Sepsis Action Taken by Nursing No Action Required 09/01/23 00:30 09/01/23 01:00 09/01/23 01:02 Temperature Temperature Source Pulse Rate 79 98 H 85 Pulse Rate from SpO2 Sensor 83 97 H Pulse Rhythm Respiratory Rate 22 20 22 Respiratory Effort / Characteristics Respiratory Depth Blood Pressure 134/90 153/79 H Blood Pressure Mean 104 103 Pulse Oximetry 93 86 L 96 Oxygen Delivery Method Room Air Room Air Nasal Cannula Oxygen Flow Rate 2 Sepsis Recent Fever Within 48 Hours Sepsis New/Unexplained Change in Mental Status Sepsis Action Taken by Nursing 09/01/23 01:30 09/01/23 01:30 09/01/23 03:00 Temperature Temperature Source Pulse Rate 88 98 H Pulse Rate from SpO2 Sensor 88 Pulse Rhythm Respiratory Rate 24 24 Respiratory Effort / Characteristics Respiratory Depth Blood Pressure 133/75 133/75 148/84 H Blood Pressure Mean 94 96 105 Pulse Oximetry 95 95 Oxygen Delivery Method Nasal Cannula Oxygen Flow Rate 2 Sepsis Recent Fever Within 48 Hours Sepsis New/Unexplained Change in Mental Status Sepsis Action Taken by Nursing 09/01/23 04:00 09/01/23 04:28 09/01/23 05:00 Temperature Temperature Source Pulse Rate 92 H 88 94 H Pulse Rate from SpO2 Sensor Pulse Rhythm Respiratory Rate 24 20 Respiratory Effort / Characteristics Respiratory Depth Blood Pressure 135/71 147/90 H Blood Pressure Mean 92 109 Pulse Oximetry 99 96 Oxygen Delivery Method Oxygen Flow Rate Sepsis Recent Fever Within 48 Hours Sepsis New/Unexplained Change in Mental Status Sepsis Action Taken by Nursing Laboratory Data 08/31/23 23:15 08/31/23 23:15 Lab Results 08/31/23 08/31/23 Range/Units 20:58 23:15 WBC 8.53 (4.8-10.8) K/ul RBC 5.11 (4.70-6.10) M/uL Hgb 15.2 (14.0-18.0) g/dl Hct 47.5 (42.0-52.0) % MCV 93.0 (80.0-100.0) fL MCH 29.7 (25.0-34.0) pg MCHC 32.0 (32.0-36.0) g/dL RDW Std Deviation 46.5 H (36.4-46.3) fL RDW Coeff of Flor 13.5 (11.5-14.5) % Plt Count 264 (130-400) K/uL MPV 10.3 (9.4-12.4) fL Immature Gran % (Auto) 0.2 % Neut % (Auto) 82.4 % Lymph % (Auto) 8.6 % [place] % (Auto) 8.0 % Eos % (Auto) 0.4 % Baso % (Auto) 0.4 % Neut # (Auto) 7.04 H (1.40-6.50) K/uL Lymph # (Auto) 0.73 L (1.20-3.40) K/uL [place] # (Auto) 0.68 H (0.11-0.59) K/uL Eos # (Auto) 0.03 (0.00-0.50) K/uL Baso # (Auto) 0.03 (0.00-0.20) K/uL Immature Gran # (Auto) 0.02 (0.01-0.20) K/uL Platelet Estimate Normal (Normal) PT 15.1 H (9.0-12.0) Seconds INR 1.4 H (0.9-1.1) APTT 27 (21-31) Seconds PTT Ratio 1.0 Sodium 131 L (136-145) mmol/L Potassium 4.3 (3.5-5.1) mmol/L Chloride 98 (98-107) mmol/L Carbon Dioxide 24 (21-32) mmol/L Anion Gap 9 (3-11) BUN 11 (6-23) mg/dl Creatinine 0.69 (0.6-1.4) mg/dl Est Cr Clr Drug Dosing Not Reportable Est GFR ( Amer) 147.6 ml/min Est GFR (Non-Af Amer) 127.4 ml/min BUN/Creatinine Ratio 15.9 (10-20) Glucose 132 H (70-99(Fasting)) mg/dl Calcium 9.6 (8.6-10.3) mg/dl Total Bilirubin 2.8 H (0.2-1.0) mg/dl AST 370 H (13-39) U/L ALT 323 H (7-52) U/L Alkaline Phosphatase 251 H (34-104) U/L Total Protein 8.7 H (6.0-8.3) gm/dl Albumin 4.2 (3.4-5.0) gm/dl Globulin 4.5 H (2.5-4.0) gm/dl Albumin/Globulin Ratio 0.9 (0.9-2) Lipase 12 (11-82) U/L Urine Color Dark Yellow Urine Appearance Clear (Clear) Urine pH 5.5 (4.5-7.5) Ur Specific [place]ason 1.026 (1.000-1.030) Urine Protein 1+ H (Negative) Urine Glucose (UA) Negative (Negative) Urine Ketones Trace H (Negative) Urine Blood Negative (Negative) Urine Nitrite Positive A (Negative) Urine Bilirubin 2+ H (Negative) Urine Urobilinogen Negative (Negative) Ur Leukocyte Esterase Trace H (Negative) Urine WBC (Auto) 0-5 (0-5) /hpf Urine RBC (Auto) 0-2 (0-2) /hpf U Hyaline Cast (Auto) 3-5 H (0-2) /lpf U Epithel Cells (Auto) 0-2 (0-2) /hpf Urine Bacteria (Auto) None Seen (None Seen) Administered Medications Discontinued Medications Hydromorphone HCl (Hydromorphone Inj 2 Mg/Ml Syr/Vial) 2 mg IV NOW STA Stop: 08/31/23 23:54 Last Admin: 09/01/23 00:30 Dose: 2 mg Documented By: GARCIA Sodium Chloride (Nss) 1,000 mls @ 999 mls/hr IV .Q1H1M ONE Stop: 09/01/23 00:53 Last Infusion: 09/01/23 01:41 Dose: Infused Documented By: Admin: 09/01/23 00:32 Dose: 999 mls/hr Documented By: GARCIA Ondansetron HCl (Ondansetron Inj 2 Mg/Ml 2 Ml Vial) Confirm Administered Dose 8 mg .ROUTE .STK-MED ONE Stop: 08/31/23 23:48 Last Admin: 09/01/23 00:03 Dose: 8 mg Documented By: [facility] Imaging Data Radiologist's Impression: Gallbladder Ultrasound 08/31/23 23:52 Exam(s): US GALLBLADDER EXAM: US Abdomen Limited, Gallbladder CLINICAL HISTORY: epigastric pain. TECHNIQUE: Real-time ultrasound of the right upper quadrant with image documentation. COMPARISON: Ultrasound gallbladder 04/19/2011 FINDINGS: Limitations: Evaluation is limited by bowel gas pattern and patient body habitus. Liver: The liver is hyperechoic and enlarged measuring 20.1 cm in length. Gallbladder: Echogenic cholelithiasis noted in the gallbladder, measuring up to 13 mm. The gallbladder wall measures 2 mm. No definite pericholecystic fluid. Evaluation for sonographic Rivera sign is limited by reported patient medication status. Common bile duct: The common bile duct is within normal limits, measuring 5.6 mm. No stones. No dilation. Pancreas: The pancreas is not well delineated secondary to bowel gas pattern. Right kidney: Limited longitudinal imaging of the right kidney demonstrates no definite hydronephrosis. Evaluation is limited. Free fluid: No free fluid. IMPRESSION: 1. Limited by technical factors noted above. 2. Cholelithiasis. No definite associated sonographic findings to suggest acute cholecystitis. 3. No biliary dilatation. 4. Stable hepatic steatosis with hepatomegaly. Electronically signed by: Javier Cam MD 09/01/23 04:40 AM Discharge Plan Visit Data Chief Complaint: GI Assessment Stated Complaint: N/V, ABD PAIN, HERE RECENTLY FOR SAME ED Provider: Dejah Dumont Discharge Problem: Cholelithiases, Acute epigastric pain, Elevated LFTs, Acute UTI Forms Stand Alone Forms: [facility] Prescriptions Prescriptions: No Action (DME) CPAP Supplies Misc See Rx Instructions .MEDSUPPLY Qty: 1 0RF Rx Instructions: CPAP supplies, mask, headgear, filters, tubing, water chamber. G47.33 (DME) CPAP Machine Misc See Rx Instructions .MEDSUPPLY Qty: 1 0RF Rx Instructions: CPAP with 12 cm H20 pressure. G47.33 fluticasone propionate 50 mcg/actuation spray,suspension 2 spray intranasal DAILY Qty: 16 2RF Rx Instructions: administer into each nostril folic acid 1 mg tablet 1 mg PO DAILY Qty: 90 1RF levothyroxine 88 mcg tablet 88 mcg PO DAILY Qty: 90 3RF pantoprazole 40 mg tablet,delayed release (DR/EC) 40 mg PO DAILY Qty: 90 3RF propranolol 20 mg tablet 20 mg PO BID Qty: 180 1RF venlafaxine 37.5 mg tablet 37.5 mg PO DAILY Qty: 90 3RF lisinopril-hydrochlorothiazide 10-12.5 mg tablet 1 tab PO DAILY Qty: 90 3RF (DME) Portable Oxygen E0431 Misc See Rx Instructions .MEDSUPPLY Qty: 1 0RF Rx Instructions: Oxygen 2 liters continuous via nasal cannula on exertion with portable concentrator. LIDA 99 nystatin 100,000 unit/gram powder 1 applic topical BID PRN (Reason: to rash under pannus/belly) cholecalciferol (vitamin D3) 1,250 mcg (50,000 unit) capsule 50,000 unit PO WK warfarin 5 mg tablet 5 mg PO DAILY Qty: 1 0RF Referrals Referrals: Shirley Archer DO [Primary Care Provider] -
--- NOTE | 2023-09-01 04:41 | Ultrasound Report ---
Exam(s): US GALLBLADDER EXAM: US Abdomen Limited, Gallbladder CLINICAL HISTORY: epigastric pain. TECHNIQUE: Real-time ultrasound of the right upper quadrant with image documentation. COMPARISON: Ultrasound gallbladder 04/19/2011 FINDINGS: Limitations: Evaluation is limited by bowel gas pattern and patient body habitus. Liver: The liver is hyperechoic and enlarged measuring 20.1 cm in length. Gallbladder: Echogenic cholelithiasis noted in the gallbladder, measuring up to 13 mm. The gallbladder wall measures 2 mm. No definite pericholecystic fluid. Evaluation for sonographic Rivera sign is limited by reported patient medication status. Common bile duct: The common bile duct is within normal limits, measuring 5.6 mm. No stones. No dilation. Pancreas: The pancreas is not well delineated secondary to bowel gas pattern. Right kidney: Limited longitudinal imaging of the right kidney demonstrates no definite hydronephrosis. Evaluation is limited. Free fluid: No free fluid. IMPRESSION: 1. Limited by technical factors noted above. 2. Cholelithiasis. No definite associated sonographic findings to suggest acute cholecystitis. 3. No biliary dilatation. 4. Stable hepatic steatosis with hepatomegaly. Electronically signed by: Javier Cam MD 09/01/23 04:40 AM
--- NOTE | 2023-09-01 05:01 | Surgery Consultation ---
<Statement entered by Karla Lawrence DO - 09/01/23 14:12> I have seen and examined this patient. I agree with the plan. Date of Consultation September 01, 2023 Assessment & Plan (1) Cholelithiasis: I discussed with the treating emergency room physician and due to the patient's presenting symptomatology and worsening LFTs he will be admitted on the hospital service. From surgical perspective we recommend proceeding as follows: Provide analgesics as needed Provide antiemetics as needed Provide IV fluid for hydration Would recommend keeping the patient n.p.o. for the present time Due to the patient's worsening LFTs this raises the concern for choledocholithiasis or perhaps a passed gallstone. Of note, the patient does not have dilatation of the common bile duct. It would be preferable to obtain an MRCP but is unclear if patient can have this study at this facility due to his large body habitus. Would recommend following serial LFTs to see if they improved. If they do become worse the patient may need to be transferred to facility where an ERCP can be performed. The treating emergency room physician has ordered a hepatitis panel to see if this is a potential cause of patient's elevated LFTs as he does not have any evidence of Marielle cystitis on ultrasound Would be reasonable to place patient on empiric antibiotics while hospitalized The patient does have a history of lower extremity DVT and has a subtherapeutic INR. Will be preferable to hold the patient's Coumadin until it is ascertained if you require any procedural intervention. The patient does require anticoagulation would recommend utilizing a heparin drip as this can be stopped in anticipation of any planned procedures At the present time the patient is normotensive without tachycardia or fever and is nontoxic-appearing. Additional recommendations will be forthcoming based on his clinical course as it unfolds History of Present Illness Reason for Consultation: Cholelithiasis History of Present Illness This is a 28-year-old male who presented to the emergency department secondary to abdominal pain. The patient says that he has been having off-and-on abdominal pain for approximately 1 and half to 2 weeks. He notes that sometimes the pain is exacerbated after eating but sometimes it is not. He notes that the pain is located in his upper abdomen in the epigastric and right upper quadrants. He has had some nausea and vomiting but denies any hematemesis. He notes that he has never had abdominal surgery before. He does not report any additional modifying factors to his pain. He notes that he has been having normal bowel movements. The patient does note that he has a history of DVT for which she takes Coumadin. It is noteworthy to mention that the patient had a recent hospitalization at [facility]. He was admitted from 08/23/2023 through 08/25/2023. During this admission the patient had episodes of nausea and vomiting for which patient was treated for presumed viral gastroenteritis. During this admission the patient was noted to have a subtherapeutic INR and due to his history of DVT he had lower extremity venous Dopplers which were negative for DVT at that time. Since arrival to the hospital patient has had labs and imaging which independent reviewed. CBC revealed white blood cell count, hemoglobin, hematocrit, platelet count are all within normal range. An INR was noted to be 1.4. Chemistry profile shows sodium is 131 with a normal potassium as well as a normal BUN and creatinine. Patient's LFTs were elevated with a total bilirubin of 2.8, AST and ALT of 370 and 323 respectively. His alkaline phosphatase was 251. Lipase was not elevated. It is noteworthy to mention that patient did have some slight elevation of his LFTs but the values noted on today's labs are worse. A urinalysis did show trace leukocyte Estrace and was positive for nitrites. There is no pyuria or bacteria on the study. A gallbladder ultrasound was performed that showed gallstones with no definite pericholecystic fluid or other signs of cholecystitis. There is no dilatation of the common bile duct. At the time of my interview the patient was resting comfortably in bed and he was pain-free. Allergies Allergy/AdvReac Type Severity Reaction Status Date / Time acetaminophen Allergy Intermediate RASH Verified 09/01/23 01:17 azithromycin [From Zithromax] Allergy Intermediate hives, IV Verified 09/01/23 01:17 form only bee venom protein (honey bee) Allergy Intermediate Localized Verified 09/01/23 01:17 swelling ibuprofen Allergy Intermediate RASH Verified 09/01/23 01:17 ketorolac Allergy Intermediate RASH Verified 09/01/23 01:17 tramadol Allergy Intermediate RASH Verified 09/01/23 01:17 gabapentin Allergy Unknown Unknown Verified 09/01/23 01:17 naproxen Allergy Unknown Unknown Verified 09/01/23 01:17 Home Medications Medication Instructions Recorded Confirmed Type Portable Oxygen E0431 #1 ea 09/09/22 02/10/23 Rx CPAP Machine #1 ea 03/31/23 Rx CPAP Supplies #1 ea 03/31/23 Rx fluticasone propionate 50 2 spray intranasal DAILY #16 grams 08/03/23 09/01/23 Rx mcg/actuation nasal spray,suspension folic acid 1 mg tablet 1 mg PO DAILY #90 tabs 08/03/23 09/01/23 Rx levothyroxine 88 mcg tablet 88 mcg PO DAILY #90 tabs 08/03/23 09/01/23 Rx pantoprazole 40 mg tablet,delayed 40 mg PO DAILY #90 tabs 08/03/23 09/01/23 Rx release propranolol 20 mg tablet 20 mg PO BID #180 tabs 08/03/23 09/01/23 Rx venlafaxine 37.5 mg tablet 37.5 mg PO DAILY #90 tabs 08/03/23 09/01/23 Rx lisinopril 10 1 tab PO DAILY #90 tabs 08/11/23 09/01/23 Rx mg-hydrochlorothiazide 12.5 mg tablet cholecalciferol (vitamin D3) 1,250 50,000 unit PO WK 08/23/23 09/01/23 History mcg (50,000 unit) capsule nystatin 100,000 unit/gram topical 1 applic topical BID PRN to rash 08/23/23 09/01/23 History powder under pannus/belly warfarin 5 mg tablet 5 mg PO DAILY #1 tab 08/25/23 09/01/23 Rx Patient History Medical History 2019 novel coronavirus-infected pneumonia (NCIP) Anemia Anticoagulated on warfarin Left leg DVT Acute respiratory failure due to COVID-19 Frequent headaches Hidradenitis suppurativa Drug abuse HTN (hypertension) Hypothyroid Lumbar back pain Mood disorder Asthma Migraine GERD (gastroesophageal reflux disease) Acne ADD (attention deficit disorder) Anxiety Depression Tachycardia (07/14/13) Lumbar strain Dental caries Abscess of back Surgical History H/O tympanostomy History of tonsillectomy and adenoidectomy Family History Father Alcohol abuse Drug abuse Mother Anxiety Bilateral nephrolithiasis Heart disease Depression Diabetes Hypertension Gallbladder disease Lung disease Cancer skin Grandfather Myocardial infarction Social History Smoking Status: Unknown if ever smoked Tobacco Type: Cigarettes Age Started Using Tobacco: 16; Age Quit Using Tobacco: 22; packs per day: 1; Second Hand Exposure: Yes; Do You Dip or Chew Tobacco: No; Hx Alcohol Use: Yes Alcohol type: hard liquor Alcohol Intake Frequency: Monthly or Less Alcohol Intake Frequency Comment: Rarely Hx Substance Use: No Preferred Language: Algerian Communication Ability: Effective Visual Impairment: No Limitations Hearing Ability: Normal Director Of Community Services Required: No Beliefs That Will Affect Care: None marital status: Single Current Living Situation: Alone current occupational status: unemployed Feels Safe at Home: Yes Childhood Exposure to Second-Hand Smoke: Yes Diet: regular Diet Comment: regular caffeine: Yes (tea occasional) during the past year weight has: remained stable Dental Care, Regularly: No Physical Activity Frequency: 1-2 Times per Week Seatbelt Use: never Sunscreen Use: No Assistive Devices: CPAP Review of Systems Constitutional: no fever and no chills Eyes: + corrective lenses Ear, Nose, Mouth, Throat: no hearing loss Respiratory: no cough and no dyspnea Cardiovascular: no chest pain Gastrointestinal: as per Subjective / HPI Genitourinary: no dysuria Musculoskeletal: no back pain Integumentary: no rash Neurologic: no localized weakness Physical Exam Constitutional: WD/WN, vitals as above + morbidly obese Eyes: + anicteric sclerae ENMT: Ears: no hearing impairment and no external ear abnormality No sublingual jaundice noted Neck: trachea midline Respiratory: normal respiratory effort; no respiratory distress and no labored breathing Breath sounds decreased slightly at the bases, likely secondary to due to body habitus Cardiovascular: Rate/Rhythm: regular rate and regular rhythm Gastrointestinal (Abdomen): Patient is noted to be morbidly obese. At the time of my exam his abdomen was soft and nonrigid. There is no tenderness to palpation at the time of my exam Musculoskeletal: No calf tenderness bilaterally Skin: no rashes Neurologic: moves all extremities Psychiatric: A+Ox3, euthymic affect Results & Data Vital Signs (Past 12 Hours) Vital Signs Temp Pulse Resp BP Pulse Ox O2 Del Method O2 Flow Rate 09/01/23 04:28 88 09/01/23 04:00 92 H 24 135/71 99 09/01/23 03:00 98 H 24 148/84 H 95 09/01/23 01:30 133/75 09/01/23 01:30 88 24 133/75 95 Nasal Cannula 2 09/01/23 01:02 85 22 96 Nasal Cannula 2 09/01/23 01:00 98 H 20 153/79 H 86 L Room Air 09/01/23 00:30 79 22 134/90 93 Room Air 09/01/23 00:19 87 09/01/23 00:00 77 22 94 Room Air 08/31/23 20:29 36.4 C L 96 H 19 101/79 100 Room Air PG Care Time/CCT Total # of Minutes Spent Total Time Spent with Patient: Total time spent is greater than 50% in coordination of care (as documented) at patient's floor/unit and/or counseling patient: Coding Level of Care Code 76863 IN/OBS CONSULT LVL 5,80M Diagnoses Cholelithiasis K80.20
--- NOTE | 2023-09-01 05:20 | History & Physical Report ---
Date of Service September 01, 2023 Assessment & Plan (1) Elevated LFTs: Plan: With gallstones. Ducts WNL on US. Possible transient obstructing stone? -Admit to medical -Repeat LFTs -Zosyn for now -Morphine PRN pain -Zofran PRN nausea -NPO -General Surgery appreciated -LR at 125mL/hr x 2L (2) History of DVT of lower extremity: Plan: On Coumadin. INR subtherapeutic at 1.4 -Hold Coumadin -Heparin gtt for now until surgical plan is finalized (3) KANDACE (obstructive sleep apnea): Plan: Chronic -Continue CPAP qHS History of Present Illness Chief Complaint: abdominal pain Primary Care Provider: DO Dario Jimenez is a pleasant 28yo male with history of GERD, DVT on Coumadin and morbid obesity presenting with abdominal pain. Recently hospitalized for [facility] - felt ok after discharge then the pain came back. severe, epigastric with nausea and multiple episodes of bilious, non-bloody vomiting, ALso with chills Pain has been persistent since this evening at 17:00 Allergies Allergy/AdvReac Type Severity Reaction Status Date / Time acetaminophen Allergy Intermediate RASH Verified 09/01/23 01:17 azithromycin [From Zithromax] Allergy Intermediate hives, IV Verified 09/01/23 01:17 form only bee venom protein (honey bee) Allergy Intermediate Localized Verified 09/01/23 01:17 swelling ibuprofen Allergy Intermediate RASH Verified 09/01/23 01:17 ketorolac Allergy Intermediate RASH Verified 09/01/23 01:17 tramadol Allergy Intermediate RASH Verified 09/01/23 01:17 gabapentin Allergy Unknown Unknown Verified 09/01/23 01:17 naproxen Allergy Unknown Unknown Verified 09/01/23 01:17 Home Medications Medication Instructions Recorded Confirmed Type Portable Oxygen E0431 #1 ea 09/09/22 02/10/23 Rx CPAP Machine #1 ea 03/31/23 Rx CPAP Supplies #1 ea 03/31/23 Rx fluticasone propionate 50 2 spray intranasal DAILY #16 grams 08/03/23 09/01/23 Rx mcg/actuation nasal spray,suspension folic acid 1 mg tablet 1 mg PO DAILY #90 tabs 08/03/23 09/01/23 Rx levothyroxine 88 mcg tablet 88 mcg PO DAILY #90 tabs 08/03/23 09/01/23 Rx pantoprazole 40 mg tablet,delayed 40 mg PO DAILY #90 tabs 08/03/23 09/01/23 Rx release propranolol 20 mg tablet 20 mg PO BID #180 tabs 08/03/23 09/01/23 Rx venlafaxine 37.5 mg tablet 37.5 mg PO DAILY #90 tabs 08/03/23 09/01/23 Rx lisinopril 10 1 tab PO DAILY #90 tabs 08/11/23 09/01/23 Rx mg-hydrochlorothiazide 12.5 mg tablet cholecalciferol (vitamin D3) 1,250 50,000 unit PO WK 08/23/23 09/01/23 History mcg (50,000 unit) capsule nystatin 100,000 unit/gram topical 1 applic topical BID PRN to rash 08/23/23 09/01/23 History powder under pannus/belly warfarin 5 mg tablet 5 mg PO DAILY #1 tab 08/25/23 09/01/23 Rx Past Med/Surg History Medical History 2019 novel coronavirus-infected pneumonia (NCIP) Anemia Anticoagulated on warfarin Left leg DVT Acute respiratory failure due to COVID-19 Frequent headaches Hidradenitis suppurativa Drug abuse HTN (hypertension) Hypothyroid Lumbar back pain Mood disorder Asthma Migraine GERD (gastroesophageal reflux disease) Acne ADD (attention deficit disorder) Anxiety Depression Tachycardia (07/14/13) Lumbar strain Dental caries Abscess of back Surgical History H/O tympanostomy History of tonsillectomy and adenoidectomy Family History Father Alcohol abuse Drug abuse Mother Anxiety Bilateral nephrolithiasis Heart disease Depression Diabetes Hypertension Gallbladder disease Lung disease Cancer skin Grandfather Myocardial infarction Social History Smoking Status: Unknown if ever smoked Tobacco Type: Cigarettes Age Started Using Tobacco: 16; Age Quit Using Tobacco: 22; packs per day: 1; Second Hand Exposure: Yes; Do You Dip or Chew Tobacco: No; Hx Alcohol Use: Yes Alcohol type: hard liquor Alcohol Intake Frequency: Monthly or Less Alcohol Intake Frequency Comment: Rarely Hx Substance Use: No Preferred Language: Kazakh Communication Ability: Effective Visual Impairment: No Limitations Hearing Ability: Normal Overlock Sleeve Setter Required: No Beliefs That Will Affect Care: None marital status: Single Current Living Situation: Alone current occupational status: unemployed Feels Safe at Home: Yes Childhood Exposure to Second-Hand Smoke: Yes Diet: regular Diet Comment: regular caffeine: Yes (tea occasional) during the past year weight has: remained stable Dental Care, Regularly: No Physical Activity Frequency: 1-2 Times per Week Seatbelt Use: never Sunscreen Use: No Assistive Devices: CPAP Review of Systems Review of Systems: All systems reviewed & are unremarkable except as noted in HPI & below Physical Exam Physical Exam: General: obese patient resting comfortably, NAD, non-toxic in appearance, AA&O x 4 Skin: warm, dry, intact, no rashes or lesions HEENT: NC/AT, PERRL, EOMI, anicteric sclera, conjunctiva without injection, external ear normal to inspection and nontender, nares patent, moist mucus membranes, dentition intact, no oropharyngeal lesions, neck supple, trachea midline, no LAD, no thyromegaly, no JVD Heart: +S1/S2, regular, no m/r/g Lungs: equal air entry bilaterally, no rales/rhonchi/wheezes Abd: +BS, soft, ND, tender in RUQ no masses/organomegaly/ascites Ext: warm, 2+ pulses in UE/LE bilaterally, no clubbing/cyanosis or edema Neuro: nonfocal, patient AA&O x 4, speech intact, no facial droop, moving all extremities on command with equal strength 5/5 Results & Data Results & Data Vital Signs (Past 12 Hours) Vital Signs Temp Pulse Resp BP Pulse Ox O2 Del Method O2 Flow Rate 09/01/23 04:28 88 09/01/23 04:00 92 H 24 135/71 99 09/01/23 03:00 98 H 24 148/84 H 95 09/01/23 01:30 133/75 09/01/23 01:30 88 24 133/75 95 Nasal Cannula 2 09/01/23 01:02 85 22 96 Nasal Cannula 2 09/01/23 01:00 98 H 20 153/79 H 86 L Room Air 09/01/23 00:30 79 22 134/90 93 Room Air 09/01/23 00:19 87 09/01/23 00:00 77 22 94 Room Air 08/31/23 20:29 36.4 C L 96 H 19 101/79 100 Room Air Laboratory Results Laboratory Results WBC 8.53 K/ul (4.8-10.8) 08/31/23 23:15 RBC 5.11 M/uL (4.70-6.10) 08/31/23 23:15 Hgb 15.2 g/dl (14.0-18.0) 08/31/23 23:15 Hct 47.5 % (42.0-52.0) 08/31/23 23:15 MCV 93.0 fL (80.0-100.0) 08/31/23 23:15 MCH 29.7 pg (25.0-34.0) 08/31/23 23:15 MCHC 32.0 g/dL (32.0-36.0) 08/31/23 23:15 RDW Std Deviation 46.5 fL (36.4-46.3) H 08/31/23 23:15 RDW Coeff of Flor 13.5 % (11.5-14.5) 08/31/23 23:15 Plt Count 264 K/uL (130-400) 08/31/23 23:15 MPV 10.3 fL (9.4-12.4) 08/31/23 23:15 Immature Gran % (Auto) 0.2 % 08/31/23 23:15 Neut % (Auto) 82.4 % 08/31/23 23:15 Lymph % (Auto) 8.6 % 08/31/23 23:15 [place] % (Auto) 8.0 % 08/31/23 23:15 Eos % (Auto) 0.4 % 08/31/23 23:15 Baso % (Auto) 0.4 % 08/31/23 23:15 Neut # (Auto) 7.04 K/uL (1.40-6.50) H 08/31/23 23:15 Lymph # (Auto) 0.73 K/uL (1.20-3.40) L 08/31/23 23:15 [place] # (Auto) 0.68 K/uL (0.11-0.59) H 08/31/23 23:15 Eos # (Auto) 0.03 K/uL (0.00-0.50) 08/31/23 23:15 Baso # (Auto) 0.03 K/uL (0.00-0.20) 08/31/23 23:15 Immature Gran # (Auto) 0.02 K/uL (0.01-0.20) 08/31/23 23:15 Platelet Estimate Normal (Normal) 08/31/23 23:15 PT 15.1 Seconds (9.0-12.0) H 08/31/23 23:15 INR 1.4 (0.9-1.1) H 08/31/23 23:15 APTT 27 Seconds (21-31) 08/31/23 23:15 PTT Ratio 1.0 08/31/23 23:15 Sodium 131 mmol/L (136-145) L 08/31/23 23:15 Potassium 4.3 mmol/L (3.5-5.1) 08/31/23 23:15 Chloride 98 mmol/L (98-107) 08/31/23 23:15 Carbon Dioxide 24 mmol/L (21-32) 08/31/23 23:15 Anion Gap 9 (3-11) 08/31/23 23:15 BUN 11 mg/dl (6-23) 08/31/23 23:15 Creatinine 0.69 mg/dl (0.6-1.4) 08/31/23 23:15 Est Cr Clr Drug Dosing Not Reportable 08/31/23 23:15 Est GFR ( Amer) 147.6 ml/min 08/31/23 23:15 Est GFR (Non-Af Amer) 127.4 ml/min 08/31/23 23:15 BUN/Creatinine Ratio 15.9 (10-20) 08/31/23 23:15 Glucose 132 mg/dl (70-99(Fasting)) H 08/31/23 23:15 Calcium 9.6 mg/dl (8.6-10.3) 08/31/23 23:15 Total Bilirubin 2.8 mg/dl (0.2-1.0) H 08/31/23 23:15 AST 370 U/L (13-39) H 08/31/23 23:15 ALT 323 U/L (7-52) H 08/31/23 23:15 Alkaline Phosphatase 251 U/L (34-104) H 08/31/23 23:15 Total Protein 8.7 gm/dl (6.0-8.3) H 08/31/23 23:15 Albumin 4.2 gm/dl (3.4-5.0) 08/31/23 23:15 Globulin 4.5 gm/dl (2.5-4.0) H 08/31/23 23:15 Albumin/Globulin Ratio 0.9 (0.9-2) 08/31/23 23:15 Lipase 12 U/L (11-82) 08/31/23 23:15 Urine Color Dark Yellow 08/31/23 20:58 Urine Appearance Clear (Clear) 08/31/23 20:58 Urine pH 5.5 (4.5-7.5) 08/31/23 20:58 Ur Specific [place] 1.026 (1.000-1.030) 08/31/23 20:58 Urine Protein 1+ (Negative) H 08/31/23 20:58 Urine Glucose (UA) Negative (Negative) 08/31/23 20:58 Urine Ketones Trace (Negative) H 08/31/23 20:58 Urine Blood Negative (Negative) 08/31/23 20:58 Urine Nitrite Positive (Negative) A 08/31/23 20:58 Urine Bilirubin 2+ (Negative) H 08/31/23 20:58 Urine Urobilinogen Negative (Negative) 08/31/23 20:58 Ur Leukocyte Esterase Trace (Negative) H 08/31/23 20:58 Urine WBC (Auto) 0-5 /hpf (0-5) 08/31/23 20:58 Urine RBC (Auto) 0-2 /hpf (0-2) 08/31/23 20:58 U Hyaline Cast (Auto) 3-5 /lpf (0-2) H 08/31/23 20:58 U Epithel Cells (Auto) 0-2 /hpf (0-2) 08/31/23 20:58 Urine Bacteria (Auto) None Seen (None Seen) 08/31/23 20:58 Impressions Gallbladder Ultrasound 08/31/23 23:52 Exam(s): US GALLBLADDER EXAM: US Abdomen Limited, Gallbladder CLINICAL HISTORY: epigastric pain. TECHNIQUE: Real-time ultrasound of the right upper quadrant with image documentation. COMPARISON: Ultrasound gallbladder 04/19/2011 FINDINGS: Limitations: Evaluation is limited by bowel gas pattern and patient body habitus. Liver: The liver is hyperechoic and enlarged measuring 20.1 cm in length. Gallbladder: Echogenic cholelithiasis noted in the gallbladder, measuring up to 13 mm. The gallbladder wall measures 2 mm. No definite pericholecystic fluid. Evaluation for sonographic Rivera sign is limited by reported patient medication status. Common bile duct: The common bile duct is within normal limits, measuring 5.6 mm. No stones. No dilation. Pancreas: The pancreas is not well delineated secondary to bowel gas pattern. Right kidney: Limited longitudinal imaging of the right kidney demonstrates no definite hydronephrosis. Evaluation is limited. Free fluid: No free fluid. IMPRESSION: 1. Limited by technical factors noted above. 2. Cholelithiasis. No definite associated sonographic findings to suggest acute cholecystitis. 3. No biliary dilatation. 4. Stable hepatic steatosis with hepatomegaly. Electronically signed by: Javier Cam MD 09/01/23 04:40 AM Code Status & VTE Plan VTE Prophylaxis Plan VTE Prophylaxis will be ordered: Yes PG Care Time/CCT Total # of Minutes Spent Total Time Spent with Patient: Total time spent is greater than 50% in coordination of care (as documented) at patient's floor/unit and/or counseling patient: Coding Level of Care Code 61181 INT INP/OBS CARE 2/55MIN Diagnoses Elevated LFTs R79.89 History of DVT of lower extremity Z86.718 KANDACE (obstructive sleep apnea) G47.33
[2023-09-01] MEDS ORDERED: MoRPHine SULFATE 4 MG/ML 1 ML CARP\\VIAL IV PRN (05:54)
[2023-09-01] MEDS ORDERED: ONDANSETRON INJ 2 MG/ML 2 ML VIAL IV PRN (05:54)
[2023-09-01] MEDS: PIPERACILLIN/TAZOBACTAM 4.5 GM/100 ML BAG IV STA (06:27)
[2023-09-01] MEDS: HEPARIN SOD (PORCINE) 1000 UNIT/ML IV ONE (07:38)
[2023-09-01] MEDS: HEPARIN SODIUM/DEXTROSE 25,000 UNITS/500 ML BAG IV SCH (07:50)
[2023-09-01] MEDS: Heparin IV Adult Wt-Based Standard w/ INITIAL Bolus Protocol IV STA (07:53)
[2023-09-01] MEDS: LACTATED RINGER'S 1,000 ML IV SCH (07:55)
--- NOTE | 2023-09-01 08:02 | XRay Report ---
XR chest 2V PA/lateral HISTORY: N/V, recent pneumonia COMPARISON: Chest 08/23/2023. FINDINGS: No pneumothorax. No pleural effusions. The cardiac silhouette remains mildly enlarged. Ther e is mild central pulmonary vascular congestion without edema. This has improved. No focal lung conso lidations to suggest a pneumonia. No evidence for pulmonary edema. IMPRESSION: Cardiomegaly and mild congestive change. This has improved in the interval. ACT 112: Negative or not required by law. Electronically signed by: Rui Colunga M.D. 09/01/2023 8:00 AM
[2023-09-01] MEDS: LEVOTHYROXINE SODIUM 88 MCG TABLET PO SCH (09:31)
[2023-09-01] MEDS: FOLIC ACID 1 MG TAB PO SCH (09:32)
[2023-09-01] MEDS: VENLAFAXINE HCL 37.5 MG TAB PO SCH (09:32)
[2023-09-01] MEDS: PANTOprazole 40 MG TAB PO SCH (09:32)
[2023-09-01] MEDS: PROPRANOLOL HCL 20 MG TAB PO SCH (09:32)
[2023-09-01] MEDS: FLUTICASONE PROPIONATE NA SPR 16 GM BTL NAE SCH (09:32)
[2023-09-01] MEDS: PIPERACILLIN/TAZOBACTAM 4.5 GM in DEXTROSE 5% MINI-B 100 ML IV SCH (13:09)
[2023-09-01 15:09] LABS: Influenza A virus by PCR Negative (Neg); Influenza B virus by PCR Negative (Neg); RSV by PCR Negative (Neg); SARS CoV2 RNA(COVID-19) Ceph NEGATIVE (Negative)
[2023-09-01 15:15] LABS: ANTI-Xa, UFH(UnfractionatedHep 0.28 IU/ml (0.3-0.7)
--- NOTE | 2023-09-01 15:47 | Electrocardiogram Report ---
Test Reason : Blood Pressure : / mmHG Vent. Rate : 075 BPM Atrial Rate : 075 BPM P-R Int : 174 ms QRS Dur : 102 ms QT Int : 386 ms P-R-T Axes : 029 033 003 degrees QTc Int : 431 ms Normal sinus rhythm RSR' or QR pattern in V1 suggests right ventricular conduction delay Nonspecific ST abnormality Abnormal ECG When compared with ECG of 22-AUG-2023 23:32, No significant change was found Confirmed by David Robert ([id number]) on 09/01/2023 3:46:35 PM Referred By: REFERRED SELF Confirmed By:David Robert
--- NOTE | 2023-09-01 18:04 | Discharge Summary ---
Date of Service September 01, 2023 Admission HPI Per Admitting Provider Dario Fan is a pleasant 28yo male with history of GERD, DVT on Coumadin and morbid obesity presenting with abdominal pain. Recently hospitalized for similar - felt ok after discharge then the pain came back. severe, epigastric with nausea and multiple episodes of bilious, non-bloody vomiting, ALso with chills Pain has been persistent since this evening at 17:00 Admission Exam Per Admitting Provider General: obese patient resting comfortably, NAD, non-toxic in appearance, AA&O x 4 Skin: warm, dry, intact, no rashes or lesions HEENT: NC/AT, PERRL, EOMI, anicteric sclera, conjunctiva without injection, external ear normal to inspection and nontender, nares patent, moist mucus membranes, dentition intact, no oropharyngeal lesions, neck supple, trachea midline, no LAD, no thyromegaly, no JVD Heart: +S1/S2, regular, no m/r/g Lungs: equal air entry bilaterally, no rales/rhonchi/wheezes Abd: +BS, soft, ND, tender in RUQ no masses/organomegaly/ascites Ext: warm, 2+ pulses in UE/LE bilaterally, no clubbing/cyanosis or edema Neuro: nonfocal, patient AA&O x 4, speech intact, no facial droop, moving all extremities on command with equal strength 5/5 Principal Diagnosis Likely choledocholithiasis, requiring ERCP Cholelithiasis Possible acute cholecystitis Morbid obesity Discharge Exam General: Awake, conversant, morbidly obese Heart: S1, S2/regular rate and rhythm, no murmur rubs or gallops Lungs: Clear to auscultation bilaterally. Normal effort Abdomen: Soft/nondistended. Mild tenderness to palpation in epigastrium and right upper quadrant with no rebound, rigidity or guarding. No hepatosplenomegaly Extremities: No clubbing/cyanosis. No edema Behavior: Appropriate, cooperative Discharge Data Allergies Allergy/AdvReac Type Severity Reaction Status Date / Time acetaminophen Allergy Intermediate RASH Verified 09/01/23 01:17 azithromycin [From Zithromax] Allergy Intermediate hives, IV Verified 09/01/23 0 1:17 form only bee venom protein (honey bee) Allergy Intermediate Localized Verified 09/01/23 01:17 swelling ibuprofen Allergy Intermediate RASH Verified 09/01/23 01:17 ketorolac Allergy Intermediate RASH Verified 09/01/23 01:17 tramadol Allergy Intermediate RASH Verified 09/01/23 01:17 gabapentin Allergy Unknown Unknown Verified 09/01/23 01:17 naproxen Allergy Unknown Unknown Verified 09/01/23 01:17 Consultations 09/01/23 04:41 Consult General Surgery Stat Ordered Studies 08/31/23 23:52 US gallbladder Stat Hospital Course (1) Elevated LFTs: With gallstones. Ducts WNL on US. Possible transient obstructing stone? -Zosyn for now -Morphine PRN pain -Zofran PRN nausea General surgery consulted who recommend transfer to tertiary care center for ERCP for potential choledocholithiasis. Also patient will need bariatric surgery backup for cholecystectomy Spoke to Dr. Bruce Frederick at [facility] who accepted the patient in transfer. Awaiting bed availability and transportation. (2) History of DVT of lower extremity: On Coumadin. INR subtherapeutic at 1.4 -Hold Coumadin -Heparin gtt for now until surgical plan is finalized (3) KANDACE (obstructive sleep apnea): Chronic -Continue CPAP qHS Plan Transfer to [facility] Total Time Total Time Spent Total Time Spent (In Minutes): 35 Discharge Plan Discharge Items Patient Disposition: Transfer Acute Care Hospital Reason For Visit: ABDOMINAL PAIN Discharge Diagnosis: Likely choledocholithiasis, requiring ERCP Cholelithiasis Possible acute cholecystitis Morbid obesity Activity: As commented below Activity Comment: Bedrest Non-emergency contact: Primary Care Provider Call non-emergency contact if: you have any medication questions and your symptoms worsen Follow-up/Referrals: Shirley Archer DO [Primary Care Provider] - Diet: Other - See Diet Comment Diet Comment: N.p.o. Addtl Attending Provider Instructions: Advised to note that you are being discharged to [facility] for escalation of care. You will need an ERCP and may need bariatric surgery backup for cholecystectomy Pending Studies at Discharge: No Stand-Alone Forms: [facility] YPlan Skilled Items Patient informed of condition?: Yes DNR: No Discharge Level of Care: Other Communicable Disease: No Discharge Prognosis: Stable Lines: Peripheral IV Urinary Catheter: No Medications and DC Order Prescriptions: Continued (DME) CPAP Supplies Misc See Rx Instructions .MEDSUPPLY Qty: 1 0RF Rx Instructions: CPAP supplies, mask, headgear, filters, tubing, water chamber. G47.33 (DME) CPAP Machine Mis See Rx Instructions .MEDSUPPLY Qty: 1 0RF Rx Instructions: CPAP with 12 cm H20 pressure. G47.33 fluticasone propionate 50 mcg/actuation spray,suspension 2 spray intranasal DAILY Qty: 16 2RF Rx Instructions: administer into each nostril folic acid 1 mg tablet 1 mg PO DAILY Qty: 90 1RF levothyroxine 88 mcg tablet 88 mcg PO DAILY Qty: 90 3RF pantoprazole 40 mg tablet,delayed release (DR/EC) 40 mg PO DAILY Qty: 90 3RF propranolol 20 mg tablet 20 mg PO BID Qty: 180 1RF venlafaxine 37.5 mg tablet 37.5 mg PO DAILY Qty: 90 3RF (DME) Portable Oxygen [id number] [facility] See Rx Instructions .MEDSUPPLY Qty: 1 0RF Rx Instructions: Oxygen 2 liters continuous via nasal cannula on exertion with portable concentrator. LIDA 99 nystatin 100,000 unit/gram powder 1 applic topical BID PRN (Reason: to rash under pannus/belly) cholecalciferol (vitamin D3) 1,250 mcg (50,000 unit) capsule 50,000 unit PO WK Held lisinopril-hydrochlorothiazide 10-12.5 mg tablet 1 tab PO DAILY Qty: 90 3RF Hold Instructions: Resume on 09/08/23. Held until surgery completed warfarin 5 mg tablet 5 mg PO DAILY Qty: 1 0RF Hold Instructions: Resume on 09/08/23. Held until surgery completed Discharge Orders: Discharge Order (Routine); Ordered 09/01/23 Ordered By: Elvira Mayfield Admission Data Admit Date/Time: 09/01/23 05:20 Attending Provider: Elvira Mayfield Admit Provider: Emani Esqueda Primary Care Provider: Shirley Archer Other Providers: Karla Lawrence Coding Level of Care Code 60224 INP/OBS DISCH >30 MIN Diagnoses Elevated LFTs R79.89 History of DVT of lower extremity Z86.718 KANDACE (obstructive sleep apnea) G47.33
[2023-09-01] MEDS ORDERED: Nursing to Pharmacy Communication SCH (19:00)
[2023-09-01] MEDS: MoRPHine SULFATE 2 MG/ML CARP IV PRN (22:47)
[2023-09-01 23:48] LABS: ANTI-Xa, UFH(UnfractionatedHep 0.43 IU/ml (0.3-0.7)
[2023-09-02 04:25] VITALS: RESP 18
[2023-09-02 07:06] VITALS: BP 143/78; PULSE 76; TEMP 97.7; O2SAT 92
[2023-09-02 08:05] LABS: Hematocrit (blood only) 42.3 % (42.0-52.0); Mean Corpuscular Hemoglobin 29.5 pg (25.0-34.0); Mean Corpuscular Hgb Conc 30.7 g/dL (32.0-36.0); Mean Corpuscular Volume 96.1 fL (80.0-100.0); Platelet Count 209 K/uL (130-400); RDW Standard Deviation 50.1 fL (36.4-46.3); White Blood Count 4.02 K/ul (4.8-10.8)
[2023-09-02 08:08] LABS: ANTI-Xa, UFH(UnfractionatedHep 0.56 IU/ml (0.3-0.7); INR 1.6 (0.9-1.1); Prothrombin Time 17.5 Seconds (9.0-12.0)
[2023-09-02 08:19] LABS: Albumin Level 3.5 gm/dl (3.4-5.0); BUN Creatinine Ratio 9.5 (10-20); Bilirubin Direct 0.5 mg/dl (0-0.2); Bilirubin,Total 1.5 mg/dl (0.2-1.0); Calcium 8.5 mg/dl (8.6-10.3); Creatinine Clr Calc Pharmacy 295.1 ml/min; Est GFR (African American) 143.5 ml/min; Est GFR (Non-African American) 123.8 ml/min; Potassium 3.9 mmol/L (3.5-5.1)
--- NOTE | 2023-09-02 11:08 | Surgery Progress Note ---
Date of Service September 02, 2023 Assessment & Plan (1) Cholelithiasis: Plan: Pt reports feeling well, mild nausea that is resolved, possibly 2/2 hunger? currently denies pain RUQ US yesterday was limited but shows + cholelithiasis and no reports of biliary ductal dilation or acute cholecystitis Was on list for transfer for abdominal pain, given weight, and elevated LFTs as we no longer have ERCP services Currently labs show WBC4, tb 1.5, AST 277, ALT 406, AlkP 195. they are downtrending but remain elevated If bed available today may continue w/ transfer, otherwise if he remains in house can continue to trend his LFTs daily and if they continue to come down it is possible he passed a stone and [facility] another center better equipped to handle his case as an outpt for consideration of cholecystectomy [facility] surgery covering wknd if questions/concerns Admission and Anticipated Discharge Date Admission Date: September 01, 2023 Subjective Pt reports feeling okay. Said he felt some "mild" nausea that resolved on its own, he believes seems more related to hunger than anything. He currently denies any pain or other issues. Physical Exam Physical Exam: awake/alert, no distress Gastrointestinal (Abdomen): Inspection/Auscultation: abdomen not distended Percussion/Palpation: abdomen soft; abdomen nontender Results & Data Vital Signs (Past 12 Hours) Vital Signs Temp Pulse Pulse Pulse Resp BP Pulse Ox 09/02/23 07:04 97.7 F 76 18 143/78 H 92 09/02/23 04:23 69 18 99 09/01/23 23:54 97.9 F 69 87 16 133/78 94 O2 Del Method 09/02/23 07:04 CPAP 09/02/23 04:23 09/01/23 23:54 PG Care Time/CCT Total # of Minutes Spent Total Time Spent with Patient: Total time spent is greater than 50% in coordination of care (as documented) at patient's floor/unit and/or counseling patient: Coding Level of Care Code 41222 SUB INP/OBS CARE 06/02MIN Diagnoses Cholelithiasis K80.20
[2023-09-02 11:17] LABS: HBSAG NON-REACTIVE (NON-REACTIVE); Hepatitis A Antibody IgM NON-REACTIVE (NON-REACTIVE); Hepatitis B Core Antibody IgM NON-REACTIVE (NON-REACTIVE)
[2023-09-02] MEDS: SODIUM CHLORIDE 0.9% 1,000 ML IV SCH (11:59)
== END 2023-09-02 13:10 | disposition short-term general hospital (02) | DRG 445 ==
LOC: ED 20:20 → EDINP 09-01 05:20 → SUATTDRO 09-01 05:20 → 3N 09-01 15:52
DX: Z86.16 Personal history of COVID-19; Z79.890 Hormone replacement therapy; Z79.899 Other long term (current) drug therapy; Z79.01 Long term (current) use of anticoagulants; Z68.45 Body mass index [BMI] 70 or greater, adult; Z11.52 Encounter for screening for COVID-19; Z86.718 Personal history of other venous thrombosis and embolism; E66.01 Morbid (severe) obesity due to excess calories; Z78.1 Physical restraint status; K21.9 Gastro-esophageal reflux disease without esophagitis; G47.33 Obstructive sleep apnea (adult) (pediatric); K80.42 Calculus of bile duct with acute cholecystitis without obstruction; Z88.5 Allergy status to narcotic agent; Z88.6 Allergy status to analgesic agent